=== PATIENT | female | born 1940 | race Caucasian/White ===

== ENCOUNTER 2019-04-30 17:04 | Emergency (ER) | payer MEDICARE, BC ==
--- NOTE | 2019-04-30 17:38 | ED ---
Syncope/Near Syncope - HPI Summary HPI Summary: Pt is a 78 y/o F brought in by EMS to [facility] for a syncopal episode at home after dialysis earlier today. Pt states that she was getting out of her car when she returned home and eventually was unable to. Her family then called EMS. The pt usually runs a low BP at home after dialysis per family. She reports feeling itchy and having leg pains and spine pains which are rated an 8/ 10 in severity. She denies feeling confused or disoriented at all. She also denies any fever, CP, SOB, cough, diaphoresis, abdominal pain, N/V/D, and headaches. She states no alleviating symptoms. Pt has Eliquis for AFIB and has a Hx of liver disease. She visited the wound care center in [place] for her lacerations on her L lower extremity. Upon arrival to the ED her BP is 98/43. - History Of Current Complaint Chief Complaint: EDAltMentalStatus Time Seen by Provider: 04/30/19 17:10 Hx Obtained From: Patient Onset/Duration: Sudden Onset, Lasting Hours, Resolved Timing: Constant Context: Witnessed - by family Activity At Onset: Other - getting out of a car Associated Head Trauma: No Aggravating Factor(s): Other - dialysis Alleviating Factor(s): Nothing Associated Signs And Symptoms: Negative - fever, CP, SOB, cough, diaphoresis, abdominal pain, N/V/D, and headaches, Other - POSITIVE: leg pain, spinal pain, itchyness - Allergies/Home Medications Allergies/Adverse Reactions: Allergies Allergy/AdvReac Type Severity Reaction Status Date / Time No Known Allergies Allergy Verified 04/30/19 17:44 Home Medications: Home Medications Allopurinol TAB* [Zyloprim 300 MG TAB*] 300 mg PO DAILY 04/30/19 [History Confirmed 04/30/19] Apixaban* [Eliquis*] 5 mg PO BID 04/30/19 [History Confirmed 04/30/19] Calcium Acetate CAP* [Phoslo CAP*] 667 mg PO TID 04/30/19 [History Confirmed ] Digoxin TAB* [Lanoxin TAB*] 0.125 mg PO DAILY 04/30/19 [History Confirmed ] Esomeprazole Magnesium [Nexium 24Hr] 20 mg PO DAILY 04/30/19 [History Confirmed 04/30/19] Gabapentin [Neurontin] 100 mg PO BEDTIME 04/30/19 [History Confirmed 04/30/19] Lactulose 15 ml PO TID 04/30/19 [History Confirmed 04/30/19] Metoprolol Tartrate 25 mg PO BID 04/30/19 [History Confirmed 04/30/19] Midodrine 10 mg PO TID 04/30/19 [History Confirmed 04/30/19] Primidone TAB(*) [Mysoline TAB(*)] 50 mg PO DAILY 04/30/19 [History Confirmed ] PMH/Surg Hx/FS Hx/Imm Hx Previously Healthy: No Cardiovascular History: Reports: Hx Atrial Fibrillation GI History: Reports: Other GI Disorders - Liver disease History: Reports: Hx Dialysis Infectious Disease History: Denies: Traveled Outside the [place] in Last 30 Days - Family History Known Family History: Positive: Cardiac Disease - father of a NV at 55 - Social History Alcohol Use: None Hx Substance Use: No Hx Tobacco Use: No Review of Systems Negative: Fever, Skin Diaphoresis Negative: Chest Pain Negative: Shortness Of Breath, Cough Negative: Abdominal Pain, Vomiting, Diarrhea, Nausea Positive: Other - leg pain, spinal pain, itchyness Positive: Syncope. Negative: Headache All Other Systems Reviewed And Are Negative: Yes Physical Exam - Summary Physical Exam Summary: Appearance: Chronically ill appearing elderly woman, Well-nourished, lying in bed comfortably Skin: Multiple ecchymosis over her legs and torso up to the neck Eyes: sclera anicteric, no conjunctival pallor ENT: mucous membranes moist, pharynx appears normal Neck: Supple, nontender Respiratory: Clear to auscultation, no signs of respiratory distress Cardiovascular: Normal S1, S2. No murmurs. Normal distal pulses in tibial and radial bilaterally. Abdomen: Soft, nontender, normal active bowel sounds present Musculoskeletal: Normal, Strength/ROM Intact, Neurological: A&Ox3, awake and alert, mentation is normal, speech is fluent and appropriate, told to be confused from EMS but is able to answer all questions accurately Psychiatric: affect is normal, does not appear anxious or depressed, Awake and alert Triage Information Reviewed: Yes Vital Signs On Initial Exam: Initial Vitals Temp Pulse Resp BP Pulse Ox 98.3 F 61 15 172/142 100 04/30/19 17:13 06/20/19 17:13 04/30/19 17:13 04/30/19 17:13 04/30/19 17:13 Vital Signs Reviewed: Yes Diagnostics - Vital Signs Vital Signs Temp Pulse Resp BP Pulse Ox 04/30/19 17:13 98.3 F 61 15 172/142 100 - Laboratory Result Diagrams: 04/30/19 17:56 04/30/19 17:56 Lab Statement: Any lab studies that have been ordered have been reviewed, and results considered in the medical decision making process. - Radiology CXR Radiology Interpretation Completed By: Radiologist Summary of Radiographic Findings: No acute diseases. Pending offical review. - EKG 1730 Cardiac Rate: NL - 60 BPM Summary of EKG Findings: Ventricular-paced rhythm at 60 BPM. No further analysis attempted due to paced rhythm. Interpreted by Dr. Renteria at 04/30/19 [id number]. Re-Evaluation - Re-Evaluation First Eval Re-Evaluation Time: 19:32 Change: Improved Comment: Pt's family was made aware of her lab results and CXR. Course/Dx Course Of Treatment: Pt is a 78 y/o F brought in by EMS to [facility] for a syncopal episode at home after dialysis earlier today. Pt states that she was getting out of her car when she returned home and eventually was unable to. Her family then called EMS. The pt usually runs a low BP at home after dialysis per family. Upon arrival to the ED her BP is 98/43. Her Pe shows that she is a chronically ill appearing elderly woman, has multiple ecchymosis over her legs and torso up to the neck, she is A&Ox3, and told to be confused from EMS but is able to answer all questions accurately. Her EKG shows Ventricular-paced rhythm at 60 BPM. No further analysis attempted due to paced rhythm. She had abnormal lab values in Creatinine, Chloride, BUN/Creatinine Ratio, Calcium, Alkaline Phosphatase, and a Troponin of .14. Her CXR shows no acute diseases. Pt will be discharged with a Dx of Hypotension. - Diagnoses Provider Diagnoses: Hypotension Discharge - Sign-Out/Discharge Documenting (check all that apply): Patient Departure Patient Received Moderate/Deep Sedation with Procedure: No - Discharge Plan Condition: Good Disposition: HOME Patient Education Materials: Hypotension (ED) Referrals: Everette Cazares MD [Primary Care Provider] - 3 Days (if needed) Additional Instructions: Your BP seems to have rebounded nicely and the tests we ran today did not show any sign of the ammonia rising or any other acute problem. - Billing Disposition and Condition Condition: GOOD Disposition: Home - Attestation Statements Document Initiated by Ricardo: Yes Documenting Scribe: Fabián Ingram Provider For Whom Ricardo is Documenting (Include Credential): Anthony Renteria MD Scribe Attestation: I, Fabián Ingram, scribed for Anthony Renteria MD on 05/02/19 at 0455. Scribe Documentation Reviewed: Yes Provider Attestation: The documentation as recorded by the Fabián pickens accurately reflects the service I personally performed and the decisions made by me, Anthony Renteria MD Status of Scribe Document: Viewed
[2019-04-30 18:05] LABS: ABS Basophils 0.1 10^3/ul (0-0.2); ABS Eosinophils 0.6 10^3/ul (0-0.6); ABS Lymphocytes 2.2 10^3/ul (1.0-4.8); ABS Monocytes 1.2 10^3/ul (0-0.8); ABS Neutrophils 5.7 10^3/ul (1.5-7.7); Eosinophil % 6.4 %; Hematocrit 39 % (35-47); Lymphocyte % 22.3 %; Mean Corpuscular HGB Conc 34 g/dL (31-36); Mean Corpuscular Hemoglobin 34 pg (27-31); Mean Corpuscular Volume 101 fL (80-97); Mean Platelet Volume 8.5 fL (7.4-10.4); Nucleated Red Blood Cells % 0.1; Platelet Count 158 10^3/uL (150-450); Red Blood Count 3.82 10^6 /uL (3.70-4.87); Red Cell Distribution Width 16 % (10-15); White Blood Count 9.8 10^3/uL (3.5-10.8)
[2019-04-30 18:25] LABS: ALT 10 U/L (7-52); AST 22 U/L (13-39); Albumin/Globulin Ratio 1.2 (1-3); Alkaline Phosphatase 182 U/L (34-104); Anion Gap 11 mmol/L (2-11); BUN/Creatinine Ratio 5.2 (8-20); Blood Urea Nitrogen 15 mg/dL (6-24); CO2 Carbon Dioxide 27 mmol/L (22-32); Calcium 7.9 mg/dL (8.6-10.3); Chloride 96 mmol/L (101-111); EGFR African American 19.3 (>60); EGFR Non-African American 15.9 (>60); Globulin 2.5 g/dL (2-4); Glucose 110 mg/dL (70-100); Potassium 4.2 mmol/L (3.5-5.0); Sodium 134 mmol/L (135-145); Total Protein 5.5 g/dL (6.4-8.9)
[2019-04-30 18:43] LABS: Troponin I 0.14 ng/mL (<0.04)
[2019-04-30 18:50] LABS: TSH (Thyroid Stimulating Horm) 2.71 mcIU/mL (0.34-5.60)
[2019-04-30 20:52] VITALS: BP 94/50
== END 2019-04-30 20:15 | disposition home or self-care (01) ==
LOC: ED 17:04
DX: I95.9 Hypotension, unspecified (principal); I48.91 Unspecified atrial fibrillation; Z79.01 Long term (current) use of anticoagulants; Z79.899 Other long term (current) drug therapy; N18.6 End stage renal disease; Z99.2 Dependence on renal dialysis
CPT/HCPCS: 36415; 71046; 80053; 82140; 83735; 84443; 84484; 85025; 93005; 99284

== ENCOUNTER 2019-05-14 15:47 | Inpatient (IN) | payer MEDICARE, BC ==
--- OUTSIDE RECORDS SUMMARY | 2019-05-14 17:04 | XMS REPORT | Continuity of Care Document ---
:1940 External Reference #:[id number] Author Name Dirk Maier, OD Address [address] [place] [address] Care Team Providers Name Role Phone Everette Cazares MD Care Team Information Reconciliation Clerk Unavailable Debora VIGIL, Everette Primary Care Physician Unavailable Payers Date Identification Numbers Payment Provider Subscriber Policy Number: [id number] Medicare [place]manza PayID: [id number] [address] [place] [address] Policy Number: [id number] [place] Urmila Almanza PayID: [id number] [address] [address] [place] [address] Family History Date Family Member(s) Observation Comments General Age-Related Macular Degeneration General Glasses Father Glasses Father due to Heart Attack () Mother Glasses Mother due to Natural Causes () Social History Type Date Description Comments Sex Unknown Allergies, Adverse Reactions, Alerts Active Allergies Reaction Severity Comments Date Codeine 05/12/2019 Medications Active Medications SIG Qnty Indications Ordering Provider Date Digoxin Unknown 125mcg Tablets Eliquis Unknown 2.5mg Tablets Gabapentin Unknown 100mg Capsules Metoprolol Succinate ER Unknown 25mg Tablets ER 24HR Sevelamer HCL Unknown 800mg Tablets Calcium Acetate Unknown 668(169Ca) mg Tablets Lactulose TK 15 ML PO tid Unknown 10GM/15ML Solution Vital Signs Date Vital Result Comment 05/12/2019 9:18am Intraocular Pressure Right Eye 12 mmHg Intraocular Pressure Left Eye 12 mmHg Procedures Date Code Description Status 05/12/2019 51280 Eye Exam New Comprehensive Completed
--- NOTE | 2019-05-14 18:08 | ED ---
Lower Extremity - HPI Summary HPI Summary: The patient is a 78 y/o F presenting to [facility] with a chief complaint of three wounds on the lower extremities that she is concerned for infection over the last two months. She reports that she has been seeing the wound center since onset, but her legs are becoming more painful and the tissue seems to be worsening. The LLE has two wounds with one wound that has necrotic and erythematous tissue. The RLE has a wound that does not seem infected as it is healing well. She states that she has been following instructions well, but the symptoms are persisting. She states she is unable to bear the pain, which is rated 6/10 in severity. She denies fevers and chills. There are no other complaints at this time. Hx of Afib with pacemaker placement. FHx of cardiac disease with VT in father at age 55. Nonsmoker, no EtOH, no substance use. - History of Current Complaint Chief Complaint: EDExtremityLower Stated Complaint: LT LEG WOUND PER PT Time Seen by Provider: 05/14/19 17:41 Hx Obtained From: Patient Mechanism Of Injury: Other - infected wounds Onset of Pain: Days Onset/Duration: Still Present - two months Severity Initially: Mild Severity Currently: Moderate Pain Intensity: 6 Pain Scale Used: 0-10 Numeric Timing: Lasting Weeks Location: Other - three wounds on lower extremities Associated Signs And Symptoms: Positive: Redness, Other - POSITIVE: necrotic tissue in one wound on LLE, healing wound on RLE; NEGATIVE: chills. Negative: Fever Aggravating Factor(s): Nothing Alleviating Factor(s): Nothing - wound care is being followed but symptoms persist - Allergies/Home Medications Allergies/Adverse Reactions: Allergies Allergy/AdvReac Type Severity Reaction Status Date / Time No Known Allergies Allergy Verified 04/30/19 17:44 Home Medications: Home Medications Loteprednol 0.5% OPH.SUSP(NF) [Lotemax 0.5% OPH.SUSP (NF)] 1 drop BOTH EYES TID 05/14/19 [History Confirmed 05/14/19] Sevelamer TAB* [Renvela TAB*] 800 mg PO BID 05/14/19 [History Confirmed 05/14/19 ] Sodium Chloride 5% OPTH.RICHIE* [Vaishnavi 128 Opth 5% OPTH.SOLl*] 1 drop BOTH EYES TID 05/14/19 [History Confirmed 05/14/19] PMH/Surg Hx/FS Hx/Imm Hx Endocrine/Hematology History: Denies: Hx Diabetes Cardiovascular History: Reports: Hx Atrial Fibrillation Denies: Hx Hypercholesterolemia, Hx Hypertension GI History: Reports: Other GI Disorders - Liver disease History: Reports: Hx Dialysis - Surgical History Surgical History: Yes Surgery Procedure, Year, and Place: pacemaker Infectious Disease History: No Infectious Disease History: Denies: Traveled Outside the [place] in Last 30 Days - Family History Known Family History: Positive: Cardiac Disease - father of a VT at 55 - Social History Alcohol Use: None Hx Substance Use: No Substance Use Type: Reports: None Hx Tobacco Use: No Smoking Status (MU): Never Smoked Tobacco Do You Chew or Dip Tobacco: No Have You Chewed or Dipped Tobacco in the LAST YEAR: No Have You Smoked in the Last Year: No Review of Systems Negative: Fever, Chills Positive: Other - two wounds on the LLE with one that is more painful with necrotic and erythematous tissue, a wound on the RLE All Other Systems Reviewed And Are Negative: Yes Physical Exam - Summary Physical Exam Summary: VITAL SIGNS: Reviewed. GENERAL: Patient is a well-developed and nourished female who is lying comfortable in the stretcher. Patient is not in any acute respiratory distress. HEAD AND FACE: No signs of trauma. No ecchymosis, hematomas or skull depressions. No sinus tenderness. EYES: PERRLA, EOMI x 2, No injected conjunctiva, no nystagmus. EARS: Hearing grossly intact. Ear canals and tympanic membranes are within normal limits. MOUTH: Oropharynx within normal limits. NECK: Supple, trachea is midline, no adenopathy, no JVD, no carotid bruit, no c- spine tenderness, neck with full ROM. CHEST: Symmetric, no tenderness at palpation. LUNGS: Clear to auscultation bilaterally. No wheezing or crackles. CVS: Regular rate and rhythm, S1 and S2 present, no murmurs or gallops appreciated. ABDOMEN: Soft, non-tender. No signs of distention. No rebound, no guarding, and no masses palpated. Bowel sounds are normal. EXTREMITIES: FROM in all major joints, no edema, no cyanosis or clubbing. NEURO: Alert and oriented x 3. No acute neurological deficits. Speech is normal and follows commands. SKIN: Three wounds on the lower extremities, one with necrotic tissue and yellowish discharge. Dry and warm. Triage Information Reviewed: Yes Vital Signs On Initial Exam: Initial Vitals Temp Pulse Resp BP Pulse Ox 98.7 F 60 16 89/35 93 05/14/19 16:00 05/14/19 16:00 05/14/19 16:00 05/14/19 16:00 05/14/19 16:00 Vital Signs Reviewed: Yes Diagnostics - Vital Signs Vital Signs Temp Pulse Resp BP Pulse Ox 05/14/19 16:00 98.7 F 60 16 89/35 93 - Laboratory Result Diagrams: 05/14/19 19:39 05/14/19 19:39 Lab Statement: Any lab studies that have been ordered have been reviewed, and results considered in the medical decision making process. Re-Evaluation - Re-Evaluation First Eval Re-Evaluation Time: 20:45 Comment: I discussed results and plan for admission with the patient. Lower Extremity Course/Dx - Course Assessment/Plan: The patient is a 78 y/o F presenting to [facility] with a chief complaint of three wounds on the lower extremities that she is concerned for infection over the last two months. She reports that she has been seeing the wound center since onset, but her legs are becoming more painful and the tissue seems to be worsening. The LLE has two wounds with one wound that has necrotic and erythematous tissue. The RLE has a wound that does not seem infected as it is healing well. She states that she has been following instructions well, but the symptoms are persisting. She states she is unable to bear the pain, which is rated 6/10 in severity. She denies fevers and chills. There are no other complaints at this time. Hx of Afib with pacemaker placement. FHx of cardiac disease with VT in father at age 55. Nonsmoker, no EtOH, no substance use. Blood test results without any significant abnormality except for WBCs of 14, hemoglobin of 12.3, hematocrit of 37, platelets of 184, increased absolute neutrophils of 9.8, potassium of 2.8, chloride of 97, creatinine of 3.83, glucose of 142, lactic acid of 2.7, CRP of 71.5, and total protein of 5.5. In the ED course, we did send for cultures of the wounds in the legs. The patient was started on vancomycin and cefepime for her skin infection. At this point I discussed my physical exam findings and test results with and Dr. Hurst from the hospital services , and he accepted the patient for admission. - Diagnoses Provider Diagnoses: Cellulitis, Wound infection - Physician Notifications Discussed Care Of Patient With: Epifanio Hurst - hospitalist Time Discussed With Above Provider: 20:43 Instructed by Provider To: Other - I discussed the patient's case with Dr. Hurst , and he accepts the patient for admission. Discharge - Sign-Out/Discharge Documenting (check all that apply): Patient Departure - Patient is accepted for admission by Dr. Hurst. Patient Received Moderate/Deep Sedation with Procedure: No - Discharge Plan Condition: Stable Disposition: ADMITTED TO [facility] Referrals: Everette Cazares MD [Primary Care Provider] - - Billing Disposition and Condition Condition: STABLE Disposition: Admitted to [facility] - Attestation Statements Document Initiated by Ricardo: Yes Documenting Scribe: Felicita Robert Provider For Whom Ricardo is Documenting (Include Credential): Dr. John Trujillo MD Scribe Attestation: Felicita Ayala, scribed for Dr. John Trujillo MD on 05/14/19 at 2109. Scribe Documentation Reviewed: Yes Provider Attestation: The documentation as recorded by the Felicita pickens accurately reflects the service I personally performed and the decisions made by me, Dr. John Trujillo MD Status of Scribe Document: Ready
[2019-05-14] MEDS ORDERED: HYDROcodone/ACETAMIN 5-325 MG* 1 TAB PO ONE (18:49)
[2019-05-14 19:49] LABS: ABS Basophils 0.1 10^3/ul (0-0.2); ABS Eosinophils 0.2 10^3/ul (0-0.6); ABS Lymphocytes 2.4 10^3/ul (1.0-4.8); ABS Monocytes 1.5 10^3/ul (0-0.8); ABS Neutrophils 9.8 10^3/ul (1.5-7.7); Eosinophil % 1.6 %; Hematocrit 37 % (35-47); Hemoglobin 12.3 g/dL (12.0-16.0); Lymphocyte % 17.3 %; Mean Corpuscular HGB Conc 33 g/dL (31-36); Mean Corpuscular Hemoglobin 34 pg (27-31); Mean Corpuscular Volume 102 fL (80-97); Mean Platelet Volume 9.4 fL (7.4-10.4); Nucleated Red Blood Cells % 0.1; Platelet Count 184 10^3/uL (150-450); Red Blood Count 3.66 10^6 /uL (3.70-4.87); Red Cell Distribution Width 16 % (10-15)
[2019-05-14 20:04] LABS: Albumin/Globulin Ratio 1.2 (1-3); BUN/Creatinine Ratio 5.7 (8-20); C Reactive Protein 71.5 mg/L (<8.01); Calcium 8.2 mg/dL (8.6-10.3); EGFR African American 13.8 (>60); EGFR Non-African American 11.4 (>60); Globulin 2.5 g/dL (2-4); Potassium 2.8 mmol/L (3.5-5.0); Total Bilirubin 1.1 mg/dL (0.2-1.0); Total Protein 5.5 g/dL (6.4-8.9)
[2019-05-14] MEDS ORDERED: Cefepime(*) 2 GM in NS 0.9% 50 ML* 50 ML IVPB ONE (20:11)
[2019-05-14] MEDS ORDERED: Magnesium Sulfate 1 GM IV* 1 GM/100 ML BAG IV ONE (20:13)
[2019-05-14] MEDS ORDERED: Vancomycin(*) 1,000 MG in NS 0.9% 250 ML* 250 ML IVPB ONE (20:13)
[2019-05-14] MEDS ORDERED: Potassium Chlor TAB* 20 MEQ TAB.ER PO ONE (20:14)
[2019-05-14] MEDS ORDERED: NS 0.9% 50 ML* 50 ML ONE (20:37)
[2019-05-14] MEDS ORDERED: Cefepime* 2 GM in Dextrose 50mL Q12H (Duplex) IV ONE (21:00)
--- NOTE | 2019-05-14 21:58 | HP ---
History of Present Illness - History of Present Illness Reason for Visit: Sharp stabbing wounds. History of Present Illness: The patient is a 78 y/o F with A. FIb on eliquis/Digoxin, s/p PPM, Right Hip pain, ESRD on HD M/W/F, Liver disease on lactulose, Chronic LE wounds being treated by wound center here due to severe pain in legs at the wound cites. She has some purulent discharge from the wounds which has increased a bit over the last few days. No fever, chills. No other abdominal pain. Saturday had bout of diarrhea and had fell on Saturday and had more buffer copper wounds however the purulent discharge from these wounds. Also had episode of vomiting today but that has resolved. Patient unsure of any dizziness during recent fall but daughter says it is due to right hip pain which causes her legs to give out. She has appointment with ortho to take care of it. - Past Medical History Cardiac: AFIB, Other - Chronic low BP especially during HD so on orine. FUNDRAISING CONSULTANT: Peripheral neuropathy - Bilateral LE. Gastrointestinal: GERD Hepatobiliary: Cirrhosis - She says she has liver disease likely cirrhosis. With high ammonia. Musculoskeletal: Osteoarthritis, Other - Lump on spine with difficulty ambulating uses a walker or wheelchair. Infectious Disease: Other - Chronic LE wounds after she fell at eye doctor's office and punchered her skin. Has new buffer copper wounds from a recent fall as well. Renal/: Other - ESRD started on HD over a year ago every MWF Dermatology: Other - Has Glaucoma - Past Surgical History Past Surgical History: Cholecystectomy, Cataract Removal - Bilateral, Other - Pacemaker insertion. Gastric Bypass surgery. - Past Social History Smoke: Quit - Quit decades ago. Used to be a jayne tray smoker for many years. Alcohol: None Drugs: None Lives: With Family - With who takes of her but her daughter is currently taking care of her. Domestic Violence: Negative Review of Systems - Measurements Intake and Output: Intake and Output Last 24 Hours 05/12/19 05/13/19 05/14/19 05/15/19 06:59 06:59 06:59 06:59 Intake Total 50 Balance 50 Weight 133 lb Intake: IV Fluids 50 - Review of Systems Constitutional Symptoms: Positive: Weakness, Unexplained Falls Negative: Fever Dermatology: Positive: Rash, Skin Lesions HEENT: Negative: Vertigo, Sinus Problem Eyes: Positive: Glaucoma Cardiology: Negative: Chest Pain, Shortness of Breath Gastroenterology: Positive: Nausea, Vomiting, Diarrhea Genital - Urinary: Positive: Other - No urine production due to ESRD. Negative: Dysuria, Polyuria Musculoskeletal: Positive: Low Back Pain, Sciatica Objective Vital Signs - 8 hr 05/14/19 05/14/19 05/14/19 16:00 17:36 17:39 Temperature 98.7 F Pulse Rate 60 Respiratory 16 16 Rate Blood Pressure 89/35 92/44 (mmHg) O2 Sat by Pulse 93 Oximetry 05/14/19 05/14/19 05/14/19 18:00 18:06 18:32 Temperature 97.7 F Pulse Rate 60 60 Respiratory 16 22 Rate Blood Pressure 85/39 (mmHg) O2 Sat by Pulse 94 92 Oximetry 05/14/19 18:36 Temperature Pulse Rate 60 Respiratory 16 Rate Blood Pressure 86/37 (mmHg) O2 Sat by Pulse 99 Oximetry Oxygen Devices in Use Now: None Eyes: No Scleral Icterus, PERRLA Ears/Nose/Mouth/Throat: NL Teeth, Lips, Gums, Clear Oropharnyx, Mucous Membranes Moist Respiratory: Clear to Auscultation Cardiovascular: NL Sounds; No Murmurs; No JVD Abdominal: NL Sounds; No Tenderness; No Distention, No Hepatosplenomegaly Extremities: - - Left Leg medial aspect large wound with drainage and tenderness , lateral aspect wound showing good granulation tissue, Right lateral aspect showing a well healing wound almost less than 5mm. New alicia on the right knee no discharge. Neurological: Alert and Oriented x 3 Result Diagrams: 05/14/19 19:39 05/14/19 19:39 Microbiology and Other Data: Microbiology 05/14/19 19:03 Skin and Soft Tissue MRSA/MSSA (PCR - Final Leg Right Mrsa Negative S.aureus Negative Gram Stain - Preliminary 05/14/19 19:03 Skin and Soft Tissue MRSA/MSSA (PCR - Final Leg Left Mrsa Negative S.aureus Negative Gram Stain - Preliminary EKG Data: Ventricular paced rhythm at 60bpm. Assess/Plan/Problems-Billing Assessment: The patient is a 78 y/o F with A. FIb on eliquis/Digoxin, s/p PPM, Right Hip pain, ESRD on HD M/W/F, Liver disease on lactulose, Chronic LE wounds being treated by wound center here being admitted for high WBC, lactic acidosis due to ?sepsis from wounds. - Patient Problems (1) Sepsis Current Visit: Yes Status: Acute Comment: Hard to detect high HR due to paced rhythm but patient does have high WBC and lactic acidosis. For now continue vanco/cefepime started in ER. Repeat Lactic Acid in AM. (2) Wound of lower extremity Current Visit: Yes Status: Acute Code(s): S81.809A - UNSPECIFIED OPEN WOUND , UNSPECIFIED LOWER LEG, INIT ENCNTR SNOMED Code(s): 462981981 Comment: Chronic wounds. I don't see much purulent discharge on expression but possible nidus of infection. Will consult wound care team to evaluate. (3) Fall Current Visit: Yes Status: Acute Comment: Due to right hip pain. Will get PT evaluation of her strength and gait. (4) ESRD (end stage renal disease) on dialysis Current Visit: Yes Status: Acute Code(s): N18.6 - END STAGE RENAL DISEASE; Z99.2 - DEPENDENCE ON RENAL DIALYSIS SNOMED Code(s): 071987286 Comment: Continue HD on MWF (5) A-fib Current Visit: Yes Status: Acute Code(s): I48.91 - UNSPECIFIED ATRIAL FIBRILLATION SNOMED Code(s): 07270514 Comment: Currently in paced rhythm. Will hold metoprolol as patient tends to have low BP. Continue anti-coagulation/digoxin for now but should also be re-evaluated as outpatient regarding risk/benifit in this patient with recurrent falls especially given her rhythm is paced. (6) Hypotension Current Visit: Yes Status: Acute Comment: Likely due to metoprolol use vs lactulose use causing fluid loss. Continue midodrine. (7) Liver disease Current Visit: Yes Status: Acute Code(s): K76.9 - LIVER DISEASE, UNSPECIFIED SNOMED Code(s): 856249993 Comment: ?Cirrhosis it is unclear however family state her ammonia does run high and she's on lactulose will restart lactulose and follow up ammonia level. (8) Hypokalemia Current Visit: Yes Status: Acute Code(s): E87.6 - HYPOKALEMIA SNOMED Code( s): 43192277 Comment: Likely due to GI losses. Replace potassium with a small dose. Possible better correction with HD in AM. Allergies/Medications Medication: Apixaban* [Eliquis*] 5 mg PO BID 04/30/19 [History Confirmed 05/14/19] Calcium Acetate CAP* [Phoslo CAP*] 2 cap PO BID 04/30/19 [History Confirmed 02/27] Digoxin TAB* [Lanoxin TAB*] 0.125 mg PO DAILY 04/30/19 [History Confirmed ] Esomeprazole Magnesium [Nexium 24Hr] 40 mg PO DAILY 04/30/19 [History Confirmed 05/14/19] Gabapentin [Neurontin] 100 mg PO BEDTIME 04/30/19 [History Confirmed 05/14/19] Lactulose 20 ml PO TID 04/30/19 [History Confirmed 05/14/19] Metoprolol Tartrate 25 mg PO BID 04/30/19 [History Confirmed 05/14/19] Midodrine 5 mg PO BID 04/30/19 [History Confirmed 05/14/19] Collagenase 250 MG/GM OINT* [Santyl 250 mg/gm Oint*] 1 applic TOPICAL DAILY 30 Days #60 gm 05/12/19 [Rx Confirmed 05/14/19] Loteprednol 0.5% OPH.SUSP(NF) [Lotemax 0.5% OPH.SUSP (NF)] 1 drop BOTH EYES TID 05/14/19 [History Confirmed 05/14/19] Sevelamer TAB* [Renvela TAB*] 800 mg PO BID 05/14/19 [History Confirmed 05/14/19 ] Sodium Chloride 5% OPTH.RICHIE* [Vaishnavi 128 Opth 5% OPTH.SOLl*] 1 drop BOTH EYES TID 05/14/19 [History Confirmed 05/14/19] Allergies/Adverse Reactions: Allergies Allergy/AdvReac Type Severity Reaction Status Date / Time hydrocodone Allergy Hives Verified 05/14/19 22:20
[2019-05-14] MEDS ORDERED: Vancomycin(*) 0 MG in NS 0.9% 250 ML* 250 ML IVPB SCH (23:45)
[2019-05-15 06:47] LABS: ABS Basophils 0.1 10^3/ul (0-0.2); ABS Eosinophils 0.3 10^3/ul (0-0.6); ABS Lymphocytes 2.4 10^3/ul (1.0-4.8); ABS Monocytes 1.3 10^3/ul (0-0.8); ABS Neutrophils 8.7 10^3/ul (1.5-7.7); Eosinophil % 2.7 %; Hematocrit 34 % (35-47); Hemoglobin 11.3 g/dL (12.0-16.0); Lymphocyte % 18.5 %; Mean Corpuscular HGB Conc 33 g/dL (31-36); Mean Corpuscular Hemoglobin 34 pg (27-31); Mean Corpuscular Volume 101 fL (80-97); Mean Platelet Volume 9.3 fL (7.4-10.4); Nucleated Red Blood Cells % 0.1; Platelet Count 160 10^3/uL (150-450); Red Blood Count 3.35 10^6 /uL (3.70-4.87); Red Cell Distribution Width 15 % (10-15); White Blood Count 12.9 10^3/uL (3.5-10.8)
[2019-05-15 07:03] LABS: Albumin 2.5 g/dL (3.2-5.2); Albumin/Globulin Ratio 1.1 (1-3); BUN/Creatinine Ratio 5.5 (8-20); Calcium 7.8 mg/dL (8.6-10.3); EGFR African American 10.9 (>60); Globulin 2.3 g/dL (2-4); Indirect Bilirubin 0.6 mg/dL (0.3-1.0); Potassium 3.3 mmol/L (3.5-5.0); Total Bilirubin 0.9 mg/dL (0.2-1.0); Total Protein 4.8 g/dL (6.4-8.9)
[2019-05-15] MEDS: Calcium Acetate CAP* 667 MG PO SCH ×2 (08:11→20:34)
[2019-05-15] MEDS: oxyCODONE/Acetamin 5/325 MG* TAB PO PRN ×3 (08:11→20:33)
[2019-05-15] MEDS: Apixaban* 2.5 MG TAB PO SCH ×2 (08:11→20:34)
[2019-05-15] MEDS: Sevelamer TAB* 800 MG PO SCH ×2 (08:13→20:34)
[2019-05-15] MEDS: Pantoprazole TAB * 40 MG TAB PO SCH (08:14)
[2019-05-15] MEDS: CMC:Midodrine 5 MG TAB PO SCH ×2 (08:14→20:33)
[2019-05-15] MEDS: LOTEPREDNOL 0.5% BOTH EYES SCH ×3 (08:15→20:34)
[2019-05-15] MEDS ORDERED: Digoxin TAB* 0.125 MG PO SCH (09:00)
[2019-05-15] MEDS ORDERED: Acetaminophen TAB* 325 MG PO PRN (10:10)
[2019-05-15 11:10] LABS: Digoxin 2.2 ng/ml (0.8-2.0)
[2019-05-15] MEDS: Morphine INJ* 2 MG/ML 1 ML SYRINGE (TWO MG - NEW SYRINGE VERSION) IV PRN (11:15)
[2019-05-15] MEDS: Sodium Chloride 5% OPTH.SOL* 15 ML BTL BOTH EYES SCH ×3 (11:45→21:31)
--- NOTE | 2019-05-15 12:46 | PN ---
Subjective Date of Service: 05/15/19 Interval History: pt c/o pain in b/l LE's, seen during dialysis session. Denies diarrhea or nausea , but had diarrhea recently. no abd pain. Arrived to spend summer with her children from [place] 2 weeks ago Objective Active Medications: Acetaminophen (Tylenol Tab*) 650 mg PO Q4H PRN PRN Reason: FEVER/PAIN Last Admin: 05/15/19 10:33 Dose: 650 mg Apixaban (Eliquis*) 2.5 mg PO BID [facility] Last Admin: 05/15/19 08:11 Dose: 2.5 mg Calcium Acetate (Phoslo Cap*) 1,334 mg PO BID [facility] Last Admin: 05/15/19 08:11 Dose: 1,334 mg Collagenase (Santyl 250 Mg/Gm Oint*) 1 applic TOPICAL DAILY [facility] Digoxin (Lanoxin Tab*) 0.125 mg PO DAILY [facility] Last Admin: 05/15/19 08:12 Dose: 0.125 mg Gabapentin (Neurontin Cap(*)) 100 mg PO BEDTIME [facility] Cefepime HCl (Maxipime 1 Gm In Dextrose Duplex (*)) 1 gm in 50 mls @ 100 mls/ hr IV Q24H [facility] Lactulose (Lactulose*) 20 ml PO TID [facility] Last Admin: 05/15/19 08:14 Dose: 20 ml Loteprednol Etabonate (Lotemax 0.5% Oph.Susp (Nf)) 1 drop BOTH EYES TID [facility] Last Admin: 05/15/19 08:15 Dose: Not Given Midodrine (Midodrine) 5 mg PO BID [facility]; Protocol Last Admin: 05/15/19 08:14 Dose: 5 mg Morphine Sulfate (Morphine Inj (Syringe))*) 2 mg IV Q4H PRN PRN Reason: PAIN Last Admin: 05/15/19 11:15 Dose: 2 mg Oxycodone/Acetaminophen (Percocet 5/325 Tab*) 1 tab PO Q4H PRN PRN Reason: PAIN Last Admin: 05/15/19 08:11 Dose: 1 tab Pantoprazole Sodium (Protonix Tab*) 40 mg PO DAILY [facility] Last Admin: 05/15/19 08:14 Dose: 40 mg Sevelamer Carbonate (Renvela Tab*) 800 mg PO BID [facility] Last Admin: 05/15/19 08:13 Dose: 800 mg Sodium Chloride (Hypertonic) (Vaishnavi 128 Opth 5% Opth.Soll*) 1 drop BOTH EYES TID MOHAN Last Admin: 05/15/19 11:45 Dose: Not Given Vital Signs - 8 hr 05/15/19 05/15/19 05/15/19 07:15 08:00 08:11 Temperature 97.5 F Pulse Rate 60 Respiratory 20 18 18 Rate Blood Pressure 115/41 (mmHg) O2 Sat by Pulse 100 Oximetry 05/15/19 05/15/19 08:12 11:15 Temperature Pulse Rate 66 Respiratory 20 Rate Blood Pressure (mmHg) O2 Sat by Pulse Oximetry Oxygen Devices in Use Now: None Appearance: 78 yo F in nAD, AAOx3 Eyes: No Scleral Icterus, PERRLA Ears/Nose/Mouth/Throat: NL Teeth, Lips, Gums, Mucous Membranes Moist Neck: NL Appearance and Movements; NL JVP, Trachea Midline Respiratory: Symmetrical Chest Expansion and Respiratory Effort, Clear to Auscultation Cardiovascular: NL Sounds; No Murmurs; No JVD, RRR Abdominal: NL Sounds; No Tenderness; No Distention, No Hepatosplenomegaly Lymphatic: No Cervical Adenopathy Extremities: No Clubbing, Cyanosis, - - b/l LE's edema -pitting r>L Skin: No Nodules or Sclerosis, - - left distal LE 2 wounds-one over mid tibia 1 cm deep, covered with eschar at 2x5 cm, above left medial malleolus another wound at 2x5 cm -bottom covered with slough. R leg above R lateral malleolus at 3x4 bottom covered with slough Neurological: NL Muscle Strength and Tone Result Diagrams: 05/15/19 06:29 05/15/19 06:29 Microbiology and Other Data: Microbiology 05/14/19 19:03 Skin and Soft Tissue MRSA/MSSA (PCR - Final Leg Right Mrsa Negative S.aureus Negative Gram Stain - Preliminary 05/14/19 19:03 Skin and Soft Tissue MRSA/MSSA (PCR - Final Leg Left Mrsa Negative S.aureus Negative Gram Stain - Preliminary EKG Data: Ventricular paced rhythm at 60bpm. Assess/Plan/Problems-Billing Assessment: The patient is a 78 y/o F with A. FIb on eliquis/Digoxin, s/p PPM, Right Hip pain, ESRD on HD M/W/F, Liver disease on lactulose, Chronic LE wounds being treated by wound center here being admitted for high WBC, lactic acidosis due to ?sepsis from wounds. 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 (2) A-fib Comment: Currently in paced rhythm. Cont holding metoprolol as patient tends to have low BP. Continue anti-coagulation for now but should also be re-evaluated as outpatient regarding risk/benifit in this patient with recurrent falls especially given her rhythm is paced. Holding digoxin due to elevated levels today (3) ESRD (end stage renal disease) on dialysis Comment: Continue HD on MWF (4) Fall Comment: Due to right hip pain. Will get PT evaluation of her strength and gait. will XRay R hip (5) Hypokalemia Comment: Likely due to GI losses. Replaced potassium with a small dose. Possible better correction after HD today. (6) Hypotension Comment: chronic, continue midodrine. (7) Liver disease Comment: ?Cirrhosis it is unclear however family state her ammonia does run high and she's on lactulose (8) Wound of lower extremity Comment: Chronic wounds. Now with infection. Will consult wound care team to evaluate. (9) DVT prophylaxis Comment: Elquis Status and Disposition: inpatient
[2019-05-15] MEDS: Collagenase 250 UNITS/GM OINT* 1 APPLIC OINT TOPICAL SCH (18:13)
--- NOTE | 2019-05-15 18:55 | PN ---
DIALYSIS NOTE: DATE OF DIALYSIS: 05/15/19 HISTORY: The patient was seen and examined and HD orders discussed with dialysis nurse. The patient is tolerating her procedure well. The patient being run isovolemic in light of her hypotension and admission for sepsis. The patient is also below her dry weight. Reports that her diarrhea has impro sarah. PHYSICAL EXAMINATION: HEENT: NC/AT. Heart: S1, S2 present. Regular at the time of exam. Lungs: Decreased breath sounds bilaterally. Abdomen: Soft. Extremities: Bilateral lower extremity edema, right more than left. PLAN: We will follow with the medical team. [id number]/[facility] #: [id number]
[2019-05-15] MEDS: [UNRECOGNIZED DRUG - OTHER] TOPICAL PRN (20:34)
[2019-05-15] MEDS: BETAMETHASONE VAL 0.1% TOPICAL PRN (20:34)
[2019-05-15] MEDS: Cefepime 1 GM in Dextrose(*) 1 GM/50 ML BAG IV SCH (20:43)
[2019-05-15] MEDS ORDERED: Gabapentin CAP(*) 100 MG PO SCH (21:00)
[2019-05-15] MEDS: Ondansetron INJ* 2 MG/ML VIAL IV PRN (21:31)
[2019-05-16] MEDS: oxyCODONE/Acetamin 5/325 MG* TAB PO PRN (03:49)
[2019-05-16 06:18] LABS: ABS Basophils 0.1 10^3/ul (0-0.2); ABS Eosinophils 0.3 10^3/ul (0-0.6); ABS Lymphocytes 1.9 10^3/ul (1.0-4.8); ABS Monocytes 1.1 10^3/ul (0-0.8); Eosinophil % 3.7 %; Hematocrit 34 % (35-47); Hemoglobin 11.2 g/dL (12.0-16.0); Lymphocyte % 20.4 %; Mean Corpuscular HGB Conc 33 g/dL (31-36); Mean Corpuscular Hemoglobin 34 pg (27-31); Mean Corpuscular Volume 104 fL (80-97); Mean Platelet Volume 9.6 fL (7.4-10.4); Nucleated Red Blood Cells % 0.2; Platelet Count 157 10^3/uL (150-450); Red Blood Count 3.26 10^6 /uL (3.70-4.87); Red Cell Distribution Width 16 % (10-15); White Blood Count 9.4 10^3/uL (3.5-10.8)
[2019-05-16 06:54] LABS: Calcium 8.3 mg/dL (8.6-10.3); Potassium 3.7 mmol/L (3.5-5.0)
[2019-05-16 07:00] LABS: BUN/Creatinine Ratio 4.2 (8-20); EGFR African American 17.8 (>60); EGFR Non-African American 14.8 (>60)
[2019-05-16 07:01] LABS: Digoxin 3.6 ng/ml (0.8-2.0)
[2019-05-16] MEDS: Sevelamer TAB* 800 MG PO SCH ×2 (08:51→20:57)
[2019-05-16] MEDS: Ondansetron INJ* 2 MG/ML VIAL IV PRN (08:51)
[2019-05-16] MEDS: Apixaban* 2.5 MG TAB PO SCH ×2 (08:51→20:57)
[2019-05-16] MEDS: CMC:Midodrine 5 MG TAB PO SCH ×2 (08:51→20:57)
[2019-05-16] MEDS: Calcium Acetate CAP* 667 MG PO SCH (08:51)
[2019-05-16] MEDS: Pantoprazole TAB * 40 MG TAB PO SCH (08:52)
[2019-05-16] MEDS: Sodium Chloride 5% OPTH.SOL* 15 ML BTL BOTH EYES SCH ×3 (08:52→20:57)
[2019-05-16] MEDS: LOTEPREDNOL 0.5% BOTH EYES SCH ×3 (08:53→20:57)
[2019-05-16] MEDS: Morphine INJ* 2 MG/ML 1 ML SYRINGE (TWO MG - NEW SYRINGE VERSION) IV PRN (09:14)
[2019-05-16 10:16] LABS: INR 1.29 (0.82-1.09)
[2019-05-16 10:27] LABS: Albumin 2.6 g/dL (3.2-5.2); Albumin/Globulin Ratio 1.2 (1-3); BUN/Creatinine Ratio 4.4 (8-20); Calcium 8.3 mg/dL (8.6-10.3); EGFR African American 15.9 (>60); EGFR Non-African American 13.2 (>60); Globulin 2.2 g/dL (2-4); Potassium 3.4 mmol/L (3.5-5.0); Total Bilirubin 0.9 mg/dL (0.2-1.0); Total Protein 4.8 g/dL (6.4-8.9)
[2019-05-16] MEDS ORDERED: Digoxin Immune Fab* 40 MG VIAL IV ONE (11:00)
[2019-05-16] MEDS ORDERED: Potassium Chlor TAB* 10 MEQ TAB.ER PO ONE ×2 (11:05→11:07)
[2019-05-16 11:07] LABS: Digoxin 3.6 ng/ml (0.8-2.0)
[2019-05-16] MEDS: BETAMETHASONE VAL 0.1% TOPICAL PRN ×2 (13:20→20:58)
[2019-05-16] MEDS: [UNRECOGNIZED DRUG - OTHER] TOPICAL PRN ×2 (13:20→20:58)
[2019-05-16 13:43] LABS: BUN/Creatinine Ratio 4.6 (8-20); Calcium 8.3 mg/dL (8.6-10.3); EGFR African American 15.3 (>60); EGFR Non-African American 12.7 (>60); Potassium 3.6 mmol/L (3.5-5.0)
[2019-05-16] MEDS: Collagenase 250 UNITS/GM OINT* 1 APPLIC OINT TOPICAL SCH (13:45)
--- NOTE | 2019-05-16 14:30 | PN ---
Subjective Date of Service: 05/16/19 Interval History: Very nauseous,vomitting, hypotensive,somewhat lethargic, feeling poorly this am.Paced rhythm. Digoxin level elevated at 3.6 Objective Active Medications: Acetaminophen (Tylenol Tab*) 650 mg PO Q4H PRN PRN Reason: FEVER/PAIN Last Admin: 05/15/19 10:33 Dose: 650 mg Apixaban (Eliquis*) 2.5 mg PO BID REPLACED BY [facility] Last Admin: 05/16/19 08:51 Dose: 2.5 mg Betamethasone Valerate (Betamethasone Rita 0.1% Oint(Nf)) 1 applic TOPICAL BID PRN PRN Reason: ITCHY SKIN Last Admin: 05/16/19 13:20 Dose: 1 applic Collagenase (Santyl 250 Mg/Gm Oint*) 1 applic TOPICAL DAILY MOHAN Last Admin: 05/16/19 13:45 Dose: 1 applic Cefepime HCl (Maxipime 1 Gm In Dextrose Duplex (*)) 1 gm in 50 mls @ 100 mls/ hr IV Q24H REPLACED BY [facility] Last Admin: 05/15/19 20:43 Dose: 100 mls/hr Loteprednol Etabonate (Lotemax 0.5% Oph.Susp (Nf)) 1 drop BOTH EYES TID REPLACED BY [facility] Last Admin: 05/16/19 13:21 Dose: 1 drop Midodrine (Midodrine) 5 mg PO BID REPLACED BY [facility]; Protocol Last Admin: 05/16/19 08:51 Dose: 5 mg Morphine Sulfate (Morphine Inj (Syringe))*) 2 mg IV Q4H PRN PRN Reason: PAIN Last Admin: 05/16/19 09:14 Dose: 2 mg Ondansetron HCl (Zofran Inj*) 4 mg IV Q6H PRN PRN Reason: NAUSEA Last Admin: 05/16/19 08:51 Dose: 4 mg Oxycodone/Acetaminophen (Percocet 5/325 Tab*) 1 tab PO Q4H PRN PRN Reason: PAIN Last Admin: 05/16/19 03:49 Dose: 1 tab Sevelamer Carbonate (Renvela Tab*) 800 mg PO BID REPLACED BY [facility] Last Admin: 05/16/19 08:51 Dose: 800 mg Sodium Chloride (Hypertonic) (Vaishnavi 128 Opth 5% Opth.Soll*) 1 drop BOTH EYES TID REPLACED BY [facility] Last Admin: 05/16/19 08:52 Dose: 1 drop Vital Signs - 8 hr 05/16/19 05/16/19 05/16/19 07:00 07:36 08:00 Temperature 97.6 F Pulse Rate 60 Respiratory 14 16 16 Rate Blood Pressure (mmHg) O2 Sat by Pulse 99 Oximetry 05/16/19 05/16/19 05/16/19 08:23 09:14 10:42 Temperature Pulse Rate Respiratory 16 16 Rate Blood Pressure 98/58 (mmHg) O2 Sat by Pulse Oximetry 05/16/19 05/16/19 05/16/19 10:43 11:15 11:38 Temperature 97.4 F Pulse Rate 60 Respiratory 16 14 14 Rate Blood Pressure 88/58 (mmHg) O2 Sat by Pulse 97 Oximetry 05/16/19 05/16/19 05/16/19 12:28 13:09 14:18 Temperature Pulse Rate Respiratory 14 14 16 Rate Blood Pressure (mmHg) O2 Sat by Pulse Oximetry Oxygen Devices in Use Now: None Eyes: No Scleral Icterus Neck: NL Appearance and Movements; NL JVP Respiratory: Symmetrical Chest Expansion and Respiratory Effort, Clear to Auscultation Cardiovascular: NL Sounds; No Murmurs; No JVD Abdominal: NL Sounds; No Tenderness; No Distention Extremities: - - chronic wounds,dressing in place, edema + Neurological: - - somewhat lethargic this am but answering questions and reports feeling poorly Result Diagrams: 05/16/19 05:41 05/16/19 13:02 Microbiology and Other Data: Microbiology 05/14/19 19:03 Skin and Soft Tissue MRSA/MSSA (PCR - Final Leg Right Mrsa Negative S.aureus Negative Gram Stain - Preliminary 05/14/19 19:03 Skin and Soft Tissue MRSA/MSSA (PCR - Final Leg Left Mrsa Negative S.aureus Negative Gram Stain - Preliminary EKG Data: Ventricular paced rhythm at 60bpm. Assess/Plan/Problems-Billing Assessment: The patient is a 78 y/o F with A. FIb on eliquis/Digoxin, s/p PPM, Right Hip pain, ESRD on HD M/W/F, Liver disease on lactulose, Chronic LE wounds being treated by wound center here being admitted for high WBC, lactic acidosis due to ?sepsis from wounds. 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 - Patient Problems (1) Digoxin toxicity Current Visit: Yes Status: Acute Code(s): T46.0X1A - POISONING BY CARDI- STIM GLYCOS/DRUG SIMLAR ACT, ACC, INIT SNOMED Code(s): 22304099 Comment: Very Symptomatic Last dig dose 8 12 am yesterday 05/15/19 Has a pacer to protect from Bradycardia Digoxin tox likely exacerbated in the setting of hypokalemia and dose yesterday Not cleared by dialysis due to Volume of distribution As pt very symptomatic, given 1 dose of Digibind with careful monitoring K replaced Sig improvement with digibind in 90 mins Was seen 3 times today and improved now awake bp ok,nausea and mentation improved Also holding protonix and Ca supplement that can exacerbate toxicity for now Her symptoms could also be chronic dig toxicity and pt may not be a good candidate for dig in the future given that she is on lactulose for liver cirrhosis and hyperammonemia and seems to have predisposition for diarrhea and hypokalemia (2) A-fib Current Visit: Yes Status: Acute Code(s): I48.91 - UNSPECIFIED ATRIAL FIBRILLATION SNOMED Code(s): 75486494 Comment: Currently in paced rhythm. Continue anti coaguation holding metoprolol and digoxin but can restart b jade low dose tomorrow once dig normalized (3) Sepsis Current Visit: Yes Status: Acute Comment: source likely leg wounds, MRSA neg, cont cefepime started in ER. (4) ESRD (end stage renal disease) on dialysis Current Visit: Yes Status: Acute Code(s): N18.6 - END STAGE RENAL DISEASE; Z99.2 - DEPENDENCE ON RENAL DIALYSIS SNOMED Code(s): 280261232 Comment: Continue HD on MWF (5) Fall Current Visit: Yes Status: Acute Comment: Due to right hip pain. Will get PT evaluation of her strength and gait. will XRay R hip (6) Hypokalemia Current Visit: Yes Status: Acute Code(s): E87.6 - HYPOKALEMIA SNOMED Code( s): 82134103 Comment: Likely due to GI losses. Replaced potassium with a small dose. Hold lactulose (7) Hypotension Current Visit: Yes Status: Acute Comment: chronic, continue midodrine. (8) Liver disease Current Visit: Yes Status: Acute Code(s): K76.9 - LIVER DISEASE, UNSPECIFIED SNOMED Code(s): 250847359 Comment: ?Cirrhosis it is unclear however family state her ammonia does run high and she's on lactulose .Will get more records (9) Wound of lower extremity Current Visit: Yes Status: Acute Code(s): S81.809A - UNSPECIFIED OPEN WOUND , UNSPECIFIED LOWER LEG, INIT ENCNTR SNOMED Code(s): 423413698 Comment: Chronic wounds. Now with infection. Will consult wound care team to evaluate. (10) DVT prophylaxis Current Visit: Yes Status: Acute Code(s): Z29.9 - ENCOUNTER FOR PROPHYLACTIC MEASURES, UNSPECIFIED SNOMED Code(s): 902314914 Comment: Elquis Status and Disposition: inpatient
[2019-05-16 16:44] LABS: BUN/Creatinine Ratio 4.6 (8-20); Calcium 8.9 mg/dL (8.6-10.3); EGFR African American 14.2 (>60); EGFR Non-African American 11.7 (>60); Potassium 3.9 mmol/L (3.5-5.0)
[2019-05-16 18:44] LABS: Digoxin 30.1 ng/ml (0.8-2.0)
[2019-05-16] MEDS: Cefepime 1 GM in Dextrose(*) 1 GM/50 ML BAG IV SCH (21:07)
[2019-05-17 08:06] LABS: Hematocrit 36 % (35-47); Hemoglobin 11.8 g/dL (12.0-16.0); Mean Corpuscular HGB Conc 33 g/dL (31-36); Mean Corpuscular Hemoglobin 34 pg (27-31); Mean Corpuscular Volume 103 fL (80-97); Mean Platelet Volume 9.2 fL (7.4-10.4); Platelet Count 180 10^3/uL (150-450); Red Blood Count 3.48 10^6 /uL (3.70-4.87); Red Cell Distribution Width 15 % (10-15); White Blood Count 15.1 10^3/uL (3.5-10.8)
[2019-05-17 08:16] LABS: BUN/Creatinine Ratio 4.9 (8-20); Calcium 8.5 mg/dL (8.6-10.3); EGFR African American 11.4 (>60); EGFR Non-African American 9.4 (>60); Potassium 3.9 mmol/L (3.5-5.0)
[2019-05-17 08:22] LABS: ABS Basophils 0.1 10^3/ul (0-0.2); ABS Eosinophils 0.1 10^3/ul (0-0.6); ABS Lymphocytes 1.4 10^3/ul (1.0-4.8); ABS Monocytes 1.4 10^3/ul (0-0.8); ABS Neutrophils 12.1 10^3/ul (1.5-7.7); Eosinophil % 0.5 %; Lymphocyte % 9.2 %; Nucleated Red Blood Cells % 0.1
[2019-05-17] MEDS: LOTEPREDNOL 0.5% BOTH EYES SCH ×3 (08:27→20:40)
[2019-05-17] MEDS: Sodium Chloride 5% OPTH.SOL* 15 ML BTL BOTH EYES SCH ×3 (08:27→20:40)
[2019-05-17] MEDS: Apixaban* 2.5 MG TAB PO SCH ×2 (08:28→20:39)
[2019-05-17] MEDS: Sevelamer TAB* 800 MG PO SCH ×2 (08:28→20:40)
[2019-05-17] MEDS: CMC:Midodrine 5 MG TAB PO SCH ×2 (08:28→20:40)
[2019-05-17] MEDS: Ondansetron INJ* 2 MG/ML VIAL IV PRN ×2 (09:01→15:29)
[2019-05-17] MEDS: Morphine INJ* 2 MG/ML 1 ML SYRINGE (TWO MG - NEW SYRINGE VERSION) IV PRN (09:27)
[2019-05-17] MEDS ORDERED: Vancomycin(*) 1,000 MG in NS 0.9% 250 ML* 250 ML IVPB ONE (09:51)
[2019-05-17] MEDS ORDERED: Vancomycin - DIALYSIS DOSING* NOTE FOLLOW UP SCH (10:00)
[2019-05-17] MEDS ORDERED: Vancomycin(*) 0 MG in NS 0.9% 250 ML* 250 ML IVPB SCH (10:00)
[2019-05-17 10:46] LABS: Troponin I 0.12 ng/mL (<0.04)
[2019-05-17] MEDS ORDERED: NS 0.9% 250 ML* 250 ML IV SCH (12:00)
[2019-05-17] MEDS: BETAMETHASONE VAL 0.1% TOPICAL PRN (13:47)
[2019-05-17] MEDS: [UNRECOGNIZED DRUG - OTHER] TOPICAL PRN (13:47)
[2019-05-17] MEDS: Collagenase 250 UNITS/GM OINT* 1 APPLIC OINT TOPICAL SCH (13:47)
--- NOTE | 2019-05-17 15:24 | PN ---
Subjective Date of Service: 05/17/19 Interval History: Was doing well after the Digibind yesterday but this am reports feeling tired and nauseous but not as much as yesterday.BP has been running low.lactatr still high and wbc high.c/o leg pain Objective Active Medications: Acetaminophen (Tylenol Tab*) 650 mg PO Q4H PRN PRN Reason: FEVER/PAIN Last Admin: 05/15/19 10:33 Dose: 650 mg Apixaban (Eliquis*) 2.5 mg PO BID [facility] Last Admin: 05/17/19 08:28 Dose: 2.5 mg Betamethasone Valerate (Betamethasone Rita 0.1% Oint(Nf)) 1 applic TOPICAL BID PRN PRN Reason: ITCHY SKIN Last Admin: 05/17/19 13:47 Dose: 1 applic Collagenase (Santyl 250 Mg/Gm Oint*) 1 applic TOPICAL DAILY [facility] Last Admin: 05/17/19 13:47 Dose: 1 applic Sodium Chloride (Ns 0.9% 250 Ml*) 250 mls @ 50 mls/hr IV PER RATE [facility] Last Admin: 05/17/19 14:33 Dose: 50 mls/hr Loteprednol Etabonate (Lotemax 0.5% Oph.Susp (Nf)) 1 drop BOTH EYES TID [facility] Last Admin: 05/17/19 13:47 Dose: 1 drop Midodrine (Midodrine) 5 mg PO BID [facility]; Protocol Last Admin: 05/17/19 08:28 Dose: 5 mg Morphine Sulfate (Morphine Inj (Syringe))*) 2 mg IV Q4H PRN PRN Reason: PAIN Last Admin: 05/17/19 09:27 Dose: 2 mg Ondansetron HCl (Zofran Inj*) 4 mg IV Q6H PRN PRN Reason: NAUSEA Last Admin: 05/17/19 09:01 Dose: 4 mg Oxycodone/Acetaminophen (Percocet 5/325 Tab*) 1 tab PO Q4H PRN PRN Reason: PAIN Last Admin: 05/16/19 03:49 Dose: 1 tab Pharmacy Consult (Vancomycin - Dialysis Dosing*) 1 note FOLLOW UP . [facility] Pharmacy Consult (Vancomycin Random Level*) 1 note FOLLOW UP ONCE ONE Stop: 05/18/19 06:01 Pharmacy Consult (Vancomycin Random Level*) 1 note FOLLOW UP ONCE ONE Stop: 05/20/19 06:01 Sevelamer Carbonate (Renvela Tab*) 800 mg PO BID [facility] Last Admin: 05/17/19 08:28 Dose: 800 mg Sodium Chloride (Hypertonic) (Vaishnavi 128 Opth 5% Opth.Soll*) 1 drop BOTH EYES TID [facility] Last Admin: 05/17/19 14:38 Dose: 1 drop Vital Signs - 8 hr 05/17/19 05/17/19 05/17/19 08:00 09:27 10:56 Temperature Pulse Rate Respiratory 16 16 16 Rate Blood Pressure (mmHg) O2 Sat by Pulse Oximetry 05/17/19 05/17/19 11:08 11:19 Temperature 97.5 F Pulse Rate 57 Respiratory 20 Rate Blood Pressure 110/78 (mmHg) O2 Sat by Pulse 100 Oximetry Oxygen Devices in Use Now: None Eyes: No Scleral Icterus Neck: NL Appearance and Movements; NL JVP Respiratory: Symmetrical Chest Expansion and Respiratory Effort Cardiovascular: NL Sounds; No Murmurs; No JVD, - Abdominal: NL Sounds; No Tenderness; No Distention Extremities: - - edema present, wounds examined.puncture wounds with serosang discharge and pus from some Neurological: Alert and Oriented x 3 Result Diagrams: 05/17/19 07:53 05/17/19 07:53 Microbiology and Other Data: Microbiology 05/14/19 19:03 Skin and Soft Tissue MRSA/MSSA (PCR - Final Leg Right Mrsa Negative S.aureus Negative Gram Stain - Preliminary 05/14/19 19:03 Skin and Soft Tissue MRSA/MSSA (PCR - Final Leg Left Mrsa Negative S.aureus Negative Gram Stain - Preliminary EKG Data: Ventricular paced rhythm at 60bpm. Assess/Plan/Problems-Billing Assessment: The patient is a 78 y/o F with A. FIb on eliquis/Digoxin, s/p PPM, Right Hip pain, ESRD on HD M/W/F, Liver disease on lactulose, Chronic LE wounds being treated by wound center here being admitted for high WBC, lactic acidosis due to ?sepsis from wounds. 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 - Patient Problems (1) Digoxin toxicity Current Visit: Yes Status: Acute Code(s): T46.0X1A - POISONING BY CARDI- STIM GLYCOS/DRUG SIMLAR ACT, ACC, INIT SNOMED Code(s): 38280355 Comment: Was Very Symptomatic Last dig dose 8 12 am 05/15/19 Has a pacer to protect from Bradycardia Digoxin tox likely exacerbated in the setting of hypokalemia Not cleared by dialysis due to Volume of distribution As pt very symptomatic, given 1 dose of Digibind with careful monitoring K replaced Sig improvement with digibind in 90 mins yesterday improved lethargy bp improved after digibind,nausea and mentation improved Also holding protonix and Ca supplement that can exacerbate toxicity for now Her symptoms could also be chronic dig toxicity and pt may not be a good candidate for dig in the future given that she is on lactulose for liver cirrhosis and hyperammonemia and seems to have predisposition for diarrhea and hypokalemia Dig level after digibind elevated but this is not accurate as it binds and stays in the body in non toxic form and does not signify toxicity and they do not rec checking dig level.Confirmed this with pharmacy as well. Will watch for symptoms and pt closely followed (2) A-fib Current Visit: Yes Status: Acute Code(s): I48.91 - UNSPECIFIED ATRIAL FIBRILLATION SNOMED Code(s): 37031790 Comment: Currently in paced rhythm. Continue anti coaguation holding metoprolol and digoxin but can restart b jade low dose when bp better (3) Sepsis Current Visit: Yes Status: Acute Comment: source likely leg wounds, MRSA neg but staph epidermidis resistant to pcn and sensitive to vanco and when vanco was stopped before, wbc rising.Cefepime held and Vanco restarted (4) ESRD (end stage renal disease) on dialysis Current Visit: Yes Status: Acute Code(s): N18.6 - END STAGE RENAL DISEASE; Z99.2 - DEPENDENCE ON RENAL DIALYSIS SNOMED Code(s): 575452355 Comment: Continue HD on MWF plan for hd tomorrow will plan isovolemic with no fluid off in setting of hypotension and sepsis (5) Fall Current Visit: Yes Status: Acute Comment: Due to right hip pain. Will get PT evaluation of her strength and gait. will XRay R hip (6) Hypokalemia Current Visit: Yes Status: Acute Code(s): E87.6 - HYPOKALEMIA SNOMED Code( s): 89956562 Comment: Likely due to GI losses. Replaced potassium with a small dose. Hold lactulose for now (7) Hypotension Current Visit: Yes Status: Acute Comment: chronic, continue midodrine will check cortisol,aldosterone,renin to see if she would need fludricortisone in setting of lactic acidosis and hypotension,sepsis, will mildly hydrate today with 50cc/hr for only 250cc total. plan for hd tomorrow (8) Liver disease Current Visit: Yes Status: Acute Code(s): K76.9 - LIVER DISEASE, UNSPECIFIED SNOMED Code(s): 570785402 Comment: family not sure she has cirrhosis and not sure what her underlying liver condition was. state her ammonia does run high and she's on lactulose .Will get more records. ammonia wnl and lactulose currently on hold (9) Wound of lower extremity Current Visit: Yes Status: Acute Code(s): S81.809A - UNSPECIFIED OPEN WOUND , UNSPECIFIED LOWER LEG, INIT ENCNTR SNOMED Code(s): 117218096 Comment: Chronic wounds. Now with infection. Will consult wound care team to evaluate. Continue Vanco if no improvement,consider ID eval (10) DVT prophylaxis Current Visit: Yes Status: Acute Code(s): Z29.9 - ENCOUNTER FOR PROPHYLACTIC MEASURES, UNSPECIFIED SNOMED Code(s): 995534887 Comment: Mohsen (11) Lactic acidosis Current Visit: Yes Status: Acute Code(s): E87.2 - ACIDOSIS SNOMED Code(s) : 10367076 Comment: mild hydration recheck in am hypotension (12) Troponin I above reference range Current Visit: Yes Status: Acute Code(s): R74.8 - ABNORMAL LEVELS OF OTHER SERUM ENZYMES SNOMED Code(s): 095076995 Comment: likely in setting of demand ischemia also in setting of renal failure/ esrd will trend and follow closely Status and Disposition: inpatient
[2019-05-17] MEDS: Pantoprazole TAB * 40 MG TAB PO SCH (17:56)
[2019-05-17 20:01] LABS: Troponin I 0.11 ng/mL (<0.04)
[2019-05-18] MEDS ORDERED: Vancomycin Random Level* NOTE FOLLOW UP ONE (06:00)
[2019-05-18 06:37] LABS: Hematocrit 36 % (35-47); Hemoglobin 11.6 g/dL (12.0-16.0); Mean Corpuscular HGB Conc 33 g/dL (31-36); Mean Corpuscular Hemoglobin 34 pg (27-31); Mean Corpuscular Volume 103 fL (80-97); Mean Platelet Volume 9.2 fL (7.4-10.4); Platelet Count 190 10^3/uL (150-450); Red Blood Count 3.47 10^6 /uL (3.70-4.87); Red Cell Distribution Width 16 % (10-15); White Blood Count 12.6 10^3/uL (3.5-10.8)
[2019-05-18 06:44] LABS: ABS Basophils 0.1 10^3/ul (0-0.2); ABS Eosinophils 0.1 10^3/ul (0-0.6); ABS Lymphocytes 1.9 10^3/ul (1.0-4.8); ABS Monocytes 1.6 10^3/ul (0-0.8); Eosinophil % 0.9 %; Lymphocyte % 14.9 %; Nucleated Red Blood Cells % 0.2
[2019-05-18 06:51] LABS: BUN/Creatinine Ratio 5.7 (8-20); Calcium 8.1 mg/dL (8.6-10.3); EGFR African American 8.6 (>60); EGFR Non-African American 7.1 (>60); Potassium 4.4 mmol/L (3.5-5.0)
[2019-05-18] MEDS: CMC:Midodrine 5 MG TAB PO SCH ×2 (07:56→21:10)
[2019-05-18] MEDS: Sevelamer TAB* 800 MG PO SCH ×2 (07:56→21:10)
[2019-05-18] MEDS: Pantoprazole TAB * 40 MG TAB PO SCH (07:57)
[2019-05-18] MEDS: LOTEPREDNOL 0.5% BOTH EYES SCH ×3 (07:57→21:09)
[2019-05-18] MEDS: Apixaban* 2.5 MG TAB PO SCH (07:57)
[2019-05-18] MEDS: Sodium Chloride 5% OPTH.SOL* 15 ML BTL BOTH EYES SCH ×3 (07:57→21:09)
[2019-05-18] MEDS: Morphine INJ* 2 MG/ML 1 ML SYRINGE (TWO MG - NEW SYRINGE VERSION) IV PRN (09:09)
--- NOTE | 2019-05-18 09:12 | PN ---
Subjective Date of Service: 05/18/19 Interval History: This morning having bright red blood per rectum, associated with mild dull abdominal pain. No nausea, no vomiting, occasional heartburn. Objective Active Medications: Acetaminophen (Tylenol Tab*) 650 mg PO Q4H PRN PRN Reason: FEVER/PAIN Last Admin: 05/15/19 10:33 Dose: 650 mg Betamethasone Valerate (Betamethasone Rita 0.1% Oint(Nf)) 1 applic TOPICAL BID PRN PRN Reason: ITCHY SKIN Last Admin: 05/17/19 13:47 Dose: 1 applic Collagenase (Santyl 250 Mg/Gm Oint*) 1 applic TOPICAL DAILY [facility] Last Admin: 05/17/19 13:47 Dose: 1 applic Loteprednol Etabonate (Lotemax 0.5% Oph.Susp (Nf)) 1 drop BOTH EYES TID [facility] Last Admin: 05/18/19 07:57 Dose: 1 drop Midodrine (Midodrine) 5 mg PO BID [facility]; Protocol Last Admin: 05/18/19 07:56 Dose: 5 mg Morphine Sulfate (Morphine Inj (Syringe))*) 2 mg IV Q4H PRN PRN Reason: PAIN Last Admin: 05/17/19 09:27 Dose: 2 mg Ondansetron HCl (Zofran Inj*) 4 mg IV Q6H PRN PRN Reason: NAUSEA Last Admin: 05/17/19 15:29 Dose: 4 mg Oxycodone/Acetaminophen (Percocet 5/325 Tab*) 1 tab PO Q4H PRN PRN Reason: PAIN Last Admin: 05/16/19 03:49 Dose: 1 tab Pantoprazole Sodium (Protonix Iv*) 40 mg IV BID [facility] Pharmacy Consult (Vancomycin - Dialysis Dosing*) 1 note FOLLOW UP . [facility] Pharmacy Consult (Vancomycin Random Level*) 1 note FOLLOW UP ONCE ONE Stop: 05/20/19 06:01 Sevelamer Carbonate (Renvela Tab*) 800 mg PO BID [facility] Last Admin: 05/18/19 07:56 Dose: 800 mg Sodium Chloride (Hypertonic) (Vaishnavi 128 Opth 5% Opth.Soll*) 1 drop BOTH EYES TID [facility] Last Admin: 05/18/19 07:57 Dose: 1 drop Vital Signs - 8 hr 05/18/19 05/18/19 05/18/19 03:45 07:43 07:54 Temperature 98.1 F 97.5 F Pulse Rate 59 90 Respiratory 18 20 12 Rate Blood Pressure 153/90 102/41 (mmHg) O2 Sat by Pulse 93 93 Oximetry Oxygen Devices in Use Now: None Appearance: Lying in bed, not in distress Eyes: PERRLA Ears/Nose/Mouth/Throat: Mucous Membranes Moist Respiratory: Clear to Auscultation Cardiovascular: RRR, No Edema Abdominal: No Hepatosplenomegaly, - - bowel sounds normoacitve, soft, mild generalized tenderness, no rigidity no guarding. Extremities: No Edema Neurological: Alert and Oriented x 3 Result Diagrams: 05/18/19 05:59 05/18/19 05:59 Microbiology and Other Data: Microbiology 05/14/19 19:03 Skin and Soft Tissue MRSA/MSSA (PCR - Final Leg Right Mrsa Negative S.aureus Negative Gram Stain - Preliminary 05/14/19 19:03 Skin and Soft Tissue MRSA/MSSA (PCR - Final Leg Left Mrsa Negative S.aureus Negative Gram Stain - Preliminary Assess/Plan/Problems-Billing Assessment: The patient is a 78 y/o F with A. FIb on eliquis/Digoxin, s/p PPM, Right Hip pain, ESRD on HD M/W/F, Liver disease on lactulose, Chronic LE wounds being treated by wound center here being admitted for high WBC, lactic acidosis due to ?sepsis from wounds. 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 will change PPI to pantoprazole 40mg IV BID d/c elqiuis consult GI: Discussed case with Dr. Partida, hx of c-scope about a year ago- per family nothing notable found. monitor h/h, goal hb at 7, (2) Digoxin toxicity Current Visit: Yes Status: Acute Code(s): T46.0X1A - POISONING BY CARDI- STIM GLYCOS/DRUG SIMLAR ACT, ACC, INIT SNOMED Code(s): 90067486 Comment: received digibind, monitor for now. was symptomatic, now improved (3) ESRD (end stage renal disease) on dialysis Current Visit: Yes Status: Acute Code(s): N18.6 - END STAGE RENAL DISEASE; Z99.2 - DEPENDENCE ON RENAL DIALYSIS SNOMED Code(s): 718409579 Comment: Continue HD on MWF, (4) Hypokalemia Current Visit: Yes Status: Acute Code(s): E87.6 - HYPOKALEMIA SNOMED Code( s): 59080769 Comment: resolved (5) Sepsis Current Visit: Yes Status: Acute Comment: source likely leg wounds, MRSA neg but staph epidermidis resistant to pcn and sensitive to vanco and when vanco was stopped before, wbc rising. Continue vancomycin. blood cultures negative thus far. (6) DVT prophylaxis Current Visit: Yes Status: Acute Code(s): Z29.9 - ENCOUNTER FOR PROPHYLACTIC MEASURES, UNSPECIFIED SNOMED Code(s): 879547722 Comment: elquis being held due to GI bleeding. no SCD for now due to multiple leg wounds. Status and Disposition: plan of care discussed in detail with daughter at beside and patient.
[2019-05-18] MEDS: Pantoprazole IV* 40 MG IV SCH ×2 (09:41→21:13)
[2019-05-18] MEDS ORDERED: Heparin DIALYSIS ONLY(*) 1,000 UNITS/ML VIAL DIALYSIS ONE (11:00)
--- NOTE | 2019-05-18 13:18 | PN ---
Hospitalist Progress Note Date of Service: 05/18/19 After HD, family noted her to be lethargic. Evalauted the patient, she is awake, alert, sitting on wheelchair. However not answering questions, not following commands. CT head ordered- no acute pathology. ammonia is slightly elevated, restarted home dose lactulose. On re-evaluation at 1:45- patient is following commands, more interactive, "I am in the hospital, I know what is going on." But does not answers when asked what her name is- she just looks at me.
[2019-05-18] MEDS: Lactulose* 15 ML UDC PO SCH ×2 (13:57→21:08)
[2019-05-18] MEDS ORDERED: Vancomycin(*) 500 MG in NS 0.9% 250 ML* 250 ML IVPB ONE (14:00)
[2019-05-18] MEDS: Collagenase 250 UNITS/GM OINT* 1 APPLIC OINT TOPICAL SCH (14:04)
[2019-05-18 14:31] LABS: Hematocrit 33 % (35-47); Hemoglobin 10.8 g/dL (12.0-16.0)
--- NOTE | 2019-05-18 16:46 | CONS ---
CONSULTATION REPORT: DATE OF CONSULT: 05/18/19 INDICATION: Bright red blood per rectum. HISTORY OF PRESENT ILLNESS: Ms. Almanza is a pleasant 78-year-old female who lives down in [place]; however, is often visiting her daughters here in [place]. She is a hemodialysis patient and was admitted yesterday for pain from her open wounds. This morning she awoke, went to have a bowel movement, and there was bright red blood in the toilet bowl. The patient is clearly lethargic right now. She just did return from hemodialysis and much of the history is obtained from the daughter and the . They state that she does have occasional streaks of pink on the toilet paper when she wipes. She did have a colonoscopy in August of 2018, which revealed a very large hemorrhoid and a polyp according to the family. They do not remember the doctor saying anything about diverticulosis. The patient does have a fairly severe vascular disease. She denies any abdominal pain; however, she did have some upper epigastric pain, which she believes is secondary to not taking her Nexium for the past few days. She did have another episode of bleeding earlier on today. 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 PAST SURGICAL HISTORY: Significant for cholecystectomy, cataracts, pacemaker, gastric bypass. MEDICATIONS: Include acetaminophen, lactulose, midodrine, morphine, Zofran, Percocet, vancomycin at dialysis, Renvela, and Eliquis. SOCIAL HISTORY: Used to be a smoker, no alcohol. REVIEW OF SYSTEMS: A 12-systems were reviewed and other than mentioned in the HPI were unremarkable. PHYSICAL EXAM: Temperature is 97.5, blood pressure is 102/41, pulse is 90, respiratory rate of 12, O2 sat is 93% on room air. General: Chronically ill- appearing female, appears older than her stated age. Alert, oriented, and pleasant. HEENT: Mucous membranes are moist without lesions , ulcers, or exudate. Neck is supple. Trachea is midline. Head is normocephalic, atraumatic. Heart: Irregular rate and rhythm. Lungs are clear to auscultation. Abdomen: Positive bowel sounds, soft, nontender, nondistended. No hepatosplenomegaly, masses, rebound, or guarding. Neuro: Slight asterixis. DIAGNOSTIC STUDIES/LAB DATA: Of note, white count is 12.6, hemoglobin went from 11.6 to 10.8, platelet count of 190, INR is 1.29, BUN is 33, creatinine is 5.74, ammonia went from 48 to 64. ASSESSMENT AND PLAN: This is a pleasant 78-year-old female with bright red blood this morning. She did have a colonoscopy in the last year, which revealed polyp and hemorrhoid. Most likely etiology would be diverticular versus ischemic. She is setup for ischemic colitis; however, with the lack of pain it makes it a little less likely, diverticular would make more sense; however, the denies the district court justice mentioned diverticulosis at her last colonoscopy. We are trying to get this report. At this point, her vital signs were stable. I would recommend we continue following along very closely with frequent H and H checks. If she continues to bleed or drops her hemoglobin significantly, we may need to consider performing flexible sigmoidoscopy for further evaluation. She should continue with her lactulose for her encephalopathy. We will follow along. [id number]/[facility] #: [id number] [facility]FF[facility] HOSPITALDoroteo
[2019-05-18 22:32] LABS: Hematocrit 30 % (35-47); Hemoglobin 9.9 g/dL (12.0-16.0)
[2019-05-18] MEDS: oxyCODONE/Acetamin 5/325 MG* TAB PO PRN (22:44)
[2019-05-19] MEDS ORDERED: NS 0.9% 500 ML* 500 ML IV ONE (00:47)
[2019-05-19 06:19] LABS: Hematocrit 31 % (35-47); Hemoglobin 10.3 g/dL (12.0-16.0); Mean Corpuscular HGB Conc 33 g/dL (31-36); Mean Corpuscular Hemoglobin 34 pg (27-31); Mean Corpuscular Volume 102 fL (80-97); Platelet Count 181 10^3/uL (150-450); Red Blood Count 3.08 10^6 /uL (3.70-4.87); Red Cell Distribution Width 15 % (10-15); White Blood Count 10.9 10^3/uL (3.5-10.8)
[2019-05-19 06:33] LABS: BUN/Creatinine Ratio 6.1 (8-20); Calcium 7.6 mg/dL (8.6-10.3); EGFR African American 16.4 (>60); EGFR Non-African American 13.6 (>60); Magnesium 1.9 mg/dL (1.9-2.7); Potassium 3.8 mmol/L (3.5-5.0)
[2019-05-19 06:36] LABS: INR 1.61 (0.82-1.09)
[2019-05-19 07:31] LABS: ABS Basophils 0.1 10^3/ul (0-0.2); ABS Eosinophils 0.2 10^3/ul (0-0.6); ABS Lymphocytes 1.9 10^3/ul (1.0-4.8); ABS Monocytes 1.6 10^3/ul (0-0.8); ABS Neutrophils 7.2 10^3/ul (1.5-7.7); Eosinophil % 1.5 %; Lymphocyte % 17.4 %; Nucleated Red Blood Cells % 0.1
--- NOTE | 2019-05-19 07:59 | PN ---
Subjective Date of Service: 05/19/19 Interval History: No acute issue overnight, seen by GI yesterday, per nurse no more bloody BM. Nurse today morning reports that patient is not answering all questions. Came to see the patient, she is answering some of my questions appropriately and correctly but not all. At times will follow commands, and at others does not follow commands. Objective Active Medications: Acetaminophen (Tylenol Tab*) 650 mg PO Q4H PRN PRN Reason: FEVER/PAIN Last Admin: 05/15/19 10:33 Dose: 650 mg Betamethasone Valerate (Betamethasone Rita 0.1% Oint(Nf)) 1 applic TOPICAL BID PRN PRN Reason: ITCHY SKIN Last Admin: 05/17/19 13:47 Dose: 1 applic Collagenase (Santyl 250 Mg/Gm Oint*) 1 applic TOPICAL DAILY [facility] Last Admin: 05/18/19 14:04 Dose: Not Given Lactulose (Lactulose*) 15 ml PO TID [facility] Last Admin: 05/18/19 21:08 Dose: 15 ml Loteprednol Etabonate (Lotemax 0.5% Oph.Susp (Nf)) 1 drop BOTH EYES TID [facility] Last Admin: 05/18/19 21:09 Dose: 1 drop Midodrine (Midodrine) 5 mg PO BID [facility]; Protocol Last Admin: 05/18/19 21:10 Dose: 5 mg Morphine Sulfate (Morphine Inj (Syringe))*) 2 mg IV Q4H PRN PRN Reason: PAIN Last Admin: 05/18/19 09:09 Dose: 2 mg Ondansetron HCl (Zofran Inj*) 4 mg IV Q6H PRN PRN Reason: NAUSEA Last Admin: 05/17/19 15:29 Dose: 4 mg Oxycodone/Acetaminophen (Percocet 5/325 Tab*) 1 tab PO Q4H PRN PRN Reason: PAIN Last Admin: 05/18/19 22:44 Dose: 1 tab Pantoprazole Sodium (Protonix Iv*) 40 mg IV BID [facility] Last Admin: 05/18/19 21:13 Dose: 40 mg Pharmacy Consult (Vancomycin - Dialysis Dosing*) 1 note FOLLOW UP . [facility] Pharmacy Consult (Vancomycin Random Level*) 1 note FOLLOW UP MoWeFr@[id number] ONE Stop: 05/20/19 06:01 Sevelamer Carbonate (Renvela Tab*) 800 mg PO BID [facility] Last Admin: 05/18/19 21:10 Dose: 800 mg Sodium Chloride (Hypertonic) (Vaishnavi 128 Opth 5% Opth.Soll*) 1 drop BOTH EYES TID [facility] Last Admin: 05/18/19 21:09 Dose: 1 drop Vital Signs - 8 hr 05/19/19 05/19/19 05/19/19 00:02 02:14 03:15 Temperature 97.7 F Pulse Rate 69 Respiratory 16 16 Rate Blood Pressure 82/58 101/33 (mmHg) O2 Sat by Pulse 95 Oximetry Oxygen Devices in Use Now: None Appearance: Lying in bed not in distress Eyes: PERRLA Respiratory: Clear to Auscultation Cardiovascular: NL Sounds; No Murmurs; No JVD, RRR, No Edema Neurological: - - Awake/alert, oriented X 2, follows commands at times but not all the time. Result Diagrams: 05/19/19 05:59 05/19/19 05:59 Microbiology and Other Data: Microbiology 05/14/19 19:03 Skin and Soft Tissue MRSA/MSSA (PCR - Final Leg Right Mrsa Negative S.aureus Negative Gram Stain - Preliminary 05/14/19 19:03 Skin and Soft Tissue MRSA/MSSA (PCR - Final Leg Left Mrsa Negative S.aureus Negative Gram Stain - Preliminary Assess/Plan/Problems-Billing Assessment: The patient is a 78 y/o F with A. FIb on eliquis/Digoxin, s/p PPM, Right Hip pain, ESRD on HD M/W/F, Liver disease on lactulose, Chronic LE wounds being treated by wound center here being admitted for high WBC, lactic acidosis due to ?sepsis from wounds. 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 will monitor, no more bloody BM. Continue Pantoprazole 40mg IV BID Eliquis held. (2) Digoxin toxicity Current Visit: Yes Status: Acute Code(s): T46.0X1A - POISONING BY CARDI- STIM GLYCOS/DRUG SIMLAR ACT, ACC, INIT SNOMED Code(s): 41974657 Comment: received digibind, monitor for now. was symptomatic, now improved- continues to have episodes of confusion. (3) ESRD (end stage renal disease) on dialysis Current Visit: Yes Status: Acute Code(s): N18.6 - END STAGE RENAL DISEASE; Z99.2 - DEPENDENCE ON RENAL DIALYSIS SNOMED Code(s): 678787666 Comment: Continue HD on MWF, (4) Hypokalemia Current Visit: Yes Status: Acute Code(s): E87.6 - HYPOKALEMIA SNOMED Code( s): 21509697 Comment: resolved (5) Sepsis Current Visit: Yes Status: Acute Comment: source likely leg wounds, MRSA neg but staph epidermidis resistant to pcn and sensitive to vanco. Continue vancomycin. blood cultures negative thus far. (6) DVT prophylaxis Current Visit: Yes Status: Acute Code(s): Z29.9 - ENCOUNTER FOR PROPHYLACTIC MEASURES, UNSPECIFIED SNOMED Code(s): 895290172 Comment: elquis being held due to GI bleeding. no SCD for now due to multiple leg wounds. (7) Altered mental state Current Visit: Yes Status: Acute Code(s): R41.82 - ALTERED MENTAL STATUS, UNSPECIFIED SNOMED Code(s): 379370922 Comment: having episodes of confusion, could be related to digoxin toxicity- she did receive digibind this hospitalization. CT head negative 05/18. unable to get MRI due to pacemaker so will obtain repeat CT today. 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 Status and Disposition: plan of care discussed in detail with daughter at beside and patient.
[2019-05-19] MEDS: Sodium Chloride 5% OPTH.SOL* 15 ML BTL BOTH EYES SCH ×3 (08:03→21:04)
[2019-05-19] MEDS: LOTEPREDNOL 0.5% BOTH EYES SCH ×3 (08:05→21:04)
[2019-05-19] MEDS: CMC:Midodrine 5 MG TAB PO SCH ×2 (08:05→21:04)
[2019-05-19] MEDS: Lactulose* 15 ML UDC PO SCH ×3 (08:05→21:04)
[2019-05-19] MEDS: Sevelamer TAB* 800 MG PO SCH ×2 (08:05→21:04)
[2019-05-19] MEDS: Pantoprazole IV* 40 MG IV SCH ×2 (08:06→21:06)
[2019-05-19] MEDS ORDERED: NS 0.9% 250 ML* 250 ML IV ONE (11:00)
[2019-05-19] MEDS ORDERED: Acetaminophen TAB* 325 MG PO PRN (13:55)
[2019-05-19] MEDS ORDERED: oxyCODONE/Acetamin 5/325 MG* TAB PO PRN (13:55)
[2019-05-19] MEDS: Ondansetron INJ* 2 MG/ML VIAL IV PRN (14:12)
[2019-05-19 14:21] LABS: LAC PT Mix 1:1 12.7 sec
[2019-05-19 14:33] LABS: LUP Hexthrombin Time (Bovine) 26 sec (15 - 23)
[2019-05-19] MEDS: Collagenase 250 UNITS/GM OINT* 1 APPLIC OINT TOPICAL SCH (15:48)
[2019-05-19] MEDS: oxyCODONE/Acetamin 5/325 MG* TAB PO PRN (15:56)
--- NOTE | 2019-05-19 17:56 | CONSULT ---
Subjective Date of Service: 05/19/19 Interval History: Ms. Almanza is a 78 yo female with PMH significant for A fib, peripheral neuropathy, GERD, cirrhosis, osteoarthritis, ESRD on hemodialysis, glaucoma, and chronic bilateral LE wounds. She presented to the emergency room for pain in her leg wounds and purulent drainage from the wounds. She presented to the hospital with chronic bilateral LE wounds, she also presented with multiple skin tears after a fall prior to her arrival. Patient seen and examined at bedside. Family History: Unchanged from Admission Social History: Unchanged from Admission Past Medical History: Unchanged from Admission Review of Systems - Measurements Intake and Output: Intake and Output Last 24 Hours 05/17/19 05/18/19 05/19/19 05/20/19 06:59 06:59 06:59 06:59 Intake Total 595 1010 500 370 Output Total 0 0 0 Balance 595 1010 500 370 Intake: IV Fluids 115 510 500 250 ABX - CEFEPIME 105 NS (0.9%) 10 510 500 NS 0.9% Bolus 250 IVPB 260 ABX - VANCOMYCIN 260 Oral 480 240 0 120 Output: Urine 0 0 0 Other: Estimated Void Medium # Bowel Movements 1 0 Estimated Stool Amount Small Small # Voids 1 - Review of Systems Constitutional Symptoms: Negative: Fever, Other - Chills Dermatology: Positive: Other - Chronic wounds to bilateral LEs, skin tears from a fall Genital - Urinary: Positive: Other - ESRD on hemodialysis Objective Active Medications: Acetaminophen (Tylenol Tab*) 650 mg PO Q6H PRN Reason: PAIN SCALE 1-5 Betamethasone Valerate (Betamethasone Rita 0.1% Oint(Nf)) 1 applic TOPICAL BID PRN Reason: ITCHY SKIN Collagenase (Santyl 250 Mg/Gm Oint*) 1 applic TOPICAL DAILY [facility]AN Lactulose (Lactulose*) 15 ml PO TID [facility] Loteprednol Etabonate (Lotemax 0.5% Oph.Susp (Nf)) 1 drop BOTH EYES TID [facility] Midodrine (Midodrine) 5 mg PO BID [facility]; Protocol Ondansetron HCl (Zofran Inj*) 4 mg IV Q6H PRN Reason: NAUSEA Oxycodone/Acetaminophen (Percocet 5/325 Tab*) 1 tab PO Q6H PRN Reason: PAIN SCALE 6-10 Pantoprazole Sodium (Protonix Iv*) 40 mg IV BID [facility] Pharmacy Consult (Vancomycin - Dialysis Dosing*) 1 note FOLLOW UP . [facility] Pharmacy Consult (Vancomycin Random Level*) 1 note FOLLOW UP MoWeFr@0600 ONE Stop: 05/20/19 06:01 Sevelamer Carbonate (Renvela Tab*) 800 mg PO BID [facility] Sodium Chloride (Hypertonic) (Vaishnavi 128 Opth 5% Opth.Soll*) 1 drop BOTH EYES TID [facility] Vital Signs - 8 hr 05/19/19 05/19/19 05/19/19 11:15 15:15 15:56 Temperature 97.7 F 97.8 F Pulse Rate 60 60 Respiratory 16 16 20 Rate Blood Pressure 94/33 104/54 (mmHg) O2 Sat by Pulse 93 100 Oximetry Oxygen Devices in Use Now: None Appearance: NAD, chronically ill appearing female, laying in bed Ears/Nose/Mouth/Throat: Mucous Membranes Moist Respiratory: Symmetrical Chest Expansion and Respiratory Effort Skin: - - See skin note below Neurological: Alert and Oriented x 3 Nutrition: Taking PO's Result Diagrams: 05/25/19 05:37 05/25/19 05:38 Additional Lab and Data: Above labs were pulled into the note when the note was edited prior to signing , see labs from day of consult below Laboratory Tests 05/19/19 05/19/19 05:59 05:59 WBC 10.9 H Hgb 10.3 L Hct 31 L Plt Count 181 Sodium 136 Potassium 3.8 Chloride 101 Carbon Dioxide 27 BUN 20 Creatinine 3.29 H Glucose 84 Microbiology and Other Data: Microbiology 05/14/19 19:39 Aerobic Blood Culture - Final Blood Venous No Growth Day 5 Anaerobic Blood Culture - Final No Growth Day 5 05/14/19 20:07 Aerobic Blood Culture - Preliminary Blood Venous No Growth Day 4 Anaerobic Blood Culture - Preliminary No Growth Day 4 05/14/19 19:03 Skin and Soft Tissue MRSA/MSSA (PCR - Final Leg Right Mrsa Negative S.aureus Negative Gram Stain - Final Wound Culture - Final Staphylococcus Epidermidis 05/14/19 19:03 Skin and Soft Tissue MRSA/MSSA (PCR - Final Leg Left Mrsa Negative S.aureus Negative Gram Stain - Final Wound Culture - Final Staphylococcus Epidermidis 05/15/19 00:59 Nasal Screen MRSA (PCR) - Final Nasal Mrsa Not Detected Skin Deviation Note - Skin Deviation Findings Right lateral lower leg - There is a venous ulcer, measures 2.2 cm x 2.2 cm x 0.3 cm. The wound base is dark colored slough. The surrounding skin is intact. There is serous drainage noted. Right thigh - There is a skin tear with steri strips, measures 2 cm x 4 cm x 0.1 cm. The surrounding skin is intact and serous drainage is noted. Right anterior knee - There is a skin tear with steri strip in place. The skin tear measures 2 cm x 4 cm. The surrounding skin is intact and no drainage is noted. Left medial lower leg - There is a chronic venous ulcer present, the wound measures 3 cm x 5.5 cm x 0.1 cm. The wound base is pink granulation tissue with dark colored slough. The surrounding skin is intact. There is serous drainage noted. Left lateral lower leg - There is a venous ulcer, measures 4 cm x 2 cm x 0.2 cm. The wound base is yellow and dark colored slough with dried bloody drainage. The surrounding skin is intact. There is serous drainage noted. Right upper extremity - There are 2 skin tears. The larger one on the arm, measures 3 cm x 2.5 cm x 0.1 cm. The smaller one at the wrist, measures 2 cm x 1.5 cm x 0.1 cm. The wound base is granulation tissue. The surrounding skin is intact. There is a small amount of serous drainage noted. Not pictured: There is a skin tear to the left shoulder, that measures 3.4 cm x 0.5 cm x 0.1 cm. Assessment/Plan: Ms. Almanza is a 78 yo female with PMH significant for A fib, peripheral neuropathy, GERD, cirrhosis, osteoarthritis, ESRD on hemodialysis, glaucoma, and chronic bilateral LE wounds. She presented to the emergency room for pain in her leg wounds and purulent drainage from the wounds. She presented to the hospital with chronic bilateral LE wounds, she also presented with multiple skin tears after a fall prior to her arrival. 1. Bilateral lower extremity chronic wounds, secondary to venous insufficiency. Recommend washing the wounds with saline, applying Santyl to the wounds, followed by telfa, followed by rolled gauze and change dressings daily. DO NOT apply tape to the skin. Consider ABIs if not previously done. She should continue to follow with the wound clinic at discharge. 2. Multiple skin tears. Recommend applying optifoam and change the dressings every 3 days. Discontinue dressings once the wounds have healed. 3. Diet. Renal diet. 4. Code Status. Full Code Status. 5. Disposition. Inpatient, disposition per primary medicine team. TIME SPENT: Time for this wound consultation was 40 minutes and 30 minutes was spent with the patient and family discussing past medical history; removing old dressings; assessing, measuring, and photographing the wounds; and redressing the wounds. Wound Problem/Plan Is Patient a Wound Clinic Patient: Yes - Dr. Scott Current Treatment: Nanci Attending: Farnaz Orosco
[2019-05-20] MEDS ORDERED: Vancomycin Random Level* NOTE FOLLOW UP ONE (06:00)
[2019-05-20 09:42] LABS: ABS Basophils 0.1 10^3/ul (0-0.2); ABS Eosinophils 0.1 10^3/ul (0-0.6); ABS Lymphocytes 2.1 10^3/ul (1.0-4.8); ABS Neutrophils 6.4 10^3/ul (1.5-7.7); Eosinophil % 1.4 %; Hematocrit 34 % (35-47); Hemoglobin 11.3 g/dL (12.0-16.0); Lymphocyte % 21.5 %; Mean Corpuscular HGB Conc 33 g/dL (31-36); Mean Corpuscular Hemoglobin 34 pg (27-31); Mean Corpuscular Volume 103 fL (80-97); Mean Platelet Volume 8.7 fL (7.4-10.4); Nucleated Red Blood Cells % 0.2; Platelet Count 210 10^3/uL (150-450); Red Blood Count 3.34 10^6 /uL (3.70-4.87); Red Cell Distribution Width 16 % (10-15); White Blood Count 9.7 10^3/uL (3.5-10.8)
[2019-05-20] MEDS: Pantoprazole IV* 40 MG IV SCH ×2 (09:48→23:30)
[2019-05-20] MEDS: Lactulose* 15 ML UDC PO SCH ×5 (09:49→22:05)
[2019-05-20] MEDS: CMC:Midodrine 5 MG TAB PO SCH ×3 (09:50→22:04)
[2019-05-20] MEDS: Sevelamer TAB* 800 MG PO SCH ×2 (09:50→22:05)
--- NOTE | 2019-05-20 09:52 | PN ---
Subjective Date of Service: 05/20/19 Interval History: No acute issues overnight. Having low blood pressures- midodrine changed to three times daily. Today morning, does not have any complaints, no chest pain, no abdominal pain, no bloody BM. No nausea, no vomiting. Has occasional leg pain. Family History: Unchanged from Admission Social History: Unchanged from Admission Past Medical History: Unchanged from Admission Objective Active Medications: Acetaminophen (Tylenol Tab*) 650 mg PO Q6H PRN PRN Reason: PAIN SCALE 1-5 Betamethasone Valerate (Betamethasone Rita 0.1% Oint(Nf)) 1 applic TOPICAL BID PRN PRN Reason: ITCHY SKIN Last Admin: 05/17/19 13:47 Dose: 1 applic Collagenase (Santyl 250 Mg/Gm Oint*) 1 applic TOPICAL DAILY [facility] Last Admin: 05/19/19 15:48 Dose: Not Given Lactulose (Lactulose*) 15 ml PO TID [facility] Last Admin: 05/19/19 21:04 Dose: 15 ml Loteprednol Etabonate (Lotemax 0.5% Oph.Susp (Nf)) 1 drop BOTH EYES TID [facility] Last Admin: 05/19/19 21:04 Dose: 1 drop Midodrine (Midodrine) 5 mg PO TID [facility]; Protocol Last Admin: 05/19/19 21:04 Dose: 5 mg Ondansetron HCl (Zofran Inj*) 4 mg IV Q6H PRN PRN Reason: NAUSEA Last Admin: 05/19/19 14:12 Dose: 4 mg Oxycodone/Acetaminophen (Percocet 5/325 Tab*) 1 tab PO Q6H PRN PRN Reason: PAIN SCALE 6-10 Last Admin: 05/19/19 15:56 Dose: 1 tab Pantoprazole Sodium (Protonix Iv*) 40 mg IV BID [facility] Last Admin: 05/19/19 21:06 Dose: 40 mg Pharmacy Consult (Vancomycin - Dialysis Dosing*) 1 note FOLLOW UP . [facility] Sevelamer Carbonate (Renvela Tab*) 800 mg PO BID [facility] Last Admin: 05/19/19 21:04 Dose: 800 mg Sodium Chloride (Hypertonic) (Vaishnavi 128 Opth 5% Opth.Soll*) 1 drop BOTH EYES 1000,1500,2200 [facility] Vital Signs - 8 hr 05/20/19 03:15 Temperature 97.6 F Pulse Rate 94 Respiratory 18 Rate Blood Pressure 94/37 (mmHg) O2 Sat by Pulse 93 Oximetry Oxygen Devices in Use Now: None Appearance: Elderly female sitting on bed, not in distress Respiratory: Clear to Auscultation Cardiovascular: RRR Abdominal: NL Sounds; No Tenderness; No Distention, No Hepatosplenomegaly Extremities: No Edema Neurological: Alert and Oriented x 3 Result Diagrams: 05/20/19 09:34 05/20/19 09:34 Additional Lab and Data: Above labs were pulled into the note when the note was edited prior to signing , see labs from day of consult below Laboratory Tests 05/19/19 05/19/19 05:59 05:59 WBC 10.9 H Hgb 10.3 L Hct 31 L Plt Count 181 Sodium 136 Potassium 3.8 Chloride 101 Carbon Dioxide 27 BUN 20 Creatinine 3.29 H Glucose 84 Microbiology and Other Data: Microbiology 05/14/19 20:07 Aerobic Blood Culture - Final Blood Venous No Growth Day 5 Anaerobic Blood Culture - Final No Growth Day 5 05/14/19 19:39 Aerobic Blood Culture - Final Blood Venous No Growth Day 5 Anaerobic Blood Culture - Final No Growth Day 5 05/14/19 19:03 Skin and Soft Tissue MRSA/MSSA (PCR - Final Leg Right Mrsa Negative S.aureus Negative Gram Stain - Final Wound Culture - Final Staphylococcus Epidermidis 05/14/19 19:03 Skin and Soft Tissue MRSA/MSSA (PCR - Final Leg Left Mrsa Negative S.aureus Negative Gram Stain - Final Wound Culture - Final Staphylococcus Epidermidis 05/15/19 00:59 Nasal Screen MRSA (PCR) - Final Nasal Mrsa Not Detected EKG Data: Ventricular paced rhythm at 60bpm. Assess/Plan/Problems-Billing Assessment: The patient is a 78 y/o F with A. FIb on eliquis/Digoxin, s/p PPM, Right Hip pain, ESRD on HD M/W/F, Liver disease on lactulose, Chronic LE wounds being treated by wound center here being admitted for high WBC, lactic acidosis due to ?sepsis from wounds. 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 will monitor, no more bloody BM. Continue Pantoprazole 40mg IV BID Will restart eliquis given H/H has been stable and no more bloody BM. (2) Digoxin toxicity Current Visit: Yes Status: Acute Code(s): T46.0X1A - POISONING BY CARDI- STIM GLYCOS/DRUG SIMLAR ACT, ACC, INIT SNOMED Code(s): 10167013 Comment: received digibind, monitor for now. was symptomatic, now improved- this morning more energy and answered all questions appropriately. (3) ESRD (end stage renal disease) on dialysis Current Visit: Yes Status: Acute Code(s): N18.6 - END STAGE RENAL DISEASE; Z99.2 - DEPENDENCE ON RENAL DIALYSIS SNOMED Code(s): 638809505 Comment: Continue HD on MWF, (4) Hypokalemia Current Visit: Yes Status: Acute Code(s): E87.6 - HYPOKALEMIA SNOMED Code( s): 58379796 Comment: resolved (5) Sepsis Current Visit: Yes Status: Acute Comment: source likely leg wounds, MRSA neg but staph epidermidis resistant to pcn and sensitive to vanco. Continue vancomycin. blood cultures negative thus far. (6) DVT prophylaxis Current Visit: Yes Status: Acute Code(s): Z29.9 - ENCOUNTER FOR PROPHYLACTIC MEASURES, UNSPECIFIED SNOMED Code(s): 972486796 Comment: elquis being held due to GI bleeding.- will restart eliquis today. no SCD for now due to multiple leg wounds. (7) Altered mental state Current Visit: Yes Status: Acute Code(s): R41.82 - ALTERED MENTAL STATUS, UNSPECIFIED SNOMED Code(s): 237935527 Comment: improved. was having episodes of confusion, could be related to digoxin toxicity- she did receive digibind this hospitalization. CT head negative 05/18. CT 05/19: negative. 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 (9) Hypotension Current Visit: Yes Status: Acute Comment: Continue midodrine- increased to 5mg TID. Home dose metoprolol being held during admission. Status and Disposition: try for PT today. anticipate would require CUATE vs SNF placement.
[2019-05-20] MEDS: LOTEPREDNOL 0.5% BOTH EYES SCH ×3 (09:53→22:04)
[2019-05-20 10:08] LABS: Anion Gap 10 mmol/L (2-11); BUN/Creatinine Ratio 8.2 (8-20); Blood Urea Nitrogen 35 mg/dL (6-24); CO2 Carbon Dioxide 26 mmol/L (22-32); Calcium 8.2 mg/dL (8.6-10.3); Chloride 100 mmol/L (101-111); EGFR African American 12.2 (>60); EGFR Non-African American 10.1 (>60); Glucose 113 mg/dL (70-100); Potassium 3.8 mmol/L (3.5-5.0); Sodium 136 mmol/L (135-145)
[2019-05-20 10:48] LABS: Vancomycin Random 19.3 mcg/mL
[2019-05-20] MEDS: Sodium Chloride 5% OPTH.SOL* 15 ML BTL BOTH EYES SCH ×3 (10:59→22:05)
[2019-05-20] MEDS ORDERED: Heparin DIALYSIS ONLY(*) 1,000 UNITS/ML VIAL DIALYSIS ONE (11:00)
[2019-05-20] MEDS: Ondansetron INJ* 2 MG/ML VIAL IV PRN (11:06)
[2019-05-20 11:13] LABS: Folate 10.06 ng/mL (>3.99)
[2019-05-20] MEDS ORDERED: Heparin DIALYSIS ONLY(*) 1,000 UNITS/ML VIAL ONE (14:00)
[2019-05-20 14:28] LABS: Phospholipid IgM AB <9.4 MPL
[2019-05-20] MEDS: oxyCODONE/Acetamin 5/325 MG* TAB PO PRN (15:46)
[2019-05-20 17:08] LABS: LAC APTT 35 sec (26 - 36); LAC INR 1.5; Prothrombin Time(LAC) 16.3 sec; Special Coagulation Interp Performed
[2019-05-20] MEDS: Vancomycin(*) 500 MG in NS 0.9% 250 ML* 250 ML IVPB ONE ×2 (17:27→20:27)
[2019-05-20] MEDS: Collagenase 250 UNITS/GM OINT* 1 APPLIC OINT TOPICAL SCH (19:44)
[2019-05-20] MEDS ORDERED: Vancomycin(*) 500 MG in NS 0.9% 250 ML* 250 ML IVPB ONE (20:30)
[2019-05-20] MEDS: Apixaban* 2.5 MG TAB PO SCH (22:05)
[2019-05-21] MEDS: oxyCODONE/Acetamin 5/325 MG* TAB PO PRN ×2 (04:25→10:53)
[2019-05-21 05:55] LABS: Hematocrit 30 % (35-47); Hemoglobin 9.8 g/dL (12.0-16.0); Mean Corpuscular HGB Conc 33 g/dL (31-36); Mean Corpuscular Hemoglobin 34 pg (27-31); Mean Corpuscular Volume 102 fL (80-97); Mean Platelet Volume 8.6 fL (7.4-10.4); Platelet Count 187 10^3/uL (150-450); Red Blood Count 2.89 10^6 /uL (3.70-4.87); Red Cell Distribution Width 16 % (10-15); White Blood Count 8.7 10^3/uL (3.5-10.8)
[2019-05-21 06:10] LABS: BUN/Creatinine Ratio 4.8 (8-20); EGFR African American 18.7 (>60); EGFR Non-African American 15.4 (>60); Potassium 3.6 mmol/L (3.5-5.0)
[2019-05-21 07:40] LABS: ABS Basophils 0.1 10^3/ul (0-0.2); ABS Eosinophils 0.1 10^3/ul (0-0.6); ABS Lymphocytes 2.1 10^3/ul (1.0-4.8); ABS Monocytes 1.4 10^3/ul (0-0.8); Eosinophil % 1.6 %; Lymphocyte % 23.9 %; Nucleated Red Blood Cells % 0.2
[2019-05-21 07:43] LABS: Polychromasia 1+
--- NOTE | 2019-05-21 09:54 | PN ---
Subjective Date of Service: 05/21/19 Interval History: No acute issues overnight. RN reports today that she was not answering questions, following commands, 10 minutes later I went to evaluate patient, she was following all commands and answering questions. She reports occasional headache and generalized fatigue. Had BM yesterday, brown with no blood. No abdominal pain, no n/v. Family History: Unchanged from Admission Social History: Unchanged from Admission Past Medical History: Unchanged from Admission Objective Active Medications: Acetaminophen (Tylenol Tab*) 650 mg PO Q6H PRN PRN Reason: PAIN SCALE 1-5 Apixaban (Eliquis*) 2.5 mg PO BID [facility] Last Admin: 05/20/19 22:05 Dose: 2.5 mg Betamethasone Valerate (Betamethasone Rtia 0.1% Oint(Nf)) 1 applic TOPICAL BID PRN PRN Reason: ITCHY SKIN Last Admin: 05/17/19 13:47 Dose: 1 applic Collagenase (Santyl 250 Mg/Gm Oint*) 1 applic TOPICAL DAILY [facility] Last Admin: 05/20/19 19:44 Dose: Not Given Lactulose (Lactulose*) 15 ml PO TID [facility] Last Admin: 05/20/19 22:05 Dose: 15 ml Loteprednol Etabonate (Lotemax 0.5% Oph.Susp (Nf)) 1 drop BOTH EYES TID [facility] Last Admin: 05/20/19 22:04 Dose: 1 drop Midodrine (Midodrine) 5 mg PO TID [facility]; Protocol Last Admin: 05/20/19 22:04 Dose: 5 mg Ondansetron HCl (Zofran Inj*) 4 mg IV Q6H PRN PRN Reason: NAUSEA Last Admin: 05/20/19 11:06 Dose: 4 mg Oxycodone/Acetaminophen (Percocet 5/325 Tab*) 1 tab PO Q6H PRN PRN Reason: PAIN SCALE 6-10 Last Admin: 05/21/19 04:25 Dose: 1 tab Pantoprazole Sodium (Protonix Iv*) 40 mg IV BID [facility] Last Admin: 05/20/19 23:30 Dose: 40 mg Pharmacy Consult (Vancomycin - Dialysis Dosing*) 1 note FOLLOW UP . [facility] Pharmacy Consult (Vancomycin Random Level*) 1 note FOLLOW UP MoWeFr@0600 ONE Stop: 05/22/19 06:01 Sevelamer Carbonate (Renvela Tab*) 800 mg PO BID [facility] Last Admin: 05/20/19 22:05 Dose: 800 mg Sodium Chloride (Hypertonic) (Vaishnavi 128 Opth 5% Opth.Soll*) 1 drop BOTH EYES 1000,1500,2200 [facility] Last Admin: 05/20/19 22:05 Dose: 1 drop Vital Signs - 8 hr 05/21/19 05/21/19 05/21/19 04:25 04:42 08:08 Temperature 97.8 F 97.6 F Pulse Rate 67 58 Respiratory 16 20 20 Rate Blood Pressure 118/45 115/50 (mmHg) O2 Sat by Pulse 100 100 Oximetry Oxygen Devices in Use Now: Nasal Cannula Appearance: Elderly female, sitting in chair, not in distress Respiratory: Clear to Auscultation Cardiovascular: No Edema, - - irregularly irregular. Extremities: No Edema Neurological: Alert and Oriented x 3 Result Diagrams: 05/21/19 05:23 05/21/19 05:23 Additional Lab and Data: Above labs were pulled into the note when the note was edited prior to signing , see labs from day of consult below Laboratory Tests 05/19/19 05/19/19 05:59 05:59 WBC 10.9 H Hgb 10.3 L Hct 31 L Plt Count 181 Sodium 136 Potassium 3.8 Chloride 101 Carbon Dioxide 27 BUN 20 Creatinine 3.29 H Glucose 84 Microbiology and Other Data: Microbiology 05/14/19 20:07 Aerobic Blood Culture - Final Blood Venous No Growth Day 5 Anaerobic Blood Culture - Final No Growth Day 5 05/14/19 19:39 Aerobic Blood Culture - Final Blood Venous No Growth Day 5 Anaerobic Blood Culture - Final No Growth Day 5 05/14/19 19:03 Skin and Soft Tissue MRSA/MSSA (PCR - Final Leg Right Mrsa Negative S.aureus Negative Gram Stain - Final Wound Culture - Final Staphylococcus Epidermidis 05/14/19 19:03 Skin and Soft Tissue MRSA/MSSA (PCR - Final Leg Left Mrsa Negative S.aureus Negative Gram Stain - Final Wound Culture - Final Staphylococcus Epidermidis 05/15/19 00:59 Nasal Screen MRSA (PCR) - Final Nasal Mrsa Not Detected EKG Data: Ventricular paced rhythm at 60bpm. Assess/Plan/Problems-Billing Assessment: The patient is a 78 y/o F with A. FIb on eliquis/Digoxin, s/p PPM, Right Hip pain, ESRD on HD M/W/F, Liver disease on lactulose, Chronic LE wounds being treated by wound center here being admitted for high WBC, lactic acidosis due to ?sepsis from wounds. 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 will monitor, no more bloody BM. Continue Pantoprazole 40mg IV BID restarted eliquis, monitor h/h closely. (2) Digoxin toxicity Current Visit: Yes Status: Acute Code(s): T46.0X1A - POISONING BY CARDI- STIM GLYCOS/DRUG SIMLAR ACT, ACC, INIT SNOMED Code(s): 71116839 Comment: received digibind, monitor for now. was symptomatic, now improved- this morning more energy and answered all questions appropriately. her mentation changes, unsure if this is related to mood? energy? CT head negative. ammonia is trending down. (3) ESRD (end stage renal disease) on dialysis Current Visit: Yes Status: Acute Code(s): N18.6 - END STAGE RENAL DISEASE; Z99.2 - DEPENDENCE ON RENAL DIALYSIS SNOMED Code(s): 709672147 Comment: Continue HD on MWF, (4) Hypokalemia Current Visit: Yes Status: Acute Code(s): E87.6 - HYPOKALEMIA SNOMED Code( s): 09577645 Comment: resolved (5) Sepsis Current Visit: Yes Status: Acute Comment: source likely leg wounds, MRSA neg but staph epidermidis resistant to pcn and sensitive to vanco. Continue vancomycin. blood cultures negative thus far. (6) DVT prophylaxis Current Visit: Yes Status: Acute Code(s): Z29.9 - ENCOUNTER FOR PROPHYLACTIC MEASURES, UNSPECIFIED SNOMED Code(s): 674387060 Comment: On eliquis (7) Altered mental state Current Visit: Yes Status: Acute Code(s): R41.82 - ALTERED MENTAL STATUS, UNSPECIFIED SNOMED Code(s): 950663017 Comment: improved. was having episodes of confusion, could be related to digoxin toxicity- she did receive digibind this hospitalization. CT head negative 7/8. CT 05/19: negative. 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 (9) Hypotension Current Visit: Yes Status: Acute Comment: BP improved, Continue midodrine- increased to 5mg TID this admission Home dose metoprolol being held during admission. Status and Disposition: try for PT again today- PT saw her earlier in the morning, and she was not participating. anticipate would require CUATE vs SNF placement.
[2019-05-21] MEDS: Lactulose* 15 ML UDC PO SCH ×3 (10:54→22:10)
[2019-05-21] MEDS: CMC:Midodrine 5 MG TAB PO SCH ×3 (10:55→22:10)
[2019-05-21] MEDS: Apixaban* 2.5 MG TAB PO SCH ×2 (10:55→22:10)
[2019-05-21] MEDS: Sevelamer TAB* 800 MG PO SCH ×2 (10:55→22:10)
[2019-05-21] MEDS: LOTEPREDNOL 0.5% BOTH EYES SCH ×3 (10:56→22:11)
[2019-05-21] MEDS: Pantoprazole IV* 40 MG IV SCH (13:20)
[2019-05-21] MEDS: Sodium Chloride 5% OPTH.SOL* 15 ML BTL BOTH EYES SCH ×3 (13:30→22:10)
[2019-05-21] MEDS: Collagenase 250 UNITS/GM OINT* 1 APPLIC OINT TOPICAL SCH (14:20)
[2019-05-21] MEDS: Acetaminophen TAB* 325 MG PO PRN (15:03)
[2019-05-21] MEDS: Pantoprazole TAB * 40 MG TAB PO SCH (22:10)
[2019-05-22] MEDS ORDERED: Vancomycin Random Level* NOTE FOLLOW UP ONE (06:00)
[2019-05-22] MEDS: oxyCODONE/Acetamin 5/325 MG* TAB PO PRN ×2 (08:10→15:26)
[2019-05-22] MEDS: Sevelamer TAB* 800 MG PO SCH ×2 (09:08→20:26)
[2019-05-22] MEDS: LOTEPREDNOL 0.5% BOTH EYES SCH ×3 (09:08→20:26)
[2019-05-22] MEDS: CMC:Midodrine 5 MG TAB PO SCH ×3 (09:08→20:27)
[2019-05-22] MEDS: Pantoprazole TAB * 40 MG TAB PO SCH ×2 (09:09→20:26)
[2019-05-22] MEDS: Lactulose* 15 ML UDC PO SCH ×3 (09:09→20:26)
--- NOTE | 2019-05-22 09:32 | PN ---
Subjective Date of Service: 05/22/19 Interval History: Overnight had bloody bowel movement, and RN reports that there was blood in her underwear this morning. This morning- no chest pain, no shortness of breath, no palpitations. No fever, no chills. Family History: Unchanged from Admission Social History: Unchanged from Admission Past Medical History: Unchanged from Admission Objective Active Medications: Acetaminophen (Tylenol Tab*) 650 mg PO Q6H PRN PRN Reason: PAIN SCALE 1-5 Last Admin: 05/21/19 15:03 Dose: 650 mg Betamethasone Valerate (Betamethasone Rita 0.1% Oint(Nf)) 1 applic TOPICAL BID PRN PRN Reason: ITCHY SKIN Last Admin: 05/17/19 13:47 Dose: 1 applic Collagenase (Santyl 250 Mg/Gm Oint*) 1 applic TOPICAL DAILY [facility] Last Admin: 05/21/19 14:20 Dose: 1 applic Lactulose (Lactulose*) 15 ml PO TID [facility] Last Admin: 05/22/19 09:09 Dose: Not Given Loteprednol Etabonate (Lotemax 0.5% Oph.Susp (Nf)) 1 drop BOTH EYES TID [facility] Last Admin: 05/22/19 09:08 Dose: 1 drop Midodrine (Midodrine) 5 mg PO TID [facility]; Protocol Last Admin: 05/22/19 09:08 Dose: 5 mg Ondansetron HCl (Zofran Inj*) 4 mg IV Q6H PRN PRN Reason: NAUSEA Last Admin: 05/20/19 11:06 Dose: 4 mg Oxycodone/Acetaminophen (Percocet 5/325 Tab*) 1 tab PO Q4H PRN PRN Reason: PAIN SCALE 6-10 Last Admin: 05/22/19 08:10 Dose: 1 tab Pantoprazole Sodium (Protonix Tab*) 40 mg PO BID [facility] Last Admin: 05/22/19 09:09 Dose: Not Given Pharmacy Consult (Vancomycin - Dialysis Dosing*) 1 note FOLLOW UP . [facility] Sevelamer Carbonate (Renvela Tab*) 800 mg PO BID [facility] Last Admin: 05/22/19 09:08 Dose: 800 mg Sodium Chloride (Hypertonic) (Vaishnavi 128 Opth 5% Opth.Soll*) 1 drop BOTH EYES 1000,1500,2200 [facility] Last Admin: 05/21/19 22:10 Dose: 1 drop Vital Signs - 8 hr 05/22/19 05/22/19 05/22/19 03:19 07:35 08:10 Temperature 98.3 F 97.3 F Pulse Rate 65 62 Respiratory 15 16 16 Rate Blood Pressure 106/35 120/33 (mmHg) O2 Sat by Pulse 99 100 Oximetry Oxygen Devices in Use Now: Nasal Cannula Appearance: Sitting on bed, not in distress. Ears/Nose/Mouth/Throat: Mucous Membranes Moist Respiratory: - - crackles at the lung bases, no tachypnea, no use of accessory muscles. Cardiovascular: RRR, - - soft sytolic murmur Abdominal: NL Sounds; No Tenderness; No Distention, No Hepatosplenomegaly Neurological: Alert and Oriented x 3 Result Diagrams: 05/21/19 05:23 05/21/19 05:23 Additional Lab and Data: Above labs were pulled into the note when the note was edited prior to signing , see labs from day of consult below Laboratory Tests 05/19/19 05/19/19 05:59 05:59 WBC 10.9 H Hgb 10.3 L Hct 31 L Plt Count 181 Sodium 136 Potassium 3.8 Chloride 101 Carbon Dioxide 27 BUN 20 Creatinine 3.29 H Glucose 84 Microbiology and Other Data: Microbiology 05/14/19 20:07 Aerobic Blood Culture - Final Blood Venous No Growth Day 5 Anaerobic Blood Culture - Final No Growth Day 5 05/14/19 19:39 Aerobic Blood Culture - Final Blood Venous No Growth Day 5 Anaerobic Blood Culture - Final No Growth Day 5 05/14/19 19:03 Skin and Soft Tissue MRSA/MSSA (PCR - Final Leg Right Mrsa Negative S.aureus Negative Gram Stain - Final Wound Culture - Final Staphylococcus Epidermidis 05/14/19 19:03 Skin and Soft Tissue MRSA/MSSA (PCR - Final Leg Left Mrsa Negative S.aureus Negative Gram Stain - Final Wound Culture - Final Staphylococcus Epidermidis 05/15/19 00:59 Nasal Screen MRSA (PCR) - Final Nasal Mrsa Not Detected EKG Data: Ventricular paced rhythm at 60bpm. Assess/Plan/Problems-Billing Assessment: The patient is a 78 y/o F with A. FIb on eliquis/Digoxin, s/p PPM, Right Hip pain, ESRD on HD M/W/F, Liver disease on lactulose, Chronic LE wounds being treated by wound center here being admitted for high WBC, lactic acidosis due to ?sepsis from wounds. 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 will monitor, had bloody BM overnight, d/c' ed eliquis. earlier this admission had similar episode, resolved after holding eliquis, restart eliquis given atrial fibrillation. now again with bloody BM, re-consult GI, likely diverticular bleed?? changed protonix to 40mg oral bid, (2) Digoxin toxicity Current Visit: Yes Status: Acute Code(s): T46.0X1A - POISONING BY CARDI- STIM GLYCOS/DRUG SIMLAR ACT, ACC, INIT SNOMED Code(s): 56762323 Comment: received digibind, monitor for now. was symptomatic, now improved- this morning more energy and answered all questions appropriately. her mentation changes, unsure if this is related to mood? energy? CT head negative. ammonia is trending down. (3) ESRD (end stage renal disease) on dialysis Current Visit: Yes Status: Acute Code(s): N18.6 - END STAGE RENAL DISEASE; Z99.2 - DEPENDENCE ON RENAL DIALYSIS SNOMED Code(s): 792384829 Comment: Continue HD on MWF, (4) Hypokalemia Current Visit: Yes Status: Acute Code(s): E87.6 - HYPOKALEMIA SNOMED Code( s): 05638105 Comment: resolved (5) Sepsis Current Visit: Yes Status: Acute Comment: resolved, source likely leg wounds, MRSA neg but staph epidermidis resistant to pcn and sensitive to vanco. Continue vancomycin. blood cultures negative thus far. (6) DVT prophylaxis Current Visit: Yes Status: Acute Code(s): Z29.9 - ENCOUNTER FOR PROPHYLACTIC MEASURES, UNSPECIFIED SNOMED Code(s): 482879957 Comment: now holding eliquis. No SCD due to multiple leg wounds, will have PT work with her. (7) Altered mental state Current Visit: Yes Status: Acute Code(s): R41.82 - ALTERED MENTAL STATUS, UNSPECIFIED SNOMED Code(s): 996169692 Comment: improved. was having episodes of confusion, could be related to digoxin toxicity- she did receive digibind this hospitalization. CT head negative 05/18. CT 05/19: negative. 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 (9) Hypotension Current Visit: Yes Status: Acute Comment: BP improved, Continue midodrine- increased to 5mg TID this admission Home dose metoprolol being held during admission. Status and Disposition: PT. anticipate would require CUATE vs SNF placement.
[2019-05-22] MEDS: Sodium Chloride 5% OPTH.SOL* 15 ML BTL BOTH EYES SCH ×3 (11:41→23:14)
[2019-05-22] MEDS ORDERED: Heparin DIALYSIS ONLY(*) 1,000 UNITS/ML VIAL DIALYSIS ONE (12:00)
[2019-05-22] MEDS ORDERED: EPOETIN ALFA-EPBX * 2,000 UNIT/ML VIAL IV ONE (12:00)
[2019-05-22] MEDS ORDERED: EPOETIN ALFA-EPBX * 3,000 UNIT/ML VIAL IV ONE (12:00)
[2019-05-22 12:17] LABS: ABS Basophils 0.1 10^3/ul (0-0.2); ABS Eosinophils 0.2 10^3/ul (0-0.6); ABS Lymphocytes 2.1 10^3/ul (1.0-4.8); ABS Neutrophils 6.2 10^3/ul (1.5-7.7); Hematocrit 29 % (35-47); Hemoglobin 9.5 g/dL (12.0-16.0); Mean Corpuscular HGB Conc 33 g/dL (31-36); Mean Corpuscular Hemoglobin 34 pg (27-31); Mean Corpuscular Volume 104 fL (80-97); Mean Platelet Volume 8.4 fL (7.4-10.4); Nucleated Red Blood Cells % 0.1; Platelet Count 187 10^3/uL (150-450); Red Blood Count 2.79 10^6 /uL (3.70-4.87); Red Cell Distribution Width 16 % (10-15); White Blood Count 9.6 10^3/uL (3.5-10.8)
[2019-05-22 13:25] LABS: Albumin 2.5 g/dL (3.2-5.2); Albumin/Globulin Ratio 1.1 (1-3); BUN/Creatinine Ratio 4.9 (8-20); Calcium 8.4 mg/dL (8.6-10.3); EGFR African American 12.9 (>60); EGFR Non-African American 10.7 (>60); Globulin 2.2 g/dL (2-4); Potassium 3.6 mmol/L (3.5-5.0); Total Protein 4.7 g/dL (6.4-8.9)
[2019-05-22 13:26] LABS: Vancomycin Random 16.1 mcg/mL
[2019-05-22] MEDS ORDERED: Vancomycin(*) 500 MG in NS 0.9% 250 ML* 250 ML IVPB ONE (15:00)
[2019-05-22] MEDS ORDERED: NS 0.9% 250 ML* 250 ML ONE (15:23)
[2019-05-22] MEDS: Collagenase 250 UNITS/GM OINT* 1 APPLIC OINT TOPICAL SCH (15:42)
[2019-05-22] MEDS ORDERED: Al Hydrox/Mg Hydrox/Simet LIQ* 30 ML UDC PO PRN (21:17)
[2019-05-23 06:12] LABS: ABS Basophils 0.1 10^3/ul (0-0.2); ABS Eosinophils 0.2 10^3/ul (0-0.6); ABS Lymphocytes 1.8 10^3/ul (1.0-4.8); ABS Monocytes 1.1 10^3/ul (0-0.8); ABS Neutrophils 4.5 10^3/ul (1.5-7.7); Eosinophil % 2.2 %; Hematocrit 29 % (35-47); Hemoglobin 9.7 g/dL (12.0-16.0); Lymphocyte % 23.8 %; Mean Corpuscular HGB Conc 33 g/dL (31-36); Mean Corpuscular Hemoglobin 34 pg (27-31); Mean Corpuscular Volume 103 fL (80-97); Mean Platelet Volume 8.8 fL (7.4-10.4); Nucleated Red Blood Cells % 0.3; Platelet Count 165 10^3/uL (150-450); Red Blood Count 2.85 10^6 /uL (3.70-4.87); Red Cell Distribution Width 16 % (10-15); White Blood Count 7.7 10^3/uL (3.5-10.8)
[2019-05-23 06:27] LABS: BUN/Creatinine Ratio 3.7 (8-20); Calcium 8.1 mg/dL (8.6-10.3); EGFR African American 18.4 (>60); EGFR Non-African American 15.2 (>60); Potassium 3.7 mmol/L (3.5-5.0)
[2019-05-23] MEDS: Sevelamer TAB* 800 MG PO SCH ×2 (07:20→20:36)
[2019-05-23] MEDS: CMC:Midodrine 5 MG TAB PO SCH ×3 (07:20→20:36)
[2019-05-23] MEDS: Pantoprazole TAB * 40 MG TAB PO SCH ×2 (07:20→20:36)
[2019-05-23] MEDS: LOTEPREDNOL 0.5% BOTH EYES SCH ×3 (07:20→20:36)
[2019-05-23] MEDS: Lactulose* 15 ML UDC PO SCH ×3 (07:21→20:34)
[2019-05-23] MEDS: Sodium Chloride 5% OPTH.SOL* 15 ML BTL BOTH EYES SCH ×3 (09:51→22:34)
[2019-05-23] MEDS: Acetaminophen TAB* 325 MG PO PRN (09:51)
[2019-05-23] MEDS: oxyCODONE/Acetamin 5/325 MG* TAB PO PRN (09:54)
--- NOTE | 2019-05-23 10:48 | PN ---
Subjective Date of Service: 05/23/19 Interval History: Seen and examined. Yesterday had blood per rectum, eliquis held. This morning, patient feels better, answering all questions appropriately and following commands. Family History: Unchanged from Admission Social History: Unchanged from Admission Past Medical History: Unchanged from Admission Objective Active Medications: Acetaminophen (Tylenol Tab*) 650 mg PO Q6H PRN PRN Reason: PAIN SCALE 1-5 Last Admin: 05/23/19 09:51 Dose: 650 mg Al Hydrox/Mg Hydrox/Simethicone (Maalox Plus*) 30 ml PO Q6H PRN PRN Reason: INDIGESTION Betamethasone Valerate (Betamethasone Rita 0.1% Oint(Nf)) 1 applic TOPICAL BID PRN PRN Reason: ITCHY SKIN Last Admin: 05/17/19 13:47 Dose: 1 applic Collagenase (Santyl 250 Mg/Gm Oint*) 1 applic TOPICAL DAILY MOHAN Last Admin: 05/22/19 15:42 Dose: 1 applic Lactulose (Lactulose*) 15 ml PO TID [facility] Last Admin: 05/23/19 07:21 Dose: 15 ml Loteprednol Etabonate (Lotemax 0.5% Oph.Susp (Nf)) 1 drop BOTH EYES TID [facility] Last Admin: 05/23/19 07:20 Dose: 1 drop Midodrine (Midodrine) 5 mg PO TID [facility]; Protocol Last Admin: 05/23/19 07:20 Dose: 5 mg Ondansetron HCl (Zofran Inj*) 4 mg IV Q6H PRN PRN Reason: NAUSEA Last Admin: 05/20/19 11:06 Dose: 4 mg Oxycodone/Acetaminophen (Percocet 5/325 Tab*) 1 tab PO Q4H PRN PRN Reason: PAIN SCALE 6-10 Last Admin: 05/23/19 09:54 Dose: 1 tab Pantoprazole Sodium (Protonix Tab*) 40 mg PO BID [facility] Last Admin: 05/23/19 07:20 Dose: 40 mg Sevelamer Carbonate (Renvela Tab*) 800 mg PO BID [facility] Last Admin: 05/23/19 07:20 Dose: 800 mg Sodium Chloride (Hypertonic) (Vaishnavi 128 Opth 5% Opth.Soll*) 1 drop BOTH EYES 1000,1500,2200 [facility] Last Admin: 05/23/19 09:51 Dose: 1 drop Vital Signs - 8 hr 05/23/19 05/23/19 05/23/19 04:03 08:00 08:02 Temperature 97.5 F 97.6 F Pulse Rate 75 73 Respiratory 18 20 12 Rate Blood Pressure 116/50 112/42 (mmHg) O2 Sat by Pulse 99 100 Oximetry 05/23/19 09:54 Temperature Pulse Rate Respiratory 20 Rate Blood Pressure (mmHg) O2 Sat by Pulse Oximetry Oxygen Devices in Use Now: None Appearance: Elderly female lying in bed, not in distress Ears/Nose/Mouth/Throat: Mucous Membranes Moist Respiratory: Clear to Auscultation Cardiovascular: - - No chest wall tenderness, regular rate rhythm Abdominal: NL Sounds; No Tenderness; No Distention, No Hepatosplenomegaly Neurological: Alert and Oriented x 3, - - speech clear, follows commands, tongue midline. symmetric smile Result Diagrams: 05/23/19 05:32 05/23/19 05:32 Additional Lab and Data: Above labs were pulled into the note when the note was edited prior to signing , see labs from day of consult below Laboratory Tests 05/19/19 05/19/19 05:59 05:59 WBC 10.9 H Hgb 10.3 L Hct 31 L Plt Count 181 Sodium 136 Potassium 3.8 Chloride 101 Carbon Dioxide 27 BUN 20 Creatinine 3.29 H Glucose 84 Microbiology and Other Data: Microbiology 05/14/19 20:07 Aerobic Blood Culture - Final Blood Venous No Growth Day 5 Anaerobic Blood Culture - Final No Growth Day 5 05/14/19 19:39 Aerobic Blood Culture - Final Blood Venous No Growth Day 5 Anaerobic Blood Culture - Final No Growth Day 5 05/14/19 19:03 Skin and Soft Tissue MRSA/MSSA (PCR - Final Leg Right Mrsa Negative S.aureus Negative Gram Stain - Final Wound Culture - Final Staphylococcus Epidermidis 05/14/19 19:03 Skin and Soft Tissue MRSA/MSSA (PCR - Final Leg Left Mrsa Negative S.aureus Negative Gram Stain - Final Wound Culture - Final Staphylococcus Epidermidis 05/15/19 00:59 Nasal Screen MRSA (PCR) - Final Nasal Mrsa Not Detected EKG Data: Ventricular paced rhythm at 60bpm. Assess/Plan/Problems-Billing Assessment: The patient is a 78 y/o F with A. FIb on eliquis/Digoxin, s/p PPM, Right Hip pain, ESRD on HD M/W/F, Liver disease on lactulose, Chronic LE wounds being treated by wound center here being admitted for high WBC, lactic acidosis due to ?sepsis from wounds. 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 will monitor, had bloody BM overnight, d/c' ed eliquis. earlier this admission had similar episode, resolved after holding eliquis, restart eliquis given atrial fibrillation. now again with bloody BM, re-consult GI, likely diverticular bleed?? changed protonix to 40mg oral bid, (2) Digoxin toxicity Current Visit: Yes Status: Acute Code(s): T46.0X1A - POISONING BY CARDI- STIM GLYCOS/DRUG SIMLAR ACT, ACC, INIT SNOMED Code(s): 92211107 Comment: received digibind, monitor for now. was symptomatic, now improved- this morning more energy and answered all questions appropriately. her mentation changes, unsure if this is related to mood? energy? CT head negative. ammonia is trending down. (3) ESRD (end stage renal disease) on dialysis Current Visit: Yes Status: Acute Code(s): N18.6 - END STAGE RENAL DISEASE; Z99.2 - DEPENDENCE ON RENAL DIALYSIS SNOMED Code(s): 858263529 Comment: Continue HD on MWF, (4) Hypokalemia Current Visit: Yes Status: Acute Code(s): E87.6 - HYPOKALEMIA SNOMED Code( s): 54692285 Comment: resolved (5) Sepsis Current Visit: Yes Status: Acute Comment: resolved, source likely leg wounds, MRSA neg but staph epidermidis resistant to pcn and sensitive to vanco. Continue vancomycin. blood cultures negative thus far On abx since 05/14- will discontinue vancomycin. (6) DVT prophylaxis Current Visit: Yes Status: Acute Code(s): Z29.9 - ENCOUNTER FOR PROPHYLACTIC MEASURES, UNSPECIFIED SNOMED Code(s): 941468114 Comment: now holding eliquis. No SCD due to multiple leg wounds, will have PT work with her. (7) Altered mental state Current Visit: Yes Status: Acute Code(s): R41.82 - ALTERED MENTAL STATUS, UNSPECIFIED SNOMED Code(s): 384027060 Comment: improved. was having episodes of confusion, could be related to digoxin toxicity- she did receive digibind this hospitalization. CT head negative 05/18. CT 05/19: negative. 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 ammonia trended upwards, however mentation today is okay, aa/o X 3, following commands will not make any changes could consider adding rifaximin as she is already on lactulose, but for now will monitor. (9) Hypotension Current Visit: Yes Status: Acute Comment: BP improved, Continue midodrine- increased to 5mg TID this admission Home dose metoprolol being held during admission. Status and Disposition: PT. anticipate would require CUATE vs SNF placement.
[2019-05-23] MEDS: Collagenase 250 UNITS/GM OINT* 1 APPLIC OINT TOPICAL SCH (12:55)
--- NOTE | 2019-05-23 19:43 | CONS ---
GASTROENTEROLOGY FOLLOWUP CONSULT: DATE: 05/23/19 HISTORY OF PRESENT ILLNESS: This 78-year-old woman with end-stage renal disease on dialysis since February 2018 and also with non-alcoholic fatty liver disease with cirrhosis and elevated pneumonia, has atrial fibrillation and also severe skin wounds peripherally. She is on vancomycin. During the 9 days here, she has continued to have her dialysis on Saturday, Saturday, Saturday, and getting vancomycin maintenance. On 05/17/19, she had some rectal bleeding and Eliquis was stopped. Dr Pressley saw her and decided that proper course was stopping anticoagulants and observe. The conservative approach is partially on account of the patient reporting prior colonoscopy in 2018. Further questioning reveals some unusual progression of events related to the 2018 [place] colonoscopy that needs to be verified. Her states that she had procedure in her home town and a doctor found a polyp that was too big to remove and then she was referred to [place], where a month or two later, another physician performing a second colonoscopy reportedly could not find the polyp. These were apparently done at outpatient settings and those records are not available. Records from an admission, November 2018 for hepatic encephalopathy in [place] are available. Up in [facility], she has seen Dr. Cazares, just 2 weeks ago, who has arranged an ophthalmology consult. She does not have family physician here. She had seen Dr. Cazares 10 years ago. Last year and the year before that, she came up and had respite dialysis services in [place] and as an inpatient at 's in [place]. A [facility] hospitalization in 2017 apparently was for an elevated ammonia. At this time, most recent labs today are hemoglobin 9.7, hematocrit 29, MCV 103 , platelets 165. Creatinine 2.98, BUN 11, ammonia 66, albumin 2.5. Toxicology shows trough vancomycin 19.3 on 05/18/19. Her digoxin 6.0 on 05/19/19. Today on exam, she is lying left side down and is tired and somewhat breathless , trying to answer questions and that her is finishing most of them. She appears very tired and worn out. She is not in any pain. There was extensive subcutaneous ecchymosis. Her back shows a little bit of thinning over the sacrum where there is a bony protuberance but no overt skin break. Extremities show extensive chronic changes and the legs are bandaged. Her last dose of Eliquis was 05/21 at 2200. IMPRESSION: She had some rectal bleeding with a slight drop in hemoglobin from the 11s to the upper 9s while on Eliquis and intermittent dialysis. . She has numerous other problems of high severity. I agree with Dr. Pressley that a diverticular source is most probable. The [place] colonoscopies were likely done in an outpatient center and we had an extended conservation with her daughter answering many questions. She was asked to help arrange to get those records sent up. At this time, with her having bleeding, stopping Eliquis was and remains appropriate. The family is extremely nervous about being off Eliquis, but an attempted early restarting did not work and she bled again and it is clear she will need to be off it for a more extended period of time and my choice would be 2 weeks. There are risks and they are unavoidable. Conservation seems clearly preferable in that prepping for colonoscopy seems too much for her and she is not a candidate for surgery. The total burden of her medical problems and their care still leave the patient's family thinking that all things can be accomplished. She is exceedingly high risk on many fronts and no mention of accepting limitations comes through during the conservation. I do not believe colonoscopy is reasonable choice at this time. Getting her old records will help. [id number]/[facility] #: [id number] JERO
[2019-05-24] MEDS: LOTEPREDNOL 0.5% BOTH EYES SCH ×3 (08:15→21:07)
[2019-05-24] MEDS: Sevelamer TAB* 800 MG PO SCH ×2 (08:16→21:07)
[2019-05-24] MEDS: CMC:Midodrine 5 MG TAB PO SCH ×3 (08:16→21:07)
[2019-05-24] MEDS: Pantoprazole TAB * 40 MG TAB PO SCH ×2 (08:16→21:08)
[2019-05-24] MEDS: Lactulose* 15 ML UDC PO SCH ×3 (08:16→21:07)
--- NOTE | 2019-05-24 10:28 | PN ---
Subjective Date of Service: 05/24/19 Interval History: Seen and evaluated, states she feels nauseous, states dairy does not sit well with her, and she had cream cheese today and is causing her to have nausea. Family History: Unchanged from Admission Social History: Unchanged from Admission Past Medical History: Unchanged from Admission Objective Active Medications: Acetaminophen (Tylenol Tab*) 650 mg PO Q6H PRN PRN Reason: PAIN SCALE 1-5 Last Admin: 05/23/19 09:51 Dose: 650 mg Al Hydrox/Mg Hydrox/Simethicone (Maalox Plus*) 30 ml PO Q6H PRN PRN Reason: INDIGESTION Betamethasone Valerate (Betamethasone Rita 0.1% Oint(Nf)) 1 applic TOPICAL BID PRN PRN Reason: ITCHY SKIN Last Admin: 05/17/19 13:47 Dose: 1 applic Collagenase (Santyl 250 Mg/Gm Oint*) 1 applic TOPICAL DAILY [facility] Last Admin: 05/23/19 12:55 Dose: 1 applic Lactulose (Lactulose*) 15 ml PO TID [facility] Last Admin: 05/24/19 08:16 Dose: 15 ml Loteprednol Etabonate (Lotemax 0.5% Oph.Susp (Nf)) 1 drop BOTH EYES TID [facility] Last Admin: 05/24/19 08:15 Dose: 1 drop Midodrine (Midodrine) 5 mg PO TID [facility]; Protocol Last Admin: 05/24/19 08:16 Dose: 5 mg Ondansetron HCl (Zofran Inj*) 4 mg IV Q6H PRN PRN Reason: NAUSEA Last Admin: 05/20/19 11:06 Dose: 4 mg Oxycodone/Acetaminophen (Percocet 5/325 Tab*) 1 tab PO Q4H PRN PRN Reason: PAIN SCALE 6-10 Last Admin: 05/23/19 09:54 Dose: 1 tab Pantoprazole Sodium (Protonix Tab*) 40 mg PO BID [facility] Last Admin: 05/24/19 08:16 Dose: 40 mg Sevelamer Carbonate (Renvela Tab*) 800 mg PO BID [facility] Last Admin: 05/24/19 08:16 Dose: 800 mg Sodium Chloride (Hypertonic) (Vaishnavi 128 Opth 5% Opth.Soll*) 1 drop BOTH EYES 1000,1500,2200 [facility] Last Admin: 05/23/19 22:34 Dose: Not Given Vital Signs - 8 hr 05/24/19 03:15 Temperature 98.1 F Pulse Rate 63 Respiratory 15 Rate Blood Pressure 95/35 (mmHg) O2 Sat by Pulse 96 Oximetry Oxygen Devices in Use Now: None Appearance: Elderly female in bed, not in distress Respiratory: Symmetrical Chest Expansion and Respiratory Effort, Clear to Auscultation Cardiovascular: RRR, - - trace lower extremity edema. Abdominal: NL Sounds; No Tenderness; No Distention, No Hepatosplenomegaly Lymphatic: - - dressing intact at lower extremities. Neurological: Alert and Oriented x 3, - - follows commands,no focal neuro deficits. Result Diagrams: 05/23/19 05:32 05/23/19 05:32 Additional Lab and Data: Above labs were pulled into the note when the note was edited prior to signing , see labs from day of consult below Laboratory Tests 05/19/19 05/19/19 05:59 05:59 WBC 10.9 H Hgb 10.3 L Hct 31 L Plt Count 181 Sodium 136 Potassium 3.8 Chloride 101 Carbon Dioxide 27 BUN 20 Creatinine 3.29 H Glucose 84 Microbiology and Other Data: Microbiology 05/14/19 20:07 Aerobic Blood Culture - Final Blood Venous No Growth Day 5 Anaerobic Blood Culture - Final No Growth Day 5 05/14/19 19:39 Aerobic Blood Culture - Final Blood Venous No Growth Day 5 Anaerobic Blood Culture - Final No Growth Day 5 05/14/19 19:03 Skin and Soft Tissue MRSA/MSSA (PCR - Final Leg Right Mrsa Negative S.aureus Negative Gram Stain - Final Wound Culture - Final Staphylococcus Epidermidis 05/14/19 19:03 Skin and Soft Tissue MRSA/MSSA (PCR - Final Leg Left Mrsa Negative S.aureus Negative Gram Stain - Final Wound Culture - Final Staphylococcus Epidermidis 05/15/19 00:59 Nasal Screen MRSA (PCR) - Final Nasal Mrsa Not Detected EKG Data: Ventricular paced rhythm at 60bpm. Assess/Plan/Problems-Billing Assessment: The patient is a 78 y/o F with A. FIb on eliquis/Digoxin, s/p PPM, Right Hip pain, ESRD on HD M/W/F, Liver disease on lactulose, Chronic LE wounds being treated by wound center here being admitted for high WBC, lactic acidosis due to ?sepsis from wounds. 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 will monitor, earlier this admission had similar episode, resolved after holding eliquis, restart eliquis given atrial fibrillation. now again with bloody BM, likely diverticular bleed changed protonix to 40mg oral bid, unfortunately restarting eliquis early did not work as she had re-bleeding. at this point awaiting records from outpatient c-scope in [place], and per GI would hold eliquis atleast for two weeks. (2) Digoxin toxicity Current Visit: Yes Status: Acute Code(s): T46.0X1A - POISONING BY CARDI- STIM GLYCOS/DRUG SIMLAR ACT, ACC, INIT SNOMED Code(s): 12455897 Comment: received digibind, monitor for now. was symptomatic, now improved- this morning more energy and answered all questions appropriately. her mentation changes, unsure if this is related to mood? energy? CT head negative. ammonia is trending down. (3) ESRD (end stage renal disease) on dialysis Current Visit: Yes Status: Acute Code(s): N18.6 - END STAGE RENAL DISEASE; Z99.2 - DEPENDENCE ON RENAL DIALYSIS SNOMED Code(s): 494241763 Comment: Continue HD on MWF, (4) Hypokalemia Current Visit: Yes Status: Acute Code(s): E87.6 - HYPOKALEMIA SNOMED Code( s): 46390480 Comment: resolved (5) Sepsis Current Visit: Yes Status: Acute Comment: resolved, source likely leg wounds, MRSA neg but staph epidermidis resistant to pcn and sensitive to vanco. Continue vancomycin. blood cultures negative thus far On abx since 05/14- vancomycin d/c'ed 05/23. (6) DVT prophylaxis Current Visit: Yes Status: Acute Code(s): Z29.9 - ENCOUNTER FOR PROPHYLACTIC MEASURES, UNSPECIFIED SNOMED Code(s): 370725729 Comment: now holding eliquis. No SCD due to multiple leg wounds, will have PT work with her. (7) Altered mental state Current Visit: Yes Status: Acute Code(s): R41.82 - ALTERED MENTAL STATUS, UNSPECIFIED SNOMED Code(s): 831912313 Comment: improved. was having episodes of confusion, could be related to digoxin toxicity- she did receive digibind this hospitalization. CT head negative 05/18. CT 05/19: negative. 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 ammonia trended upwards, however mentation today is okay, aa/o X 3, following commands will not make any changes could consider adding rifaximin as she is already on lactulose, but for now will monitor. (9) Hypotension Current Visit: Yes Status: Acute Comment: BP improved, Continue midodrine- increased to 5mg TID this admission Home dose metoprolol being held during admission. Status and Disposition: PT. anticipate would require CUATE vs SNF placement.
[2019-05-24] MEDS: Sodium Chloride 5% OPTH.SOL* 15 ML BTL BOTH EYES SCH ×3 (10:37→21:23)
[2019-05-24] MEDS: Collagenase 250 UNITS/GM OINT* 1 APPLIC OINT TOPICAL SCH (16:05)
[2019-05-24] MEDS: Gabapentin CAP(*) 100 MG PO SCH (21:24)
[2019-05-25 05:49] LABS: ABS Basophils 0.1 10^3/ul (0-0.2); ABS Eosinophils 0.2 10^3/ul (0-0.6); ABS Lymphocytes 1.9 10^3/ul (1.0-4.8); ABS Monocytes 1.2 10^3/ul (0-0.8); ABS Neutrophils 6.7 10^3/ul (1.5-7.7); Eosinophil % 2.1 %; Hematocrit 24 % (35-47); Hemoglobin 7.9 g/dL (12.0-16.0); Lymphocyte % 18.8 %; Mean Corpuscular HGB Conc 33 g/dL (31-36); Mean Corpuscular Hemoglobin 34 pg (27-31); Mean Corpuscular Volume 102 fL (80-97); Mean Platelet Volume 8.6 fL (7.4-10.4); Nucleated Red Blood Cells % 0.1; Platelet Count 193 10^3/uL (150-450); Red Blood Count 2.34 10^6 /uL (3.70-4.87); Red Cell Distribution Width 16 % (10-15)
[2019-05-25] MEDS ORDERED: Vancomycin Random Level* NOTE FOLLOW UP SCH (06:00)
[2019-05-25 06:09] LABS: BUN/Creatinine Ratio 3.6 (8-20); Calcium 7.8 mg/dL (8.6-10.3); EGFR Non-African American 6.6 (>60); Potassium 3.6 mmol/L (3.5-5.0)
[2019-05-25] MEDS: Sevelamer TAB* 800 MG PO SCH ×2 (08:47→21:17)
[2019-05-25] MEDS: Pantoprazole TAB * 40 MG TAB PO SCH ×2 (08:47→21:16)
[2019-05-25] MEDS: CMC:Midodrine 5 MG TAB PO SCH ×3 (08:47→21:16)
[2019-05-25] MEDS: LOTEPREDNOL 0.5% BOTH EYES SCH ×3 (08:55→21:16)
[2019-05-25] MEDS: oxyCODONE/Acetamin 5/325 MG* TAB PO PRN (09:01)
--- NOTE | 2019-05-25 10:47 | PN ---
Subjective Date of Service: 05/25/19 Interval History: Overnight had one bloody BM This morning had another bloody BM. This morning reports having nausea, and abdominal discomfort. No fever, no chills. reports feeling weak. Family History: Unchanged from Admission Social History: Unchanged from Admission Past Medical History: Unchanged from Admission Objective Active Medications: Acetaminophen (Tylenol Tab*) 650 mg PO Q6H PRN PRN Reason: PAIN SCALE 1-5 Last Admin: 05/23/19 09:51 Dose: 650 mg Al Hydrox/Mg Hydrox/Simethicone (Maalox Plus*) 30 ml PO Q6H PRN PRN Reason: INDIGESTION Betamethasone Valerate (Betamethasone Rita 0.1% Oint(Nf)) 1 applic TOPICAL BID PRN PRN Reason: ITCHY SKIN Last Admin: 05/17/19 13:47 Dose: 1 applic Collagenase (Santyl 250 Mg/Gm Oint*) 1 applic TOPICAL DAILY MOHAN Last Admin: 05/24/19 16:05 Dose: 1 applic Gabapentin (Neurontin Cap(*)) 100 mg PO BEDTIME [facility] Last Admin: 05/24/19 21:24 Dose: 100 mg Lactulose (Lactulose*) 15 ml PO TID [facility] Last Admin: 05/24/19 21:07 Dose: 15 ml Loteprednol Etabonate (Lotemax 0.5% Oph.Susp (Nf)) 1 drop BOTH EYES TID [facility] Last Admin: 05/25/19 08:55 Dose: 1 drop Midodrine (Midodrine) 5 mg PO TID [facility]; Protocol Last Admin: 05/25/19 08:47 Dose: 5 mg Ondansetron HCl (Zofran Inj*) 4 mg IV Q6H PRN PRN Reason: NAUSEA Last Admin: 05/20/19 11:06 Dose: 4 mg Oxycodone/Acetaminophen (Percocet 5/325 Tab*) 1 tab PO Q6H PRN PRN Reason: PAIN SCALE 6-10 Last Admin: 05/25/19 09:01 Dose: 1 tab Pantoprazole Sodium (Protonix Tab*) 40 mg PO BID [facility] Last Admin: 05/25/19 08:47 Dose: 40 mg Sevelamer Carbonate (Renvela Tab*) 800 mg PO BID [facility] Last Admin: 05/25/19 08:47 Dose: 800 mg Sodium Chloride (Hypertonic) (Vaishnavi 128 Opth 5% Opth.Soll*) 1 drop BOTH EYES 1000,1500,2200 MOHAN Last Admin: 05/24/19 21:23 Dose: 1 drop Vital Signs - 8 hr 05/25/19 05/25/19 05/25/19 03:15 07:25 07:27 Temperature 98.4 F Pulse Rate 61 Respiratory 15 16 16 Rate Blood Pressure 96/52 (mmHg) O2 Sat by Pulse 98 Oximetry 05/25/19 05/25/19 07:51 09:01 Temperature 98 F Pulse Rate 56 Respiratory 16 18 Rate Blood Pressure 96/42 (mmHg) O2 Sat by Pulse 100 Oximetry Oxygen Devices in Use Now: None Appearance: Elderly female in bed, not in distress Respiratory: Clear to Auscultation Cardiovascular: NL Sounds; No Murmurs; No JVD, RRR Abdominal: - - Bowel sounds normoactive, soft, non-tender, no distention, no guarding/rigidity. Extremities: No Edema Neurological: Alert and Oriented x 3, - - follows commands and answers questions appropriately. Result Diagrams: 05/25/19 05:37 05/25/19 05:38 Additional Lab and Data: Above labs were pulled into the note when the note was edited prior to signing , see labs from day of consult below Laboratory Tests 05/19/19 05/19/19 05:59 05:59 WBC 10.9 H Hgb 10.3 L Hct 31 L Plt Count 181 Sodium 136 Potassium 3.8 Chloride 101 Carbon Dioxide 27 BUN 20 Creatinine 3.29 H Glucose 84 Microbiology and Other Data: Microbiology 05/14/19 19:39 Aerobic Blood Culture - Final Blood Venous No Growth Day 5 Anaerobic Blood Culture - Final No Growth Day 5 05/14/19 20:07 Aerobic Blood Culture - Preliminary Blood Venous No Growth Day 4 Anaerobic Blood Culture - Preliminary No Growth Day 4 05/14/19 19:03 Skin and Soft Tissue MRSA/MSSA (PCR - Final Leg Right Mrsa Negative S.aureus Negative Gram Stain - Final Wound Culture - Final Staphylococcus Epidermidis 05/14/19 19:03 Skin and Soft Tissue MRSA/MSSA (PCR - Final Leg Left Mrsa Negative S.aureus Negative Gram Stain - Final Wound Culture - Final Staphylococcus Epidermidis 05/15/19 00:59 Nasal Screen MRSA (PCR) - Final Nasal Mrsa Not Detected EKG Data: Ventricular paced rhythm at 60bpm. Assess/Plan/Problems-Billing Assessment: The patient is a 78 y/o F with A. FIb on eliquis/Digoxin, s/p PPM, Right Hip pain, ESRD on HD M/W/F, Liver disease on lactulose, Chronic LE wounds being treated by wound center here being admitted for high WBC, lactic acidosis due to ?sepsis from wounds. 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 earlier this admission had similar episode, resolved after holding eliquis, restart eliquis given atrial fibrillation. now again with bloody BM, likely diverticular bleed changed protonix to 40mg oral bid, unfortunately restarting eliquis early did not work as she had re-bleeding. at this point awaiting records from outpatient c-scope in [place], and per GI would hold eliquis atleast for two weeks. (2) Digoxin toxicity Current Visit: Yes Status: Acute Code(s): T46.0X1A - POISONING BY CARDI- STIM GLYCOS/DRUG SIMLAR ACT, ACC, INIT SNOMED Code(s): 36982117 Comment: received digibind, monitor for now. was symptomatic, now improved- this morning more energy and answered all questions appropriately. her mentation changes, unsure if this is related to mood? energy? CT head negative. ammonia is trending down. (3) ESRD (end stage renal disease) on dialysis Current Visit: Yes Status: Acute Code(s): N18.6 - END STAGE RENAL DISEASE; Z99.2 - DEPENDENCE ON RENAL DIALYSIS SNOMED Code(s): 876810522 Comment: Continue HD on MWF, (4) Hypokalemia Current Visit: Yes Status: Acute Code(s): E87.6 - HYPOKALEMIA SNOMED Code( s): 32126094 Comment: resolved (5) Sepsis Current Visit: Yes Status: Acute Comment: resolved, source likely leg wounds, MRSA neg but staph epidermidis resistant to pcn and sensitive to vanco. Continue vancomycin. blood cultures negative thus far On abx since 05/14- vancomycin d/c'ed 05/23. (6) DVT prophylaxis Current Visit: Yes Status: Acute Code(s): Z29.9 - ENCOUNTER FOR PROPHYLACTIC MEASURES, UNSPECIFIED SNOMED Code(s): 700029649 Comment: now holding eliquis. No SCD due to multiple leg wounds, will have PT work with her. (7) Altered mental state Current Visit: Yes Status: Acute Code(s): R41.82 - ALTERED MENTAL STATUS, UNSPECIFIED SNOMED Code(s): 573650220 Comment: improved. was having episodes of confusion, could be related to digoxin toxicity- she did receive digibind this hospitalization. CT head negative 05/18. CT 05/19: negative. 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 ammonia trended upwards, however mentation today is okay, aa/o X 3, following commands will not make any changes- could consider adding rifaximin as she is already on lactulose, but for now will monitor as she is mentating appropriately. (9) Hypotension Current Visit: Yes Status: Acute Comment: BP improved, Continue midodrine- increased to 5mg TID this admission Home dose metoprolol being held during admission. (10) Acute blood loss anemia Current Visit: Yes Status: Acute Code(s): D62 - ACUTE POSTHEMORRHAGIC ANEMIA SNOMED Code(s): 071156750 Comment: due to GI bleeding, will trasnsfuse one unit PRBC. Status and Disposition: PT. anticipate would require CUATE vs SNF placement.
[2019-05-25 11:11] LABS: Phosphorus 3.1 mg/dL (2.5-5.0)
[2019-05-25] MEDS ORDERED: EPOETIN ALFA-EPBX * 10,000 UNIT/ML VIAL IV ONE (12:00)
[2019-05-25] MEDS ORDERED: Heparin DIALYSIS ONLY(*) 1,000 UNITS/ML VIAL DIALYSIS ONE (12:00)
[2019-05-25] MEDS: Lactulose* 15 ML UDC PO SCH ×3 (12:59→21:16)
[2019-05-25] MEDS: Sodium Chloride 5% OPTH.SOL* 15 ML BTL BOTH EYES SCH ×3 (13:25→21:17)
[2019-05-25] MEDS: Collagenase 250 UNITS/GM OINT* 1 APPLIC OINT TOPICAL SCH (16:10)
[2019-05-25] MEDS ORDERED: PEG 3000 GI LAVAGE* 1 GALLON PO ONE (16:30)
--- NOTE | 2019-05-25 16:36 | PN ---
Hospitalist Progress Note Date of Service: 05/25/19 Discussed case with GI- Dr. Glaser, plan for flex sigmoidoscopy tomorrow. prep today. NPO after midnight.
--- NOTE | 2019-05-25 17:18 | PN ---
Progress Note - Progress Note Date of Service: 05/25/19 Note: BRIEF GI FOLLOW-UP NOTE IE/S: - Hgb 7.9 (from 9.7) - Several episodes of stool mixed with dark red blood. - Feeling fatigued. Receiving 1 unit of pRBC. - Prior colonoscopy report received by primary team: demonstrated diverticulosis and internal hemorrhoids. O: - SBP in 90's all day -- stable. HR not tachycardic. GEN: Chronically ill-appearing elderly woman. Lying in bed. Appears weak. PULM: Breathing comfortably ABD: Soft, NT, ND. A/P: 78yF w/ A fib on Eliquis, ESRD on dialysis, and chronic LE wounds, who was admitted w/ sepsis secondary to LE wounds. Hospital course complicated by rectal bleeding. Hgb down this morning with several episodes of dark red bloody bowel movements. SBP in 90's but stable all day. - Continue to hold anticoagulation - Continue to monitor CBC every 8-12 hours - Clear diet. NPO after MN. - Please give patient colonoscopy prep (Golytely) --drink 1-2 liters this evening if able. GI will touch base with team in AM. May need additional Golytely or enema tmrw. - Tentatively plan for flex sig tomorrow Please notify GI if any acute clinical change. Amelia Fairbanks MD
--- NOTE | 2019-05-25 18:29 | PN ---
DIALYSIS NOTE: DATE OF DIALYSIS: 05/25/19 SERVICE: [facility] Nephrology. HISTORY: The patient was seen and examined at bedside. The patient is tolerating her HD procedure well. Orders discussed with HD nurse. PHYSICAL EXAMINATION: HEENT: NC/AT. Heart: S1, S2 present. Irregularly irregular at the time of exam. Lungs: Clear to auscultation. Abdomen: Soft. Extremities noted to have mild edema. Neuro: Alert. ASSESSMENT AND PLAN: 1. End-stage renal disease, on hemodialysis 3 times a week. Tolerating her procedure well. 2. Anemia secondary to gastrointestinal bleed. Eliquis is on hold. The patient is to receive 1 unit of PRBC with her dialysis. We will follow with the medical team. [id number]/[facility] #: [id number] JERO
[2019-05-25] MEDS: Gabapentin CAP(*) 100 MG PO SCH (21:16)
[2019-05-26] MEDS: Sodium Chloride 5% OPTH.SOL* 15 ML BTL BOTH EYES SCH ×3 (00:25→18:27)
[2019-05-26 00:38] LABS: Hematocrit 27 % (35-47); Hemoglobin 9.2 g/dL (12.0-16.0)
[2019-05-26 06:29] LABS: Calcium 7.8 mg/dL (8.6-10.3); EGFR African American 14.3 (>60); EGFR Non-African American 11.8 (>60); Potassium 3.4 mmol/L (3.5-5.0)
[2019-05-26 06:39] LABS: Hematocrit 39 % (35-47); Hemoglobin 13.1 g/dL (12.0-16.0); Mean Corpuscular HGB Conc 33 g/dL (31-36); Mean Corpuscular Hemoglobin 33 pg (27-31); Mean Corpuscular Volume 99 fL (80-97); Mean Platelet Volume 9.1 fL (7.4-10.4); Platelet Count 117 10^3/uL (150-450); Red Blood Count 3.97 10^6 /uL (3.70-4.87); Red Cell Distribution Width 19 % (10-15)
[2019-05-26] MEDS: Lactulose* 15 ML UDC PO SCH ×3 (09:04→23:04)
[2019-05-26] MEDS: CMC:Midodrine 5 MG TAB PO SCH ×3 (09:05→23:04)
[2019-05-26] MEDS: Pantoprazole TAB * 40 MG TAB PO SCH ×2 (09:05→23:05)
[2019-05-26] MEDS: Sevelamer TAB* 800 MG PO SCH ×2 (09:05→23:04)
[2019-05-26] MEDS: LOTEPREDNOL 0.5% BOTH EYES SCH ×3 (09:06→23:05)
[2019-05-26] MEDS: oxyCODONE/Acetamin 5/325 MG* TAB PO PRN (09:40)
[2019-05-26] MEDS: Collagenase 250 UNITS/GM OINT* 1 APPLIC OINT TOPICAL SCH (11:14)
[2019-05-26] MEDS ORDERED: fentaNYL* 50 MCG/ML 2 ML VIAL (100 MCG VIAL) ONE (16:10)
[2019-05-26] MEDS ORDERED: Midazolam* 1 MG/ML 5 ML VIAL (5 MG) ONE (16:10)
--- NOTE | 2019-05-26 16:22 | PN ---
Subjective Date of Service: 05/26/19 Interval History: Ms. Almanza is a 78 yo female with PMH significant for A fib, peripheral neuropathy, GERD, cirrhosis, osteoarthritis, ESRD on hemodialysis, glaucoma, and chronic bilateral LE wounds. She presented to the emergency room for pain in her leg wounds and purulent drainage from the wounds. She presented to the hospital with chronic bilateral LE wounds, she also presented with multiple skin tears after a fall prior to her arrival. The skin tears have healed over the course of the past week. Patient seen and examined at bedside. Family History: Unchanged from Admission Social History: Unchanged from Admission Past Medical History: Unchanged from Admission Objective Active Medications: Acetaminophen (Tylenol Tab*) 650 mg PO Q6H PRN Reason: PAIN SCALE 1-5 Al Hydrox/Mg Hydrox/Simethicone (Maalox Plus*) 30 ml PO Q6H PRN Reason: INDIGESTION Betamethasone Valerate (Betamethasone Rita 0.1% Oint(Nf)) 1 applic TOPICAL BID PRN Reason: ITCHY SKIN Collagenase (Santyl 250 Mg/Gm Oint*) 1 applic TOPICAL DAILY MOHAN Gabapentin (Neurontin Cap(*)) 100 mg PO BEDTIME MOHAN Lactulose (Lactulose*) 15 ml PO TID MOHAN Loteprednol Etabonate (Lotemax 0.5% Oph.Susp (Nf)) 1 drop BOTH EYES TID MOHAN Midodrine (Midodrine) 5 mg PO TID MOHAN; Protocol Ondansetron HCl (Zofran Inj*) 4 mg IV Q6H PRN Reason: NAUSEA Oxycodone/Acetaminophen (Percocet 5/325 Tab*) 1 tab PO Q6H PRN Reason: PAIN SCALE 6-10 Pantoprazole Sodium (Protonix Tab*) 40 mg PO BID MOHAN Sevelamer Carbonate (Renvela Tab*) 800 mg PO BID MOHAN Sodium Chloride (Hypertonic) (Vaishnavi 128 Opth 5% Opth.Soll*) 1 drop BOTH EYES 1000,1500,2200 [facility] Vital Signs 05/26/19 08:04 Temperature 97.3 F Pulse Rate 82 Respiratory 20 Rate Blood Pressure 98/36 (mmHg) Blood Pressure 56 Mean O2 Sat by Pulse 94 Oximetry Patient on Room Yes Air Oxygen Devices in Use Now: None Appearance: NAD, sitting up in a chair Ears/Nose/Mouth/Throat: Mucous Membranes Moist Respiratory: Symmetrical Chest Expansion and Respiratory Effort Skin: - - See skin note below Neurological: Alert and Oriented x 3 Nutrition: Taking PO's Result Diagrams: 06/01/19 05:30 06/01/19 05:30 Additional Lab and Data: Above labs were pulled into the note when the note was edited prior to signing , see labs from day of consult below Laboratory Tests 05/26/19 05/26/19 05:36 05:36 WBC 8.0 Hgb 13.1 Hct 39 Plt Count 117 L Sodium 134 L Potassium 3.4 L Chloride 101 Carbon Dioxide 25 BUN 11 Creatinine 3.70 H Glucose 74 Microbiology and Other Data: Microbiology 05/14/19 19:39 Aerobic Blood Culture - Final Blood Venous No Growth Day 5 Anaerobic Blood Culture - Final No Growth Day 5 05/14/19 20:07 Aerobic Blood Culture - Preliminary Blood Venous No Growth Day 4 Anaerobic Blood Culture - Preliminary No Growth Day 4 05/14/19 19:03 Skin and Soft Tissue MRSA/MSSA (PCR - Final Leg Right Mrsa Negative S.aureus Negative Gram Stain - Final Wound Culture - Final Staphylococcus Epidermidis 05/14/19 19:03 Skin and Soft Tissue MRSA/MSSA (PCR - Final Leg Left Mrsa Negative S.aureus Negative Gram Stain - Final Wound Culture - Final Staphylococcus Epidermidis 05/15/19 00:59 Nasal Screen MRSA (PCR) - Final Nasal Mrsa Not Detected Skin Deviation Note - Skin Deviation Findings Right lateral lower leg - The wound measures 2 cm x 1.5 cm x 0.3 cm. The wound base is yellow and dark colored slough. There is no drainage noted today. The surrounding skin with erythema. Left lower leg - There are 2 wounds. The wound on the lateral aspect of the leg measures 5 cm x 2 cm x 0.4 cm. The wound base is yellow slough. The surrounding skin is intact. The wound on the medial aspect of the leg measures, 3.5 cm x 4.5 cm x 0. cm. The wound base is dark slough with pink granulation tissue. The surrounding skin with mild erythema. There is no drainage noted. Assessment/Plan: Ms. Almanza is a 78 yo female with PMH significant for A fib, peripheral neuropathy, GERD, cirrhosis, osteoarthritis, ESRD on hemodialysis, glaucoma, and chronic bilateral LE wounds. She presented to the emergency room for pain in her leg wounds and purulent drainage from the wounds. She presented to the hospital with chronic bilateral LE wounds. 1. Bilateral lower extremity chronic wounds, secondary to venous insufficiency. Recommend washing the wounds with saline, applying Santyl to the wounds, followed by telfa, followed by rolled gauze and change dressings daily. DO NOT apply tape to the skin. Should consider ABIs if not previously done, none seen in the [facility] EMR. She should continue to follow with the [facility] wound clinic at discharge. 2. Multiple skin tears. The wounds have healed. 3. Diet. Renal diet. 4. Code Status. Full Code Status. 5. Disposition. Inpatient, disposition per primary medicine team. TIME SPENT: Time for this wound consultation was 20 minutes and 10 minutes was spent with the patient and family discussing past medical history; removing old dressings; assessing, measuring, and photographing the wounds; and redressing the wounds. Wound Problem/Plan Assessment: Is Patient a Wound Clinic Patient: No Attending: Farnaz Orosco
--- NOTE | 2019-05-26 18:09 | PN ---
Subjective Date of Service: 05/26/19 Interval History: awake, seen in the room post flex sig with and daughter in the room. Reviewed with Dr. Marrero the flex sig reveals severe diverticulosis no active bleed, and she does have internal hemorrhoid with ulceration which could have been the source of the bleed. no active bleed during the procedure or stigmata of active bleed Past Medical History: Unchanged from Admission Objective Active Medications: Acetaminophen (Tylenol Tab*) 650 mg PO Q6H PRN PRN Reason: PAIN SCALE 1-5 Last Admin: 05/23/19 09:51 Dose: 650 mg Al Hydrox/Mg Hydrox/Simethicone (Maalox Plus*) 30 ml PO Q6H PRN PRN Reason: INDIGESTION Betamethasone Valerate (Betamethasone Rita 0.1% Oint(Nf)) 1 applic TOPICAL BID PRN PRN Reason: ITCHY SKIN Last Admin: 05/17/19 13:47 Dose: 1 applic Collagenase (Santyl 250 Mg/Gm Oint*) 1 applic TOPICAL DAILY MOHAN Last Admin: 05/26/19 11:14 Dose: 1 applic Gabapentin (Neurontin Cap(*)) 100 mg PO BEDTIME MOHAN Last Admin: 05/25/19 21:16 Dose: 100 mg Lactulose (Lactulose*) 15 ml PO TID MOHAN Last Admin: 05/26/19 13:34 Dose: 15 ml Loteprednol Etabonate (Lotemax 0.5% Oph.Susp (Nf)) 1 drop BOTH EYES TID MOHAN Last Admin: 05/26/19 09:06 Dose: 1 drop Midodrine (Midodrine) 5 mg PO TID MOHAN; Protocol Last Admin: 05/26/19 13:35 Dose: 5 mg Ondansetron HCl (Zofran Inj*) 4 mg IV Q6H PRN PRN Reason: NAUSEA Last Admin: 05/20/19 11:06 Dose: 4 mg Oxycodone/Acetaminophen (Percocet 5/325 Tab*) 1 tab PO Q6H PRN PRN Reason: PAIN SCALE 6-10 Last Admin: 05/26/19 09:40 Dose: 1 tab Pantoprazole Sodium (Protonix Tab*) 40 mg PO BID MOHAN Last Admin: 05/26/19 09:05 Dose: 40 mg Sevelamer Carbonate (Renvela Tab*) 800 mg PO BID [facility] Last Admin: 05/26/19 09:05 Dose: 800 mg Sodium Chloride (Hypertonic) (Vaishnavi 128 Opth 5% Opth.Soll*) 1 drop BOTH EYES 1000,1500,2200 [facility] Last Admin: 05/26/19 11:12 Dose: 1 drop Vital Signs - 8 hr 05/26/19 05/26/19 11:33 15:34 Respiratory 16 16 Rate Oxygen Devices in Use Now: None Appearance: awake, alert. no distress Eyes: - - EOMI Neck: Trachea Midline Respiratory: Clear to Auscultation, - - + rales Skin: - - multiple ecchymosis Neurological: Alert and Oriented x 3 Result Diagrams: 05/26/19 05:36 05/26/19 05:36 Additional Lab and Data: Above labs were pulled into the note when the note was edited prior to signing , see labs from day of consult below Microbiology and Other Data: Microbiology 05/14/19 19:39 Aerobic Blood Culture - Final Blood Venous No Growth Day 5 Anaerobic Blood Culture - Final No Growth Day 5 05/14/19 20:07 Aerobic Blood Culture - Preliminary Blood Venous No Growth Day 4 Anaerobic Blood Culture - Preliminary No Growth Day 4 05/14/19 19:03 Skin and Soft Tissue MRSA/MSSA (PCR - Final Leg Right Mrsa Negative S.aureus Negative Gram Stain - Final Wound Culture - Final Staphylococcus Epidermidis 05/14/19 19:03 Skin and Soft Tissue MRSA/MSSA (PCR - Final Leg Left Mrsa Negative S.aureus Negative Gram Stain - Final Wound Culture - Final Staphylococcus Epidermidis 05/15/19 00:59 Nasal Screen MRSA (PCR) - Final Nasal Mrsa Not Detected EKG Data: Ventricular paced rhythm at 60bpm. Assess/Plan/Problems-Billing Assessment: The patient is a 78 y/o F with A. FIb on eliquis/Digoxin, s/p PPM, Right Hip pain, ESRD on HD M/W/F, Liver disease on lactulose, Chronic LE wounds being treated by wound center here being admitted for high WBC, lactic acidosis due to ?sepsis from wounds. 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 off anti coaguation due to recent lower GI bleed. - Remains off digoxin and beta blockers. - I will start low dose beta blockers 12.5 mg daily starting in am (2) Acute blood loss anemia Current Visit: Yes Status: Acute Code(s): D62 - ACUTE POSTHEMORRHAGIC ANEMIA SNOMED Code(s): 329425454 Comment: due to GI bleeding, s/p one unit PRBC. H/H stable hct at 39. exagerated response on one units only with Hct from 27 to 39. Will recheck in am (3) Altered mental state Current Visit: Yes Status: Acute Code(s): R41.82 - ALTERED MENTAL STATUS, UNSPECIFIED SNOMED Code(s): 700676343 Comment: - improved post digibind. could have been due to dig toxicity - CT head negative 05/18. CT 05/19: negative. (4) Bright red blood per rectum Current Visit: Yes Status: Acute Code(s): K62.5 - HEMORRHAGE OF ANUS AND RECTUM SNOMED Code(s): 38378435 Comment: - s/p one unit PRBC, resolved after holding eliquis, ( it occured twice with pRBBPR with eliquis resolve after stopping eliquis) - changed protonix to 40mg oral bid, - per GI would hold eliquis atleast for two weeks. (5) Digoxin toxicity Current Visit: Yes Status: Acute Code(s): T46.0X1A - POISONING BY CARDI- STIM GLYCOS/DRUG SIMLAR ACT, ACC, INIT SNOMED Code(s): 42755573 Comment: received digibind was symptomatic, now improved (6) ESRD (end stage renal disease) on dialysis Current Visit: Yes Status: Acute Code(s): N18.6 - END STAGE RENAL DISEASE; Z99.2 - DEPENDENCE ON RENAL DIALYSIS SNOMED Code(s): 793668612 Comment: Continue HD on MWF, (7) DVT prophylaxis Current Visit: Yes Status: Acute Code(s): Z29.9 - ENCOUNTER FOR PROPHYLACTIC MEASURES, UNSPECIFIED SNOMED Code(s): 506764625 Comment: now holding eliquis. No SCD due to multiple leg wounds, will have PT work with her. Status and Disposition: PT. anticipate would require CUATE vs SNF placement.
[2019-05-26] MEDS: Gabapentin CAP(*) 100 MG PO SCH (23:04)
[2019-05-27] MEDS: Sodium Chloride 5% OPTH.SOL* 15 ML BTL BOTH EYES SCH ×4 (01:21→22:00)
--- NOTE | 2019-05-27 03:26 | PRO ---
DATE: 05/26/19 - ROOM #[id number] REFERRING MD: Everette Cazares* PROCEDURE: Flexible sigmoidoscopy to mid sigmoid INDICATION: This 78-year-old woman admitted to the hospital more than a week ago with the need for dialysis, extensive lower extremity wound care, and dealing with bright red rectal bleeding that had been recurrent. Eliquis was stopped and then there was repeat bleeding when it was restarted after about 48 hours. Intermittent bleeding has continued and it has been bright red and running out. She received her first unit of blood yesterday. In [place], August and October 2018, she had colonoscopies (records obtained yesterday), the first said to demonstrate a mid ascending colon polyp 15 mm with the area tattooed. She was referred for specialized colonoscopy care apparently and a followup colonoscopy just found a 4-mm polyp seeming to be somewhat proximal to what the first report described and there was no major polyp to remove. The tattoo had been seen. She has major problems with wound care of the skin. She received a couple of glasses of Colyte last night. Informed consent had been obtained from the patient and her , and they knew that the exam was diagnostic as therapy applied during sigmoidoscopy or colonoscopy was unusual. FINDINGS: She was positioned left side down and moderate sedation induced with light doses of medications, Midazolam 1.5 and 25 fentanyl. She has profound hyperpigmentation of the skin and open wounds on the legs. Initial views show some brown flecks of stool coming from above. There was no blood seen. The rectum was slightly friable, but generally was quite normal. With the rectosigmoid, diverticulosis was seen and there was 3 to 4+ diverticulosis with lot of inflammation, hypertrophy, and deformity and knurling with the scope having difficulty and at about 30 cm it appeared further progress was impossible. At no point had any blood had been seen and no active purulence, although there was erythema and speckled exudate at times from diverticular opening. Coming back, again there was no blood and no polyps. Rectum retroflexion did show moderately impressive hemorrhoids circumferentially. One had an ulceration fairly superficial with a black stigmata dot over it. The area was observed for a couple of minutes and there was no bleeding and the procedure was terminated. IMPRESSION: 1. 3 to 4+ sigmoid diverticulosis. 2. Internal hemorrhoids with focal ulceration, clearly fitting well with her bleeding pattern over the last week. Surgery could be consulted for further recurrence. [id number]/[facility] #: [id number] JERO
[2019-05-27] MEDS: Lactulose* 15 ML UDC PO SCH ×3 (08:21→20:43)
[2019-05-27] MEDS: LOTEPREDNOL 0.5% BOTH EYES SCH ×3 (08:21→20:43)
[2019-05-27] MEDS: Pantoprazole TAB * 40 MG TAB PO SCH ×2 (08:22→20:43)
[2019-05-27] MEDS: Metoprolol Succinate XL TAB* 25 MG PO SCH (08:23)
[2019-05-27] MEDS: CMC:Midodrine 5 MG TAB PO SCH ×3 (08:23→20:43)
[2019-05-27] MEDS: Sevelamer TAB* 800 MG PO SCH ×2 (08:23→20:43)
[2019-05-27] MEDS: Collagenase 250 UNITS/GM OINT* 1 APPLIC OINT TOPICAL SCH (08:24)
[2019-05-27 08:26] LABS: CO2 Carbon Dioxide 17 mmol/L (22-32); Chloride 103 mmol/L (101-111); Magnesium 2.2 mg/dL (1.9-2.7); Sodium 135 mmol/L (135-145)
[2019-05-27 08:27] LABS: ABS Basophils 0.1 10^3/ul (0-0.2); ABS Eosinophils 0.3 10^3/ul (0-0.6); ABS Lymphocytes 2.3 10^3/ul (1.0-4.8); ABS Neutrophils 9.8 10^3/ul (1.5-7.7); Eosinophil % 2.2 %; Hematocrit 33 % (35-47); Hemoglobin 10.8 g/dL (12.0-16.0); Mean Corpuscular HGB Conc 33 g/dL (31-36); Mean Corpuscular Hemoglobin 33 pg (27-31); Mean Corpuscular Volume 98 fL (80-97); Mean Platelet Volume 9.4 fL (7.4-10.4); Nucleated Red Blood Cells % 0.1; Platelet Count 168 10^3/uL (150-450); Red Blood Count 3.32 10^6 /uL (3.70-4.87); Red Cell Distribution Width 19 % (10-15); White Blood Count 13.6 10^3/uL (3.5-10.8)
[2019-05-27 08:28] LABS: Vancomycin Random 12.6 mcg/mL
[2019-05-27 08:31] LABS: BUN/Creatinine Ratio 3.4 (8-20); Blood Urea Nitrogen 17 mg/dL (6-24); EGFR African American 10.3 (>60); EGFR Non-African American 8.5 (>60); Glucose 135 mg/dL (70-100); Phosphorus 2.8 mg/dL (2.5-5.0)
[2019-05-27 08:43] LABS: Anion Gap 15 mmol/L (2-11)
[2019-05-27] MEDS: oxyCODONE/Acetamin 5/325 MG* TAB PO PRN ×2 (08:55→15:21)
[2019-05-27] MEDS ORDERED: Metoprolol Succinate XL TAB* 25 MG PO SCH (09:00)
[2019-05-27] MEDS: CMCS: Midodrine 5 MG TAB PO SCH (10:47)
[2019-05-27] MEDS ORDERED: EPOETIN ALFA-EPBX * 3,000 UNIT/ML VIAL IV ONE (11:00)
[2019-05-27] MEDS ORDERED: EPOETIN ALFA-EPBX * 2,000 UNIT/ML VIAL IV ONE (11:00)
[2019-05-27] MEDS ORDERED: Heparin DIALYSIS ONLY(*) 1,000 UNITS/ML VIAL ONE (11:00)
--- NOTE | 2019-05-27 17:11 | PN ---
Subjective Date of Service: 05/27/19 Interval History: seen in room with at bedside. no acute events today. no rectal bleed. Vitals stable. no fever alert and oriented. Social History: Unchanged from Admission Past Medical History: Unchanged from Admission Objective Active Medications: Acetaminophen (Tylenol Tab*) 650 mg PO Q6H PRN PRN Reason: PAIN SCALE 1-5 Last Admin: 05/23/19 09:51 Dose: 650 mg Al Hydrox/Mg Hydrox/Simethicone (Maalox Plus*) 30 ml PO Q6H PRN PRN Reason: INDIGESTION Betamethasone Valerate (Betamethasone Rita 0.1% Oint(Nf)) 1 applic TOPICAL BID PRN PRN Reason: ITCHY SKIN Last Admin: 05/17/19 13:47 Dose: 1 applic Collagenase (Santyl 250 Mg/Gm Oint*) 1 applic TOPICAL DAILY [facility] Last Admin: 05/27/19 08:24 Dose: 1 applic Gabapentin (Neurontin Cap(*)) 100 mg PO BEDTIME [facility] Last Admin: 05/26/19 23:04 Dose: 100 mg Lactulose (Lactulose*) 15 ml PO TID [facility] Last Admin: 05/27/19 14:43 Dose: 15 ml Loteprednol Etabonate (Lotemax 0.5% Oph.Susp (Nf)) 1 drop BOTH EYES TID [facility] Last Admin: 05/27/19 14:43 Dose: 1 drop Metoprolol Succinate (Toprol Xl Tab*) 12.5 mg PO DAILY [facility] Last Admin: 05/27/19 08:23 Dose: Not Given Midodrine (Midodrine) 5 mg PO TID [facility]; Protocol Last Admin: 05/27/19 14:43 Dose: 5 mg Midodrine (Midodrine) 5 mg PO MoWeFr@0900 [facility] Last Admin: 05/27/19 10:47 Dose: 5 mg Ondansetron HCl (Zofran Inj*) 4 mg IV Q6H PRN PRN Reason: NAUSEA Last Admin: 05/20/19 11:06 Dose: 4 mg Oxycodone/Acetaminophen (Percocet 5/325 Tab*) 1 tab PO Q6H PRN PRN Reason: PAIN SCALE 6-10 Last Admin: 05/27/19 15:21 Dose: 1 tab Pantoprazole Sodium (Protonix Tab*) 40 mg PO BID [facility] Last Admin: 05/27/19 08:22 Dose: 40 mg Sevelamer Carbonate (Renvela Tab*) 800 mg PO BID [facility] Last Admin: 05/27/19 08:23 Dose: 800 mg Sodium Chloride (Hypertonic) (Vaishnavi 128 Opth 5% Opth.Soll*) 1 drop BOTH EYES 1000,1500,2200 [facility] Last Admin: 05/27/19 14:44 Dose: 1 drop Vital Signs - 8 hr 05/27/19 05/27/19 05/27/19 13:33 14:44 15:21 Temperature 97.5 F Pulse Rate 83 Respiratory 18 17 17 Rate Blood Pressure 108/56 (mmHg) O2 Sat by Pulse 100 Oximetry Oxygen Devices in Use Now: None Appearance: awake, resting multiple skin ecchymosis Eyes: No Scleral Icterus, - - EOMI Ears/Nose/Mouth/Throat: Mucous Membranes Moist Neck: NL Appearance and Movements; NL JVP, Trachea Midline Respiratory: Symmetrical Chest Expansion and Respiratory Effort, Clear to Auscultation Cardiovascular: RRR, - - murmur Abdominal: NL Sounds; No Tenderness; No Distention Extremities: - - right leg ulcer Neurological: Alert and Oriented x 3 Result Diagrams: 05/27/19 07:38 05/27/19 14:52 Additional Lab and Data: Above labs were pulled into the note when the note was edited prior to signing , see labs from day of consult below Microbiology and Other Data: Microbiology 05/14/19 19:39 Aerobic Blood Culture - Final Blood Venous No Growth Day 5 Anaerobic Blood Culture - Final No Growth Day 5 05/14/19 20:07 Aerobic Blood Culture - Preliminary Blood Venous No Growth Day 4 Anaerobic Blood Culture - Preliminary No Growth Day 4 05/14/19 19:03 Skin and Soft Tissue MRSA/MSSA (PCR - Final Leg Right Mrsa Negative S.aureus Negative Gram Stain - Final Wound Culture - Final Staphylococcus Epidermidis 05/14/19 19:03 Skin and Soft Tissue MRSA/MSSA (PCR - Final Leg Left Mrsa Negative S.aureus Negative Gram Stain - Final Wound Culture - Final Staphylococcus Epidermidis 05/15/19 00:59 Nasal Screen MRSA (PCR) - Final Nasal Mrsa Not Detected EKG Data: Ventricular paced rhythm at 60bpm. Assess/Plan/Problems-Billing Assessment: The patient is a 78 y/o F with A. FIb on eliquis/Digoxin, s/p PPM, Right Hip pain, ESRD on HD M/W/F, Liver disease on lactulose, Chronic LE wounds being treated by wound center here being admitted for high WBC, lactic acidosis due to ?sepsis from wounds. 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 off anti coaguation due to recent lower GI bleed. - Remains off digoxin and beta blockers. - I did restart low dose beta blockers 12.5 mg daily with soft BP - Will recheck dig level in am and resume at lower dose as we can not go up higher on lopressor due to soft BP (2) Acute blood loss anemia Current Visit: Yes Status: Acute Code(s): D62 - ACUTE POSTHEMORRHAGIC ANEMIA SNOMED Code(s): 910035081 Comment: - due to GI bleeding, s/p one unit PRBC. - H/H 33, if it remains stable in am can be discharge off eliquis for at least 2 weeks (3) Altered mental state Current Visit: Yes Status: Acute Code(s): R41.82 - ALTERED MENTAL STATUS, UNSPECIFIED SNOMED Code(s): 347588924 Comment: - improved post digibind. could have been due to dig toxicity - CT head negative 05/18. CT 05/19: negative. (4) Bright red blood per rectum Current Visit: Yes Status: Acute Code(s): K62.5 - HEMORRHAGE OF ANUS AND RECTUM SNOMED Code(s): 37757495 Comment: - s/p one unit PRBC, resolved after holding eliquis, ( it occured twice with pRBBPR with eliquis resolve after stopping eliquis) - changed protonix to 40mg oral bid, - per GI would hold eliquis atleast for two weeks. (5) Digoxin toxicity Current Visit: Yes Status: Acute Code(s): T46.0X1A - POISONING BY CARDI- STIM GLYCOS/DRUG SIMLAR ACT, ACC, INIT SNOMED Code(s): 21821751 Comment: received digibind was symptomatic, now improved recheck level in am. 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 (8) Wound of lower extremity Current Visit: Yes Status: Acute Code(s): S81.809A - UNSPECIFIED OPEN WOUND , UNSPECIFIED LOWER LEG, INIT ENCNTR SNOMED Code(s): 455140244 Comment: - s/p vanco 05/14/19 - 05/23/19 - Wound care consult and follow up with wound clinic (9) DVT prophylaxis Current Visit: Yes Status: Acute Code(s): Z29.9 - ENCOUNTER FOR PROPHYLACTIC MEASURES, UNSPECIFIED SNOMED Code(s): 310040893 Comment: now holding eliquis. No SCD due to multiple leg wounds, Status and Disposition: PT. anticipate would require CUATE vs SNF placement.
[2019-05-27] MEDS: Gabapentin CAP(*) 100 MG PO SCH (20:43)
--- NOTE | 2019-05-27 22:45 | PN ---
DIALYSIS NOTE: DATE OF DIALYSIS: 05/27/19 HISTORY: The patient was seen and examined at bedside during dialysis, tolerating the procedure well. Vitals and labs have been reviewed. PHYSICAL EXAMINATION: HEENT: NCAT. Heart: S1, S2 present. Regular at the time of exam. Lungs: Decreased breath sounds bilaterally. Abdomen: Soft. Extremities: No edema. Neuro: Alert. ASSESSMENT AND PLAN: 1. Endstage renal disease, on hemodialysis 3 times a week. The patient seen during dialysis and tolerating her procedure well. HD orders discussed with nurse. We will dialyze her on a 3K bath as the potassium is on the lower side and if it continues to be low, we will consider dialyzing on a 4K bath in the future. 2. We will continue her routine Epogen and the patient is getting evaluated for GI bleed. 3. Her mental status is improved. [id number]/[facility] #: [id number] MTDD
[2019-05-28 05:47] LABS: ABS Basophils 0.1 10^3/ul (0-0.2); ABS Eosinophils 0.2 10^3/ul (0-0.6); ABS Lymphocytes 1.8 10^3/ul (1.0-4.8); ABS Monocytes 1.2 10^3/ul (0-0.8); Eosinophil % 1.8 %; Hematocrit 27 % (35-47); Hemoglobin 8.9 g/dL (12.0-16.0); Lymphocyte % 16.2 %; Mean Corpuscular HGB Conc 34 g/dL (31-36); Mean Corpuscular Hemoglobin 33 pg (27-31); Mean Corpuscular Volume 98 fL (80-97); Mean Platelet Volume 8.7 fL (7.4-10.4); Platelet Count 202 10^3/uL (150-450); Red Cell Distribution Width 19 % (10-15); White Blood Count 11.3 10^3/uL (3.5-10.8)
[2019-05-28 06:10] LABS: BUN/Creatinine Ratio 2.7 (8-20); Calcium 7.6 mg/dL (8.6-10.3); EGFR African American 16.5 (>60); EGFR Non-African American 13.6 (>60); Potassium 3.5 mmol/L (3.5-5.0)
[2019-05-28 06:18] LABS: Digoxin 1.7 ng/ml (0.8-2.0)
[2019-05-28] MEDS: LOTEPREDNOL 0.5% BOTH EYES SCH (09:33)
[2019-05-28] MEDS: Pantoprazole TAB * 40 MG TAB PO SCH ×3 (09:34→21:34)
[2019-05-28] MEDS: CMC:Midodrine 5 MG TAB PO SCH ×4 (09:34→21:34)
[2019-05-28] MEDS: Sevelamer TAB* 800 MG PO SCH ×3 (09:34→21:34)
[2019-05-28] MEDS: Metoprolol Succinate XL TAB* 25 MG PO SCH ×3 (09:42→12:55)
[2019-05-28] MEDS: Lactulose* 15 ML UDC PO SCH ×4 (09:42→22:10)
[2019-05-28] MEDS: Ondansetron INJ* 2 MG/ML VIAL IV PRN ×2 (09:59→18:08)
[2019-05-28] MEDS: Sodium Chloride 5% OPTH.SOL* 15 ML BTL BOTH EYES SCH ×3 (11:08→22:10)
--- NOTE | 2019-05-28 14:56 | PN ---
Subjective Date of Service: 05/28/19 Interval History: awake, alert. no active bleed. having good bowel movement with lactulose. oriented ambulating. Past Medical History: Unchanged from Admission Objective Active Medications: Acetaminophen (Tylenol Tab*) 650 mg PO Q6H PRN PRN Reason: PAIN SCALE 1-5 Last Admin: 05/23/19 09:51 Dose: 650 mg Al Hydrox/Mg Hydrox/Simethicone (Maalox Plus*) 30 ml PO Q6H PRN PRN Reason: INDIGESTION Betamethasone Valerate (Betamethasone Rita 0.1% Oint(Nf)) 1 applic TOPICAL BID PRN PRN Reason: ITCHY SKIN Last Admin: 05/17/19 13:47 Dose: 1 applic Collagenase (Santyl 250 Mg/Gm Oint*) 1 applic TOPICAL DAILY [facility] Last Admin: 05/27/19 08:24 Dose: 1 applic Gabapentin (Neurontin Cap(*)) 100 mg PO BEDTIME [facility] Last Admin: 05/27/19 20:43 Dose: 100 mg Lactulose (Lactulose*) 15 ml PO TID [facility] Last Admin: 05/28/19 12:14 Dose: 15 ml Metoprolol Succinate (Toprol Xl Tab*) 12.5 mg PO DAILY [facility] Last Admin: 05/28/19 12:55 Dose: Not Given Midodrine (Midodrine) 5 mg PO TID [facility]; Protocol Last Admin: 05/28/19 12:50 Dose: 5 mg Midodrine (Midodrine) 5 mg PO MoWeFr@0900 [facility] Last Admin: 05/27/19 10:47 Dose: 5 mg Ondansetron HCl (Zofran Inj*) 4 mg IV Q6H PRN PRN Reason: NAUSEA Last Admin: 05/28/19 09:59 Dose: 4 mg Oxycodone/Acetaminophen (Percocet 5/325 Tab*) 1 tab PO Q6H PRN PRN Reason: PAIN SCALE 6-10 Last Admin: 05/27/19 15:21 Dose: 1 tab Pantoprazole Sodium (Protonix Tab*) 40 mg PO BID [facility] Last Admin: 05/28/19 12:50 Dose: 40 mg Sevelamer Carbonate (Renvela Tab*) 800 mg PO BID [facility] Last Admin: 05/28/19 12:50 Dose: 800 mg Sodium Chloride (Hypertonic) (Vaishnavi 128 Opth 5% Opth.Soll*) 1 drop BOTH EYES 1000,1500,2200 [facility] Last Admin: 05/28/19 11:08 Dose: 1 drop Vital Signs - 8 hr 05/28/19 05/28/19 05/28/19 07:55 08:00 12:57 Temperature 97.9 F 97.5 F Pulse Rate 109 50 Respiratory 20 20 18 Rate Blood Pressure 94/47 91/45 (mmHg) O2 Sat by Pulse 93 98 Oximetry Oxygen Devices in Use Now: None Appearance: Awake, Alert. No distress. Eyes: No Scleral Icterus Ears/Nose/Mouth/Throat: NL Teeth, Lips, Gums, Mucous Membranes Moist Neck: NL Appearance and Movements; NL JVP Respiratory: Symmetrical Chest Expansion and Respiratory Effort Cardiovascular: NL Sounds; No Murmurs; No JVD, No Edema Abdominal: NL Sounds; No Tenderness; No Distention Skin: No Rash or Ulcers Neurological: Alert and Oriented x 3 Result Diagrams: 05/28/19 05:16 05/28/19 05:16 Additional Lab and Data: Above labs were pulled into the note when the note was edited prior to signing , see labs from day of consult below Microbiology and Other Data: Microbiology 05/14/19 19:39 Aerobic Blood Culture - Final Blood Venous No Growth Day 5 Anaerobic Blood Culture - Final No Growth Day 5 05/14/19 20:07 Aerobic Blood Culture - Preliminary Blood Venous No Growth Day 4 Anaerobic Blood Culture - Preliminary No Growth Day 4 05/14/19 19:03 Skin and Soft Tissue MRSA/MSSA (PCR - Final Leg Right Mrsa Negative S.aureus Negative Gram Stain - Final Wound Culture - Final Staphylococcus Epidermidis 05/14/19 19:03 Skin and Soft Tissue MRSA/MSSA (PCR - Final Leg Left Mrsa Negative S.aureus Negative Gram Stain - Final Wound Culture - Final Staphylococcus Epidermidis 05/15/19 00:59 Nasal Screen MRSA (PCR) - Final Nasal Mrsa Not Detected EKG Data: Ventricular paced rhythm at 60bpm. Assess/Plan/Problems-Billing Assessment: The patient is a 78 y/o F with A. FIb on eliquis/Digoxin, s/p PPM, Right Hip pain, ESRD on HD M/W/F, Liver disease on lactulose, Chronic LE wounds being treated by wound center here being admitted for high WBC, lactic acidosis due to ?sepsis from wounds. 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 off anti coaguation due to recent lower GI bleed. - Remains off digoxin and beta blockers. - I did restart low dose beta blockers 12.5 mg daily with soft BP - recheck dig level 05/28/19 level 1.7 6 days since last dose despite dialysis and digibind. I will avoid resuming it in ESRD who was toxic (2) Acute blood loss anemia Current Visit: Yes Status: Acute Code(s): D62 - ACUTE POSTHEMORRHAGIC ANEMIA SNOMED Code(s): 807714256 Comment: - due to GI bleeding, s/p one unit PRBC. - H/H down from 33 to 27. - Will repeat in am and if it remains stable in am can be discharge off eliquis for at least 2 weeks (3) Altered mental state Current Visit: Yes Status: Acute Code(s): R41.82 - ALTERED MENTAL STATUS, UNSPECIFIED SNOMED Code(s): 483529235 Comment: - improved post digibind. could have been due to dig toxicity - CT head negative 05/18. CT 05/19: negative. (4) Bright red blood per rectum Current Visit: Yes Status: Acute Code(s): K62.5 - HEMORRHAGE OF ANUS AND RECTUM SNOMED Code(s): 46770378 Comment: - s/p one unit PRBC, resolved after holding eliquis, ( it occured twice with pRBBPR with eliquis resolve after stopping eliquis) - changed protonix to 40mg oral bid, - per GI would hold eliquis atleast for two weeks. (5) Digoxin toxicity Current Visit: Yes Status: Acute Code(s): T46.0X1A - POISONING BY CARDI- STIM GLYCOS/DRUG SIMLAR ACT, ACC, INIT SNOMED Code(s): 84127191 Comment: received digibind was symptomatic, now improved recheck level in am. 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 - Ammonia 100 but she is alert and oriented. no need to trend given her intact mental state (8) Wound of lower extremity Current Visit: Yes Status: Acute Code(s): S81.809A - UNSPECIFIED OPEN WOUND , UNSPECIFIED LOWER LEG, INIT ENCNTR SNOMED Code(s): 925433543 Comment: - s/p vanco 05/14/19 - 05/23/19 - Wound care consult and follow up with wound clinic (9) DVT prophylaxis Current Visit: Yes Status: Acute Code(s): Z29.9 - ENCOUNTER FOR PROPHYLACTIC MEASURES, UNSPECIFIED SNOMED Code(s): 068212556 Comment: now holding eliquis. No SCD due to multiple leg wounds, Status and Disposition: PT. anticipate would require CUATE vs SNF placement.
[2019-05-28] MEDS: Collagenase 250 UNITS/GM OINT* 1 APPLIC OINT TOPICAL SCH (15:52)
[2019-05-28] MEDS: Gabapentin CAP(*) 100 MG PO SCH (21:33)
[2019-05-29 05:46] LABS: ABS Basophils 0.1 10^3/ul (0-0.2); ABS Eosinophils 0.3 10^3/ul (0-0.6); ABS Lymphocytes 1.9 10^3/ul (1.0-4.8); ABS Monocytes 1.3 10^3/ul (0-0.8); ABS Neutrophils 7.3 10^3/ul (1.5-7.7); Eosinophil % 2.4 %; Hematocrit 26 % (35-47); Hemoglobin 8.4 g/dL (12.0-16.0); Lymphocyte % 17.3 %; Mean Corpuscular HGB Conc 33 g/dL (31-36); Mean Corpuscular Hemoglobin 33 pg (27-31); Mean Corpuscular Volume 100 fL (80-97); Mean Platelet Volume 8.8 fL (7.4-10.4); Nucleated Red Blood Cells % 0.2; Platelet Count 175 10^3/uL (150-450); Red Blood Count 2.57 10^6 /uL (3.70-4.87); Red Cell Distribution Width 19 % (10-15); White Blood Count 10.7 10^3/uL (3.5-10.8)
[2019-05-29] MEDS: Pantoprazole TAB * 40 MG TAB PO SCH ×2 (08:43→21:49)
[2019-05-29] MEDS: CMCS: Midodrine 5 MG TAB PO SCH (08:43)
[2019-05-29] MEDS: Sevelamer TAB* 800 MG PO SCH ×2 (08:43→21:49)
[2019-05-29] MEDS: CMC:Midodrine 5 MG TAB PO SCH ×3 (08:43→21:49)
[2019-05-29] MEDS: Lactulose* 15 ML UDC PO SCH ×3 (08:43→22:00)
[2019-05-29] MEDS: Metoprolol Succinate XL TAB* 25 MG PO SCH (08:44)
[2019-05-29] MEDS: oxyCODONE/Acetamin 5/325 MG* TAB PO PRN ×2 (10:44→18:10)
[2019-05-29] MEDS: Sodium Chloride 5% OPTH.SOL* 15 ML BTL BOTH EYES SCH ×3 (10:45→21:48)
[2019-05-29] MEDS: Collagenase 250 UNITS/GM OINT* 1 APPLIC OINT TOPICAL SCH (10:45)
[2019-05-29] MEDS ORDERED: Heparin DIALYSIS ONLY(*) 1,000 UNITS/ML VIAL DIALYSIS ONE (14:10)
[2019-05-29] MEDS ORDERED: EPOETIN ALFA-EPBX * 3,000 UNIT/ML VIAL IV ONE (14:10)
--- NOTE | 2019-05-29 16:42 | PN ---
Subjective Date of Service: 05/29/19 Interval History: awake , no events. awaiting bed offer from [facility]. no active bleed. Her BP remains soft hence she is not able to take her metoprolol. Remains off digoxin Past Medical History: Unchanged from Admission Objective Active Medications: Acetaminophen (Tylenol Tab*) 650 mg PO Q6H PRN PRN Reason: PAIN SCALE 1-5 Last Admin: 05/23/19 09:51 Dose: 650 mg Al Hydrox/Mg Hydrox/Simethicone (Maalox Plus*) 30 ml PO Q6H PRN PRN Reason: INDIGESTION Betamethasone Valerate (Betamethasone Rita 0.1% Oint(Nf)) 1 applic TOPICAL BID PRN PRN Reason: ITCHY SKIN Last Admin: 05/17/19 13:47 Dose: 1 applic Collagenase (Santyl 250 Mg/Gm Oint*) 1 applic TOPICAL DAILY [facility] Last Admin: 05/29/19 10:45 Dose: 1 applic Gabapentin (Neurontin Cap(*)) 100 mg PO BEDTIME [facility] Last Admin: 05/28/19 21:33 Dose: 100 mg Lactulose (Lactulose*) 15 ml PO TID [facility] Last Admin: 05/29/19 08:43 Dose: 15 ml Midodrine (Midodrine) 5 mg PO TID [facility]; Protocol Last Admin: 05/29/19 13:03 Dose: 5 mg Midodrine (Midodrine) 5 mg PO MoWeFr@0900 [facility] Last Admin: 05/29/19 08:43 Dose: 5 mg Ondansetron HCl (Zofran Inj*) 4 mg IV Q6H PRN PRN Reason: NAUSEA Last Admin: 05/28/19 18:08 Dose: 4 mg Oxycodone/Acetaminophen (Percocet 5/325 Tab*) 1 tab PO Q6H PRN PRN Reason: PAIN SCALE 6-10 Last Admin: 05/29/19 10:44 Dose: 1 tab Pantoprazole Sodium (Protonix Tab*) 40 mg PO BID [facility] Last Admin: 05/29/19 08:43 Dose: 40 mg Sevelamer Carbonate (Renvela Tab*) 800 mg PO BID [facility] Last Admin: 05/29/19 08:43 Dose: 800 mg Sodium Chloride (Hypertonic) (Vaishnavi 128 Opth 5% Opth.Soll*) 1 drop BOTH EYES 1000,1500,2200 [facility] Last Admin: 05/29/19 10:45 Dose: 1 drop Vital Signs - 8 hr 05/29/19 05/29/19 05/29/19 08:37 10:44 11:15 Temperature 98.3 F 97.5 F Pulse Rate 60 58 Respiratory 16 18 16 Rate Blood Pressure 89/36 74/34 (mmHg) O2 Sat by Pulse 98 97 Oximetry 05/29/19 05/29/19 12:04 12:37 Temperature Pulse Rate Respiratory Rate Blood Pressure 76/38 88/38 (mmHg) O2 Sat by Pulse Oximetry Oxygen Devices in Use Now: None Appearance: awake, alert. no distress Eyes: No Scleral Icterus Ears/Nose/Mouth/Throat: NL Teeth, Lips, Gums, Mucous Membranes Moist Neck: NL Appearance and Movements; NL JVP Respiratory: Symmetrical Chest Expansion and Respiratory Effort Cardiovascular: NL Sounds; No Murmurs; No JVD Abdominal: NL Sounds; No Tenderness; No Distention Skin: - - multiple ecchymosis over her cristina and arms Neurological: Alert and Oriented x 3 Result Diagrams: 05/29/19 04:56 05/28/19 05:16 Additional Lab and Data: Above labs were pulled into the note when the note was edited prior to signing , see labs from day of consult below Microbiology and Other Data: Microbiology 05/14/19 19:39 Aerobic Blood Culture - Final Blood Venous No Growth Day 5 Anaerobic Blood Culture - Final No Growth Day 5 05/14/19 20:07 Aerobic Blood Culture - Preliminary Blood Venous No Growth Day 4 Anaerobic Blood Culture - Preliminary No Growth Day 4 05/14/19 19:03 Skin and Soft Tissue MRSA/MSSA (PCR - Final Leg Right Mrsa Negative S.aureus Negative Gram Stain - Final Wound Culture - Final Staphylococcus Epidermidis 05/14/19 19:03 Skin and Soft Tissue MRSA/MSSA (PCR - Final Leg Left Mrsa Negative S.aureus Negative Gram Stain - Final Wound Culture - Final Staphylococcus Epidermidis 05/15/19 00:59 Nasal Screen MRSA (PCR) - Final Nasal Mrsa Not Detected EKG Data: Ventricular paced rhythm at 60bpm. Assess/Plan/Problems-Billing Assessment: The patient is a 78 y/o F with A. FIb on eliquis/Digoxin, s/p PPM, Right Hip pain, ESRD on HD M/W/F, Liver disease on lactulose, Chronic LE wounds being treated by wound center here being admitted for high WBC, lactic acidosis due to ?sepsis from wounds. 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 off anti coaguation due to recent lower GI bleed. - Remains off digoxin and beta blockers. - I did restart low dose beta blockers 12.5 mg daily with soft BP it was being held every day, hence I will discontinue it for now. - rechecked dig level on 05/28/19 level was 1.7 (6 days since last dose despite dialysis and digibind). I will avoid resuming it in ESRD who was toxic (2) Acute blood loss anemia Current Visit: Yes Status: Acute Code(s): D62 - ACUTE POSTHEMORRHAGIC ANEMIA SNOMED Code(s): 259396523 Comment: - Due to GI bleeding, s/p one unit PRBC. - H/H down from 33 to 27. - Will repeat in am and if it remains stable in am can be discharge off eliquis for at least 2 weeks. (3) Altered mental state Current Visit: Yes Status: Acute Code(s): R41.82 - ALTERED MENTAL STATUS, UNSPECIFIED SNOMED Code(s): 421104572 Comment: - Improved post digibind. could have been due to dig toxicity - CT head negative 05/18. CT 05/19: negative. (4) Bright red blood per rectum Current Visit: Yes Status: Acute Code(s): K62.5 - HEMORRHAGE OF ANUS AND RECTUM SNOMED Code(s): 23123877 Comment: - s/p one unit PRBC, resolved after holding eliquis, ( it occured twice with pRBBPR with eliquis resolve after stopping eliquis) - changed protonix to 40mg oral bid, - per GI would hold eliquis atleast for two weeks. (5) Digoxin toxicity Current Visit: Yes Status: Acute Code(s): T46.0X1A - POISONING BY CARDI- STIM GLYCOS/DRUG SIMLAR ACT, ACC, INIT SNOMED Code(s): 48192822 Comment: received digibind was symptomatic, now improved recheck level in am. 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 - Ammonia 100 but she is alert and oriented. no need to trend given her intact mental state (8) Wound of lower extremity Current Visit: Yes Status: Acute Code(s): S81.809A - UNSPECIFIED OPEN WOUND , UNSPECIFIED LOWER LEG, INIT ENCNTR SNOMED Code(s): 773582922 Comment: - s/p vanco 05/14/19 - 05/23/19 - Wound care consult and follow up with wound clinic (9) DVT prophylaxis Current Visit: Yes Status: Acute Code(s): Z29.9 - ENCOUNTER FOR PROPHYLACTIC MEASURES, UNSPECIFIED SNOMED Code(s): 504887274 Comment: now holding eliquis. No SCD due to multiple leg wounds, Status and Disposition: PT. anticipate would require CUATE vs SNF placement.
--- NOTE | 2019-05-29 20:49 | PN ---
PROGRESS NOTE/DIALYSIS NOTE: DATE OF DIALYSIS: 05/29/19 SUBJECTIVE: The patient was seen and examined during dialysis. The patient tolerating the procedure well. Vitals and labs have been reviewed. PHYSICAL EXAMINATION: No change. ASSESSMENT AND PLAN: 1. End-stage renal disease, on hemodialysis 3 times a week. We will continue her routine hemodialys is. As the patient tends to run hypokalemic, has been run on a higher potassium bath. 2. Anemia: We will give her Epogen with dialysis. 3. Hypotension: Limiting volume removal above her dry weight and the patient wants to get some flui d off, however, the patient's blood pressure noted to be in the 80s and we have not taken any fluid o ff. She usually takes 2 midodrine on dialysis days and had been switched to this. The patient is no t short of breath, but her weight is going up and can try sequential or UF profiling next on the tim ent for volume removal as long as her blood pressure tolerates. [id number]/[facility] #: [id number]
[2019-05-29] MEDS: Gabapentin CAP(*) 100 MG PO SCH (21:49)
[2019-05-30] MEDS: Pantoprazole TAB * 40 MG TAB PO SCH ×2 (09:05→22:32)
[2019-05-30] MEDS: Lactulose* 15 ML UDC PO SCH ×3 (09:05→22:34)
[2019-05-30] MEDS: Sevelamer TAB* 800 MG PO SCH ×2 (09:05→22:32)
[2019-05-30] MEDS: CMC:Midodrine 5 MG TAB PO SCH ×3 (09:05→22:32)
[2019-05-30] MEDS: oxyCODONE/Acetamin 5/325 MG* TAB PO PRN (09:08)
[2019-05-30] MEDS: Collagenase 250 UNITS/GM OINT* 1 APPLIC OINT TOPICAL SCH (09:32)
[2019-05-30] MEDS: Sodium Chloride 5% OPTH.SOL* 15 ML BTL BOTH EYES SCH ×3 (09:36→22:34)
--- NOTE | 2019-05-30 12:00 | PN ---
Subjective Date of Service: 05/30/19 Interval History: Patient seen this morning, the plan was to discharge her to the halfway today, however she states she had one episode of BRBPR this morning. She did not quantify how much, but she claims it was small. It was BRBPR in the toilet. No fever or chills. I did explain to her that given her BRBPR despite being off the eliquis, I think at this time it warranted to have surgery consulted to assess for hemorhoidectomy and or banding as this is her 3 rd episode of bleed. She was not pleased, and very upset she has to stay but her understand and in agreement, and the patient reluctantly agreed. Past Medical History: Unchanged from Admission Objective Active Medications: Acetaminophen (Tylenol Tab*) 650 mg PO Q6H PRN PRN Reason: PAIN SCALE 1-5 Last Admin: 05/23/19 09:51 Dose: 650 mg Al Hydrox/Mg Hydrox/Simethicone (Maalox Plus*) 30 ml PO Q6H PRN PRN Reason: INDIGESTION Betamethasone Valerate (Betamethasone Rita 0.1% Oint(Nf)) 1 applic TOPICAL BID PRN PRN Reason: ITCHY SKIN Last Admin: 05/17/19 13:47 Dose: 1 applic Collagenase (Santyl 250 Mg/Gm Oint*) 1 applic TOPICAL DAILY MOHAN Last Admin: 05/30/19 09:32 Dose: 1 applic Gabapentin (Neurontin Cap(*)) 100 mg PO BEDTIME MOHAN Last Admin: 05/29/19 21:49 Dose: 100 mg Lactulose (Lactulose*) 15 ml PO TID MOHAN Last Admin: 05/30/19 09:05 Dose: 15 ml Midodrine (Midodrine) 5 mg PO TID MOHAN; Protocol Last Admin: 05/30/19 09:05 Dose: 5 mg Midodrine (Midodrine) 5 mg PO MoWeFr@0900 MOHAN Last Admin: 05/29/19 08:43 Dose: 5 mg Ondansetron HCl (Zofran Inj*) 4 mg IV Q6H PRN PRN Reason: NAUSEA Last Admin: 05/28/19 18:08 Dose: 4 mg Oxycodone/Acetaminophen (Percocet 5/325 Tab*) 1 tab PO Q6H PRN PRN Reason: PAIN SCALE 6-10 Last Admin: 05/30/19 09:08 Dose: 1 tab Pantoprazole Sodium (Protonix Tab*) 40 mg PO BID [facility] Last Admin: 05/30/19 09:05 Dose: 40 mg Sevelamer Carbonate (Renvela Tab*) 800 mg PO BID [facility] Last Admin: 05/30/19 09:05 Dose: 800 mg Sodium Chloride (Hypertonic) (Vaishnavi 128 Opth 5% Opth.Soll*) 1 drop BOTH EYES 1000,1500,2200 [facility] Last Admin: 05/30/19 09:36 Dose: 1 drop Vital Signs - 8 hr 05/30/19 05/30/19 05/30/19 07:54 08:14 09:08 Temperature 97.6 F Pulse Rate 139 Respiratory 16 16 18 Rate Blood Pressure 86/52 (mmHg) O2 Sat by Pulse 100 Oximetry Oxygen Devices in Use Now: None Appearance: awake, alert. no acute distress Eyes: No Scleral Icterus Ears/Nose/Mouth/Throat: - - dry oral mucosa Neck: Trachea Midline Respiratory: Symmetrical Chest Expansion and Respiratory Effort, Clear to Auscultation Cardiovascular: - - + murmur Abdominal: NL Sounds; No Tenderness; No Distention Skin: - - echymosis, brusing diffuse Neurological: Alert and Oriented x 3 Result Diagrams: 05/29/19 04:56 05/28/19 05:16 Additional Lab and Data: Above labs were pulled into the note when the note was edited prior to signing , see labs from day of consult below Laboratory Tests 05/26/19 05/26/19 05:36 05:36 WBC 8.0 Hgb 13.1 Hct 39 Plt Count 117 L Sodium 134 L Potassium 3.4 L Chloride 101 Carbon Dioxide 25 BUN 11 Creatinine 3.70 H Glucose 74 Microbiology and Other Data: Microbiology 05/14/19 19:39 Aerobic Blood Culture - Final Blood Venous No Growth Day 5 Anaerobic Blood Culture - Final No Growth Day 5 05/14/19 20:07 Aerobic Blood Culture - Preliminary Blood Venous No Growth Day 4 Anaerobic Blood Culture - Preliminary No Growth Day 4 05/14/19 19:03 Skin and Soft Tissue MRSA/MSSA (PCR - Final Leg Right Mrsa Negative S.aureus Negative Gram Stain - Final Wound Culture - Final Staphylococcus Epidermidis 05/14/19 19:03 Skin and Soft Tissue MRSA/MSSA (PCR - Final Leg Left Mrsa Negative S.aureus Negative Gram Stain - Final Wound Culture - Final Staphylococcus Epidermidis 05/15/19 00:59 Nasal Screen MRSA (PCR) - Final Nasal Mrsa Not Detected EKG Data: Ventricular paced rhythm at 60bpm. Assess/Plan/Problems-Billing Assessment: The patient is a 78 y/o F with A. FIb on eliquis/Digoxin, s/p PPM, Right Hip pain, ESRD on HD M/W/F, Liver disease on lactulose, Chronic LE wounds being treated by wound center here being admitted for high WBC, lactic acidosis due to ?sepsis from wounds. 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 s/p one unit PRBC on 05/25/19. - H/H down from 33 to 26. Given small recurrent bleed today, I will send for stat CBC - She remains off eliquis - Will consult surgery to evaluate for possible hemorrhoidectomy. Dr. Quevedo notified. At this time is medically optimized to proceed with surgery with moderate risk (2) Bright red blood per rectum Current Visit: Yes Status: Acute Code(s): K62.5 - HEMORRHAGE OF ANUS AND RECTUM SNOMED Code(s): 11523641 Comment: - s/p one unit PRBC, resolved after holding eliquis, ( it occured twice with pRBBPR with eliquis resolve after stopping eliquis) - Today 05/30/19 reoccured, small despite off eliquis - Surgery consult to evaluate for possible hemorroidectomy (3) A-fib Current Visit: Yes Status: Acute Code(s): I48.91 - UNSPECIFIED ATRIAL FIBRILLATION SNOMED Code(s): 44589275 Comment: - Currently in paced rhythm. off anti coaguation due to recent lower GI bleed. - Remains off digoxin and beta blockers due to hypotension and bradycardia - rechecked dig level on 05/28/19 level was 1.7 (6 days since last dose despite dialysis and digibind). I will avoid resuming it in ESRD who was toxic (4) Altered mental state Current Visit: Yes Status: Acute Code(s): R41.82 - ALTERED MENTAL STATUS, UNSPECIFIED SNOMED Code(s): 334101560 Comment: - Improved post digibind. could have been due to dig toxicity and hepatic encephalopathy - CT head negative 05/18. CT 05/19: negative. 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 - Ammonia 100 but she is alert and oriented. no need to trend given her intact mental state (8) Wound of lower extremity Current Visit: Yes Status: Acute Code(s): S81.809A - UNSPECIFIED OPEN WOUND , UNSPECIFIED LOWER LEG, INIT ENCNTR SNOMED Code(s): 687374487 Comment: - s/p vanco 05/14/19 - 05/23/19 - Wound care consult and follow up with wound clinic (9) DVT prophylaxis Current Visit: Yes Status: Acute Code(s): Z29.9 - ENCOUNTER FOR PROPHYLACTIC MEASURES, UNSPECIFIED SNOMED Code(s): 264212553 Comment: now holding eliquis. No SCD due to multiple leg wounds, Status and Disposition: PT. anticipate would require CUATE vs SNF placement.
[2019-05-30 13:18] LABS: ABS Basophils 0.1 10^3/ul (0-0.2); ABS Eosinophils 0.1 10^3/ul (0-0.6); ABS Lymphocytes 1.5 10^3/ul (1.0-4.8); ABS Monocytes 1.2 10^3/ul (0-0.8); ABS Neutrophils 9.8 10^3/ul (1.5-7.7); Eosinophil % 0.7 %; Hematocrit 30 % (35-47); Lymphocyte % 11.7 %; Mean Corpuscular HGB Conc 33 g/dL (31-36); Mean Corpuscular Hemoglobin 33 pg (27-31); Mean Corpuscular Volume 100 fL (80-97); Mean Platelet Volume 8.7 fL (7.4-10.4); Nucleated Red Blood Cells % 0.1; Platelet Count 158 10^3/uL (150-450); Red Blood Count 3.02 10^6 /uL (3.70-4.87); Red Cell Distribution Width 20 % (10-15); White Blood Count 12.7 10^3/uL (3.5-10.8)
[2019-05-30 13:22] LABS: INR 1.03 (0.82-1.09)
[2019-05-30 13:30] LABS: BUN/Creatinine Ratio 2.9 (8-20); Calcium 7.7 mg/dL (8.6-10.3); EGFR African American 15.4 (>60); EGFR Non-African American 12.7 (>60); Potassium 3.4 mmol/L (3.5-5.0)
--- NOTE | 2019-05-30 17:43 | CONS ---
CONSULTATION REPORT: DATE OF CONSULT: 05/30/19 REQUESTING PHYSICIAN: Dr. Sow REASON FOR CONSULTATION: Bleeding hemorrhoid. HISTORY OF PRESENT ILLNESS: Ms. Almanza is a 78-year-old female with multiple medical problems including endstage renal disease, cryptogenic cirrhosis, atrial fibrillation on Eliquis and digoxin as well as chronic lower extremity wound, who was admitted on 05/14/19 with mild sepsis that was concerning for infection of her chronic lower extremity wound. During her hospitalization, she developed lower GI bleeding which required blood transfusions. She underwent a flexible sigmoidoscopy to the midsigmoid with Dr. Marrero on with findings concerning for sigmoid diverticulosis as well as large internal hemorrhoids, one with contained clear focal ulceration. Although it did not appear to be actively bleeding at the time, it did appear to be the likely culprit for her persistent bright red blood per rectum. She has since been taken off of her Eliquis and she was ready to be discharged on 05/30/19 when she had a bowel movement in the morning with a small amount of blood on her stool. She describes it very small volume, noticed when she wiped as well as contained on the stool. Given that this is the third time she has had a LGIB during this hospitalization, from likely this hemorrhoid her medical team decided that she should not be discharged at this time but rather should undergo hemorrhoidectomy. The patient this morning said she is feeling well. She does not have any rectal pain. She said that she very much wishes to have hemorrhoidectomy. PAST MEDICAL HISTORY: Atrial fibrillation, peripheral neuropathy, GERD, cirrhosis, osteoarthritis, endstage renal disease, glaucoma. PAST SURGICAL HISTORY: Pacemaker insertion, cholecystectomy, gastric bypass. MEDICATIONS: 1. Digoxin. 2. Nexium. 3. Gabapentin. 4. Lactulose. 5. Metoprolol. 6. Midodrine. 7. Collagenase topical to wound. 8. Eye drops. 9. Sevelamer. ALLERGIES: HYDROCODONE. FAMILY HISTORY: Noncontributory. SOCIAL HISTORY: The patient is a former smoker. Lives at home with her 's daughter. PHYSICAL EXAMINATION: On external rectal exam there are no apparent external hemorrhoids present. The perianal skin does not appear to be excoriated and there is baby powder along the anal verge. On digital rectal exam, there is tenderness and some palpable internal hemorrhoids were distinguished and internal hemorrhoids are palpable. On exam, there was no gross blood. ASSESSMENT AND PLAN: Ms. Almanza is a 78-year-old female with multiple medical problems including atrial fibrillation, status post pacemaker placement, endstage renal disease, on hemodialysis, cryptogenic cirrhosis who presents with current lower gastrointestinal bleed that appears to be most likely from an ulcerated large internal hemorrhoid that was seen on flexible sigmoidoscopy done by Dr. aMrrero. Given that she had a small bleed this morning right before discharge, her primary team determined that she should just undergo hemorrhoidectomy while she is hospitalized, to prevent further episodes. She has been off of Eliquis for several days now. I have spoken with her the hospitalist Dr. Sow today requesting that medical optimization be performed prior to surgery. Furthermore, she will have to have cardiology interrogate her pacemaker prior to surgery as well. She should be made n.p.o. before midnight and have labs drawn as well on the day of surgery. We have discussed her dialysis which is done on Saturday, Wednesdays and Fridays. Her medical team will make sure that her dialysis is the first in the morning in preparation of her surgery. The patient will undergo hemorrhoidectomy with Dr. Pina on 06/01/19. I discussed this with the patient. [id number]/[facility] #: [id number] JERO
[2019-05-30] MEDS ORDERED: Amiodarone TAB* 200 MG PO ONE (18:02)
--- NOTE | 2019-05-30 18:37 | PN ---
Hospitalist Progress Note Date of Service: 05/30/19 I was able to connect with Lab Technologist Dr. Henrry Al [phone] Sheriff Ontiveros ( Almanza Lab Technologist). Dr. Al was kind enough to provide me pertinent cardiac history as follow: 1. She has known history of chronic afib, she was on amiodarone and underwent cardioversion twice. She went back into afib after both cardioversion despite being on amiodarone. Therefore her amiodarone was discontinue due to known history of pulmonary hypertension. 2. She has dual chamber medtronic pacemaker placed in 2012 3. Her last Echo was in 02/24/2019 and her EF improved from 35% previously to EF 55% on her last Echo dated 02/24/2019! She had mild MR and severe pulmonary hypertension with PA 43mmHg 4. They had difficulty titrating metoprolol above 25 mg bid due to hypotension and they had to revert to digoxin to achieve rate control. Her cardiac meds included [id number] mg bid, digoxin 0.125 mg daily, (previously amiodarone) 5. Last nuclear stress (alex scan) 04/02/18 did not show any ischemia or infarct Cardiology consult from Dr. Gabriel, requested for am for further input and recommendations, However; at this time and given her hypotension (unable to take metoprolol), and given her dialysis and dig toxicity on admission (dig level of 30), I did give one dose amiodarone as suggestive by Dr. Al to avoid RVR since her last dig level now is 1.7 and off metoprolol. Echo ordered for am. will continue her on tele.
[2019-05-30] MEDS ORDERED: NS 0.9% 500 ML* 500 ML IV ONE (20:52)
[2019-05-30] MEDS: Gabapentin CAP(*) 100 MG PO SCH (22:32)
[2019-05-30 23:16] LABS: ABS Basophils 0.1 10^3/ul (0-0.2); ABS Eosinophils 0.2 10^3/ul (0-0.6); ABS Lymphocytes 1.7 10^3/ul (1.0-4.8); ABS Neutrophils 9.2 10^3/ul (1.5-7.7); Eosinophil % 1.5 %; Hematocrit 32 % (35-47); Hemoglobin 10.2 g/dL (12.0-16.0); Lymphocyte % 13.8 %; Mean Corpuscular HGB Conc 32 g/dL (31-36); Mean Corpuscular Hemoglobin 32 pg (27-31); Mean Corpuscular Volume 101 fL (80-97); Mean Platelet Volume 8.7 fL (7.4-10.4); Platelet Count 166 10^3/uL (150-450); Red Blood Count 3.16 10^6 /uL (3.70-4.87); Red Cell Distribution Width 21 % (10-15); White Blood Count 12.1 10^3/uL (3.5-10.8)
[2019-05-30 23:31] LABS: Albumin 2.7 g/dL (3.2-5.2); Albumin/Globulin Ratio 1.1 (1-3); BUN/Creatinine Ratio 3.1 (8-20); Calcium 7.9 mg/dL (8.6-10.3); EGFR African American 13.8 (>60); EGFR Non-African American 11.4 (>60); Globulin 2.4 g/dL (2-4); Potassium 3.3 mmol/L (3.5-5.0); Total Bilirubin 1.2 mg/dL (0.2-1.0); Total Protein 5.1 g/dL (6.4-8.9)
[2019-05-30] MEDS ORDERED: Potassium Chlor TAB* 20 MEQ TAB.ER PO ONE (23:43)
[2019-05-31] MEDS: Ondansetron INJ* 2 MG/ML VIAL IV PRN (00:10)
[2019-05-31] MEDS: Acetaminophen TAB* 325 MG PO PRN (04:00)
[2019-05-31] MEDS: HYDROmorphone TAB* 2 MG PO PRN ×2 (04:58→13:44)
[2019-05-31] MEDS: CMC:Midodrine 5 MG TAB PO SCH ×3 (09:17→22:17)
[2019-05-31] MEDS: Pantoprazole TAB * 40 MG TAB PO SCH ×2 (09:17→22:17)
[2019-05-31] MEDS: Sevelamer TAB* 800 MG PO SCH ×2 (09:17→22:17)
[2019-05-31] MEDS: Lactulose* 15 ML UDC PO SCH ×4 (09:17→22:19)
[2019-05-31] MEDS: Collagenase 250 UNITS/GM OINT* 1 APPLIC OINT TOPICAL SCH (09:18)
--- NOTE | 2019-05-31 10:24 | ECHO ---
*[facility]* [place] [address] Fax #: [phone] Transthoracic Echocardiogram Patient: Urmila Almanza : 1940 Study Date: 05/31/2019 Age: 78 Gender: F HR: 91 bpm Height: 62 in /157.5 cm BSA: 1.66 m^2 Weight: 142.7 lb /64.9 kg BMI: 26.2 kg/m^2 *Concession Attendant: * Dilma Levine RD *Referring Physician: * Trever SowReading Physician: * Conner Gabriel MD Indications: Atrial Fibrillation. Pre-operative Cardiovascular Evaluation. History: Atrial fibrillation. Labs, prior tests, procedures, and surgery: Permanent pacemaker system implantation. Conclusions Summary: 1. Left ventricle: The cavity size is below normal. Systolic function is normal by visual assessment. The estimated ejection fraction is 60-65%. 2. Right ventricle: The cavity size is mildly dilated. Pacer wire noted in the right ventricle. Systolic pressure is moderately increased. 3. Left atrium: The atrium is severely dilated. 4. Right atrium: The atrium is severely dilated. 5. Mitral valve: There is mild regurgitation. 6. Aortic valve: The findings are consistent with mild stenosis. 7. Tricuspid valve: There is moderate-severe regurgitation. 8. Pulmonary arteries: Systolic pressure is moderately increased. 9. No previous echocardiogram available. Study data: Transthoracic echocardiogram. Procedure: Transthoracic echocardiography was performed. Image quality was fair. Complete 2D, spectral Doppler, and color flow Doppler. Location: Bedside. Patient status: Inpatient. Patient room number: 437. Rhythm: Atrial fibrillation. Findings Left ventricle: The cavity size is below normal. Systolic function is normal by visual assessment. The estimated ejection fraction is 60-65%. Wall motion is normal; there are no regional wall motion abnormalities. Left ventricular diastolic function parameters are indeterminate. Right ventricle: The cavity size is mildly dilated. Pacer wire noted in the right ventricle. Systolic function is normal. Systolic pressure is moderately increased. Ventricular septum: There is abnormal interventricular septal wall motion consistent with an RV pacemaker. Left atrium: The atrium is severely dilated. Right atrium: The atrium is severely dilated. Pacer wire noted in right atrium. Mitral valve: The leaflets are mildly thickened. There is no evidence of stenosis. There is mild regurgitation. Aortic valve: The valve is trileaflet. The leaflets are moderately thickened. The findings are consistent with mild stenosis. There is no significant regurgitation. Tricuspid valve: The leaflets are normal thickness. There is no evidence of stenosis. There is moderate-severe regurgitation. Pulmonic valve: The leaflets are normal thickness. There is no evidence of stenosis. There is trace regurgitation. Aorta: Aortic root: The aortic root is appears normal. Ascending aorta: The ascending aorta is appears normal. Aortic arch: The aortic arch is poorly visualized. Pericardium: A prominent pericardial fat pad is present. There is no significant pericardial effusion. Pulmonary arteries: The main pulmonary artery is normal-sized. Systolic pressure is moderately increased. Systemic veins: Inferior vena cava: The vessel is dilated. The respirophasic diameter changes are blunted (< 50%). Measurements Left ventricle Value Ref Aortic valve Value Ref WILFRED, LAX (L) 3.3 cm 3.8 - 5.2 Bertha diam, ED 1.7 cm ----- ESD, LAX 2.6 cm 2.2 - 3.5 Peak v, S 1.96 m/sec ----- FS, LAX (L) 20 % 27 - 45 VTI, S 35.0 cm ----- PW, ED, LAX (H) 1.3 cm 0.6 - 0.9 Mean grad, S 6.0 mm Hg ----- FS (L) 20 % 27 - 45 Peak grad, S 15.0 mm Hg ----- PW, ED (H) 1.3 cm 0.6 - 0.9 LVOT/AV, VTI ratio 0.4 ----- E', lat bertha, TDI 10.0 cm/sec >=10.0 BRUNA, VTI 1.26 cm^2 --- -- E/e', lat bertha, 9 BRUNA, Vmax 1.27 cm^2 ----- TDI E', med bertha, TDI 8.8 cm/sec >=7.0 Mitral valve Value Ref E/e', med bertha, 11 Peak E 0.93 m/sec ----- TDI Peak A 0 m/sec ----- E', avg, TDI 9.4 cm/sec Decel time 159 ms ----- E/e', avg, TDI 10 <=14 Peak grad, D 3.4 mm Hg --- -- Peak E/A ratio 927 ----- LVOT Value Ref Diam, S 2.00 cm Pulmonic valve Value Ref Area 3.1 cm^2 Peak v, S 0.91 m/sec ----- Peak lisa, S 0.79 m/sec Peak grad, S 3.0 mm Hg ----- VTI, S 14.0 cm Mean grad, S 1 mm Hg Tricuspid valve Value Ref SV 43 ml TR peak v (H) 2.9 m/sec <=2.8 SV/bsa 26 ml/m^2 Peak RV-RA grad, S 34 mm Hg ----- Ventricular septum Value Ref Aortic root Value Ref IVS, ED (H) 1.3 cm 0.6 - 0.9 Root diam 2.9 cm <3.9 Right ventricle Value Ref Ascending aorta Value Ref WILFRED, LAX 3.6 cm AAo AP diam, S 2.8 cm ----- WILFRED minor ax, A4C (H) 4.4 cm 1.9 - 3.5 mid Decending aorta Value Ref Pressure, S 49 mm Hg Albertina peak lisa 0.76 m/sec ----- Left atrium Value Ref Pulmonary artery Value Ref AP dim, ES (H) 3.90 cm 2.70 - Pressure, S 46.0 mm Hg ----- 3.80 ML dim, A4C 4.6 cm Inferior vena cava Value Ref SI dim, A4C 6.4 cm Diam 2.4 cm ----- Vol/bsa, ES, 1-p (H) 54 ml/m^2 11 - 40 A4C Vol/bsa, ES, A/L (H) 65 ml/m^2 16 - 34 Right atrium Value Ref SI dim, ES (H) 6.1 cm 3.4 - 5.3 ML dim, ES, A4C (H) 5.3 cm 2.6 - 4.4 SI dim, ES, A4C (H) 6.1 cm 3.4 - 5.3 SI dim/bsa, ES, (H) 3.7 cm/m^2 1.9 - 3.1 A4C Legend: (L) and (H) blake values outside specified reference range. Prepared and electronically signed by Conner Gabriel MD 05/31/2019 10:23
[2019-05-31] MEDS: Sodium Chloride 5% OPTH.SOL* 15 ML BTL BOTH EYES SCH ×3 (10:45→22:18)
--- NOTE | 2019-05-31 13:23 | CONS ---
CC: Dr. Sow, Hospitalist Service; Dr. Gabriel CARDIOLOGY CONSULTATION: DATE OF CONSULT: 05/31/19 HISTORY OF PRESENT ILLNESS: I was asked by Dr. Sow from hospitalist service to see this 78-ye ar-old female patient with multiple complex medical issues including chronic atrial fibrillation, his tory of digoxin toxicity and history of permanent pacemaker implantation, followed up with Cardiology in [place] where she spends the winter months for [address] Sow discussed this pat ient at length with the case advocate from [place] yesterday over the phone and the patient did have n uclear Myoview stress test in February 2018 that was reported to have no ischemia. She had an echocardi ogram today that showed normal left ventricular systolic function, moderate tricuspid insufficiency, moderate pulmonary hypertension. She does have known history of chronic kidney disease, on dialysis 3 times per week. She does have history of liver cirrhosis, chronic, cryptogenic. She does have hist ory of atrial fibrillation, was on Eliquis and digoxin, both on hold because of digoxin toxicity and because of bleeding. Apparently, she did have hemorrhoidal bleeding. Cardiology consult was further requested because of her cardiac history and to evaluate for preop risk stratification and clearance for surgery for a bleeding hemorrhoid. She does have history of peripheral neuropathy, gastroesopha geal reflux disease, osteoarthritis, and glaucoma. Cardiac-roman, she gives no history of chest pain. No nausea, no vomiting, no significant shortness of breath, no orthopnea, no PND, no dizziness, no syncope, no history of myocardial infarction, no history of congestive heart failure, no history of s tenting or coronary artery bypass grafting, no history of documented coronary artery disease. PAST MEDICAL HISTORY: History of chronic atrial fibrillation, multiple cardioversions in the past, u nsuccessful. At some point, she was on amiodarone, but apparently that was discontinued because of s ome concerns for pulmonary issues. Cirrhosis, history of osteoarthritis, end-stage renal disease, gla ucoma. PAST SURGICAL HISTORY: History of cholecystectomy, gastric bypass surgery, permanent pacemaker impla ntation. MEDICATIONS: Her medications as an inpatient include: 1. Tylenol p.r.n. 2. Maalox 30 mL p.o. q.6 hours. 3. She is also on gabapentin 100 mg twice a day. 4. Lactulose 15 p.o. t.i.d. 5. Midodrine 5 mg t.i.d. 6. Zofran 4 mg IV q.6 hours. 7. Protonix 40 mg b.i.d. ALLERGIES: She is allergic to HYDROCODONE. FAMILY HISTORY: No family history of premature coronary artery disease. SOCIAL HISTORY: She gives no smoking, no drinking, and no illicit drug use history. REVIEW OF SYSTEMS: Her review of all other systems essentially is negative. PHYSICAL EXAM: General: On exam, she is awake, alert, and oriented. She is not in acute distress. She had tendency for low blood pressure. Vitals: Blood pressure is in the 82 systolic, temperature 97.6, respiratory rate 16. Head and Neck Exam: Normocephalic and atraumatic head. Ears, Nose, and Throat: Essentially benign. Neck: Supple. JVP is not elevated. No carotid bruits. No masses in the neck are appreciated. Chest: Diminished air entry at the bases. No rales, no wheezes. Heart: Irregularly irregular. S1 and S2. No added sounds, no gallops, no rubs. Abdomen: Benign. Positi ve bowel sounds. Extremities: No significant edema, no cyanosis. She does have bluish discoloratio n all over her skin from anticoagulation. ARTIFICIAL INSEMINATION TECHNICIAN: No focal deficits appreciated. Psych: Normal affec t and mood. DIAGNOSTIC STUDIES/LAB DATA: Her labs showed white blood cell 12.1, hemoglobin 10.2, hematocrit 32, platelets 166. Her chemistry showed sodium 134, potassium 3.3, chloride 98, BUN 12, creatinine 3.82. She is on dialysis. She does have total bilirubin 1.2, AST 44, ALT 27. Toxicology: Her digoxin l evel did come down on 05/28/19 to 1.7. Her other evaluation includes EKG. The last EKG was actually from 05/14/19 and the patient was, at t hat time, in atrial fibrillation with paced ventricular rhythm. IMPRESSION: The patient is a 78-year-old female with: 1. Presentation after a fall, bacteremia, infection in the lower extremities. 2. Gastrointestinal bleed, felt to be bleeding hemorrhoid and anemia, status post blood transfusion. 3. Chronic atrial fibrillation. 4. Status post permanent pacemaker implantation. 5. Normal left ventricular systolic function. 6. Nuclear Myoview stress test done in [place] reported to have no ischemia a year ago. 7. Moderate tricuspid insufficiency and moderate pulmonary hypertension. 8. Tendency for hypotension. 9. Paced ventricular rhythm by her EKG. 10. Cryptogenic cirrhosis. 11. Chronic renal failure, on hemodialysis 3 times per week. 12. The patient without any active cardiac symptoms. PLAN: I have discussed her with the hospitalist service. I had a lengthy talk with the patient, her who was available at bedside. I found her to be hemodynamically stable. She does have a lo w blood pressure, which is not new and I think this is multifactorial in nature. I understand she is on midodrine. At the present time, based on her echo that was done today and nuclear Myoview stress test that was reported a year ago from [place], no ischemia, and the patient gives no active cardiac symptoms, I am clearing her to proceed with her scheduled hemorrhoidal surgery to be done tomorrow. There is no further need for cardiac testing at the present time. Just in case if her heart rate do es go rapid, someone can use actually p.r.n. amiodarone either IV or p.o. I understand she had some issues with metoprolol in the past with low blood pressure and she did have issues with digoxin with toxicity. I answered all their concerns and questions up to their satisfaction. TIME SPENT: More than half of at least 60 to 65-plus minutes was [id number] in education and couns eling mode, explaining the above and making further recommendations. [id number]/[facility] #: [id number]
--- NOTE | 2019-05-31 15:18 | PN ---
Subjective Date of Service: 05/31/19 Interval History: patient seen today, events last night with cold and chills noted, she did require barehugger. today she is better ,she did require 500 ml of IVF bolus last night as well. I did look at her leg ulcers, she does have black Eschar on one of them. I will give one dose of vanco IV today and will have wound care recheck her wound in am to see if she does need debridment. I spoke to Dr. Gabriel and he cleared the patient to pursue surgery in am. will call the [employer] rep was called to interrogate the pacemaker by nursing staff Marcos Past Medical History: Unchanged from Admission Objective Active Medications: Acetaminophen (Tylenol Tab*) 975 mg PO Q8H PRN PRN Reason: PAIN SCALE 1-5 Last Admin: 05/31/19 04:00 Dose: 975 mg Al Hydrox/Mg Hydrox/Simethicone (Maalox Plus*) 30 ml PO Q6H PRN PRN Reason: INDIGESTION Betamethasone Valerate (Betamethasone Rita 0.1% Oint(Nf)) 1 applic TOPICAL BID PRN PRN Reason: ITCHY SKIN Last Admin: 05/17/19 13:47 Dose: 1 applic Collagenase (Santyl 250 Mg/Gm Oint*) 1 applic TOPICAL DAILY MOHAN Last Admin: 05/31/19 09:18 Dose: 1 applic Gabapentin (Neurontin Cap(*)) 100 mg PO BEDTIME MOHAN Last Admin: 05/30/19 22:32 Dose: 100 mg Hydromorphone HCl (Dilaudid Tab*) 1 mg PO Q4H PRN PRN Reason: Pain 6-10 Last Admin: 05/31/19 13:44 Dose: 1 mg Lactulose (Lactulose*) 15 ml PO TID MOHAN Last Admin: 05/31/19 13:44 Dose: 15 ml Midodrine (Midodrine) 5 mg PO TID MOHAN; Protocol Last Admin: 05/31/19 13:46 Dose: 5 mg Midodrine (Midodrine) 5 mg PO MoWeFr@0900 [facility] Last Admin: 05/29/19 08:43 Dose: 5 mg Ondansetron HCl (Zofran Inj*) 4 mg IV Q6H PRN PRN Reason: NAUSEA Last Admin: 05/31/19 00:10 Dose: 4 mg Pantoprazole Sodium (Protonix Tab*) 40 mg PO BID [facility] Last Admin: 05/31/19 09:17 Dose: 40 mg Sevelamer Carbonate (Renvela Tab*) 800 mg PO BID [facility] Last Admin: 05/31/19 09:17 Dose: 800 mg Sodium Chloride (Hypertonic) (Vaishnavi 128 Opth 5% Opth.Soll*) 1 drop BOTH EYES 1000,1500,2200 [facility] Last Admin: 05/31/19 14:48 Dose: 1 drop Vital Signs - 8 hr 05/31/19 05/31/19 05/31/19 08:00 09:05 13:44 Respiratory 19 17 17 Rate Oxygen Devices in Use Now: None Appearance: awake, alert no distress. no tremors Eyes: No Scleral Icterus, - - EOMI Ears/Nose/Mouth/Throat: Mucous Membranes Moist Neck: NL Appearance and Movements; NL JVP Respiratory: Symmetrical Chest Expansion and Respiratory Effort, - Cardiovascular: - - Edema. RLE ulcer x 2, one has small black eschar Neurological: Alert and Oriented x 3 Result Diagrams: 05/31/19 15:16 05/30/19 22:50 Additional Lab and Data: Above labs were pulled into the note when the note was edited prior to signing , see labs from day of consult below Laboratory Tests 05/26/19 05/26/19 05:36 05:36 WBC 8.0 Hgb 13.1 Hct 39 Plt Count 117 L Sodium 134 L Potassium 3.4 L Chloride 101 Carbon Dioxide 25 BUN 11 Creatinine 3.70 H Glucose 74 Microbiology and Other Data: Microbiology 05/14/19 19:39 Aerobic Blood Culture - Final Blood Venous No Growth Day 5 Anaerobic Blood Culture - Final No Growth Day 5 05/14/19 20:07 Aerobic Blood Culture - Preliminary Blood Venous No Growth Day 4 Anaerobic Blood Culture - Preliminary No Growth Day 4 05/14/19 19:03 Skin and Soft Tissue MRSA/MSSA (PCR - Final Leg Right Mrsa Negative S.aureus Negative Gram Stain - Final Wound Culture - Final Staphylococcus Epidermidis 05/14/19 19:03 Skin and Soft Tissue MRSA/MSSA (PCR - Final Leg Left Mrsa Negative S.aureus Negative Gram Stain - Final Wound Culture - Final Staphylococcus Epidermidis 05/15/19 00:59 Nasal Screen MRSA (PCR) - Final Nasal Mrsa Not Detected EKG Data: Ventricular paced rhythm at 60bpm. Assess/Plan/Problems-Billing Assessment: The patient is a 78 y/o F with A. FIb on eliquis/Digoxin, s/p PPM, Right Hip pain, ESRD on HD M/W/F, Liver disease on lactulose, Chronic LE wounds being treated by wound center here being admitted for high WBC, lactic acidosis due to ?sepsis from wounds. 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 s/p one unit PRBC on 05/25/19. - H/H down from 33 to 26. Given small recurrent bleed 05/30/19, I consulted surgery to evaluate for possible hemorrhoidectomy. - Given her low temp and chills last night 05/30/19, I did cover with one dose of Vanco IV empirically espescially before surgery, and will have wound care recheck her on Saturday. - At this time and with the above recommendaiton patient is deemed stable to proceed with surgery with moderate risk (2) Bright red blood per rectum Current Visit: Yes Status: Acute Code(s): K62.5 - HEMORRHAGE OF ANUS AND RECTUM SNOMED Code(s): 01244913 Comment: - s/p one unit PRBC, resolved after holding eliquis, ( it occured twice with pRBBPR with eliquis resolve after stopping eliquis) - 05/30/19 reoccured, - Surgery consult to evaluate for possible hemorroidectomy (3) A-fib Current Visit: Yes Status: Acute Code(s): I48.91 - UNSPECIFIED ATRIAL FIBRILLATION SNOMED Code(s): 24371290 Comment: - Currently in paced rhythm. off anti coaguation due to recent lower GI bleed. - Remains off digoxin (level 30 ) and beta blockers due to hypotension and bradycardia - rechecked dig level on 05/28/19 level was 1.7 (6 days since last dose despite dialysis and digibind). 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 discussed with Harvey (4) Altered mental state Current Visit: Yes Status: Acute Code(s): R41.82 - ALTERED MENTAL STATUS, UNSPECIFIED SNOMED Code(s): 493241044 Comment: - Improved post digibind. could have been due to dig toxicity and hepatic encephalopathy - CT head negative 05/18. CT 05/19: negative. (5) Digoxin toxicity Current Visit: Yes Status: Acute Code(s): T46.0X1A - POISONING BY CARDI- STIM GLYCOS/DRUG SIMLAR ACT, ACC, INIT SNOMED Code(s): 64092805 Comment: - Level was as high as 30. 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 - Ammonia 100 but she is alert and oriented. no need to trend given her intact mental state (8) Wound of lower extremity Current Visit: Yes Status: Acute Code(s): S81.809A - UNSPECIFIED OPEN WOUND , UNSPECIFIED LOWER LEG, INIT ENCNTR SNOMED Code(s): 366402357 Comment: - s/p vanco 05/14/19 - 05/23/19 - Wound care consult and follow up with wound clinic; However given her low temp last night 05/30/19 and low BP, I am going to cover her empirically with vancomycin espescially before surgery tomorrow 06/01/19. Will need to reconsult wound care to reassess her wound and whether or not does require debridement (9) DVT prophylaxis Current Visit: Yes Status: Acute Code(s): Z29.9 - ENCOUNTER FOR PROPHYLACTIC MEASURES, UNSPECIFIED SNOMED Code(s): 879060429 Comment: now holding eliquis. No SCD due to multiple leg wounds, Status and Disposition: PT. anticipate would require CUATE vs SNF placement.
[2019-05-31 15:22] LABS: Hematocrit 28 % (35-47); Hemoglobin 9.2 g/dL (12.0-16.0); Mean Corpuscular HGB Conc 33 g/dL (31-36); Mean Corpuscular Hemoglobin 33 pg (27-31); Mean Corpuscular Volume 101 fL (80-97); Mean Platelet Volume 8.9 fL (7.4-10.4); Platelet Count 153 10^3/uL (150-450); Red Blood Count 2.79 10^6 /uL (3.70-4.87); Red Cell Distribution Width 20 % (10-15); White Blood Count 11.1 10^3/uL (3.5-10.8)
[2019-05-31 15:38] LABS: BUN/Creatinine Ratio 3.4 (8-20); Calcium 7.5 mg/dL (8.6-10.3); EGFR African American 10.9 (>60); Potassium 3.6 mmol/L (3.5-5.0)
[2019-05-31 15:46] LABS: ABS Basophils 0.1 10^3/ul (0-0.2); ABS Eosinophils 0.2 10^3/ul (0-0.6); ABS Lymphocytes 1.4 10^3/ul (1.0-4.8); ABS Monocytes 1.1 10^3/ul (0-0.8); ABS Neutrophils 8.1 10^3/ul (1.5-7.7); Nucleated Red Blood Cells % 0.1
[2019-05-31] MEDS ORDERED: Vancomycin(*) 1,000 MG in NS 0.9% 250 ML* 250 ML IVPB ONE (16:30)
[2019-05-31] MEDS: Gabapentin CAP(*) 100 MG PO SCH (22:17)
[2019-06-01] MEDS ORDERED: NS 0.9% 250 ML* 250 ML IV ONE (02:00)
[2019-06-01 06:09] LABS: ABS Basophils 0.1 10^3/ul (0-0.2); ABS Eosinophils 0.2 10^3/ul (0-0.6); ABS Lymphocytes 1.2 10^3/ul (1.0-4.8); ABS Monocytes 1.3 10^3/ul (0-0.8); ABS Neutrophils 8.6 10^3/ul (1.5-7.7); Eosinophil % 1.8 %; Hematocrit 26 % (35-47); Hemoglobin 8.5 g/dL (12.0-16.0); Lymphocyte % 10.9 %; Mean Corpuscular HGB Conc 33 g/dL (31-36); Mean Corpuscular Hemoglobin 33 pg (27-31); Mean Corpuscular Volume 100 fL (80-97); Mean Platelet Volume 9.2 fL (7.4-10.4); Platelet Count 148 10^3/uL (150-450); Red Blood Count 2.59 10^6 /uL (3.70-4.87); Red Cell Distribution Width 20 % (10-15); White Blood Count 11.5 10^3/uL (3.5-10.8)
[2019-06-01 06:25] LABS: BUN/Creatinine Ratio 3.8 (8-20); Calcium 7.4 mg/dL (8.6-10.3); EGFR Non-African American 8.3 (>60); Potassium 3.7 mmol/L (3.5-5.0)
[2019-06-01] MEDS ORDERED: Heparin DIALYSIS ONLY(*) 1,000 UNITS/ML VIAL DIALYSIS ONE (10:00)
[2019-06-01] MEDS: Sevelamer TAB* 800 MG PO SCH ×2 (11:31→21:09)
[2019-06-01] MEDS: Collagenase 250 UNITS/GM OINT* 1 APPLIC OINT TOPICAL SCH (11:31)
[2019-06-01] MEDS: Pantoprazole TAB * 40 MG TAB PO SCH ×2 (11:31→21:09)
[2019-06-01] MEDS: Lactulose* 15 ML UDC PO SCH ×4 (11:31→15:36)
[2019-06-01] MEDS: CMCS: Midodrine 5 MG TAB PO SCH (11:32)
[2019-06-01] MEDS: CMC:Midodrine 5 MG TAB PO SCH ×3 (11:32→21:09)
[2019-06-01] MEDS: HYDROmorphone TAB* 2 MG PO PRN ×2 (11:37→15:36)
--- NOTE | 2019-06-01 12:07 | PN ---
Subjective Date of Service: 06/01/19 Interval History: Patient was planning to have hemorrhoid surgery today. She has been NPO, wants to eat. She is unhappy that surgery has been delayed. She also does not want to take lactulose in evening, causes diarrhea. Family History: Unchanged from Admission Social History: Unchanged from Admission Past Medical History: Unchanged from Admission Objective Active Medications: Acetaminophen (Tylenol Tab*) 975 mg PO Q8H PRN PRN Reason: PAIN SCALE 1-5 Last Admin: 05/31/19 04:00 Dose: 975 mg Al Hydrox/Mg Hydrox/Simethicone (Maalox Plus*) 30 ml PO Q6H PRN PRN Reason: INDIGESTION Betamethasone Valerate (Betamethasone Rita 0.1% Oint(Nf)) 1 applic TOPICAL BID PRN PRN Reason: ITCHY SKIN Last Admin: 05/17/19 13:47 Dose: 1 applic Collagenase (Santyl 250 Mg/Gm Oint*) 1 applic TOPICAL DAILY COUNTS INCLUDE 234 BEDS AT THE [facility] Last Admin: 06/01/19 11:31 Dose: 1 applic Gabapentin (Neurontin Cap(*)) 100 mg PO BEDTIME COUNTS INCLUDE 234 BEDS AT THE [facility] Last Admin: 05/31/19 22:17 Dose: 100 mg Hydromorphone HCl (Dilaudid Tab*) 1 mg PO Q4H PRN PRN Reason: Pain 6-10 Last Admin: 06/01/19 11:37 Dose: 1 mg Lactulose (Lactulose*) 15 ml PO Q4H MOHAN Midodrine (Midodrine) 5 mg PO TID [facility]S [facility] 234 BEDS AT THE [facility]; Protocol Last Admin: 06/01/19 11:32 Dose: 5 mg Midodrine (Midodrine) 5 mg PO MoWeFr@0900 [facility]S [facility]CLUDE 234 BEDS AT THE [facility] Last Admin: 06/01/19 11:32 Dose: 5 mg Ondansetron HCl (Zofran Inj*) 4 mg IV Q6H PRN PRN Reason: NAUSEA Last Admin: 05/31/19 00:10 Dose: 4 mg Pantoprazole Sodium (Protonix Tab*) 40 mg PO BID [facility]S INCLUDE 234 BEDS AT THE [facility] Last Admin: 06/01/19 11:31 Dose: 40 mg Sevelamer Carbonate (Renvela Tab*) 800 mg PO BID COUNTS INCLUDE 234 BEDS AT THE [facility] Last Admin: 06/01/19 11:31 Dose: 800 mg Sodium Chloride (Hypertonic) (Vaishnvai 128 Opth 5% Opth.Soll*) 1 drop BOTH EYES 1000,1500,2200 [facility] Last Admin: 05/31/19 22:18 Dose: 1 drop Vital Signs - 8 hr 06/01/19 06/01/19 06/01/19 05:47 07:40 08:00 Temperature 36.9 C Pulse Rate 108 Respiratory 18 16 20 Rate Blood Pressure 78/39 80/48 (mmHg) O2 Sat by Pulse 99 Oximetry Oxygen Devices in Use Now: None Appearance: alert, no distress Eyes: No Scleral Icterus Neck: Trachea Midline Respiratory: Clear to Auscultation Cardiovascular: NL Sounds; No Murmurs; No JVD, No Edema Skin: - - bandages on both shins not taken down Neurological: Alert and Oriented x 3 Lines/Tubes/Other Access: Clean, Dry and Intact Peripheral IV Nutrition: Taking PO's Result Diagrams: 06/01/19 05:30 06/01/19 05:30 Assess/Plan/Problems-Billing Assessment: 78 year old woman w/ ESRD, a-fib, admitted with sepsis, digoxin toxicity, GI bleeding. - Patient Problems (1) A-fib Current Visit: Yes Status: Acute Priority: Medium Code(s): I48.91 - UNSPECIFIED ATRIAL FIBRILLATION SNOMED Code(s): 86231555 Comment: - off anti coaguation due to recent lower GI bleed. - Remains off digoxin, I will avoid resuming it in ESRD who was toxic - if tachycardia interferes w/ surgery or has symptoms, will use amiodarone (2) Bright red blood per rectum Current Visit: Yes Status: Acute Priority: High Code(s): K62.5 - HEMORRHAGE OF ANUS AND RECTUM SNOMED Code(s): 40436751 Comment: - s/p one unit PRBC, thought resolved after holding eliquis, but still bleeding off Eliquis - Surgery planned for today for hemorroidectomy, discussed with Dr. Hobson, he wants to defer until tomorrow. (3) Digoxin toxicity Current Visit: Yes Status: Acute Priority: Medium Code(s): T46.0X1A - POISONING BY CARDI-STIM GLYCOS/DRUG SIMLAR ACT, ACC, INIT SNOMED Code(s): 57139618 Comment: - Level was as high as 30. 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 - Ammonia 100, improved post lactulose, adjusted schedule (6) Sepsis Current Visit: Yes Status: Acute Priority: Medium Comment: -completed IV vancomycin. -blood cultures negative thus far Status and Disposition: anticipate would require CUATE vs SNF placement.
[2019-06-01] MEDS: Sodium Chloride 5% OPTH.SOL* 15 ML BTL BOTH EYES SCH ×3 (12:43→21:10)
[2019-06-01] MEDS ORDERED: Buffered Lidocaine 1% SYRIN* 1 ML/SYRINGE INTRADERM ONE (13:04)
[2019-06-01] MEDS: Gabapentin CAP(*) 100 MG PO SCH (21:09)
[2019-06-01] MEDS: Acetaminophen TAB* 325 MG PO PRN (21:16)
[2019-06-02] MEDS ORDERED: Lactated Ringers 1000 ML Bag* 1,000 ML IV SCH (06:00)
[2019-06-02] MEDS ORDERED: Buffered Lidocaine 1% SYRIN* 1 ML/SYRINGE INTRADERM ONE (06:00)
[2019-06-02] MEDS ORDERED: Etomidate* 2 MG/ML 10 ML VIAL ONE (08:22)
[2019-06-02] MEDS ORDERED: fentaNYL* 50 MCG/ML 2 ML VIAL (100 MCG VIAL) ONE (08:22)
[2019-06-02] MEDS ORDERED: Rocuronium* 10 MG/ML VIAL ONE (08:23)
[2019-06-02] MEDS ORDERED: Lidocaine 1% INJ* 10 MG/ML 30 ML SDV ONE (10:28)
[2019-06-02] MEDS ORDERED: Sugammadex * 500 MG/5 ML VIAL IV PUSH ONE (10:28)
[2019-06-02] MEDS ORDERED: Bupivacaine 0.5% W/EPI SDV* 30 ML VIAL ONE (10:28)
[2019-06-02] MEDS ORDERED: Lidocaine 2% JELLY* 20 ML (for OR use) ONE (10:29)
[2019-06-02] MEDS ORDERED: fentaNYL* 50 MCG/ML 2 ML VIAL (100 MCG VIAL) IV PRN (10:45)
[2019-06-02] MEDS ORDERED: Naloxone* 0.4 MG/ML 1 ML VIAL IV PRN (10:45)
[2019-06-02] MEDS ORDERED: Acetaminophen TAB* 325 MG PO PRN ×2 (10:45→14:58)
[2019-06-02] MEDS ORDERED: oxyCODONE TAB* 5 MG TAB PO PRN (10:45)
[2019-06-02] MEDS ORDERED: DiMENhydriNATE IV* 50 MG/ML VIAL IV PUSH PRN (10:45)
[2019-06-02] MEDS ORDERED: Phenylephrine 40 MCG/ML SYRINGE ONE (11:27)
--- NOTE | 2019-06-02 11:50 | BRIEFOPN ---
Brief Operative Note - Surgery Procedures: OPERATIVE REPORT Pre-op: Rectal bleeding, ulcerated internal hemorrhoid Post-Op: Same Procedure:Anorectal exam under anesthesia, open internal hemorrhoidectomy Surgeon: MD Anderson Asst: JOAQUIM Ramirez Anes: general with local, Dr. Urias IVF:min EBL:min Specimen: Internal hemorrhoid Drain: none Wound: 4 To PACU
[2019-06-02] MEDS: Lactulose* 15 ML UDC PO SCH ×4 (12:42→16:34)
[2019-06-02] MEDS: Sevelamer TAB* 800 MG PO SCH ×2 (12:59→20:16)
[2019-06-02] MEDS: CMC:Midodrine 5 MG TAB PO SCH ×4 (12:59→20:16)
[2019-06-02] MEDS: Pantoprazole TAB * 40 MG TAB PO SCH ×2 (12:59→20:16)
[2019-06-02] MEDS: Collagenase 250 UNITS/GM OINT* 1 APPLIC OINT TOPICAL SCH (12:59)
[2019-06-02] MEDS: Sodium Chloride 5% OPTH.SOL* 15 ML BTL BOTH EYES SCH ×3 (13:00→20:16)
[2019-06-02] MEDS: HYDROmorphone TAB* 2 MG PO PRN (13:19)
[2019-06-02] MEDS ORDERED: oxyCODONE/Acetamin 5/325 MG* TAB PO PRN ×2 (13:33→14:58)
--- NOTE | 2019-06-02 15:01 | PN ---
Subjective Date of Service: 06/02/19 Interval History: Patient had hemorrhoid surgery this AM. She reports pain in the tailbone area. She is tired and tearful. Family History: Unchanged from Admission Social History: Unchanged from Admission Past Medical History: Unchanged from Admission Objective Active Medications: Acetaminophen (Tylenol Tab*) 975 mg PO Q8H PRN PRN Reason: PAIN SCALE 1-5 Last Admin: 06/01/19 21:16 Dose: 975 mg Al Hydrox/Mg Hydrox/Simethicone (Maalox Plus*) 30 ml PO Q6H PRN PRN Reason: INDIGESTION Betamethasone Valerate (Betamethasone Rita 0.1% Oint(Nf)) 1 applic TOPICAL BID PRN PRN Reason: ITCHY SKIN Last Admin: 05/17/19 13:47 Dose: 1 applic Collagenase (Santyl 250 Mg/Gm Oint*) 1 applic TOPICAL DAILY [facility] Last Admin: 06/02/19 12:59 Dose: 1 applic Gabapentin (Neurontin Cap(*)) 100 mg PO BEDTIME [facility] Last Admin: 06/01/19 21:09 Dose: 100 mg Hydromorphone HCl (Dilaudid Tab*) 1 mg PO Q4H PRN PRN Reason: Pain 6-10 Last Admin: 06/02/19 13:19 Dose: 1 mg Lactated Ringer's (Lactated Ringers 1000 Ml Bag*) 1,000 mls @ 125 mls/hr IV PER RATE [facility] Last Admin: 06/02/19 06:24 Dose: 125 mls/hr Lactulose (Lactulose*) 15 ml PO 0800,1200,1600 [facility] Last Admin: 06/02/19 12:59 Dose: 15 ml Midodrine (Midodrine) 5 mg PO TID [facility]; Protocol Last Admin: 06/02/19 13:25 Dose: 5 mg Midodrine (Midodrine) 5 mg PO MoWeFr@0900 [facility] Last Admin: 06/01/19 11:32 Dose: 5 mg Ondansetron HCl (Zofran Inj*) 4 mg IV Q6H PRN PRN Reason: NAUSEA Last Admin: 05/31/19 00:10 Dose: 4 mg Oxycodone/Acetaminophen (Percocet 5/325 Tab*) 1 tab PO Q6H PRN PRN Reason: PAIN Pantoprazole Sodium (Protonix Tab*) 40 mg PO BID [facility] Last Admin: 06/02/19 12:59 Dose: 40 mg Sevelamer Carbonate (Renvela Tab*) 800 mg PO BID [facility] Last Admin: 06/02/19 12:59 Dose: 800 mg Sodium Chloride (Hypertonic) (Vaishnavi 128 Opth 5% Opth.Soll*) 1 drop BOTH EYES 1000,1500,2200 [facility] Last Admin: 06/02/19 13:49 Dose: Not Given Vital Signs - 8 hr 06/02/19 06/02/19 06/02/19 07:49 12:01 12:05 Temperature 36.2 C Pulse Rate Respiratory 20 21 Rate Blood Pressure 137/66 (mmHg) O2 Sat by Pulse Oximetry 06/02/19 06/02/19 06/02/19 12:06 12:07 12:11 Temperature Pulse Rate 205 167 Respiratory 38 12 12 Rate Blood Pressure 84/57 (mmHg) O2 Sat by Pulse 93 Oximetry 06/02/19 06/02/19 06/02/19 12:25 12:30 12:41 Temperature Pulse Rate Respiratory 15 Rate Blood Pressure 91/36 (mmHg) O2 Sat by Pulse 97 97 Oximetry 06/02/19 06/02/19 06/02/19 13:15 13:19 14:02 Temperature 36.3 C Pulse Rate 87 Respiratory 20 20 Rate Blood Pressure 77/48 (mmHg) O2 Sat by Pulse 92 99 Oximetry 06/02/19 14:18 Temperature 36.3 C Pulse Rate 72 Respiratory 16 Rate Blood Pressure 79/31 (mmHg) O2 Sat by Pulse 100 Oximetry Oxygen Devices in Use Now: Simple Face Mask Appearance: sleeping, arouses Ears/Nose/Mouth/Throat: Clear Oropharnyx Neck: NL Appearance and Movements; NL JVP Respiratory: Symmetrical Chest Expansion and Respiratory Effort, Clear to Auscultation Cardiovascular: NL Sounds; No Murmurs; No JVD, RRR Abdominal: NL Sounds; No Tenderness; No Distention Lymphatic: No Cervical Adenopathy Lines/Tubes/Other Access: Clean, Dry and Intact Peripheral IV Nutrition: Taking PO's Result Diagrams: 06/01/19 05:30 06/01/19 05:30 Assess/Plan/Problems-Billing Assessment: 78 year old woman w/ ESRD, a-fib, admitted with sepsis, digoxin toxicity, GI bleeding. - Patient Problems (1) A-fib Current Visit: Yes Status: Acute Priority: Medium Code(s): I48.91 - UNSPECIFIED ATRIAL FIBRILLATION SNOMED Code(s): 87026071 Comment: - off anti coaguation due to recent lower GI bleed, would consider restart in 2 weeks - Remains off digoxin, rate control adequate, could add amiodarone in future (2) Bright red blood per rectum Current Visit: Yes Status: Acute Priority: High Code(s): K62.5 - HEMORRHAGE OF ANUS AND RECTUM SNOMED Code(s): 30986691 Comment: - Surgery today for hemorroidectomy was successful (3) Digoxin toxicity Current Visit: Yes Status: Acute Priority: Medium Code(s): T46.0X1A - POISONING BY CARDI-STIM GLYCOS/DRUG SIMLAR ACT, ACC, INIT SNOMED Code(s): 02609975 Comment: - Level was as high as 30. 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 (6) Sepsis Current Visit: Yes Status: Acute Priority: Medium Comment: -completed IV vancomycin. -blood cultures negative thus far Status and Disposition: transfer to [facility] tomorrow.
--- NOTE | 2019-06-02 15:21 | PN ---
Subjective Date of Service: 06/02/19 Interval History: Ms. Almanza is a 78 yo female with PMH significant for A fib, peripheral neuropathy, GERD, cirrhosis, osteoarthritis, ESRD on hemodialysis, glaucoma, and chronic bilateral LE wounds. She presented to the emergency room for pain in her leg wounds and purulent drainage from the wounds. She presented to the hospital with chronic bilateral LE wounds, she also presented with multiple skin tears after a fall prior to her arrival. Patient seen and examined at bedside. Family History: Unchanged from Admission Social History: Unchanged from Admission Past Medical History: Unchanged from Admission Objective Active Medications: Acetaminophen (Tylenol Tab*) 975 mg PO Q8H PRN Reason: Pain Scale 1-2 or fever Al Hydrox/Mg Hydrox/Simethicone (Maalox Plus*) 30 ml PO Q6H PRN Reason: INDIGESTION Betamethasone Valerate (Betamethasone Rita 0.1% Oint(Nf)) 1 applic TOPICAL BID PRN Reason: ITCHY SKIN Collagenase (Santyl 250 Mg/Gm Oint*) 1 applic TOPICAL DAILY MOHAN Gabapentin (Neurontin Cap(*)) 100 mg PO BEDTIME [facility]OHAN Hydromorphone HCl (Dilaudid Tab*) 1 mg PO Q4H PRN Reason: Pain 6-10 Lactulose (Lactulose*) 15 ml PO 0800,1200,1600 [facility] Midodrine (Midodrine) 5 mg PO TID [facility]; Protocol Midodrine (Midodrine) 5 mg PO MoWeFr@0900 [facility] Ondansetron HCl (Zofran Inj*) 4 mg IV Q6H PRN Reason: NAUSEA Oxycodone/Acetaminophen (Percocet 5/325 Tab*) 1 tab PO Q6H PRN Reason: Pain (3- 5) Pantoprazole Sodium (Protonix Tab*) 40 mg PO BID MOHAN Sevelamer Carbonate (Renvela Tab*) 800 mg PO BID [facility]OH[facility] Sodium Chloride (Hypertonic) (Vaishnavi 128 Opth 5% Opth.Soll*) 1 drop BOTH EYES 1000,1500,2200 [facility] Vital Signs 06/02/19 14:18 Temperature 97.3 F Pulse Rate 72 Respiratory 16 Rate Blood Pressure 79/31 (mmHg) O2 Sat by Pulse 100 Oximetry Oxygen Devices in Use Now: Simple Face Mask Appearance: NAD, laying in bed Ears/Nose/Mouth/Throat: Mucous Membranes Moist Respiratory: Symmetrical Chest Expansion and Respiratory Effort Extremities: - - 1+ bilateral LE edema Skin: - - Ecchymosis to face and neck. See skin note below Neurological: - - Drowsy, alert and oriented to person and place Nutrition: Taking PO's Result Diagrams: 06/01/19 05:30 06/01/19 05:30 Microbiology and Other Data: Microbiology 05/31/19 08:15 Aerobic Blood Culture - Preliminary Blood Venous No Growth Day 3 Anaerobic Blood Culture - Preliminary No Growth Day 3 05/30/19 22:50 Aerobic Blood Culture - Preliminary Blood Venous No Growth Day 3 Anaerobic Blood Culture - Preliminary No Growth Day 3 05/14/19 20:07 Aerobic Blood Culture - Final Blood Venous No Growth Day 5 Anaerobic Blood Culture - Final No Growth Day 5 05/14/19 19:39 Aerobic Blood Culture - Final Blood Venous No Growth Day 5 Anaerobic Blood Culture - Final No Growth Day 5 05/14/19 19:03 Skin and Soft Tissue MRSA/MSSA (PCR - Final Leg Right Mrsa Negative S.aureus Negative Gram Stain - Final Wound Culture - Final Staphylococcus Epidermidis 05/14/19 19:03 Skin and Soft Tissue MRSA/MSSA (PCR - Final Leg Left Mrsa Negative S.aureus Negative Gram Stain - Final Wound Culture - Final Staphylococcus Epidermidis 05/15/19 00:59 Nasal Screen MRSA (PCR) - Final Nasal Mrsa Not Detected Skin Deviation Note - Skin Deviation Findings Right lateral lower leg - Wound measures 1.5 cm x 1.5 cm x 0.6 cm. The wound base is moist dark eschar. There is a small amount of serous drainage noted, no odor. The surrounding skin with mild erythema. Left anterior lower leg - Wound measures 3.3 cm x 5 cm x 0.6 cm. The wound base is mostly moist dark eschar with yellow slough on the edges. There is mild erythema surrounding the wound and a small amount of serous drainage. There is no odor. Left lateral lower leg - Wound measures 4 cm x 1.5 cm x 0.6 cm. The wound base is pink granulation tissue and yellow slough. There is serous wound drainage. No odor. The surrounding skin is intact. Assessment/Plan: Ms. Almanza is a 78 yo female with PMH significant for A fib, peripheral neuropathy, GERD, cirrhosis, osteoarthritis, ESRD on hemodialysis, glaucoma, and chronic bilateral LE wounds. She presented to the emergency room for pain in her leg wounds and purulent drainage from the wounds. She presented to the hospital with chronic bilateral LE wounds. 1. Bilateral lower extremity chronic wounds, secondary to venous insufficiency. Recommend washing the wounds with saline, applying Santyl to the wounds, followed by telfa, followed by rolled gauze and change dressings daily. DO NOT apply tape to the skin. Should consider ABIs if not previously done, none seen in the [facility] EMR. She should continue to follow with the [facility] wound clinic at discharge, she may require sharp debridement of the wounds in the future. 2. Diet. Renal diet. 3. Code Status. Full Code Status. 4. Disposition. Inpatient, disposition per primary medicine team. TIME SPENT: Time for this wound consultation was 20 minutes and 10 minutes was spent with the patient and family discussing events over the last week; removing old dressings; assessing, measuring, and photographing the wounds; and redressing the wounds. Wound Problem/Plan Is Patient a Wound Clinic Patient: [facility] Current Treatment: [place] Attending: Farnaz Orosco
[2019-06-02] MEDS: Ondansetron INJ* 2 MG/ML VIAL IV PRN (15:49)
--- NOTE | 2019-06-02 19:36 | OP ---
DATE OF OPERATION: 06/02/19 - ROOM #437 DATE OF : 40 SURGEON: Chandu Barron MD PATROL SERGEANT [employer] OFFICE: VIJAY Junior Student ANESTHESIOLOGIST: Dr. Urias. ANESTHESIA: General with local. PRE-OP DIAGNOSIS: Rectal bleeding with ulcerated internal hemorrhoid noted on colonoscopy. POST-OP DIAGNOSIS: Rectal bleeding with ulcerated internal hemorrhoid noted on colonoscopy. OPERATIVE PROCEDURE: Anorectal exam under anesthesia with open internal hemorrhoidectomy. ESTIMATED BLOOD LOSS: Minimal. WOUND CLASSIFICATION: Not applicable. SPECIMENS: Internal hemorrhoid. DRAINS: None. FINDINGS: The patient had an ulcerated nonbleeding internal hemorrhoid which was not prolapsing in the left lateral position. She had several other internal hemorrhoids without evidence of ulceration, there is no bleeding noted. Distal rectal mucosa was unremarkable. BRIEF HISTORY: Ms. Urmila Almanza is a 78-year-old woman with multiple medical issues including end-stage renal disease, on hemodialysis and also on anticoagulation, who had several episodes of severe rectal bleeding. She underwent an evaluation with GI and was not felt to have other source of bleeding, but noted to have an ulcerated internal hemorrhoid, which was consistent with the character of the bleeding. She is now being taken to the operating room for anorectal exam under anesthesia and probable hemorrhoidectomy for treatment of her bleeding. The procedure was discussed with the patient and the risk of but not limited to bleeding, infection, abscess formation, sepsis, incontinence, sphincter muscle injury, and anal stenosis were all explained. DESCRIPTION OF PROCEDURE: Written informed consent was obtained. The patient was taken to the operating room and general anesthesia was administered and she was placed in the prone jackknife position. The perineum and buttocks were prepped and draped in the usual sterile fashion. A time-out verification was completed. Lidocaine 1% with epinephrine was mixed with 0.5% Marcaine was then infiltrated in a standard perianal block. On external exam, there was noted to be floppy redundant anal skin tags without ulceration or bleeding. Digital rectal exam showed some decreased anal tone, but no evidence of blood or mass. Insertion of retractors showed several internal hemorrhoids which were not particularly large or prolapsing; however, at the 7 to 8 o'clock position, there was an ulcerated internal hemorrhoid which appeared similar to the one noted on the endoscopy. This did not bleed and there is no evidence of other bleeding from other hemorrhoids. With the findings in mind and after discussion with Gastroenterology, decision was made to proceed with a single open hemorrhoidectomy in the 7 o'clock position. Using the handheld LigaSure as well as the cautery, a formal hemorrhoidectomy was performed taking the hemorrhoid completely up into its pedicle overlying the distal rectal mucosa. A single 3-0 Vicryl suture was placed. Sphincter muscles were identified and were not injured. Hemostasis was assured. Lidocaine jelly was applied and a 4 x 4 dressing was placed over the anus. The patient tolerated the procedure well, was taken to the recovery room in stable condition. [id number]/[facility] #: [id number] JERO
[2019-06-02] MEDS: Gabapentin CAP(*) 100 MG PO SCH (20:16)
[2019-06-03] MEDS: CMC:Midodrine 5 MG TAB PO SCH ×2 (08:34→14:55)
[2019-06-03] MEDS: Sevelamer TAB* 800 MG PO SCH (08:34)
[2019-06-03] MEDS: Lactulose* 15 ML UDC PO SCH ×3 (08:34→15:10)
[2019-06-03] MEDS: CMCS: Midodrine 5 MG TAB PO SCH (08:35)
[2019-06-03] MEDS: Sodium Chloride 5% OPTH.SOL* 15 ML BTL BOTH EYES SCH ×2 (08:35→14:55)
[2019-06-03] MEDS: Pantoprazole TAB * 40 MG TAB PO SCH (08:35)
[2019-06-03] MEDS: Collagenase 250 UNITS/GM OINT* 1 APPLIC OINT TOPICAL SCH (09:38)
[2019-06-03] MEDS ORDERED: Heparin DIALYSIS ONLY(*) 1,000 UNITS/ML VIAL DIALYSIS ONE (10:30)
[2019-06-03] MEDS ORDERED: EPOETIN ALFA-EPBX * 10,000 UNIT/ML VIAL IV ONE (10:30)
--- NOTE | 2019-06-03 13:48 | DS ---
CC: Dr. Col[facility] Fin[facility] at [facility]; Dr. Everette Cazares; Dr. Naima Israel at [facility] (Also serves at [facility] at [facility]) DATE OF ADMISSION: 05/14/2019. DATE OF DISCHARGE: 06/03/2019. PRIMARY DIAGNOSIS: Lower extremity chronic venous stasis with ulceration and staph infection causing sepsis. 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 MEDICATIONS ON DISCHARGE: 1. Phoslo 667 mg two tabs p.o. b.i.d. 2. Esomeprazole 40 mg p.o. daily. 3. Gabapentin 100 mg p.o. at bedtime. 4. Loteprednol 0.5% ophthalmic solution one drop both eyes t.i.d. 5. Metoprolol 25 mg p.o. b.i.d. 6. Midodrine 5 mg p.o. b.i.d. 7. Midodrine Extra 5 mg p.o. at 9:00 a.m. before dialysis Saturday, Saturday, Saturday. 8. Renvela 800 mg p.o. b.i.d. 9. Sodium Chloride eye drops 5% one drop both eyes t.i.d. 10. Tylenol 975 mg p.o. q.8 hours prn pain or fever. 11. Maalox 30 ml p.o. q.6 hours prn dyspepsia. 12. Betamethasone Valerate 0.1% ointment topically to irritated areas once a day as needed. 13. Collagenase 250 units/gm ointment apply to wounds daily with dressing changes. 14. Lactulose 15 ml p.o. t.i.d. 15. Oxycodone/acetaminophen 5/325 one tab p.o. q.6 hours prn for moderate to severe pain. PROCEDURES: 1. On June 02, the patient went to the operating room with Dr. Barron and had a hemorrhoidectomy. 2. On May 26, the patient had a flexible sigmoidoscopy to the mid sigmoid with Dr. Marrero showing 3 to 4+ sigmoid diverticulosis and no bleeding other than from hemorrhoids. CONSULTATIONS: 1. Dr. Pressley and Dr. Marrero provided GI consult regarding GI bleed. 2. Dr. Orosco and Dilma Fowler provided wound consultation on May 19 where they found both skin tears and infected ulcerations from chronic venous stasis. The recommendations at that point were to wash the wounds with saline and apply Santyl to the wounds, followed by Telfa and rolled gauze and also to place Steri-Strips on the skin tears and apply Optifoam and change dressings every three days. 3. The patient has a consultation with Dr. Gabriel of Cardiology on May 31. He summarized the case regarding atrial fibrillation and preop evaluation for hemorrhoid surgery. She had a nuclear Myoview stress test a year ago in [place] with no ischemia and she had an echocardiogram on May 30 that showed an ejection fraction of 60 to 65 percent, a pacemaker wire in the right ventricle, moderate to severe tricuspid regurgitation, mild aortic stenosis, moderately increased pulmonary artery pressure. HOSPITAL COURSE: This 78-year-old woman with multiple medical problems who lives in [place] and she was visiting [place] to see her daughters who was admitted initially on May 14 due to sepsis related to her wounds on her legs. Cultures grew staphylococcus epidermitis in her wounds but not in her blood cultures. She was treated with Cefepime and Vanco. Her initial lactic acid level was 2.7 and it mario alberto to 3.3 and then down to 2.2 on repeats. Her initial white cell count was 14.0 and that came down to normal with treatment and mario alberto again to 11.5 on the day of discharge. She received a week of Vancomycin and two days of Cefepime with improvement in appearance of her wound and resolution of her sepsis. Blood cultures remained negative. The patient has atrial fibrillation chronically and was on rate control with Metoprolol and Digoxin. Her heart rate was well-controlled on admission, but her Digoxin level was noted to be 2.2 on admission, it mario alberto to as high as 30 on the 6th of this month. She was assessed to have Digoxin toxicity with nausea, hypotension, and lethargy. She has a pacemaker, so she did not have any bradycardia. The patient was given Digibind. Digoxin has been stopped and will not be restarted. Rate control should be accomplished with Metoprolol or Amiodarone if necessary. There is a report in this patient of some pulmonary problems with Amiodarone in the past, so that would be a difficult choice. The patient was also taken off her Eliquis due to GI bleeding during this hospital stay. The GI bleeding led to multiple gastroenterology consults. Sigmoidoscopy as above with no source of bleeding identified other than hemorrhoids. She bled from her hemorrhoids even after the Eliquis was stopped. The patient was taken to the operating room the day prior to discharge for hemorrhoidectomy which was successful. The patient also has chronic hypotension with blood pressures ranging from 65/ 38 up to 137/56 in the last couple of days. She is taking Midodrine regularly and needs to be restarted on her Metoprolol on discharge because heart rates are up into the 120s and 130s with a-fib. The patient has end stage renal disease and has been to hemodialysis three times a week. Her bicarbonate, potassium, and volume status have been adequately managed. 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 She is receiving Epogen through dialysis and likely needs IV iron periodically with dialysis as well. She can follow-up with Dr. Araujo or Dr. Israel at their clinic three times a week and for an office visit as well. The patient did receive one unit of packed red cells due to her GI bleeding during this hospital stay. DISPOSITION: To [facility] where she has acute rehabilitation with hope to go home with her daughters and then go home to [place] eventually. ACTIVITY: Out of bed to chair with assist, progress to walker with Physical Therapy assistance. DIET: Renal. CONDITION ON DISCHARGE: Stable. STATUS: Inpatient. [id number]/[facility] #: [id number] [facility]
[2019-06-03] MEDS: HYDROmorphone TAB* 2 MG PO PRN (14:54)
[2019-06-03 15:32] VITALS: BP 89/36
== END 2019-06-03 15:25 | DRG 853 ==
LOC: ED 15:47 → MEDTELE 22:56
PROVIDERS: ADMIT Internal Medicine; ATTEND Internal Medicine
PROC: 5A1D70Z Performance of Urinary Filtration, Intermittent, Less than 6 Hours Per Day (ICD-10-PCS; 2019-05-15)
PROC: 5A1D70Z Performance of Urinary Filtration, Intermittent, Less than 6 Hours Per Day (ICD-10-PCS; 2019-05-18)
PROC: 5A1D70Z Performance of Urinary Filtration, Intermittent, Less than 6 Hours Per Day (ICD-10-PCS; 2019-05-20)
PROC: 5A1D70Z Performance of Urinary Filtration, Intermittent, Less than 6 Hours Per Day (ICD-10-PCS; 2019-05-22)
PROC: 5A1D70Z Performance of Urinary Filtration, Intermittent, Less than 6 Hours Per Day (ICD-10-PCS; 2019-05-25)
PROC: 30233N1 Transfusion of Nonautologous Red Blood Cells into Peripheral Vein, Percutaneous Approach (ICD-10-PCS; 2019-05-25)
PROC: 0DJD8ZZ Inspection of Lower Intestinal Tract, Via Natural or Artificial Opening Endoscopic (ICD-10-PCS; 2019-05-26)
PROC: 5A1D70Z Performance of Urinary Filtration, Intermittent, Less than 6 Hours Per Day (ICD-10-PCS; 2019-05-27)
PROC: 5A1D70Z Performance of Urinary Filtration, Intermittent, Less than 6 Hours Per Day (ICD-10-PCS; 2019-05-29)
PROC: 5A1D70Z Performance of Urinary Filtration, Intermittent, Less than 6 Hours Per Day (ICD-10-PCS; 2019-06-01)
PROC: 06BY0ZC Excision of Hemorrhoidal Plexus, Open Approach (ICD-10-PCS; principal; 2019-06-02 09:15)
PROC: 5A1D70Z Performance of Urinary Filtration, Intermittent, Less than 6 Hours Per Day (ICD-10-PCS; 2019-06-03)
DX: A41.9 Sepsis, unspecified organism (principal); N18.6 End stage renal disease; L97.819 Non-pressure chronic ulcer of other part of right lower leg with unspecified severity; L97.829 Non-pressure chronic ulcer of other part of left lower leg with unspecified severity; I12.0 Hypertensive chronic kidney disease with stage 5 chronic kidney disease or end stage renal disease; E87.2 Acidosis; E72.20 Disorder of urea cycle metabolism, unspecified; I24.8 Other forms of acute ischemic heart disease; D62 Acute posthemorrhagic anemia; K62.5 Hemorrhage of anus and rectum; I48.2 Chronic atrial fibrillation; I95.89 Other hypotension; G62.9 Polyneuropathy, unspecified; S81.832A Puncture wound without foreign body, left lower leg, initial encounter; S81.831A Puncture wound without foreign body, right lower leg, initial encounter; I27.20 Pulmonary hypertension, unspecified; W18.30XA Fall on same level, unspecified, initial encounter; D63.1 Anemia in chronic kidney disease; K74.60 Unspecified cirrhosis of liver; K72.90 Hepatic failure, unspecified without coma; K64.8 Other hemorrhoids; T46.0X5A Adverse effect of cardiac-stimulant glycosides and drugs of similar action, initial encounter; K21.9 Gastro-esophageal reflux disease without esophagitis; D50.9 Iron deficiency anemia, unspecified; E87.6 Hypokalemia; B95.7 Other staphylococcus as the cause of diseases classified elsewhere; H40.9 Unspecified glaucoma; M19.90 Unspecified osteoarthritis, unspecified site; M54.30 Sciatica, unspecified side; R74.8 Abnormal levels of other serum enzymes; I87.2 Venous insufficiency (chronic) (peripheral); I08.3 Combined rheumatic disorders of mitral, aortic and tricuspid valves; K57.30 Diverticulosis of large intestine without perforation or abscess without bleeding; Y92.89 Other specified places as the place of occurrence of the external cause; Z99.2 Dependence on renal dialysis; Z95.0 Presence of cardiac pacemaker; Z98.84 Bariatric surgery status; Z87.891 Personal history of nicotine dependence; Z79.01 Long term (current) use of anticoagulants; Z79.899 Other long term (current) drug therapy; Z88.8 Allergy status to other drugs, medicaments and biological substances
CPT/HCPCS: 36415; 70450; 71045; 72192; 80048; 80053; 80076; 80162; 80202; 82088; 82140; 82533; 82607; 82746; 83605; 83735; 84100; 84244; 84484; 85014; 85018; 85025; 85027; 85060; 85390; 85610; 85611; 85613; 85635; 85670; 85730; 86038; 86140; 86147; 86850; 86900; 86901; 86922; 87040; 87070; 87077; 87186; 87205; 87640; 87641; 88304; 90935; 93005; 93306; 99156; 99157; 99285; A9270-GY; G0257; G8978-GP-CJ; G8978-GP-CL; G8979-GP-CI; J0692; J1162; J1644; J2250; J2270; J2405; J3010; J3370; P9040; Q5106

== ENCOUNTER 2019-06-06 08:16 | Inpatient (IN) | payer MEDICARE, BC ==
[2019-06-06] MEDS ORDERED: NS 0.9% 500 ML* 500 ML IV ONE ×2 (08:47→11:37)
--- NOTE | 2019-06-06 08:47 | ED ---
Complex/Multi-Sys Presentation - HPI Summary HPI Summary: Patient is a 78 y/o F presenting to ED via EMS for reports of general illness, per EMS. In the room, patient reports that she went to the bathroom this morning and felt dizzy. She denies fall. In the room, patient states, "My stomach is really bad" and further clarifies that she is experiencing abdominal pain. Nothing is noted to aggravate/alleviate Sx. She states that she is on Nexium but believes this medication has not been effective in the past few days. She does not ambulate at baseline. Patient claims that she used to be on blood thinners and was taken off of them. She is on hemodialysis, last was yesterday. Patient is not on o2. Home medications and allergies are reviewed. - History Of Current Complaint Time Seen by Provider: 06/06/19 08:23 Hx Obtained From: Patient, EMS Onset/Duration: Still Present Timing: Constant Location: Pain At: - abdomen Aggravating Factor(s): nothing Alleviating Factor(s): nothing Associated Signs And Symptoms: Positive: Dizziness, Abdominal Pain, Other - generalized illness is endorsed, no falls - Allergies/Home Medications Allergies/Adverse Reactions: Allergies Allergy/AdvReac Type Severity Reaction Status Date / Time hydrocodone Allergy Hives Verified 05/14/19 22:20 PMH/Surg Hx/FS Hx/Imm Hx Endocrine/Hematology History: Denies: Hx Diabetes Cardiovascular History: Reports: Hx Atrial Fibrillation Denies: Hx Hypercholesterolemia, Hx Hypertension GI History: Reports: Other GI Disorders - Liver disease History: Reports: Hx Dialysis Sensory History: Reports: Hx Contacts or Glasses, Hx Glaucoma Denies: Hx Hearing Aid Opthamlomology History: Reports: Hx Contacts or Glasses, Hx Glaucoma - Surgical History Surgery Procedure, Year, and Place: pacemaker Infectious Disease History: No Infectious Disease History: Denies: Traveled Outside the [place] in Last 30 Days - Family History Known Family History: Positive: Cardiac Disease - father of a GA at 55 - Social History Alcohol Use: None Hx Substance Use: No Substance Use Type: Reports: None Hx Tobacco Use: No Smoking Status (MU): Never Smoked Tobacco Have You Smoked in the Last Year: No Review of Systems Constitutional: Other - positive - "generalized illness" Positive: Abdominal Pain Neurological: Other - positive - dizziness All Other Systems Reviewed And Are Negative: Yes Physical Exam - Summary Physical Exam Summary: Appearance: Well appearing, no pain distress Skin: warm, dry, reflects adequate perfusion; chronic ulcer at medial aspect of left leg. Ulcer at lateral aspect of right leg. Head/face: normal Eyes: EOMI, SWETHA ENT: normal Neck: supple, non-tender Respiratory: CTA, breath sounds present Cardiovascular: RRR, pulses symmetrical Abdomen: non-tender, soft Musculoskeletal: Strength/ROM intact; generalized edema, bruises over the face and neck. Neuro: normal, sensory motor intact, A&Ox3 Triage Information Reviewed: Yes Vital Signs On Initial Exam: Initial Vitals Temp Pulse Resp BP Pulse Ox 97.0 F 62 16 91/42 100 06/06/19 08:27 06/06/19 08:27 06/06/19 08:27 06/06/19 08:27 06/06/19 08:27 Vital Signs Reviewed: Yes - Chon Coma Scale Best Eye Response: 4 - Spontaneous Best Motor Response: 6 - Obeys Commands Best Verbal Response: 5 - Oriented Coma Scale Total: 15 Procedures - Central Line Right Femoral Triple Lumen Central Venous Catheter Central Line Lumen: triple Central Line Procedure: betadine prep, sterile drapes applied, sterile dressing applied Central Line Position: femoral (R) Anesthesia: Lidocaine Complications: none Central Line Post Position: sutured, good blood return Diagnostics - Vital Signs Vital Signs Temp Pulse Resp BP Pulse Ox 06/06/19 08:27 97.0 F 62 16 91/42 100 - Laboratory Result Diagrams: 06/08/19 06:00 06/08/19 06:00 Lab Statement: Any lab studies that have been ordered have been reviewed, and results considered in the medical decision making process. - Radiology CXR Radiology Interpretation Completed By: Radiologist Summary of Radiographic Findings: IMPRESSION: No radiographic evidence for acute cardiopulmonary abnormality on this. portable chest x-ray. THIS REPORT WAS REVIEWED BY DR. PATINO. - CT BRAIN CT CT Interpretation Completed By: Radiologist Summary of CT Findings: BRAIN CT IMPRESSION: Stable chronic findings as described in the body the report without CT. apparent acute intracranial abnormality. THIS REPORT WAS REVIEWED BY DR. PATINO CT ABD/PEL CT Interpretation Completed By: Radiologist Summary of CT Findings: CT ABD/PEL IMPRESSION: 1. Top normal dilatation of air- filled loops of small bowel at the low midline abdomen. measuring 3 cm. Please correlate to signs or symptoms of partial small bowel obstruction. 2. There is infiltration and a small subcutaneous hematoma overlying the lateral left. abdomen. Please correlate to physical examination and history of trauma. 3. There is subcutaneous gas at the anterior, distal right upper arm. Please correlate to. physical examination and/or signs of infection at this site. 4. There is advanced calcified atherosclerosis of the abdominal aorta and branch arteries. Please correlate to signs or symptoms of mesenteric and/or renal ischemia. 5. There are bilateral low-attenuation well-circumscribed structures in the kidneys, some. exhibiting a Hounsfield unit greater than that of simple cysts. Complex cysts are. suspected. This can be confirmed with renal ultrasound acquired on a nonemergent basis. 6. Trace bibasilar pleural effusions. 7. Additional chronic, degenerative and iatrogenic findings described in the body the. report. THIS REPORT WAS REVIEWED BY DR. PATINO. Re-Evaluation - Re-Evaluation First Eval Re-Evaluation Time: 11:02 Comment: Central Line was successfully placed. Complex Multi-Symp Course/Dx Course Of Treatment: Patient is a 78 y/o F presenting to ED via EMS for reports of general illness, per EMS. In the room, patient reports that she went to the bathroom this morning and felt dizzy. She denies fall. In the room, patient states, "My stomach is really bad" and further clarifies that she is experiencing abdominal pain. She states that she is on Nexium but believes this medication has not been effective in the past few days. She does not ambulate at baseline. Patient claims that she used to be on blood thinners and was taken off of them. She is on hemodialysis, last was yesterday. On physical exam, chronic ulcer at medial aspect of the left leg. Ulcer at the lateral aspect of the right leg. Generalized edema and brusies over the face and neck. GCS 15. EKG showed afib with rate of 88 BPM, non-specific ST-T. CT ABD/PEL IMPRESSION: 1. Top normal dilatation of air-filled loops of small bowel at the low midline abdomen. measuring 3 cm. Please correlate to signs or symptoms of partial small bowel obstruction. 2. There is infiltration and a small subcutaneous hematoma overlying the lateral left. abdomen. Please correlate to physical examination and history of trauma. 3. There is subcutaneous gas at the anterior, distal right upper arm. Please correlate to. physical examination and/or signs of infection at this site. 4. There is advanced calcified atherosclerosis of the abdominal aorta and branch arteries. Please correlate to signs or symptoms of mesenteric and/or renal ischemia. 5. There are bilateral low-attenuation well-circumscribed structures in the kidneys, some. exhibiting a Hounsfield unit greater than that of simple cysts. Complex cysts are. suspected. This can be confirmed with renal ultrasound acquired on a nonemergent basis. 6. Trace bibasilar pleural effusions. 7. Additional chronic, degenerative and iatrogenic findings described in the body the. report. BRAIN CT IMPRESSION: Stable chronic findings as described in the body the report without CT apparent acute intracranial abnormality. CXR IMPRESSION: No radiographic evidence for acute cardiopulmonary abnormality on this portable chest x-ray. Bloodwork was obtained. Patient was hypotensive, right femoral triple lumen central venous catheter was placed. Betadine prep, sterile drapes and dressing applied, lidocaine used, no complications, sutured central line and good blood return. During ED course, patient received fluids, piperacillin sod/tazobactam sod, 3.375 gm in sodium chloride 100 mls @ 200 mls/ hr IVPB. Patient's case was discussed with Dr. Barron, Dr. Barron agrees to consult as needed. 1208 - Patient's case was discussed with Dr. Eugene, Dr. Eugene accepts for admission. - Diagnoses Differential Diagnoses/HQI/PQRI: Metabolic Abnormality, Sepsis, Other - septick shock Provider Diagnoses: Septic shock, Cellulitis of both lower extremities, ESRF (end stage renal failure) - Physician Notifications Discussed Care Of Patient With: Chandu Barron Time Discussed With Above Provider: 11:27 Instructed by Provider To: Other - 1127 - Patient's case was discussed with Dr. Barron, he agrees to consult as needed. 1208 - Patient's case was discussed with Dr. Eugene, Dr. Eugene accepts for admission. - Critical Care Time Critical Care Time: 30-74 min - 60 minutes Discharge - Sign-Out/Discharge Documenting (check all that apply): Patient Departure - admit All imaging exams completed and their final reports reviewed: Yes Patient Received Moderate/Deep Sedation with Procedure: No - Discharge Plan Condition: Fair Disposition: ADMITTED TO [facility] - Billing Disposition and Condition Condition: FAIR Disposition: Admitted to [facility] - Attestation Statements Document Initiated by Elodiaibtereza: Yes Documenting Scribe: MELANY REED Provider For Whom Ricardo is Documenting (Include Credential): EARL PATINO MD Scribe Attestation: IMELANY, scribed for EARL PATINO MD on 06/08/19 at 1040. Scribe Documentation Reviewed: Yes Provider Attestation: The documentation as recorded by the MELANY pickens accurately reflects the service I personally performed and the decisions made by me, EARL PATINO MD Status of Scribe Document: Viewed
[2019-06-06] MEDS ORDERED: Morphine INJ* 2 MG/ML 1 ML SYRINGE (TWO MG - NEW SYRINGE VERSION) IV PRN (09:55)
[2019-06-06] MEDS ORDERED: Ondansetron INJ* 2 MG/ML VIAL IV ONE (09:56)
[2019-06-06] MEDS ORDERED: Piperacillin/Tazobac ADVAN(*) 3.375 GM in NS 0.9% 100 ML* 100 ML IVPB ONE (10:15)
[2019-06-06 11:14] LABS: ABS Basophils 0.1 10^3/ul (0-0.2); ABS Eosinophils 0.1 10^3/ul (0-0.6); ABS Lymphocytes 1.7 10^3/ul (1.0-4.8); ABS Neutrophils 10.4 10^3/ul (1.5-7.7); Eosinophil % 0.8 %; Hematocrit 31 % (35-47); Lymphocyte % 12.7 %; Mean Corpuscular HGB Conc 32 g/dL (31-36); Mean Corpuscular Hemoglobin 33 pg (27-31); Mean Corpuscular Volume 101 fL (80-97); Mean Platelet Volume 9.5 fL (7.4-10.4); Nucleated Red Blood Cells % 0.1; Platelet Count 196 10^3/uL (150-450); Red Blood Count 3.08 10^6 /uL (3.70-4.87); Red Cell Distribution Width 19 % (10-15); White Blood Count 13.4 10^3/uL (3.5-10.8)
[2019-06-06 11:22] LABS: INR 1.09 (0.82-1.09)
[2019-06-06 11:33] LABS: Albumin 2.3 g/dL (3.2-5.2); Albumin/Globulin Ratio 1.1 (1-3); EGFR African American 18.2 (>60); Globulin 2.1 g/dL (2-4); Magnesium 1.9 mg/dL (1.9-2.7); Potassium 3.7 mmol/L (3.5-5.0); Total Bilirubin 1.3 mg/dL (0.2-1.0); Total Protein 4.4 g/dL (6.4-8.9)
[2019-06-06 11:44] LABS: Troponin I 0.06 ng/mL (<0.04)
[2019-06-06] MEDS ORDERED: Acetaminophen TAB* 325 MG PO PRN (13:14)
[2019-06-06] MEDS ORDERED: Al Hydrox/Mg Hydrox/Simet LIQ* 30 ML UDC PO PRN (13:28)
[2019-06-06] MEDS ORDERED: Triamcinolone 0.5% OINT * 15 GM TUBE TOPICAL PRN (13:28)
[2019-06-06] MEDS ORDERED: ED Vancomycin 1 GM/250 ML 1 GM/250 ML PREMIX.SET IVPB ONE (13:32)
[2019-06-06] MEDS ORDERED: Enoxaparin(*) 30 MG/0.3 ML SYR SUBCUT SCH (14:00)
[2019-06-06] MEDS ORDERED: Vancomycin(*) 0 MG in NS 0.9% 250 ML* 250 ML IVPB SCH (14:00)
[2019-06-06] MEDS ORDERED: Vancomycin per Pharmacy* NOTE FOLLOW UP PRN (14:55)
[2019-06-06] MEDS: LOTEPREDNOL 0.5% BOTH EYES SCH ×2 (17:19→20:54)
[2019-06-06] MEDS: Sodium Chloride 5% OPTH.SOL* 15 ML BTL BOTH EYES SCH ×2 (17:25→21:03)
[2019-06-06] MEDS: Sevelamer TAB* 800 MG PO SCH (17:25)
[2019-06-06] MEDS: Lactulose* 15 ML UDC PO SCH (17:25)
[2019-06-06] MEDS: Calcium Acetate CAP* 667 MG PO SCH (17:25)
[2019-06-06] MEDS: Heparin VIAL(*) 5000 UNITS/ML VIAL (FIVE THOUSAND) SUBCUT SCH (20:09)
--- NOTE | 2019-06-06 20:46 | HP ---
CC: Dr. Cazares; Dr. Colleen Finley at [facility]; Dr. Arjun Araujo; Dr. Chandu Barron * ADMISSION HISTORY AND PHYSICAL: DATE OF ADMISSION: 06/06/19 PRIMARY CARE DOCTOR: Dr. Cazares. MY ATTENDING PHYSICIAN WHILE IN HOSPITAL: Dr. Peter Eugene * (DICTATED BY VIJAY JULES) DEPUTY JUVENILE OFFICER: Dr. Arjun Araujo. CONSULTING GENERAL SURGEON: Dr. Chandu Barron. CHIEF COMPLAINT: Syncope. HISTORY OF PRESENT ILLNESS: Ms. 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 The patient was recently admitted to this institution from 05/15/19 to 06/03/19 where she was treated for lower extremity wounds, GI bleeding due to hemorrhoids with a hemorrhoidectomy. The patient through that whole time had blood pressures, which were markedly low. The patient was at one point digoxin toxic and this was held. The patient at that point was provided 1 unit packed red blood cell transfusion. The patient was discharged to [facility] for rehab on 06/03/19. The patient at [facility] was persistently having low blood pressures, but was feeling otherwise well until she began to have worsening pain in her legs. The patient then had increased nausea last night after dialysis and she did not feel well otherwise till this morning. The patient then was having a bowel movement this morning, had to strain and passed out. She had nausea associated with this. No chest pain. No shortness of breath. No palpation. The patient never passed out before. The patient presented with nausea, and abdominal pain in the emergency department. The patient described the abdominal pain as upper and cramping. The patient had in the emergency department elevated lactic acid, which is consistent with patient' s history. The patient also had an elevated troponin, which is less than the patient's previously documented levels and elevated BNP, which has never been tested before. The patient's creatinine was at baseline. The patient had a slightly elevated white blood cell count, but has had white blood cell count on the upper end of normal or slightly high since her admission earlier this month. The patient's blood pressure was significantly low, the lowest being 71/ 40. The patient was given 1 L of fluid and her blood pressure is now 80/44. The patient is mentating well. The patient has no complaints except for those and above. The patient had a bowel movement while in the emergency department, which was nonbloody. Due to the concern for low blood pressure, elevated lactic acid, and concern for infection, we were asked to evaluate the patient for admission to the hospital. PAST MEDICAL HISTORY: Cirrhosis due to MURPHY; hepatic encephalopathy; ESRD, on dialysis Saturday, Saturday and Saturday; heart failure with preserved ejection fraction; atrial fibrillation, status post pacemaker placement; peripheral neuropathy, unclear cause; osteoarthritis; glaucoma; hypotension; chronic lower extremity wounds. PAST SURGICAL HISTORY: Pacemaker insertion, cholecystectomy, gastric bypass. MEDICATIONS: At [facility], 1. Midodrine 5 mg p.o. daily. 2. Doxycycline 100 mg p.o. twice daily. 3. Percocet 5/325 one tab p.o. q.6 hours as needed for pain. 4. Sodium chloride 5% 1 drop both eyes daily. 5. Metoprolol tartrate 25 mg p.o. twice daily. 6. Maalox 30 mL by mouth every 6 hours as needed. 7. Lactulose 50 mg p.o. 3 times daily. 8. PhosLo 1.334 mg by mouth daily. 9. Nexium 40 mg p.o. daily. 10. Gabapentin 100 mg p.o. daily. 11. Loteprednol suspension 1 drop both eyes daily. 12. Sevelamer 800 mg p.o. twice daily. 13. Tylenol 975 mg p.o. every 8 hours as needed. ALLERGIES: HYDROCODONE. FAMILY HISTORY: The patient's father of [place]. The patient's mother of old age. The patient has 4 siblings, 3 of whom are alive and well, 1 who in a car accident. SOCIAL HISTORY: The patient quit in the 80s. The patient denies ever drinking , use of illicit drugs. The patient used to work at [email or web address]. She is and has 5 children. The patient's surrogate decision maker will be , Al Almanza. REVIEW OF SYSTEMS: A 14 point review of systems were reviewed, is negative except as above in the HPI. PHYSICAL EXAMINATION GENERAL: The patient is a 78-year-old female, who is covered in bruises and is sitting in bed in no acute distress. VITAL SIGNS: At the time of evaluation, temperature 97.0, pulse rate 87, respiratory rate 20, oxygen saturation 98% on 2 L, blood pressure 180/44. HEENT: Head: Normocephalic, atraumatic. Sclerae anicteric. No conjunctival injection. Nasal mucosa moist. Oral mucosa moist. No pharyngeal erythema, discharge, or exudate. NECK: Supple, nontender. No lymphadenopathy. No carotid bruit auscultated. No JVD. RESPIRATORY: Clear to auscultation bilaterally. No wheezes, rales or rhonchi. Good air exchange bilaterally. HEART: Regular rate and rhythm. No clicks, murmurs, gallops or rubs. Pulse is 1+ bilateral dorsalis pedis, posterior tibialis areas. 2+ in bilateral radial areas. Slow capillary refill. Cold lower extremities. ABDOMEN: Soft, tender to palpation in the epigastric area and the left lower quadrant. Bowel sounds hypoactive in all 4 quadrants. At present, no hepatosplenomegaly. No abdominal bruits auscultated. No hepatojugular reflux. GENITOURINARY: No suprapubic or CVA tenderness. SKIN: Bruising throughout, large open areas with eschar and surrounding erythema in the bilateral lower extremities. NEUROLOGIC: Cranial nerves II through XII intact. No focal deficits. Some occasionally slow to respond. PSYCHIATRIC: Pleasant and cooperative. DIAGNOSTIC STUDIES/LAB DATA: White blood cell count 13.4, hemoglobin 10, platelet count 196, INR 1.09, aPTT 30.0. Sodium 133, potassium 3.7, chloride 98 , carbon dioxide 24, anion gap 11, BUN 22, creatinine 3.01, glucose 122, lactic acid 3.1, calcium 8.0, magnesium 1.9, bilirubin 1.3, AST 34, ALT 21, alkaline phosphatase 315, troponin I 0.06, BNP 1209. Protein 4.4, albumin 2.3, globulin 2.1. Brain CT read as stable chronic findings that was present by report without apparent acute intracranial abnormality. Abdominal and pelvis CT from 06/03/19 read as top normal dilatation of the air- filled loops of small bowel at the low midline abdomen measuring 3 cm, please correlate with signs and symptoms of partial small bowel obstruction. There is infiltration with small subcutaneous hematoma overlying the lateral left abdomen , please correlate with physical exam and history of trauma. There is subcutaneous gas in the anterior right distal arm, please correlate physical exam and other signs of infection at the site. There is advanced calcified atherosclerosis of the abdominal aorta and branch arteries, please correlate signs and symptoms of mesenteric and renal ischemia. Bilateral low attenuations , well-circumscribed structures in the kidneys, some exhibiting Hounsfield unit greater than simple cysts. Complex cysts are suspected. This can be confirmed with renal ultrasound acquired on a nonemergent basis. Trace bibasilar pleural effusions. Chest x-ray read as no evidence for acute cardiopulmonary abnormality. EKG shows atrial fibrillation, no ST segment elevation or depression, T-wave inversions in the V2 through V4 as well as I, II, aVF, low amplitude, QTc of 471 compared to previous exam. Atrial fibrillation with paced rhythm. Difficult to compare previous ST segments. ASSESSMENT AND PLAN: Ms. Almanza is a 78-year-old female with past medical history significant for cirrhosis and endstage renal disease, atrial fibrillation, hyperlipidemia, preserved ejection fraction, chronic lower extremity wounds, who presented to the emergency department with syncope while straining to have a bowel movement and nausea with abdominal pain. The patient will be admitted to the hospital for antibiotics and monitoring. 1. Syncope. The patient's syncope was very likely vasovagal. The patient's blood pressure is generally approximately 80/40, it is not difficult to believe that with a minor vagal stimulus such as straining to have a bowel movement, she would pass out. The patient has no other concerning symptoms for her syncope including no witnessed convulsions and no palpitations or chest pain. The patient's troponins is below her previously established baseline. The patient recently had an echocardiogram, which showed signs concerning for heart failure with preserved ejection fraction and pulmonary hypertension without decreased ejection fraction. This need not be repeated at this time. We will not recheck troponins. 2. Chronic lower extremity wounds. The patient had increased pain in her low extremity wounds, there is redness surrounding these, though no warmth, no increased discharge. The patient denies fever or chills, however, the patient will be started on vancomycin and Zosyn for broad-spectrum coverage. The patient previously grew Escherichia coli and a Staph epidermis in her wounds. Wound cultures will be repeated. The patient was previously on doxycycline. Wound care consult will be obtained. As for ABIs, which was previously recommended, but never performed. The patient does appear to have poor perfusion to her lower extremities, this may be somewhat related to her blood pressure. 3. Cirrhosis due to nonalcoholic steatohepatitis. The patient will be continued on her lactulose. The patient does not appear markedly encephalopathic at this time. The patient will have her midodrine dose increased, it is unclear why this has not done in the past. The patient will continue to have her additional midodrine dose with dialysis Saturday, Saturday, Saturday. 4. End stage renal disease. Continue dialysis. The patient has no laboratory findings nor fluid overload necessitating urgent dialysis. 5. Heart failure with preserved ejection fraction. The patient has a severely elevated BNP, which is more likely due to her kidney failure than decompensated heart failure. The patient will continue dialysis as above. 6. Hypotension. Midodrine as above. The patient received 1 L. The patient is currently mentating well. The patient does not make urine. The patient does not need additional vasopressive agents at this time beyond her midodrine. 7. DVT prophylaxis. Lovenox renally dosed. The patient will monitor for signs of bleeding. The patient's hemoglobin is stable, may continue patient with Eliquis for cerebrovascular accident prevention. 8. FEN. The patient will have a clear liquid diet, which will be advanced as tolerated. More fluids will be given. TIME SPENT: Approximately 75 minutes spent on the admission of this patient, 30 of which was spent [id number] with the patient obtaining history and physical and discussing treatment plan. This plan was discussed with my attending, Dr. Peter Eugene, and he is in agreement. VIJAY JULES [id number]/[facility] #: [id number] JERO
[2019-06-06] MEDS ORDERED: Metoprolol Tartrate TAB* 50 mg PO SCH (21:00)
[2019-06-06] MEDS: Gabapentin CAP(*) 100 MG PO SCH (21:28)
[2019-06-06] MEDS: Acetaminophen TAB* 325 MG PO PRN (23:41)
[2019-06-07 04:24] LABS: ABS Basophils 0.1 10^3/ul (0-0.2); ABS Eosinophils 0.2 10^3/ul (0-0.6); ABS Lymphocytes 1.8 10^3/ul (1.0-4.8); ABS Monocytes 1.1 10^3/ul (0-0.8); ABS Neutrophils 9.9 10^3/ul (1.5-7.7); Eosinophil % 1.5 %; Hematocrit 28 % (35-47); Lymphocyte % 13.7 %; Mean Corpuscular HGB Conc 32 g/dL (31-36); Mean Corpuscular Hemoglobin 32 pg (27-31); Mean Corpuscular Volume 100 fL (80-97); Mean Platelet Volume 9.3 fL (7.4-10.4); Nucleated Red Blood Cells % 0.1; Platelet Count 191 10^3/uL (150-450); Red Blood Count 2.79 10^6 /uL (3.70-4.87); Red Cell Distribution Width 18 % (10-15); White Blood Count 13.1 10^3/uL (3.5-10.8)
[2019-06-07 04:54] LABS: Albumin 2.1 g/dL (3.2-5.2); Albumin/Globulin Ratio 1.2 (1-3); BUN/Creatinine Ratio 4.9 (8-20); Calcium 7.6 mg/dL (8.6-10.3); EGFR African American 15.4 (>60); EGFR Non-African American 12.7 (>60); Globulin 1.8 g/dL (2-4); Magnesium 1.9 mg/dL (1.9-2.7); Phosphorus 3.1 mg/dL (2.5-5.0); Potassium 3.3 mmol/L (3.5-5.0); Total Bilirubin 1.2 mg/dL (0.2-1.0); Total Protein 3.9 g/dL (6.4-8.9)
[2019-06-07] MEDS: Calcium Acetate CAP* 667 MG PO SCH ×2 (08:23→16:31)
[2019-06-07] MEDS: Sevelamer TAB* 800 MG PO SCH ×2 (08:24→16:31)
[2019-06-07] MEDS: Pantoprazole TAB * 40 MG TAB PO SCH (08:24)
[2019-06-07] MEDS: Heparin VIAL(*) 5000 UNITS/ML VIAL (FIVE THOUSAND) SUBCUT SCH ×2 (08:25→22:20)
[2019-06-07] MEDS: Sodium Chloride 5% OPTH.SOL* 15 ML BTL BOTH EYES SCH ×3 (08:25→22:21)
[2019-06-07] MEDS: Collagenase 250 UNITS/GM OINT* 1 APPLIC OINT TOPICAL SCH (08:35)
[2019-06-07] MEDS: LOTEPREDNOL 0.5% BOTH EYES SCH ×3 (08:36→22:21)
[2019-06-07] MEDS ORDERED: Potassium Chloride* LIQUID 20 MEQ/15 ML UDC PO ONE (08:54)
[2019-06-07] MEDS ORDERED: Metoprolol Succinate XL TAB* 25 MG PO SCH (09:00)
[2019-06-07] MEDS: Lactulose* 15 ML UDC PO SCH ×3 (10:12→16:31)
[2019-06-07] MEDS: Acetaminophen TAB* 325 MG PO PRN (10:13)
[2019-06-07] MEDS ORDERED: Zosyn per Pharmacy* NOTE FOLLOW UP SCH (11:00)
[2019-06-07] MEDS: HYDROmorphone TAB* 2 MG PO PRN (12:23)
[2019-06-07] MEDS: ZOSYN 3.375 GM Q12H per EXTENDED INFUSION IVPB SCH ×4 (12:24→23:05)
--- NOTE | 2019-06-07 16:13 | CONS ---
CONSULTATION REPORT: DATE OF CONSULT: 06/07/19 REFERRING PROVIDER: VIJAY Villarreal. REASON FOR CONSULT: Abdominal pain. HISTORY OF PRESENT ILLNESS: Mr. 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 While seen in the emergency room, she apparently had some abdominal discomfort. This has since resolved. She was just recently discharged from [facility] after a several week hospital stay for multiple medical issues including her lower extremity wounds requiring IV antibiotics and wound care. She has also had some persistent bleeding from hemorrhoids and other lower GI source was ruled out. She underwent a single open hemorrhoidectomy several days prior her discharge. She states she is not having any further rectal bleeding. Currently she had passed out when having a bowel movement yesterday, thus prompting the transfer to the emergency room. She is complaining of no chest pain or shortness of breath. She had some transit abdominal discomfort, which resolved. She was noted to have an elevated lactic acid, which appears to have been chronic even including the last admission as well as elevated troponin, also which seemed to be persistent. Her creatinine was at baseline and she had and elevated blood cell count of 13,000, but this has been slightly elevated as well in the past. She underwent a CT scan of the abdomen pelvis. I did review these images. This shows some slight dilation of the proximal small bowel, but no evidence of transition point. There is a large amount of air and stool throughout the entire colon. There is no free intraabdominal fluid or air. There are no other acute findings. PAST MEDICAL HISTORY: 1. Cirrhosis. 2. Hepatic encephalopathy. 3. Endstage renal disease, on dialysis. 4. Heart failure with preserved ejection fraction. 5. Atrial fibrillation. 6. Pacemaker placement. 7. Peripheral neuropathy. 8. Hypotension. PAST SURGICAL HISTORY: Pacemaker insertion, cholecystectomy as well as gastric bypass. MEDICATIONS: Medicines on admission: 1. Midodrine. 2. Doxycycline. 3. Percocet 4. Sodium chloride. 5. Metoprolol. 5. Maalox. 6. Lactulose. 7. PhosLo. 8. Nexium. 9. Gabapentin. 10. Tylenol. ALLERGIES: She is allergic to HYDROCODONE. SOCIAL HISTORY: She quit smoking in the . She is , lives with her and presently at her daughter's house in [place]. She denies use of alcohol or illicit drugs. Her is her primary surrogate. REVIEW OF SYSTEMS: A 14-point review system is reviewed and negative except in the above HPI. PHYSICAL EXAM: Vital Signs: Temperature 98.3, pulse 80, blood pressure 91/55. General: She is an elderly woman, appears somewhat much older than her stated age. She is awake, alert, conversive, and actually quite pleasant. Lungs: Clear to auscultation with diminished breath sounds at the bases. Abdomen: Soft and nondistended. She has well-healed laparoscopic incisions in the upper abdomen. There is no hernia is noted. There is no tenderness. She has normoactive bowel sounds throughout. I appreciate no inguinal or umbilical hernias. DIAGNOSTIC STUDIES/LAB DATA: Laboratory values this morning including a white blood cell count of 13,000 and hemoglobin of 9, which is unchanged. Total bilirubin of 1.2. She has an albumin of 2.1. IMPRESSION: Transient abdominal discomfort with apparent syncope after having a bowel movement. This was felt to be a vasovagal reaction. She has multiple medical issues as described above. CT scan to my view is not particularly worrisome or impressive for bowel obstruction and clinically she has no evidence of the bowel obstruction. She is tolerating diet and had bowel movement this morning and passing flatus. RECOMMENDATIONS: For now, we recommend continued observation and medical management. No surgical intervention or recommendations at this time. Also noted, there was no further rectal bleeding at the site of her hemorrhoidectomy and this seems to be doing well. Thank you very much for this consultation. [id number]/[facility] #: [id number] JERO
--- NOTE | 2019-06-07 16:24 | PN ---
Subjective Date of Service: 06/07/19 Interval History: Patient is feeling very poorly today. Patient has pain in her legs. Patient states she wants "prednisone" for the pain in her legs and states she was given it during her previous hospitalization. Patient has intermittent nausea. Patient has mild intermittent abdominal pain. Patient denies CP, SOB, Patient denies F/C, dizziness, or other pain. Patient is still anuric. Family History: Unchanged from Admission Social History: Unchanged from Admission Past Medical History: Unchanged from Admission Objective Active Medications: Acetaminophen (Tylenol Tab*) 975 mg PO Q8H PRN PRN Reason: Pain Scale 1-2 or fever Last Admin: 06/07/19 10:13 Dose: 975 mg Al Hydrox/Mg Hydrox/Simethicone (Maalox Plus*) 30 ml PO Q6H PRN PRN Reason: INDIGESTION Calcium Acetate (Phoslo Cap*) 1,334 mg PO BID WITH MEALS [facility] Last Admin: 06/07/19 08:23 Dose: 1,334 mg Collagenase (Santyl 250 Units/Gm Oint*) 1 applic TOPICAL DAILY [facility] Last Admin: 06/07/19 08:35 Dose: 1 applic Gabapentin (Neurontin Cap(*)) 100 mg PO BEDTIME [facility] Last Admin: 06/06/19 21:28 Dose: 100 mg Heparin Sodium (Porcine) (Heparin Vial(*)) 5,000 units SUBCUT Q12HR [facility] Last Admin: 06/07/19 08:25 Dose: 5,000 units Heparin Sodium (Porcine) (Heparin Flush Picc/Ml/Cvc(*)) 1 ml FLUSH 0600,1800 [facility]; Protocol Last Admin: 06/07/19 04:14 Dose: 1 ml Hydromorphone HCl (Dilaudid Tab*) 1 mg PO Q6H PRN PRN Reason: Pain- Moderate Last Admin: 06/07/19 12:23 Dose: 1 mg Piperacillin Sod/Tazobactam (Sod 3.375 gm/ Sodium Chloride) 100 mls @ 25 mls/ hr IVPB Q12H [facility] Last Admin: 06/07/19 12:24 Dose: 25 mls/hr Lactulose (Lactulose*) 15 ml PO 0800,1200,1600 [facility] Last Admin: 06/07/19 13:06 Dose: 15 ml Loteprednol Etabonate (Lotemax 0.5% Oph.Susp (Nf)) 1 drop BOTH EYES TID [facility] Last Admin: 06/07/19 12:59 Dose: Not Given Midodrine (Midodrine) 5 mg PO TID [facility]; Protocol Last Admin: 06/07/19 13:08 Dose: 5 mg Midodrine (Midodrine) 5 mg PO MOWEFR@0900 [facility]; Protocol Ondansetron HCl (Zofran Inj*) 4 mg IV Q6H PRN PRN Reason: NAUSEA Pantoprazole Sodium (Protonix Tab*) 40 mg PO DAILY [facility] Last Admin: 06/07/19 08:24 Dose: 40 mg Pharmacy Consult (Zosyn Per Pharmacy*) 1 note FOLLOW UP .ZOSYN PER PHARMACY [facility] Sevelamer Carbonate (Renvela Tab*) 800 mg PO BID WITH MEALS [facility] Last Admin: 06/07/19 08:24 Dose: 800 mg Sodium Chloride (Hypertonic) (Vaishnavi 128 Opth 5% Opth.Soll*) 1 drop BOTH EYES TID [facility] Last Admin: 06/07/19 13:11 Dose: 1 drop Triamcinolone Acetonide (Triamcinolone 0.5% Oint *) 1 applic TOPICAL BID PRN PRN Reason: ITCHY SKIN Vital Signs - 8 hr 06/07/19 06/07/19 06/07/19 11:30 12:23 14:38 Temperature 96.9 F Pulse Rate 87 Respiratory 16 18 18 Rate Blood Pressure 80/37 (mmHg) O2 Sat by Pulse 95 Oximetry Oxygen Devices in Use Now: None Appearance: Mathew is a 78yo female who appears older than stated age, is bruised all over, and is sitting in the bed in [facility]. Eyes: No Scleral Icterus, PERRLA Ears/Nose/Mouth/Throat: NL Teeth, Lips, Gums, Clear Oropharnyx, Mucous Membranes Moist Neck: NL Appearance and Movements; NL JVP, Trachea Midline Respiratory: Symmetrical Chest Expansion and Respiratory Effort, Clear to Auscultation Cardiovascular: NL Sounds; No Murmurs; No JVD, - - 3+ B/L LE Edema. Abdominal: NL Sounds; No Tenderness; No Distention, No Hepatosplenomegaly Lymphatic: No Cervical Adenopathy Extremities: No Edema, No Clubbing, Cyanosis Skin: No Nodules or Sclerosis, - - Bruising all over arms and legs. LE ulcers covered and not visualized. Neurological: Alert and Oriented x 3, NL Sensation, NL Muscle Strength and Tone , - - CN II-XII intact. Result Diagrams: 06/07/19 04:12 06/07/19 04:12 Microbiology and Other Data: Microbiology 06/06/19 13:14 Gram Stain - Final Leg Left Wound Culture - Preliminary Escherichia Coli 06/06/19 11:01 Aerobic Blood Culture - Preliminary Blood Venous Anaerobic Blood Culture - Preliminary No Growth Day 1 Blood MRSA/MSSA (PCR) - Final Mrsa Negative S.aureus Negative 06/07/19 08:32 Gram Stain - Final Leg Right 06/06/19 15:35 Nasal Screen MRSA (PCR) - Final Nasal Mrsa Not Detected Assess/Plan/Problems-Billing Assessment: Patient is a 78yo female with a PMH for Cirrhosis, ESRD on Dialysis, HFpEF, chronic LE wounds, who is admitted for concern for sepsis and was found to be possibly bacteremic and is on antibiotics and pending cultures. - Patient Problems (1) Wound of lower extremity Current Visit: No Status: Acute Code(s): S81.809A - UNSPECIFIED OPEN WOUND, UNSPECIFIED LOWER LEG, INIT ENCNTR SNOMED Code(s): 368758806 Comment: - Extensive antibiotics at last admission. Was on Doxy for E. Coli - Worsening pain and N/V concerning for infection with ? Bacteremia (1/ bottle for GPC) - Wound care consult and follow up with wound clinic - Continue wound care. - On zosyn, Wounds show only GNR (2) Hypotension Current Visit: No Status: Acute Comment: - Hold Metoprolol, Increase Midorine to TID with dialysis dose - Chronically elevated lactic acid - Check Morning Cortisol, Patient states she has been on Prednisone for LE pain in the past, it is unclear if this is true. (3) A-fib Current Visit: No Status: Acute Priority: Medium Code(s): I48.91 - UNSPECIFIED ATRIAL FIBRILLATION SNOMED Code(s): 18941286 Comment: - Off anti coaguation due to recent lower GI bleed - If H/H is stable, continue restart. - Not good anticoagulation candidate with falls. - Remains off digoxin, Stop Metoprolol (4) ESRD (end stage renal disease) on dialysis Current Visit: No Status: Acute Priority: Medium Code(s): N18.6 - END STAGE RENAL DISEASE; Z99.2 - DEPENDENCE ON RENAL DIALYSIS SNOMED Code(s): 291422739 Comment: -Continue HD on MWF - No Electrolyte abnormalities necessitating urgent dialysis. (5) Lactic acidosis Current Visit: No Status: Acute Code(s): E87.2 - ACIDOSIS SNOMED Code(s): 07540014 Comment: - Chronic, due to combo of renal and hepatic failure (6) Liver cirrhosis Current Visit: No Status: Acute Priority: Medium Comment: - Non alcoholic liver cirrhosis with hx of encephalopathy, continue lactulose. - Likely cause of hypotension (7) Sepsis Current Visit: No Status: Acute Priority: Medium Comment: - Meeting Criteria for severe sepsis chronically, not representing overwhelming infection. (8) DVT prophylaxis Current Visit: No Status: Acute Code(s): Z29.9 - ENCOUNTER FOR PROPHYLACTIC MEASURES, UNSPECIFIED SNOMED Code(s): 379241532 Comment: - Heparin Q12H Status and Disposition: Inpatient for possible bacteremia
[2019-06-07] MEDS: Gabapentin CAP(*) 100 MG PO SCH (22:20)
[2019-06-08] MEDS: HYDROmorphone TAB* 2 MG PO PRN ×3 (04:59→22:51)
[2019-06-08] MEDS ORDERED: Vancomycin Random Level* NOTE FOLLOW UP ONE (06:00)
[2019-06-08 06:10] LABS: Hematocrit 26 % (35-47); Hemoglobin 8.5 g/dL (12.0-16.0); Mean Corpuscular HGB Conc 32 g/dL (31-36); Mean Corpuscular Hemoglobin 33 pg (27-31); Mean Corpuscular Volume 101 fL (80-97); Mean Platelet Volume 9.3 fL (7.4-10.4); Platelet Count 176 10^3/uL (150-450); Red Blood Count 2.59 10^6 /uL (3.70-4.87); Red Cell Distribution Width 18 % (10-15); White Blood Count 13.7 10^3/uL (3.5-10.8)
[2019-06-08 06:12] LABS: ABS Basophils 0.1 10^3/ul (0-0.2); ABS Eosinophils 0.3 10^3/ul (0-0.6); ABS Lymphocytes 1.7 10^3/ul (1.0-4.8); ABS Monocytes 0.9 10^3/ul (0-0.8); ABS Neutrophils 10.7 10^3/ul (1.5-7.7); Eosinophil % 2.3 %; Lymphocyte % 12.1 %; Nucleated Red Blood Cells % 0.3
[2019-06-08 07:24] LABS: Calcium 7.9 mg/dL (8.6-10.3); Magnesium 1.9 mg/dL (1.9-2.7); Potassium 3.5 mmol/L (3.5-5.0)
[2019-06-08 07:30] LABS: EGFR African American 11.2 (>60); EGFR Non-African American 9.3 (>60)
[2019-06-08] MEDS: LOTEPREDNOL 0.5% BOTH EYES SCH ×3 (08:57→22:41)
[2019-06-08] MEDS: MIDODRINE 5 MG PO SCH (09:26)
[2019-06-08] MEDS: Calcium Acetate CAP* 667 MG PO SCH ×2 (09:26→17:49)
[2019-06-08] MEDS: Sevelamer TAB* 800 MG PO SCH ×2 (09:26→17:49)
[2019-06-08] MEDS: Heparin VIAL(*) 5000 UNITS/ML VIAL (FIVE THOUSAND) SUBCUT SCH ×2 (09:26→22:39)
[2019-06-08] MEDS: Pantoprazole TAB * 40 MG TAB PO SCH (09:26)
[2019-06-08] MEDS: Lactulose* 15 ML UDC PO SCH ×3 (09:26→17:49)
[2019-06-08] MEDS: Sodium Chloride 5% OPTH.SOL* 15 ML BTL BOTH EYES SCH ×4 (09:26→22:45)
--- NOTE | 2019-06-08 10:48 | PN ---
Subjective Date of Service: 06/08/19 Interval History: Patient has somewhat better color today. Patient denies CP, SOB, F/C, N/V, dizziness, or other pain. Patient has persistent upper abdominal pain. Patient is persistently anuric. Patient has significant pain in legs that is not worsening. Patient is having 2-3 BMs daily on the Lactulose. Family History: Unchanged from Admission Social History: Unchanged from Admission Past Medical History: Unchanged from Admission Objective Active Medications: Acetaminophen (Tylenol Tab*) 975 mg PO Q8H PRN PRN Reason: Pain Scale 1-2 or fever Last Admin: 06/07/19 10:13 Dose: 975 mg Al Hydrox/Mg Hydrox/Simethicone (Maalox Plus*) 30 ml PO Q6H PRN PRN Reason: INDIGESTION Calcium Acetate (Phoslo Cap*) 1,334 mg PO BID WITH MEALS [facility] Last Admin: 06/08/19 09:26 Dose: 1,334 mg Collagenase (Santyl 250 Units/Gm Oint*) 1 applic TOPICAL DAILY MOHAN Last Admin: 06/07/19 08:35 Dose: 1 applic Gabapentin (Neurontin Cap(*)) 100 mg PO BEDTIME MOHAN Last Admin: 06/07/19 22:20 Dose: 100 mg Heparin Sodium (Porcine) (Heparin Vial(*)) 5,000 units SUBCUT Q12HR MOHAN Last Admin: 06/08/19 09:26 Dose: 5,000 units Heparin Sodium (Porcine) (Heparin Flush Picc/Ml/Cvc(*)) 1 ml FLUSH 0600,1800 MOHAN; Protocol Last Admin: 06/08/19 06:04 Dose: 1 ml Hydromorphone HCl (Dilaudid Tab*) 1 mg PO Q6H PRN PRN Reason: Pain- Moderate Last Admin: 06/08/19 04:59 Dose: 1 mg Piperacillin Sod/Tazobactam (Sod 3.375 gm/ Sodium Chloride) 100 mls @ 25 mls/ hr IVPB Q12H MOHAN Last Admin: 06/07/19 23:05 Dose: 25 mls/hr Lactulose (Lactulose*) 15 ml PO 0800,1200,1600 MOHAN Last Admin: 06/08/19 09:26 Dose: Not Given Loteprednol Etabonate (Lotemax 0.5% Oph.Susp (Nf)) 1 drop BOTH EYES TID [facility] Last Admin: 06/08/19 08:57 Dose: Not Given Midodrine (Midodrine) 5 mg PO TID [facility]; Protocol Last Admin: 06/08/19 09:26 Dose: 5 mg Midodrine (Midodrine) 5 mg PO MOWEFR@0900 [facility]; Protocol Last Admin: 06/08/19 09:26 Dose: 5 mg Ondansetron HCl (Zofran Inj*) 4 mg IV Q6H PRN PRN Reason: NAUSEA Pantoprazole Sodium (Protonix Tab*) 40 mg PO DAILY [facility] Last Admin: 06/08/19 09:26 Dose: 40 mg Pharmacy Consult (Zosyn Per Pharmacy*) 1 note FOLLOW UP .ZOSYN PER PHARMACY [facility] Sevelamer Carbonate (Renvela Tab*) 800 mg PO BID WITH MEALS [facility] Last Admin: 06/08/19 09:26 Dose: 800 mg Sodium Chloride (Hypertonic) (Vaishnavi 128 Opth 5% Opth.Soll*) 1 drop BOTH EYES TID [facility] Last Admin: 06/08/19 09:30 Dose: Not Given Triamcinolone Acetonide (Triamcinolone 0.5% Oint *) 1 applic TOPICAL BID PRN PRN Reason: ITCHY SKIN Vital Signs - 8 hr 06/08/19 06/08/19 06/08/19 04:59 07:10 07:31 Temperature 98.7 F Pulse Rate 87 Respiratory 18 18 16 Rate Blood Pressure 90/50 (mmHg) O2 Sat by Pulse 100 Oximetry 06/08/19 09:17 Temperature 97.6 F Pulse Rate 86 Respiratory 16 Rate Blood Pressure 78/38 (mmHg) O2 Sat by Pulse 92 Oximetry Oxygen Devices in Use Now: None Appearance: Patient is a 78yo female who appears stated age and is sitting in the bed in [facility]. Eyes: No Scleral Icterus, PERRLA Ears/Nose/Mouth/Throat: NL Teeth, Lips, Gums, Clear Oropharnyx, Mucous Membranes Moist Neck: NL Appearance and Movements; NL JVP, Trachea Midline Respiratory: Symmetrical Chest Expansion and Respiratory Effort, Clear to Auscultation Cardiovascular: NL Sounds; No Murmurs; No JVD, RRR, - - 3+ B/L LE edema. Abdominal: NL Sounds; No Tenderness; No Distention, No Hepatosplenomegaly Lymphatic: No Cervical Adenopathy Extremities: No Clubbing, Cyanosis, - - Bruising across all limbs. Skin: No Nodules or Sclerosis, - - LE wounds not visualized as dressing had just been changed. Neurological: Alert and Oriented x 3, NL Sensation, NL Muscle Strength and Tone , - - CN II-XII intact. Result Diagrams: 06/08/19 06:00 06/08/19 06:00 Microbiology and Other Data: Microbiology 06/06/19 13:14 Gram Stain - Final Leg Left Wound Culture - Preliminary Escherichia Coli 06/06/19 11:01 Aerobic Blood Culture - Preliminary Blood Venous Anaerobic Blood Culture - Preliminary No Growth Day 1 Blood MRSA/MSSA (PCR) - Final Mrsa Negative S.aureus Negative 06/07/19 08:32 Gram Stain - Final Leg Right 06/06/19 15:35 Nasal Screen MRSA (PCR) - Final Nasal Mrsa Not Detected Assess/Plan/Problems-Billing Assessment: Patient is a 78yo female with a PMH for Cirrhosis, ESRD on Dialysis, HFpEF, chronic LE wounds, who is admitted for concern for sepsis and was found to be possibly bacteremic and is on antibiotics and pending cultures. - Patient Problems (1) Wound of lower extremity Current Visit: No Status: Acute Code(s): S81.809A - UNSPECIFIED OPEN WOUND, UNSPECIFIED LOWER LEG, INIT ENCNTR SNOMED Code(s): 657430086 Comment: - Extensive antibiotics at last admission. Was on Doxy for E. Coli - Worsening pain and N/V concerning for infection with ? Bacteremia (2/4 bottle for GPC) Other 2 bottles taken after antibiotics. - Wound care consult and follow up with wound clinic - Continue wound care. - On zosyn, Wounds show E. coli consistent with previous wound culture. - ABIs inconclusive but markedly abnormal, IR will evaluate for possibility for further vascular imaging and possible revascularization. (2) Bacteremia Current Visit: Yes Status: Acute Code(s): R78.81 - BACTEREMIA SNOMED Code( s): 1017964 Comment: - 2/4 bottles positive for GPC. Awaiting Speciation. The second 2 bottles were taken after antibiotics - MRSA/MSSA negative. - Implanted dilaysis cath in place, possible focus for Staph epi implantation - Check echo for ? Endocarditis due to relative immunocompromised state - Continue zosyn, Systemic symptoms improving. (3) Hypotension Current Visit: No Status: Acute Comment: - Stop Metoprolol, Increase Midorine to TID with dialysis dose - Chronically elevated lactic acid - Cortisol Normal - Likely due to liver failure - Caution with incresing midodrine dose with concern for peripheral vasoconstriction impairing wound healing. (4) A-fib Current Visit: No Status: Acute Priority: Medium Code(s): I48.91 - UNSPECIFIED ATRIAL FIBRILLATION SNOMED Code(s): 96285239 Comment: - Off anti coaguation due to recent lower GI bleed - If H/H is stable, consider restart. - Not good anticoagulation candidate with falls. - Remains off digoxin, Stop Metoprolol - Still good rate control. (5) ESRD (end stage renal disease) on dialysis Current Visit: No Status: Acute Priority: Medium Code(s): N18.6 - END STAGE RENAL DISEASE; Z99.2 - DEPENDENCE ON RENAL DIALYSIS SNOMED Code(s): 373964763 Comment: - Continue HD on MWF - No Electrolyte abnormalities necessitating urgent dialysis. 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 - Likely cause of hypotension (8) Sepsis Current Visit: No Status: Acute Priority: Medium Comment: - Meeting Criteria for severe sepsis chronically, not representing overwhelming infection. (9) DVT prophylaxis Current Visit: No Status: Acute Code(s): Z29.9 - ENCOUNTER FOR PROPHYLACTIC MEASURES, UNSPECIFIED SNOMED Code(s): 488977577 Comment: - Heparin Q12H Status and Disposition: Inpatient for possible bacteremia.
[2019-06-08] MEDS ORDERED: Heparin DIALYSIS ONLY(*) 1,000 UNITS/ML VIAL DIALYSIS ONE (11:00)
[2019-06-08] MEDS ORDERED: EPOETIN ALFA-EPBX * 10,000 UNIT/ML VIAL IV ONE (11:15)
[2019-06-08] MEDS: ZOSYN 3.375 GM Q12H per EXTENDED INFUSION IVPB SCH ×4 (11:58→22:53)
[2019-06-08 13:48] LABS: Hepatitis B Surface Antigen Negative (Negative)
[2019-06-08 14:06] LABS: Hepatitis B Surface Ab Not Immune (Immune)
[2019-06-08] MEDS: Collagenase 250 UNITS/GM OINT* 1 APPLIC OINT TOPICAL SCH (14:53)
[2019-06-08] MEDS: Ondansetron INJ* 2 MG/ML VIAL IV PRN (15:53)
--- NOTE | 2019-06-08 18:22 | ECHO ---
*[facility]* [place] [address] Fax #: [phone] Transthoracic Echocardiogram Patient: Urmila Almanza : 1940 Study Date: 06/08/2019 Age: 78 Gender: F HR: 87 bpm Height: 66 in /167.6 cm BSA: 1.74 m^2 Weight: 143.7 lb /65.3 kg BMI: 23.2 kg/m^2 *Outside Production Inspector: * Agnieszka Mcdonald RDCS RN *Referring Physician: * Doug Van *Reading Physician: * Angel Vines MD Indications: Bacteremia. Hypotension. History: Atrial fibrillation. Chronic hypotension. ESRD on dialysis. Labs, prior tests, procedures, and surgery: Permanent pacemaker system implantation. Conclusions Summary: - Left ventricle: Systolic function is normal. The estimated ejection fraction is 60-65%. Wall motion is normal; there are no regional wall motion abnormalities. - Left atrium: The atrium is moderately dilated. - Right atrium: Pacer wire noted in right atrium. - Mitral valve: There is mild regurgitation. - Aortic valve: The valve is trileaflet. The leaflets are moderately thickened. The findings are consistent with mild stenosis. The peak systolic velocity is 1.6 m/sec. The valve area by the velocity-time integral method is 1.24 cm^2. The valve area by the peak velocity method is 1.51 cm^2. - Tricuspid valve: There is moderate-severe regurgitation. - Pericardium, extracardiac: There is no pericardial effusion. - Pulmonary arteries: Systolic pressure is moderately increased, estimated to be 52 mm Hg. - No obvious valve masses. - Compared to study of 05/31/19, there is no change. Study data: Transthoracic echocardiogram. Procedure: Transthoracic echocardiography was performed. Image quality was fair. Complete 2D, spectral Doppler, and color flow Doppler. Location: Bedside. Patient status: Inpatient. Patient room number: 436. Rhythm: Atrial fibrillation. Findings Left ventricle: The cavity size is below normal. Wall thickness is mildly increased. Systolic function is normal. The estimated ejection fraction is 60-65%. Wall motion is normal; there are no regional wall motion abnormalities. Left ventricular diastolic function parameters are indeterminate. Right ventricle: The cavity size is mildly dilated. Pacer wire noted in the right ventricle. Systolic function is normal. Ventricular septum: There is septal flattening. Left atrium: The atrium is moderately dilated. Right atrium: The atrium is moderately dilated. Pacer wire noted in right atrium. Mitral valve: The leaflets are mildly thickened. There is no evidence of stenosis. There is mild regurgitation. Aortic valve: The valve is trileaflet. The leaflets are moderately thickened. The findings are consistent with mild stenosis. There is no regurgitation. Tricuspid valve: The leaflets are normal thickness. There is no evidence of stenosis. There is moderate-severe regurgitation. Pulmonic valve: The leaflets are normal thickness. There is no evidence of stenosis. There is trace to mild regurgitation. Aorta: Aortic root: The aortic root is not dilated. Ascending aorta: The ascending aorta is not dilated. Aortic arch: The aortic arch is not visualized. The aortic arch appears normal. Pericardium: There is no pericardial effusion. Pulmonary arteries: The main pulmonary artery is normal-sized. Systolic pressure is moderately increased, estimated to be 52 mm Hg. Systemic veins: Inferior vena cava: The vessel is normal in size. There is (< 50%) respiratory change in the IVC dimension. Measurements Left ventricle Value Ref Right atrium continued Value Ref WILRFED, LAX (L) 3.1 cm 3.8 - 5.2 ML dim, ES, A4C 4.0 cm 2.6 - ESD, LAX (L) 2.0 cm 2.2 - 3.5 4.4 FS, LAX 35 % 27 - 45 SI dim, ES, A4C (H) 6.2 cm 3.4 - PW, ED (H) 1.3 cm 0.6 - 0.9 5.3 IVS/PW, ED 0.8 SI dim/bsa, ES, (H) 3.5 cm/m^2 1.9 - E', lat bertha, TDI (L) 7.7 cm/sec >=10.0 A4C 3 .1 E/e', lat bertha, 13 Estimated RAP 8 mm Hg ---- ---- TDI E', med bertha, TDI 10.2 cm/sec >=7.0 Aortic valve Value R ef E/e', med bertha, 10 Bertha diam, ED 2.0 cm ---- ---- TDI Peak v, S 1.6 m/sec -------- E', avg, TDI 9.0 cm/sec VTI, S 37.8 cm ---- ---- E/e', avg, TDI 11 <=14 Mean grad, S 5.0 mm Hg - ------- Peak grad, S 10.0 mm Hg -------- LVOT Value Ref LVOT/AV, VTI ratio 0.39 -------- Diam, S 2.00 cm BRUNA, VTI 1.24 cm^2 -------- Area 3.1 cm^2 BRUNA, Vmax 1.51 cm^2 -------- Peak lisa, S 0.77 m/sec VTI, S 14.9 cm Mitral valve Value Ref Mean grad, S 1 mm Hg Peak E 0.98 m/sec -------- SV 47 ml Decel time 225 ms -------- SV/bsa 27 ml/m^2 Peak grad, D 3.9 mm Hg -------- Ventricular septum Value Ref Pulmonic valve Value Ref IVS, ED (H) 1.0 cm 0.6 - 0.9 Peak v, S 0.8 m/sec -------- Peak grad, S 3.0 mm Hg -------- Right ventricle Value Ref WILFRED, LAX 3.8 cm Tricuspid valve Value Ref WILFRED minor ax, 3.5 cm 1.9 - 3.5 TR peak v (H) 3.3 m/sec <=2.8 A4C mid Peak RV-RA grad, S 44 mm Hg -------- Max TR lisa 3.3 m/sec -------- Left atrium Value Ref AP dim, ES (H) 3.90 cm 2.70 - Aortic root Value Ref 3.80 Root diam 2.7 cm <3.9 ML dim, A4C 4.1 cm SI dim, A4C 6.0 cm Ascending aorta Value Ref Vol/bsa, ES, 1-p 35 ml/m^2 11 - 40 AAo AP diam, S 2.7 cm -------- A4C Vol/bsa, ES, A/L (H) 42 ml/m^2 16 - 34 Inferior vena cava Value Ref Diam 1.8 cm -------- Right atrium Value Ref SI dim, ES (H) 6.2 cm 3.4 - 5.3 Legend: (L) and (H) blake values outside specified reference range. Prepared and electronically signed by Angel Vines MD 06/08/2019 18:21
--- NOTE | 2019-06-08 22:18 | PN ---
DIALYSIS NOTE: DATE OF DIALYSIS: 06/08/19 SUBJECTIVE: The patient was seen and examined during dialysis. Vitals and labs have been reviewed. PHYSICAL EXAMINATION: HEENT: NC/AT. Heart: S1 and S2 present. Irregularly irregular at the time of exam. Lungs: Clear to auscultation. Abdomen: Soft. Extremities: Noted to have significant edema, weeping wounds. ASSESSMENT: 1. End-stage renal disease, on hemodialysis. We will continue her dialysis treatment. 2. The patient's hypotension has been limiting removal of fluid and ultrafiltration. The patient has gained weight and this is not helping her wound healing. Unfortunately, the patient's blood pressure drops to the 60s with fluid removal during dialysis. In light of this, the patient was not getting any fluid removed. Attempted sequential dialysis today with 1 hour of isolated UF with removal of 1 L of fluid and then 2 hours of hemodialysis. The patient appears to be doing better and the patient was able to remove a liter, but on talking to the patient, the patient reports that she feels lightheaded and will avoid further removal of fluid during the dialysis component. 3. The patient is on Midodrine which can also worsen peripheral vascular disease, but it has been catch-22 to keep her on medication, to keep her blood pressure up. The patient is also very symptomatic. 4. Can also attempt use of fludrocortisone to help with her blood pressure and see if this helps. The patient previously had a hypotension workup done. We will review results of this as well and assess if fludrocortisone would be helpful. 5. Sepsis. Treatment per the primary medical team. 6. We will follow with the medical team. [id number]/[facility] #: [id number] JERO
[2019-06-08] MEDS: Gabapentin CAP(*) 100 MG PO SCH (22:39)
[2019-06-09 06:41] LABS: Hematocrit 26 % (35-47); Hemoglobin 8.5 g/dL (12.0-16.0); Mean Corpuscular HGB Conc 33 g/dL (31-36); Mean Corpuscular Hemoglobin 33 pg (27-31); Mean Corpuscular Volume 100 fL (80-97); Mean Platelet Volume 9.4 fL (7.4-10.4); Platelet Count 163 10^3/uL (150-450); Red Blood Count 2.59 10^6 /uL (3.70-4.87); Red Cell Distribution Width 18 % (10-15); White Blood Count 11.1 10^3/uL (3.5-10.8)
[2019-06-09 07:07] LABS: EGFR African American 15.4 (>60); EGFR Non-African American 12.8 (>60); Magnesium 1.8 mg/dL (1.9-2.7); Potassium 3.5 mmol/L (3.5-5.0)
--- NOTE | 2019-06-09 07:58 | PN ---
Hospitalist Progress Note Date of Service: 06/09/19 Attending Assessment and Plan I have reviewed the subjective and objective data in the residents note of which I agree and supervisied HD # 4 on 06/09 78 F PMH for non ETOH cirrhosis d/b x1 (HE), ESRD on dialysis with chronic hypotension, PAF not on AC s/p PPM, HFpEF (last EF 60-65% 2018), chronic LE wounds 2/2 to PVD, who presented from [facility] with vasovagal syncope found to be hypotensive with elevated lactate admitted for r/o sepsis criteria with + blood culture and chronic wounds as source. #Sepsis: Has only met 1/4 SIRS criteria throughout stay, she is chronically hypotensive and has elevated lactic acid. I do not feel she ever presented with true sepsis more, decompensation of her infection from wounds and chronic symptomatic hypotension exacerbated by vasovagal event of straining #Bacteremia: 2/ cx with Staph epi, wound cx with E Coli - On Zosyn Day 4/ __ on 06/09 - Blood cx represent likely contaminant, would scale back abx per ID recommendations #Chronic wounds 2/2 to PVD: Wound care to follow, ID to leave recommendation - Abnormal ABIS, consult to IR to determine appropriateness of revascularizatoin workup - Chronic pain 2/2 to wounds with PRN dilaudid (lopwer dose to 0.5 for ongoing hypotension), continue dave #Elevated lactic acid: Chronically in setting of poor perfusion and ESRD and cirrhosis inability to clear #Chronic hypotension: Multifactorial, ESRD and cirrhosis driving much of pathology - Is on midodrine TID, consider fluxortisone if Nephrology feels appropriate #PAF: Has been d/c from [facility], not on AC #ESRD on HD: (2/2 to ?prior meds): Continue Dialysis, Sevalemer, EPO #Cirrhosis: 2/2 to MURPHY, d/b HE, no e/o ascites, no known EV - HCC Screening: Per primary, Volume Status: Euvolemic, HE: No e/o decompensation, remains on scheduled lactulose, EV: Can't tolerate BB #HFpEF: Echo on file this hospitlization wiht preserved E #GOC: Long discussion with patient and her family to discuss goals of care, prolonged hospitlization, difficulty tolerating HD and with chronic poor healing wounds. She is feeling overwhelemed in general and tearful throughout, sick and tired of being "sick and tired" though not really ready to discuss reality of her chronic disease. She does elect to be DNR after discussion with her family and [facility] is completed. They are open to palliative care. Furthermore , has sig depression and would start SSRI or SNRI. #DVT: LMWH #Code: DNR/DNI
[2019-06-09] MEDS: Ondansetron INJ* 2 MG/ML VIAL IV PRN (08:56)
[2019-06-09 09:09] LABS: ABS Basophils 0.1 10^3/ul (0-0.2); ABS Eosinophils 0.2 10^3/ul (0-0.6); ABS Lymphocytes 2.1 10^3/ul (1.0-4.8); ABS Neutrophils 7.7 10^3/ul (1.5-7.7); Eosinophil % 1.6 %; Lymphocyte % 18.8 %; Nucleated Red Blood Cells % 0.2
[2019-06-09] MEDS: Heparin VIAL(*) 5000 UNITS/ML VIAL (FIVE THOUSAND) SUBCUT SCH ×2 (09:51→19:32)
[2019-06-09] MEDS: Sodium Chloride 5% OPTH.SOL* 15 ML BTL BOTH EYES SCH ×3 (09:51→19:32)
[2019-06-09] MEDS: Sevelamer TAB* 800 MG PO SCH ×2 (09:51→16:14)
[2019-06-09] MEDS: Calcium Acetate CAP* 667 MG PO SCH ×2 (09:52→17:00)
[2019-06-09] MEDS: Pantoprazole TAB * 40 MG TAB PO SCH (09:53)
[2019-06-09] MEDS: Lactulose* 15 ML UDC PO SCH ×3 (10:09→16:14)
[2019-06-09] MEDS: HYDROmorphone TAB* 2 MG PO PRN ×2 (10:09→20:28)
--- NOTE | 2019-06-09 10:13 | CONSULT ---
Consult Consult: Date of Service: June 09, 2019 Reason for Consultation: Lower extremity wounds with suspected arterial insufficiency. Requesting Service: Hospitalists (Travis LINARES) Admission Date: 06/06/19 (Focused) HPI: Ms. 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 The patient was an inpatient at [facility] from 05/15/19 to 06/03/19 for treatment of lower extremity wounds, GI bleeding due to hemorrhoids with a hemorrhoidectomy. The patient was discharged to [facility] for rehab on 06/03. On 06/06/19 the patient presented to the emergency department for syncope during a bowel movement. The patient had in the emergency department elevated lactic acid, which is consistent with patient's history. The patient also had an elevated troponin, which is less than the patient's previously documented levels and elevated BNP, which has never been tested before.The patient's creatinine was at baseline. The patient had a slightly elevated white blood cell count, but has had white blood cell count on the upper end of normal or slightly high since her admission earlier this month. The patient reports the wounds occurred after a fall in January. Prior to that fall the subsequent wounds she denies any symptoms characteristic of claudication or rest pain. PAST MEDICAL HISTORY: Cirrhosis due to MURPHY; hepatic encephalopathy; ESRD, on dialysis Saturday, Saturday and Saturday; heart failure with preserved ejection fraction; atrial fibrillation, status post pacemaker placement; peripheral neuropathy, unclear cause; osteoarthritis; glaucoma; hypotension; chronic lower extremity wounds. PAST SURGICAL HISTORY: Pacemaker insertion, cholecystectomy, gastric bypass. MEDICATIONS: (At [facility]) 1. Midodrine 5 mg p.o. daily. 2. Doxycycline 100 mg p.o. twice daily. 3. Percocet 5/325 one tab p.o. q.6 hours as needed for pain. 4. Sodium chloride 5% 1 drop both eyes daily. 5. Metoprolol tartrate 25 mg p.o. twice daily. 6. Maalox 30 mL by mouth every 6 hours as needed. 7. Lactulose 50 mg p.o. 3 times daily. 8. PhosLo 1.334 mg by mouth daily. 9. Nexium 40 mg p.o. daily. 10. Gabapentin 100 mg p.o. daily. 11. Loteprednol suspension 1 drop both eyes daily. 12. Sevelamer 800 mg p.o. twice daily. 13. Tylenol 975 mg p.o. every 8 hours as needed. ALLERGIES: HYDROCODONE. FAMILY HISTORY: The patient's father of AL. The patient's mother of old age. The patient has 4 siblings, 3 of whom are alive and well, 1 who in a car accident. SOCIAL HISTORY: The patient quit smoking in the 80s. The patient denies ever drinking, use of illicit drugs. The patient used to work at [employer]. She is and has 5 children. The patient 's surrogate decision maker will be , Al Almanza. REVIEW OF SYSTEMS: A 14 point review of systems were reviewed, is negative except as above in the HPI. PE: Selected Entries 06/09/19 05:45 Temperature 98.4 F Temperature Temporal Artery Source Scan Pulse Rate 95 Respiratory 18 Rate Blood Pressure 80/54 (mmHg) Blood Pressure 62 Mean O2 Sat by Pulse 94 Oximetry GENERAL: The patient is a 78-year-old female, laying in bed in no acute distress. AAO x 3. NAD. HEENT: Head: Normocephalic, atraumatic. Sclerae anicteric. No conjunctival injection. Nasal mucosa moist. Oral mucosa moist. No pharyngeal erythema, discharge, or exudate. RESPIRATORY: Clear to auscultation bilaterally. No wheezes, rales or rhonchi. Good air exchange bilaterally. HEART & VASCULAR: Regular rate and rhythm. No clicks, murmurs, gallops or rubs. 2+ pulses at B/L radial arteries. 2+ pulses at B/L PRECISION FARMING SPECIALIST. Cannot palpate B/L popliteal arteries or left pedal arteries. 1+ right ENTERTAINMENT DIRECTOR Edema with 1+ pitting edema B/L legs. Sterile dressing to bilateral anterior lower legs. Relevant Labs: Laboratory Tests 06/06/19 06/06/19 06/06/19 11:01 11:01 11:01 WBC 13.4 H Hgb Hct Neut % (Auto) Absolute Neuts (auto) INR (Anticoag Therapy) 1.09 APTT 30.0 BUN Creatinine Est GFR ( Amer) Est GFR (Non-Af Amer) Lactic Acid B-Natriuretic Peptide 1209 H 06/06/19 06/07/19 06/08/19 20:15 04:12 06:00 WBC 13.1 H 13.7 H Hgb Hct Neut % (Auto) Absolute Neuts (auto) INR (Anticoag Therapy) APTT BUN Creatinine Est GFR ( Amer) Est GFR (Non-Af Amer) Lactic Acid 3.0 H* B-Natriuretic Peptide 06/09/19 06/09/19 06:22 06:22 WBC 11.1 H Hgb 8.5 L Hct 26 L Neut % (Auto) 69.5 Absolute Neuts (auto) 7.7 INR (Anticoag Therapy) APTT BUN 14 Creatinine 3.47 H Est GFR ( Amer) 15.4 Est GFR (Non-Af Amer) 12.8 Lactic Acid B-Natriuretic Peptide Relevant Imaging: EXAM: US Bilateral Noninvasive Physiologic Study of the Upper or Lower Extremity Arteries, Limited EXAM DATE/TIME: 06/07/2019 8:28 PM CLINICAL HISTORY: 78 years old, female; Patient HX: Large lower leg ulcers; Additional info: Chronic le wounds not healing. TECHNIQUE: Imaging protocol: Bilateral Bilateral noninvasive physiologic studies of upper or lower extremity arteries. Ankle/brachial indices at distal posterior tibial and anterior tibial/dorsalis pedis arteries plus bidirectional, doppler waveform recording and analysis at 1-2 levels, or ankle/brachial indices at distal posterior tibial and anterior tibial/dorsalis pedis arteries plus volume plethysmography at 1-2 levels, or ankle/brachial indices at distal posterior tibial and anterior tibial/dorsalis pedis arteries with, transcutaneous oxygen tension measurement at 1-2 levels. Images were documented and archived. Limited. COMPARISON: No relevant prior studies available. FINDINGS: Segmental BP: Right: Brachial: 69 mmHg Ankle (PT): Not detected. Ankle (DP): 0 mmHg (index = 0). Digit: None detected. Left: Brachial: Not obtained due to prior AV fistula. Ankle (PT): Not obtained due to painful ankle ulcers. Ankle (DP): Not obtained due to painful ankle ulcers. Digit: None detected. Doppler: Right: Posterior tibial: No waveform ataxia. Dorsalis pedis: Monophasic waveform. Left: Posterior tibial: Monophasic waveform. Dorsalis pedis: Monophasic waveform. IMPRESSION: Abnormal Limited ÁNGELA showing likely high grade arterial stenosis. Summary: 78 yof with chronic lower leg wounds most consistent with venous stasis ulcers. This is most likely due to hypotension/cardiac insufficiency as well as fluid overload secondary to renal failure. There may be some degree of arterial insufficiency exacerbating the wounds further, i.e. "Mixed vessel disease". Recommendations: 1. Compression to legs, at least the lower legs, at all times. If compression stockings are too tight and/or difficult to put on, then SALLIE wraps are sufficient. 2. Symptoms may improve if cardiac output improves and/or fluid overload can be reduced. 3. CTA Aorta w/ runoff. This will indicate if there is arterial insufficiency ( unless the arteries are severly calcified) and also provide some information of the veins including abdominopelvic venous compression. 4. Angiography is possible, but more objective vascular information is indicated. Vascular interventions will also take into consideration the patient' s comorbities and long lines operator care plan.
--- NOTE | 2019-06-09 11:27 | PN ---
Subjective Date of Service: 06/09/19 Interval History: Patient is lethargic and in depressive mood. Dr. Freeman spoke to patient and her family (daughter and ) at bedside regarding goal of care at length, -offered potential treatment for her chronic wound: angioplasty if vascular surgeon able to do it , vs watermelon inspector care -limited option ahead considering her ESRD with recurrent hypotension and liver cirrhosis -explored patient's wishes and goals, options of comfort care vs active treatment explained -DNR status discussed Objective Active Medications: Acetaminophen (Tylenol Tab*) 975 mg PO Q8H PRN PRN Reason: Pain Scale 1-2 or fever Last Admin: 06/07/19 10:13 Dose: 975 mg Al Hydrox/Mg Hydrox/Simethicone (Maalox Plus*) 30 ml PO Q6H PRN PRN Reason: INDIGESTION Calcium Acetate (Phoslo Cap*) 1,334 mg PO BID WITH MEALS MOHAN Last Admin: 06/09/19 09:52 Dose: 1,334 mg Collagenase (Santyl 250 Units/Gm Oint*) 1 applic TOPICAL DAILY MOHAN Last Admin: 06/08/19 14:53 Dose: 1 applic Gabapentin (Neurontin Cap(*)) 100 mg PO BEDTIME MOHAN Last Admin: 06/08/19 22:39 Dose: 100 mg Heparin Sodium (Porcine) (Heparin Vial(*)) 5,000 units SUBCUT Q12HR MOHAN Last Admin: 06/09/19 09:51 Dose: 5,000 units Heparin Sodium (Porcine) (Heparin Flush Picc/Ml/Cvc(*)) 1 ml FLUSH 0600,1800 MOHAN; Protocol Last Admin: 06/09/19 06:13 Dose: 1 ml Hydromorphone HCl (Dilaudid Tab*) 0.5 mg PO Q6H PRN PRN Reason: Pain- Moderate Last Admin: 06/09/19 10:09 Dose: 0.5 mg Piperacillin Sod/Tazobactam (Sod 3.375 gm/ Sodium Chloride) 100 mls @ 25 mls/ hr IVPB Q12H MOHAN Last Admin: 06/08/19 22:53 Dose: 25 mls/hr Lactulose (Lactulose*) 15 ml PO 0800,1200,1600 MOHAN Last Admin: 06/09/19 10:09 Dose: 15 ml Loteprednol Etabonate (Lotemax 0.5% Oph.Susp (Nf)) 1 drop BOTH EYES TID [facility] Last Admin: 06/08/19 22:41 Dose: Not Given Midodrine (Midodrine) 5 mg PO TID [facility]; Protocol Last Admin: 06/09/19 09:51 Dose: 5 mg Midodrine (Midodrine) 5 mg PO MOWEFR@0900 [facility]; Protocol Last Admin: 06/08/19 09:26 Dose: 5 mg Ondansetron HCl (Zofran Inj*) 4 mg IV Q6H PRN PRN Reason: NAUSEA Last Admin: 06/09/19 08:56 Dose: 4 mg Pantoprazole Sodium (Protonix Tab*) 40 mg PO DAILY [facility] Last Admin: 06/09/19 09:53 Dose: 40 mg Pharmacy Consult (Zosyn Per Pharmacy*) 1 note FOLLOW UP .ZOSYN PER PHARMACY [facility] Sevelamer Carbonate (Renvela Tab*) 800 mg PO BID WITH MEALS [facility] Last Admin: 06/09/19 09:51 Dose: 800 mg Sodium Chloride (Hypertonic) (Vaishnavi 128 Opth 5% Opth.Soll*) 1 drop BOTH EYES TID [facility] Last Admin: 06/09/19 09:51 Dose: 1 drop Triamcinolone Acetonide (Triamcinolone 0.5% Oint *) 1 applic TOPICAL BID PRN PRN Reason: ITCHY SKIN Vital Signs - 8 hr 06/09/19 06/09/19 06/09/19 05:45 08:00 10:09 Temperature 98.4 F Pulse Rate 95 Respiratory 18 16 16 Rate Blood Pressure 80/54 (mmHg) O2 Sat by Pulse 94 Oximetry Oxygen Devices in Use Now: None Exam: Pt is lethargic, lying on bed Heart: S1 S2 normal, no murmur Lung: clear Abdomen: soft, non tender Skin: multiple bruises and scars noted Neuro: lethargic, depressive mood, oriented x 3 LL: bilateral LL wrapped Result Diagrams: 06/09/19 06:22 06/09/19 06:22 Microbiology and Other Data: Microbiology 06/06/19 13:14 Gram Stain - Final Leg Left Wound Culture - Preliminary Escherichia Coli 06/06/19 11:01 Aerobic Blood Culture - Preliminary Blood Venous Anaerobic Blood Culture - Preliminary No Growth Day 1 Blood MRSA/MSSA (PCR) - Final Mrsa Negative S.aureus Negative 06/07/19 08:32 Gram Stain - Final Leg Right 06/06/19 15:35 Nasal Screen MRSA (PCR) - Final Nasal Mrsa Not Detected Assess/Plan/Problems-Billing Assessment: HD #4 on 06/09 78 F with a PMH for non alcoholic cirrhosis, ESRD on Dialysis with recurrent hypotension on midodrine, PAF s/p PPM, HFpEF (EF 60-65%), chronic LE wounds due to PVD. She came from [facility] presenting as syncope, found to be hypotensive with positive lactate, meeting SIRS criteria for sepsis, her blood culture showed staph epidermidis, wound culture showed E.Coli. She was treated with IV Zosyn, at the meantime we are trying revascularization to help with wound healing. - Patient Problems (1) Sepsis Current Visit: No Status: Acute Priority: Medium Comment: - Meeting SIRS Criteria for severe sepsis with elevated lactic acid - blood c/s: stap epi, wound c/s: E Coli - on Zosyn D4 (2) ESRD (end stage renal disease) on dialysis Current Visit: No Status: Acute Priority: Medium Code(s): N18.6 - END STAGE RENAL DISEASE; Z99.2 - DEPENDENCE ON RENAL DIALYSIS SNOMED Code(s): 111115057 Comment: -Continue HD with midodrine, consider fluodrocortisone -last dialysis 06/08/2019, able to remove 1L with isolated UF and sequential HD (3) Hypotension Current Visit: No Status: Acute Comment: Multifactorial: sepsis, liver cirrhosis, ESRD Previous hypotension workup was done: Cortisol Normal (4) Wound of lower extremity Current Visit: No Status: Acute Code(s): S81.809A - UNSPECIFIED OPEN WOUND, UNSPECIFIED LOWER LEG, INIT ENCNTR SNOMED Code(s): 897804121 Comment: - Extensive antibiotics at last admission. Was on Doxy for E. Coli - Continue wound care. - ABIs inconclusive but markedly abnormal, IR will evaluate for possibility for further vascular imaging and possible revascularization. (5) DVT prophylaxis Current Visit: No Status: Acute Code(s): Z29.9 - ENCOUNTER FOR PROPHYLACTIC MEASURES, UNSPECIFIED SNOMED Code(s): 907393754 Comment: - Heparin Q12H Status and Disposition: Inpatient Medicine Attestation Documenting Resident: Adrianne Merida Supervising Physician: Karla Freeman Attestation: This service has been performed in part by a resident under the direction of a teaching physician.I, Karla Freeman, performed the service, or was physically present during the critical, or cortes portions of the service, furnished by the resident. I participated in the management of the patient.
[2019-06-09] MEDS: ZOSYN 3.375 GM Q12H per EXTENDED INFUSION IVPB SCH ×2 (12:10)
[2019-06-09] MEDS: LOTEPREDNOL 0.5% BOTH EYES SCH ×3 (12:13→19:33)
[2019-06-09] MEDS ORDERED: Iodixanol* (CONTRAST) 320 MG/ML 100 ML SDV IV ONE (15:06)
[2019-06-09] MEDS: Sertraline* 25 MG TAB PO SCH (15:35)
[2019-06-09] MEDS: Collagenase 250 UNITS/GM OINT* 1 APPLIC OINT TOPICAL SCH (16:13)
--- NOTE | 2019-06-09 16:30 | CONSULT ---
Subjective Date of Service: 06/09/19 Interval History: Ms. Almanza is a 78 yo female with PMH significant for A fib, peripheral neuropathy, GERD, cirrhosis, osteoarthritis, ESRD on hemodialysis, glaucoma, and chronic bilateral LE wounds. She presented to the emergency room for Syncope. She was previously hospitalized from for bilateral LE wounds and concern for cellulitis. She presented to the hospital with chronic bilateral LE wounds. Patient seen and examined at bedside. Family History: Unchanged from Admission Social History: Unchanged from Admission Past Medical History: Unchanged from Admission Review of Systems - Measurements Intake and Output: Intake and Output Last 24 Hours 06/07/19 06/08/19 06/09/19 06/10/19 06:59 06:59 06:59 06:59 Intake Total 0 610 340 605 Output Total 0 Balance 0 610 340 605 Weight 144 lb 8 oz 140 lb 11.2 oz Intake: IV Fluids 110 25 zosyn 10 25 IVPB 100 100 100 zosyn 100 100 100 Oral 0 400 240 480 Output: Urine 0 Other: # Bowel Movements 1 4 1 2 Estimated Stool Amount Small Small Small Medium # Voids 0 - Review of Systems Constitutional Symptoms: Negative: Fever, Other - Chills Dermatology: Positive: Other - Chronic wounds to bilateral LEs Objective Active Medications: Acetaminophen (Tylenol Tab*) 975 mg PO Q8H PRN Reason: Pain Scale 1-2 or fever Al Hydrox/Mg Hydrox/Simethicone (Maalox Plus*) 30 ml PO Q6H PRN Reason: INDIGESTION Calcium Acetate (Phoslo Cap*) 1,334 mg PO BID WITH MEALS [facility] Collagenase (Santyl 250 Units/Gm Oint*) 1 applic TOPICAL DAILY [facility] Gabapentin (Neurontin Cap(*)) 100 mg PO BEDTIME MOHAN Heparin Sodium (Porcine) (Heparin Vial(*)) 5,000 units SUBCUT Q12HR MOHAN Heparin Sodium (Porcine) (Heparin Flush Picc/Ml/Cvc(*)) 1 ml FLUSH 0600,1800 MOHAN; Protocol Hydromorphone HCl (Dilaudid Tab*) 0.5 mg PO Q6H PRN Reason: Pain- Moderate Piperacillin Sod/Tazobactam (Sod 3.375 gm/ Sodium Chloride) 100 mls @ 25 mls/ hr IVPB Q12H MOHAN Lactulose (Lactulose*) 15 ml PO 0800,1200,1600 MOHAN Loteprednol Etabonate (Lotemax 0.5% Oph.Susp (Nf)) 1 drop BOTH EYES TID [facility] Midodrine (Midodrine) 5 mg PO TID [facility]; Protocol Midodrine (Midodrine) 5 mg PO MOWEFR@0900 [facility]; Protocol Ondansetron HCl (Zofran Inj*) 4 mg IV Q6H PRN Reason: NAUSEA Pantoprazole Sodium (Protonix Tab*) 40 mg PO DAILY [facility] Pharmacy Consult (Zosyn Per Pharmacy*) 1 note FOLLOW UP .ZOSYN PER PHARMACY [facility] Sertraline HCl (Zoloft*) 25 mg PO DAILY [facility] Sevelamer Carbonate (Renvela Tab*) 800 mg PO BID WITH MEALS [facility] Sodium Chloride (Hypertonic) (Vaishnavi 128 Opth 5% Opth.Soll*) 1 drop BOTH EYES TID [facility] Triamcinolone Acetonide (Triamcinolone 0.5% Oint *) 1 applic TOPICAL BID PRN Reason: ITCHY SKIN Vital Signs 06/09/19 15:15 Temperature 97.7 F Pulse Rate 84 Respiratory 18 Rate Blood Pressure 80/54 (mmHg) O2 Sat by Pulse 95 Oximetry Oxygen Devices in Use Now: None Appearance: NAD, laying in bed Ears/Nose/Mouth/Throat: Mucous Membranes Moist Respiratory: Symmetrical Chest Expansion and Respiratory Effort Cardiovascular: - - Bilateral LE edema Skin: - - See skin note below Neurological: Alert and Oriented x 3 Nutrition: Taking PO's Result Diagrams: 06/09/19 06:22 06/09/19 06:22 Microbiology and Other Data: Microbiology 06/07/19 08:32 Gram Stain - Final Leg Right Wound Culture - Preliminary Escherichia Coli 06/06/19 13:14 Gram Stain - Final Leg Left Wound Culture - Final Escherichia Coli Normal Wendi 06/06/19 11:01 Aerobic Blood Culture - Preliminary Blood Venous Staphylococcus Epidermidis Anaerobic Blood Culture - Preliminary Staphylococcus Epidermidis Blood MRSA/MSSA (PCR) - Final Mrsa Negative S.aureus Negative 06/06/19 20:15 Aerobic Blood Culture - Preliminary Blood Venous No Growth Day 2 Anaerobic Blood Culture - Preliminary No Growth Day 2 06/06/19 15:35 Nasal Screen MRSA (PCR) - Final Nasal Mrsa Not Detected Diagnostic Imaging: Exam Date: 06/07/19 1314 -VL ANK/BRACHIAL INDICES FINDINGS: Segmental BP: Right: Brachial: 69 mmHg Ankle (PT): Not detected. Ankle (DP): 0 mmHg (index = 0). Digit: None detected. Left: Brachial: Not obtained due to prior AV fistula. Ankle (PT): Not obtained due to painful ankle ulcers. Ankle (DP): Not obtained due to painful ankle ulcers. Digit: None detected. Doppler: Right: Posterior tibial: No waveform ataxia. Dorsalis pedis: Monophasic waveform. Left: Posterior tibial: Monophasic waveform. Dorsalis pedis: Monophasic waveform. IMPRESSION: Abnormal Limited ÁNGELA showing likely high grade arterial stenosis. Skin Deviation Note - Skin Deviation Findings Left medial/anterior lower leg wound - Wound measures 3.5 cm x 5 cm x 0.8 cm. The wound base is mostly moist dark eschar that is adhered to the wound. There is mild erythema surrounding the wound and a small amount of serous drainage. There is no odor. This wound is painful to touch. Left anterior/lateral lower leg - Wound measures 5 cm x 3.5 cm x 0.5 cm. The wound base is yellow slough on the edges and pink granulation tissue. There is mild erythema surrounding the wound and a small amount of serous drainage. The periwound is slightly macerated. There is no odor. Right lateral lower leg - Wound measures 2 cm x 1.8 cm x 0.3 cm. The wound base is moist dark slough. There is a small amount of serous drainage noted, no odor. The surrounding skin with mild erythema. Right lateral thigh - There is a small skin tear, measures 0.9 cm x 1 cm x 0.1. There is pink granulation tissue in the wound base. There is serous drainage from the wound. The surrounding skin is intact. Right posterior upper arm - There is a superficial wound, measures 1.2 cm x 1 cm x 0.1 cm. There is pink granulation tissue in the wound base. There is serous drainage from the wound. The surrounding skin is intact. Sacrum - There is a small open area, measures 0.4 cm x 0.4 cm x 0.1 cm. The surrounding skin with blanchable erythema. There is no drainage. The wound bed with pink granulation tissue. Left lateral lower leg - There are 2 superficial open areas, proximal wound measures 0.4 cm x 1 cm x 0.1 cm and the distal one measures 0.5 cm x 2 cm x 0.1 cm. There is pink granulation tissue in the wound base. There is serous drainage from the wound. The surrounding skin is intact. Left posterior upper arm - There is a superficial wound, measures 0.5 cm x 1 cm x 0.1 cm. There is pink granulation tissue in the wound base. There is serous drainage from the wound. The surrounding skin is intact. Left upper arm - Superficial wound measures, 0.3 cm x 0.4 cm x 0.1 cm. There is pink granulation tissue in the wound base. There is serous drainage from the wound. The surrounding skin is intact. Assessment/Plan: Ms. Almanza is a 78 yo female with PMH significant for A fib, peripheral neuropathy, GERD, cirrhosis, osteoarthritis, ESRD on hemodialysis, glaucoma, and chronic bilateral LE wounds. She presented to the emergency room for a syncopal. She presented to the hospital with chronic bilateral LE wounds. 1. Bilateral lower extremity chronic wounds, secondary to venous insufficiency. Recommend washing the wounds with saline, applying Santyl to the wounds, followed by telfa, followed by rolled gauze and change dressings daily. DO NOT apply tape to the skin. ABIs as per above. Dr. French has consulted and CTA with aorta runoff pending. She should continue to follow with the [facility] at discharge, she may require sharp debridement of the wounds in the future, but concern if the wounds would heal after sharp debridement. 2. Multiple skin tears. Use caution with tape, blood draws and moving patient as to protect the delicate skin. Recommend applying Optifoam dressing and change every 3 days or as needed for drainage. If a wound has significant drainage, can apply calcium alginate to the wounds followed by Optifoam. 3. Stage 2 pressure injury to the sacrum. Recommend frequent turning and repositioning. Apply barrier cream as needed. 4. Diet. Renal diet. 5. Code Status. Full Code Status. 6. Disposition. Inpatient, disposition per primary medicine team. TIME SPENT: Time for this wound consultation was 30 minutes and 20 minutes was spent with the patient and family discussing events over the last week; removing old dressings; assessing, measuring, and photographing the wounds; and redressing the wounds. Wound Problem/Plan Is Patient a Wound Clinic Patient: Yes Attending: Farnaz Orosco
[2019-06-09] MEDS ORDERED: cefTRIAXone(*) 1 GM in NS 0.9% 50 ML* 50 ML IVPB SCH (18:30)
[2019-06-09] MEDS: Gabapentin CAP(*) 100 MG PO SCH (19:30)
[2019-06-09] MEDS: Acetaminophen TAB* 325 MG PO PRN (19:41)
[2019-06-09] MEDS ORDERED: Haloperidol INJ IV/IM* 5 MG/ML AMP IV SLOW PU ONE (23:37)
[2019-06-10] MEDS: HYDROmorphone TAB* 2 MG PO PRN ×2 (05:25→22:14)
[2019-06-10] MEDS: Acetaminophen TAB* 325 MG PO PRN ×2 (05:27→22:13)
[2019-06-10 06:16] LABS: BUN/Creatinine Ratio 4.3 (8-20); Calcium 7.9 mg/dL (8.6-10.3); EGFR Non-African American 9.1 (>60); Potassium 3.4 mmol/L (3.5-5.0)
--- NOTE | 2019-06-10 07:34 | PN ---
Hospitalist Progress Note Date of Service: 06/10/19 Attending Assessment and Plan I have reviewed the subjective and objective data in the residents note of which I agree and supervisied HD # 5 on 06/10 78 F PMH for non ETOH cirrhosis d/b x1 (HE), ESRD on dialysis with chronic hypotension, PAF not on AC s/p PPM, HFpEF (last EF 60-65% 2018), chronic LE wounds 2/2 to PVD, who presented from [facility] with vasovagal syncope found to be hypotensive with elevated lactate admitted for r/o sepsis criteria with + blood culture and chronic wounds as source. Vitals: SBP up to 100, b/l around 90 Labs: Stable Images: CTA with runoff #Sepsis: Has only met 1/4 SIRS criteria throughout stay, she is chronically hypotensive and has elevated lactic acid. I do not feel she ever presented with true sepsis more, decompensation of her infection from wounds and chronic symptomatic hypotension exacerbated by vasovagal event of straining #Bacteremia: 2/4 cx with Staph epi, wound cx with E Coli - On Zosyn 06/06-06/09, now CTX with review of Cultures on 06/10, total abx Day 5/ _ (14?) - Blood cx represent likely contaminant, would scale back abx per ID recommendations #Chronic wounds 2/2 to PVD: Wound care to follow, ID to leave recommendation - Abnormal ABIS, consult to IR to determine appropriateness of revascularizatoin workup - Chronic pain 2/2 to wounds with PRN dilaudid (lopwer dose to 0.5 for ongoing hypotension), continue dave #Elevated lactic acid: Chronically in setting of poor perfusion and ESRD and cirrhosis inability to clear #Chronic hypotension: Multifactorial, ESRD and cirrhosis driving much of pathology - Is on midodrine TID, consider fludortisone if Nephrology feels appropriate #PAF: Has been d/c from [facility], not on AC #ESRD on HD: (2/2 to ?prior meds): Continue Dialysis, Sevalemer, EPO #Cirrhosis: 2/2 to MURPHY, d/b HE, no e/o ascites, no known EV - HCC Screening: Per primary, Volume Status: Euvolemic, HE: No e/o decompensation, remains on scheduled lactulose, EV: Can't tolerate BB #HFpEF: Echo on file this hospitlization wiht preserved EF #GOC: Long discussion with patient and her family to discuss goals of care, prolonged hospitlization, difficulty tolerating HD and with chronic poor healing wounds. She is feeling overwhelemed in general and tearful throughout, sick and tired of being "sick and tired" though not really ready to discuss reality of her chronic disease.. They are open to palliative care. Furthermore, has sig depression started sertraline #DVT: LMWH #Code: Ongoing discussion, currently deferring to full
[2019-06-10] MEDS: Sevelamer TAB* 800 MG PO SCH ×2 (10:10→20:15)
[2019-06-10] MEDS: Pantoprazole TAB * 40 MG TAB PO SCH (10:11)
[2019-06-10] MEDS: Sertraline* 25 MG TAB PO SCH (10:12)
[2019-06-10] MEDS: Calcium Acetate CAP* 667 MG PO SCH ×2 (10:13→20:12)
[2019-06-10] MEDS: Heparin VIAL(*) 5000 UNITS/ML VIAL (FIVE THOUSAND) SUBCUT SCH ×2 (10:13→22:12)
[2019-06-10] MEDS: Sodium Chloride 5% OPTH.SOL* 15 ML BTL BOTH EYES SCH ×3 (10:15→22:18)
[2019-06-10] MEDS: LOTEPREDNOL 0.5% BOTH EYES SCH ×3 (10:16→22:28)
--- NOTE | 2019-06-10 13:39 | CONSULT ---
Palliative / Hospice Consult Ordering Provider: Adrianne Barry PCP-Debora Referal Reason: Goals of care and aftercare - Subjective Code Status: Full Code Advance Directives Location: In Chart - History or Present Illness History or Present Illness: 78yo female resident of [facility] on rehab c/o passed out while straining and brought to [facility] ER. PMH is significant for cirrhosis MURPHY, endstage renal disease on hemodialysis, afib s/p pacer, chronic hypotension, peripheral neuropathy, hepatic encephalopathy and heart failure with preserved EF. Pt is with 5 children 2 of her daughters are HCP, ex tob, no etoh no drug use. Pt and her live in [place] in the winter and come back to [facility] in the summer and stay with family. Studies: CXR-neg, Ekg-afib, Echo-EF 60- 65%, mod-severe tricuspid regurge, brain CT-chronic microvascular disease, Abd CT-advanced calcified atherosclerosis of abd aorta, subcutaneous gas distal R upper arm, subcutaneous hematoma abdominal and ? of small bowel obstruction, H/ H 8.5/26, BUN/Cr 14/3.47, egfr 12.8, tprot 3.9, alb 2.1, BNP 1209, wound & L leg cult-E.coli and blood culture staph epidermidis. All history is from daughter and medical record. Pt was recently admitted 05/15- for sepsis, lower GI bleed and chronic wounds of lower extremity and discharged to [facility] for rehab. This admission she is admitted with syncopal episode, sepsis, and chronic wounds of lower extremity. Lab Values: Abnormal Lab Results 06/09/19 06/10/19 06:22 05:45 Hem Pathologist Commnt Sodium 137 Potassium 3.4 L Chloride 103 Carbon Dioxide 25 Anion Gap 9 BUN 20 Creatinine 4.66 H Est GFR ( Amer) 11.0 Est GFR (Non-Af Amer) 9.1 BUN/Creatinine Ratio 4.3 L Glucose 82 Calcium 7.9 L Laboratory Last Values WBC 11.1 10^3/uL (3.5-10.8) H 06/09/19 06:22 RBC 2.59 10^6 /uL (3.70-4.87) L 06/09/19 06:22 Hgb 8.5 g/dL (12.0-16.0) L 06/09/19 06:22 Hct 26 % (35-47) L 06/09/19 06:22 MCV 100 fL (80-97) H 06/09/19 06:22 MCH 33 pg (27-31) H 06/09/19 06:22 MCHC 33 g/dL (31-36) 06/09/19 06:22 RDW 18 % (10-15) H 06/09/19 06:22 Plt Count 163 10^3/uL (150-450) 06/09/19 06:22 MPV 9.4 fL (7.4-10.4) 06/09/19 06:22 Neut % (Auto) 69.5 % 06/09/19 06:22 Lymph % (Auto) 18.8 % 06/09/19 06:22 [place] % (Auto) 9.4 % 06/09/19 06:22 Eos % (Auto) 1.6 % 06/09/19 06:22 Baso % (Auto) 0.7 % 06/09/19 06:22 Absolute Neuts (auto) 7.7 10^3/ul (1.5-7.7) 06/09/19 06:22 Absolute Lymphs (auto) 2.1 10^3/ul (1.0-4.8) 06/09/19 06:22 Absolute Monos (auto) 1.0 10^3/ul (0-0.8) H 06/09/19 06:22 Absolute Eos (auto) 0.2 10^3/ul (0-0.6) 06/09/19 06:22 Absolute Basos (auto) 0.1 10^3/ul (0-0.2) 06/09/19 06:22 Absolute Nucleated RBC 0.0 10^3/ul 06/09/19 06:22 Immature Gran % 1.0 % (0-9) 06/08/19 06:00 Neutrophils % 74.0 % 06/09/19 06:22 Band Neutrophils % 1.0 % (0-8) 06/08/19 06:00 Lymphocytes % 20.0 % 06/09/19 06:22 Monocytes % 2.0 % 06/09/19 06:22 Eosinophils % 4.0 % 06/09/19 06:22 Nucleated RBC % 0.2 06/09/19 06:22 Nucleated RBCs/100 WBC 1.0 (0-0) H 06/09/19 06:22 Normal RBC Morphology Normal (Normal) 06/09/19 06:22 Hem Pathologist Commnt 06/09/19 06:22 INR (Anticoag Therapy) 1.09 (0.82-1.09) 06/06/19 11:01 APTT 30.0 seconds (26.0-38.0) 06/06/19 11:01 Sodium 137 mmol/L (135-145) 06/10/19 05:45 Potassium 3.4 mmol/L (3.5-5.0) L 06/10/19 05:45 Chloride 103 mmol/L (101-111) 06/10/19 05:45 Carbon Dioxide 25 mmol/L (22-32) 06/10/19 05:45 Anion Gap 9 mmol/L (2-11) 06/10/19 05:45 BUN 20 mg/dL (6-24) 06/10/19 05:45 Creatinine 4.66 mg/dL (0.51-0.95) H 06/10/19 05:45 Est GFR ( Amer) 11.0 (>60) 06/10/19 05:45 Est GFR (Non-Af Amer) 9.1 (>60) 06/10/19 05:45 BUN/Creatinine Ratio 4.3 (8-20) L 06/10/19 05:45 Glucose 82 mg/dL (70-100) 06/10/19 05:45 Lactic Acid 3.0 mmol/L (0.5-2.0) H* 06/06/19 20:15 Calcium 7.9 mg/dL (8.6-10.3) L 06/10/19 05:45 Phosphorus 3.1 mg/dL (2.5-5.0) 06/07/19 04:12 Magnesium 1.8 mg/dL (1.9-2.7) L 06/09/19 06:22 Total Bilirubin 1.20 mg/dL (0.2-1.0) H 06/07/19 04:12 AST 33 U/L (13-39) 06/07/19 04:12 ALT 21 U/L (7-52) 06/07/19 04:12 Alkaline Phosphatase 288 U/L (34-104) H 06/07/19 04:12 Troponin I 0.06 ng/mL (<0.04) H* 06/06/19 11:00 B-Natriuretic Peptide 1209 pg/mL (<=100) H 06/06/19 11:01 Total Protein 3.9 g/dL (6.4-8.9) L 06/07/19 04:12 Albumin 2.1 g/dL (3.2-5.2) L 06/07/19 04:12 Globulin 1.8 g/dL (2-4) L 06/07/19 04:12 Albumin/Globulin Ratio 1.2 (1-3) 06/07/19 04:12 Cortisol 16.18 mcg/dL 06/08/19 06:00 Hepatitis B Antibody Not immune (Immune) A 06/08/19 12:20 Hep Bs Antigen Negative (Negative) 06/08/19 12:20 - Objective Active Medications: Acetaminophen (Tylenol Tab*) 975 mg PO Q8H PRN PRN Reason: Pain Scale 1-2 or fever Last Admin: 06/10/19 05:27 Dose: 975 mg Al Hydrox/Mg Hydrox/Simethicone (Maalox Plus*) 30 ml PO Q6H PRN PRN Reason: INDIGESTION Calcium Acetate (Phoslo Cap*) 1,334 mg PO BID WITH MEALS [facility] Last Admin: 06/10/19 10:13 Dose: 1,334 mg Collagenase (Santyl 250 Units/Gm Oint*) 1 applic TOPICAL DAILY [facility] Last Admin: 06/09/19 16:13 Dose: 1 applic Gabapentin (Neurontin Cap(*)) 100 mg PO BEDTIME [facility] Last Admin: 06/09/19 19:30 Dose: 100 mg Heparin Sodium (Porcine) (Heparin Vial(*)) 5,000 units SUBCUT Q12HR [facility] Last Admin: 06/10/19 10:13 Dose: 5,000 units Heparin Sodium (Porcine) (Heparin Flush Picc/Ml/Cvc(*)) 1 ml FLUSH 0600,1800 [facility]; Protocol Last Admin: 06/10/19 05:30 Dose: 1 ml Hydromorphone HCl (Dilaudid Tab*) 0.5 mg PO Q6H PRN PRN Reason: Pain- Moderate Last Admin: 06/10/19 05:25 Dose: 0.5 mg Ceftriaxone Sodium 1 gm/ (Sodium Chloride) 50 mls @ 100 mls/hr IVPB Q24H [facility]OHAN Last Admin: 06/09/19 19:24 Dose: 100 mls/hr Lactulose (Lactulose*) 15 ml PO 0800,1200,1600 [facility] Last Admin: 06/09/19 16:14 Dose: Not Given Loteprednol Etabonate (Lotemax 0.5% Oph.Susp (Nf)) 1 drop BOTH EYES TID MOHAN Last Admin: 06/10/19 10:16 Dose: Not Given Midodrine (Midodrine) 5 mg PO TID [facility]; Protocol Last Admin: 06/10/19 10:14 Dose: 5 mg Midodrine (Midodrine) 5 mg PO MOWEFR@0900 [facility]; Protocol Last Admin: 06/08/19 09:26 Dose: 5 mg Ondansetron HCl (Zofran Inj*) 4 mg IV Q6H PRN PRN Reason: NAUSEA Last Admin: 06/09/19 08:56 Dose: 4 mg Pantoprazole Sodium (Protonix Tab*) 40 mg PO DAILY [facility] Last Admin: 06/10/19 10:11 Dose: 40 mg Sertraline HCl (Zoloft*) 25 mg PO DAILY [facility] Last Admin: 06/10/19 10:12 Dose: Not Given Sevelamer Carbonate (Renvela Tab*) 800 mg PO BID WITH MEALS [facility] Last Admin: 06/10/19 10:10 Dose: 800 mg Sodium Chloride (Hypertonic) (Vaishnavi 128 Opth 5% Opth.Soll*) 1 drop BOTH EYES TID [facility] Last Admin: 06/10/19 10:15 Dose: 1 drop Triamcinolone Acetonide (Triamcinolone 0.5% Oint *) 1 applic TOPICAL BID PRN PRN Reason: ITCHY SKIN Vital Signs: Vital Signs: Temp Pulse Resp BP Pulse Ox 97.3 F 93 18 104/56 90 06/10/19 04:51 06/10/19 04:51 06/10/19 10:15 06/10/19 04:51 06/10/19 04:51 Patient Weight: Weight 63.82 kg Intake and Output: Intake & Output 06/08/19 06/09/19 06/10/19 06/11/19 06:59 06:59 06:59 06:59 Intake Total 610 340 825 620 Output Total 0 Balance 610 340 825 620 Weight 63.82 kg Intake: IV Fluids 110 25 zosyn 10 25 IVPB 100 100 200 zosyn 100 100 200 Oral 400 240 600 620 Output: Urine 0 Other: # Bowel Movements 4 1 2 Estimated Stool Amount Small Small Small # Voids 0 ADLs: Meal Record Start: 06/06/19 14: 48 Freq: DAILY@0900,1400,1800 Status: Active Protocol: Created 06/06/19 14:48 System (Rec: 06/06/19 14:48 System TELE-C09) Document 06/06/19 18:00 [id number] (Rec: 06/06/19 21:43 [id number] TELE-C07) Document 06/07/19 14:00 [id number] (Rec: 06/07/19 15:34 [id number] TELE-M11) Document 06/07/19 18:00 [id number] (Rec: 06/08/19 01:18 [id number] TELE-C10) Document 06/08/19 09:00 [id number] (Rec: 06/08/19 13:05 [id number] TELE-C10) Document 06/08/19 13:08 [id number] (Rec: 06/08/19 13:08 [id number] TELE-C11) Document 06/08/19 18:00 [id number] (Rec: 06/08/19 19:58 [id number] TELE-C05) Document 06/09/19 14:00 [id number] (Rec: 06/09/19 14:25 [id number] TELE-C10) Document 06/09/19 18:00 [id number] (Rec: 06/09/19 18:45 [id number] TELE-C08) Document 06/10/19 09:00 [id number] (Rec: 06/10/19 11:36 [id number] TELE-C01) Intake and Output Start: 06/06/19 08: 29 Freq: Status: Active Protocol: Created 06/06/19 08:29 System (Rec: 06/06/19 08:29 System ED-C31) Intake and Output Start: 06/06/19 14: 48 Freq: DAILY@0600,1400,2200 Status: Active Protocol: Created 06/06/19 14:48 System (Rec: 06/06/19 14:48 System TELE-C09) Document 06/06/19 21:44 [id number] (Rec: 06/06/19 21:46 [id number] TELE-C07) Document 06/07/19 06:00 [id number] (Rec: 06/07/19 06:08 [id number] TELE-C10) Document 06/07/19 14:00 [id number] (Rec: 06/07/19 15:34 [id number] TELE-M11) Document 06/07/19 22:00 [id number] (Rec: 06/07/19 23:01 [id number] TELE-C06) Document 06/08/19 06:00 [id number] (Rec: 06/08/19 06:21 [id number] TELE-C09) Document 06/08/19 13:59 [id number] (Rec: 06/08/19 14:00 [id number] TELE-C10) Document 06/08/19 22:00 [id number] (Rec: 06/08/19 22:37 [id number] TELE-C13) Document 06/09/19 06:00 [id number] (Rec: 06/09/19 06:19 [id number] TELE-C13) Document 06/09/19 14:00 [id number] (Rec: 06/09/19 14:25 [id number] TELE-C10) Document 06/09/19 22:00 [id number] (Rec: 06/09/19 22:29 [id number] TELE-C11) Document 06/10/19 06:00 [id number] (Rec: 06/10/19 06:52 [id number] TELE-C34) Eyes: No Scleral Icterus, PERRLA Ears/Nose/Mouth/Throat: Mucous Membranes Moist Neck: NL Appearance and Movements; NL JVP, Trachea Midline Cardiovascular: - - Bilateral LE edema Abdominal: NL Sounds; No Tenderness; No Distention, No Hepatosplenomegaly Extremities: No Clubbing, Cyanosis, - - Bruising across all limbs. Neurological: Alert and Oriented x 3 - Assessment Assessment: 78 yo female on dialysis presents with syncope, sepsis and lower extremity wounds - Plan Consult Plan (MU): Hospice - if pt is willing to stop dialysis Plan: Long discussion with daughter(HCP) about mother. Pt was sleeping and has dialysis later today therefore will talk with pt tomorrow. Daughter realizes pt may not get back home from going to rehab. Says mother mentions things about dying but says she won't because family still needs her. Recently pt's prognosis was discussed and with dialysis maybe a year without dialysis weeks. Daughter felt her mother had no quality of life but mother has not brought up stopping dialysis. Information/brochure about hospice given. Also explained hospice can be given in the home, at SNF or at a hospice residence if available. Pt will need to express what her goals are and then align them with therapy. Family was hoping to bring her closer to [place] since more family is around but having issue finding a place. Pt is eligible for hospice if interested but would have to discontinue dialysis with diagnosis of end stage renal disease and recurrent sepsis. KPS 50% PPS 50% - Time On Unit Date of Evaluation: 06/10/19 Hospice Consult Time in: 11:30 Hospice Consult Time Out: 13:00 Hospice Consult Time Total: 90 > 50% of Time Spend In Counseling or Coordinating Care: Yes
--- NOTE | 2019-06-10 14:38 | CONS ---
CONSULTATION REPORT: DATE OF CONSULT: 06/10/19 REQUESTING PHYSICIAN: Dr. Freeman. CONSULTING SERVICE: Infectious Disease. REASON FOR CONSULT: Wound infection. IMPRESSION: 1. Bilateral lower extremity wounds including the left lateral and medial leg and the right lateral lower leg, may be related to combination of arterial disease and venous insufficiency. The left medial wound has slight surrounding cellulitis that did grow Escherichia coli. 2. Staphylococcus epidermidis in 2 of her blood culture bottles. She has a pacemaker and dialysis catheter. However, only 2/4 were positive. I think that is contamination and not intravascular infection. The Staphylococcus epidermidis' susceptibility pattern is not the same as what has grown in her leg over time. 3. End-stage renal disease, on hemodialysis via tunneled catheter. 4. Status post pacemaker placement. RECOMMENDATIONS: She is on day 5 of IV antibiotics. I will change her to cephalexin to cover the E. Coli to complete 10 days. She is having vascular studies and wound care and we will continue that. HISTORY OF PRESENT ILLNESS: This is a 78-year-old woman with end-stage renal disease, on hemodialysis, admitted with syncope, found subsequently to have wounds on both legs for which she has been followed for over time. She cannot provide much history as she is pretty sleepy today and unsure of all the details of her arrival, but that is obtained instead from previous medical record. On admission, she had cultures of the left and right legs, each grew E. coli. The right leg ulcer also grew corynebacterium. Blood cultures on admission 2/4 bottles Staph. epi. She was on vancomycin and Zosyn initially, now is on ceftriaxone. She is continued on hemodialysis here. She is afebrile and has had some improvement apparently in the redness around the left leg ulcer. PAST MEDICAL HISTORY: 1. End-stage renal disease, on hemodialysis via tunneled catheter. 2. Status post pacemaker placement. 3. Cirrhosis. 4. Heart failure with a preserved ejection fraction. 5. Atrial fibrillation. 6. Peripheral neuropathy. 7. Osteoarthritis. 8. Glaucoma. 9. Hypertension. 10. Lower extremity wounds, chronic. ALLERGIES: HYDROCODONE. MEDICATIONS: 1. Tylenol. 2. Calcium acetate. 3. Collagenase topical. 4. Gabapentin. 5. Heparin flush via the PICC after a subcutaneous injection. 6. Dilaudid. 7. Lactulose. 8. Midodrine. 9. Pantoprazole. 10. Ceftriaxone. 11. Sevelamer. 12. Sertraline. SOCIAL HISTORY: She is a past smoker. She had previously worked at [employer]. She is . FAMILY HISTORY: Father from [place] and mother from old age. REVIEW OF SYSTEMS: All negative to 12 point review. PHYSICAL EXAM: Vital Signs: Temperature is 36.3, heart rate 90, respiratory rate 16, blood pressure 104/56, oxygen saturation 90% on 2 L via nasal cannula. In general, she awakens to voice, answers most questions, drifts off to sleep. HEENT: There is no conjunctival hemorrhage. Oropharynx without lesions. Heart is regular rate and rhythm without murmurs, rubs, or gallops. Lungs are clear to auscultation bilaterally. Abdomen: Soft, nontender, and nondistended. There are bowel sounds present. Skin: There is no rash or splinter hemorrhage. Musculoskeletal: No spinal tenderness to palpation. Bilateral lower extremity 1+ edema. The right lower extremity has a medial wound without surrounding erythema. There is some fibrin at the base. There is a left lower leg lateral wound without surrounding erythema and some granulation at the base. There is a punched out appearing right medial leg wound with some debris at the base, surrounding erythema. DIAGNOSTIC STUDIES/LAB DATA: Potassium 3.4. White count 11, hemoglobin 8, platelets 163. Please see impressions and recommendations outlined above. Thanks for asking me to see Ms. Almanza in consultation. [id number] #: [id number] MTDD
[2019-06-10] MEDS: Lactulose* 15 ML UDC PO SCH ×2 (15:33→22:28)
[2019-06-10] MEDS: MIDODRINE 5 MG PO SCH (15:45)
--- NOTE | 2019-06-10 16:34 | PN ---
Subjective Date of Service: 06/10/19 Interval History: Patient was more lucid this morning. She was sitting on a chair without O2 cannula. No complain of chest pain, SOB, fever. Objective Active Medications: Acetaminophen (Tylenol Tab*) 975 mg PO Q8H PRN PRN Reason: Pain Scale 1-2 or fever Last Admin: 06/10/19 05:27 Dose: 975 mg Al Hydrox/Mg Hydrox/Simethicone (Maalox Plus*) 30 ml PO Q6H PRN PRN Reason: INDIGESTION Calcium Acetate (Phoslo Cap*) 1,334 mg PO BID WITH MEALS [facility] Last Admin: 06/10/19 10:13 Dose: 1,334 mg Cephalexin HCl (Keflex Cap*) 250 mg PO BID [facility] Collagenase (Santyl 250 Units/Gm Oint*) 1 applic TOPICAL DAILY [facility] Last Admin: 06/09/19 16:13 Dose: 1 applic Gabapentin (Neurontin Cap(*)) 100 mg PO BEDTIME [facility] Last Admin: 06/09/19 19:30 Dose: 100 mg Heparin Sodium (Porcine) (Heparin Vial(*)) 5,000 units SUBCUT Q12HR [facility] Last Admin: 06/10/19 10:13 Dose: 5,000 units Heparin Sodium (Porcine) (Heparin Flush Picc/Ml/Cvc(*)) 1 ml FLUSH 0600,1800 [facility]; Protocol Last Admin: 06/10/19 05:30 Dose: 1 ml Hydromorphone HCl (Dilaudid Tab*) 0.5 mg PO Q6H PRN PRN Reason: Pain- Moderate Last Admin: 06/10/19 05:25 Dose: 0.5 mg Lactulose (Lactulose*) 15 ml PO 0800,1200,1600 [facility] Last Admin: 06/10/19 15:33 Dose: Not Given Loteprednol Etabonate (Lotemax 0.5% Oph.Susp (Nf)) 1 drop BOTH EYES TID [facility] Last Admin: 06/10/19 16:02 Dose: Not Given Midodrine (Midodrine) 5 mg PO TID [facility]; Protocol Last Admin: 06/10/19 15:45 Dose: Not Given Midodrine (Midodrine) 5 mg PO MOWEFR@0900 [facility]; Protocol Last Admin: 06/10/19 15:45 Dose: 5 mg Ondansetron HCl (Zofran Inj*) 4 mg IV Q6H PRN PRN Reason: NAUSEA Last Admin: 06/09/19 08:56 Dose: 4 mg Pantoprazole Sodium (Protonix Tab*) 40 mg PO DAILY [facility] Last Admin: 06/10/19 10:11 Dose: 40 mg Sertraline HCl (Zoloft*) 25 mg PO DAILY [facility] Last Admin: 06/10/19 10:12 Dose: Not Given Sevelamer Carbonate (Renvela Tab*) 800 mg PO BID WITH MEALS [facility] Last Admin: 06/10/19 10:10 Dose: 800 mg Sodium Chloride (Hypertonic) (Vaishnavi 128 Opth 5% Opth.Soll*) 1 drop BOTH EYES TID [facility] Last Admin: 06/10/19 16:02 Dose: Not Given Triamcinolone Acetonide (Triamcinolone 0.5% Oint *) 1 applic TOPICAL BID PRN PRN Reason: ITCHY SKIN Vital Signs - 8 hr 06/10/19 06/10/19 10:08 10:15 Respiratory 18 18 Rate Oxygen Devices in Use Now: None Exam: HD #5 on 06/10 78 F with a PMH for non alcoholic cirrhosis, ESRD on Dialysis with recurrent hypotension on midodrine, PAF s/p PPM, HFpEF (EF 60-65%), chronic LE wounds due to PVD. She came from [facility] presenting as syncope, found to be hypotensive with positive lactate, meeting SIRS criteria for sepsis though clinically not septic per se. She was found to havepositive blood culture staph epidermidis, and wound culture E.Coli, thus she was treated with IV Zosyn, while we are getting vascular to explore revascularization to help with her wound healing. Care Goals were discussed with patient and family this admission. Her hypotension is more likely chronic in nature due to her ESRF and cirrhosis status, she is running out of treatment options, information about palliative care was provided to patient and family. Result Diagrams: 06/09/19 06:22 06/10/19 05:45 Microbiology and Other Data: Microbiology 06/07/19 08:32 Gram Stain - Final Leg Right Wound Culture - Preliminary Escherichia Coli 06/06/19 13:14 Gram Stain - Final Leg Left Wound Culture - Final Escherichia Coli Normal Wendi 06/06/19 11:01 Aerobic Blood Culture - Preliminary Blood Venous Staphylococcus Epidermidis Anaerobic Blood Culture - Preliminary Staphylococcus Epidermidis Blood MRSA/MSSA (PCR) - Final Mrsa Negative S.aureus Negative 06/06/19 20:15 Aerobic Blood Culture - Preliminary Blood Venous No Growth Day 2 Anaerobic Blood Culture - Preliminary No Growth Day 2 06/06/19 15:35 Nasal Screen MRSA (PCR) - Final Nasal Mrsa Not Detected Diagnostic Imaging: Exam Date: 06/07/19 1314 -VL ANK/BRACHIAL INDICES FINDINGS: Segmental BP: Right: Brachial: 69 mmHg Ankle (PT): Not detected. Ankle (DP): 0 mmHg (index = 0). Digit: None detected. Left: Brachial: Not obtained due to prior AV fistula. Ankle (PT): Not obtained due to painful ankle ulcers. Ankle (DP): Not obtained due to painful ankle ulcers. Digit: None detected. Doppler: Right: Posterior tibial: No waveform ataxia. Dorsalis pedis: Monophasic waveform. Left: Posterior tibial: Monophasic waveform. Dorsalis pedis: Monophasic waveform. IMPRESSION: Abnormal Limited ÁNGELA showing likely high grade arterial stenosis. Assess/Plan/Problems-Billing Assessment: HD #4 on 06/09 78 F with a PMH for non alcoholic cirrhosis, ESRD on Dialysis with recurrent hypotension on midodrine, PAF s/p PPM, HFpEF (EF 60-65%), chronic LE wounds due to PVD. She came from [facility] presenting as syncope, found to be hypotensive with positive lactate, meeting SIRS criteria for sepsis, her blood culture showed staph epidermidis, wound culture showed E.Coli. She was treated with IV Zosyn, at the meantime we are trying revascularization to help with wound healing. - Patient Problems (1) Sepsis Current Visit: No Status: Acute Priority: Medium Comment: - Meeting SIRS Criteria for severe sepsis with elevated lactic acid - blood c/s: stap epi, wound c/s: E Coli - complted Zosyn 4 days, deesclate to ceftriaxone, will talk to ID for abx course (2) ESRD (end stage renal disease) on dialysis Current Visit: No Status: Acute Priority: Medium Code(s): N18.6 - END STAGE RENAL DISEASE; Z99.2 - DEPENDENCE ON RENAL DIALYSIS SNOMED Code(s): 443553613 Comment: -Continue HD with midodrine, consider fluodrocortisone -last dialysis 06/08/2019, able to remove 1L with isolated UF and sequential HD - dialysis due today (3) Hypotension Current Visit: No Status: Acute Comment: Multifactorial: sepsis, liver cirrhosis, ESRD Previous hypotension workup was done: Cortisol Normal (4) Wound of lower extremity Current Visit: No Status: Acute Code(s): S81.809A - UNSPECIFIED OPEN WOUND, UNSPECIFIED LOWER LEG, INIT ENCNTR SNOMED Code(s): 700063985 Comment: - Extensive antibiotics at last admission. Was on Doxy for E. Coli - Likely due to venous insufficiency - Continue wound care, need to consider debridement in the future - ABIs inconclusive but markedly abnormal, CTA result pending, IR will evaluate for possibility for further vascular imaging and possible revascularization. (5) DVT prophylaxis Current Visit: No Status: Acute Code(s): Z29.9 - ENCOUNTER FOR PROPHYLACTIC MEASURES, UNSPECIFIED SNOMED Code(s): 176334188 Comment: - Heparin Q12H Status and Disposition: Inpatient Medicine Attestation Documenting Resident: Adrianne Merida Supervising Physician: Karla Freeman Attestation: This service has been performed in part by a resident under the direction of a teaching physician.I, Karla Freeman, performed the service, or was physically present during the critical, or cortes portions of the service, furnished by the resident. I participated in the management of the patient.
[2019-06-10] MEDS ORDERED: Heparin DIALYSIS ONLY(*) 1,000 UNITS/ML VIAL DIALYSIS ONE (17:00)
[2019-06-10] MEDS ORDERED: EPOETIN ALFA-EPBX * 10,000 UNIT/ML VIAL IV ONE (17:00)
[2019-06-10] MEDS: Cephalexin CAP* 250 MG PO SCH (22:13)
[2019-06-10] MEDS: Gabapentin CAP(*) 100 MG PO SCH (22:13)
--- NOTE | 2019-06-10 23:51 | PN ---
DIALYSIS NOTE: DATE OF DIALYSIS: 06/10/19 SUBJECTIVE: The patient was seen during dialysis, tolerating the procedure well. Always complains of some dizziness but today the blood pressure is better and noted to be in the 80s which is her baseline for the patient, not dropping lower to the 60s and the patient is lucid, having a conversation. Vitals and labs have been reviewed. PHYSICAL EXAMINATION: HEENT: NC/AT. Heart: S1, S2 present. Regular at the time of exam. Lungs: Clear to auscultation bilaterally. Abdomen: Soft. Extremities: Noted to have significant edema. Multiple nonhealing wounds. ASSESSMENT AND PLAN: 1. End-stage renal disease, on hemodialysis Saturday, Saturday, Saturday. We will continue her dialysis. 2. It has been extremely difficult to take volume off the patient as the patient has chronic hypotension and has been on midodrine chronically and recently we have not taken any fluid off in the last few weeks, which has only increased weight gain and worsening wounds. However, it will be unsafe to take fluid off if her blood pressure drops as it would put her at risk for ischemic colitis, multiple complications, and poor perfusion. 3. We will start the patient on fludrocortisone for what is worth to see if this helps with her chronic hypotension and eventually if this works for her, can try to wean off the midodrine that can cause peripheral vasoconstriction and worsen her condition. However, now the patient needs midodrine, otherwise drops her blood pressure. We will start with fludrocortisone and keep her on the midodrine and then evaluate and see how she does based on her response. 4. The patient also has this unclear picture of ammonia elevation. The patient 's family previously reported that they do not have known liver cirrhosis; however, has had a tendency for hyperammonemia and had fatty liver previously on her imaging. Liver pathology still seems like the cause for the hyperammonemia; however, congenital urea cycle deficits that get exaggerated in stress situations and hospitalization is also possible, the most common being OTC/ornithine transcarbamylase deficiency. We will check an OTC level for what it is worth and will refrain from performing an extensive workup. 5. We will add the patient on zinc as zinc deficiency can trigger hyperammonemia, is an important cofactor in the urea cycle and is easy enough to supplement. Will probably also help with her wound healing and has no downside. 6. We will follow the patient with the medical team. 7. The patient recovering from another episode of sepsis and another setback, recently had a GI bleed, has liver problems, has end-stage renal disease. Overall, the patient's prognosis is extremely poor and the patient had significant decondition in the last few months. Agree with palliative care evaluation as well. [id number]/CPS #: [id number]
[2019-06-11] MEDS: HYDROmorphone TAB* 2 MG PO PRN ×2 (06:37→21:28)
[2019-06-11] MEDS: Acetaminophen TAB* 325 MG PO PRN (06:41)
[2019-06-11] MEDS: Sodium Chloride 5% OPTH.SOL* 15 ML BTL BOTH EYES SCH ×3 (09:09→20:29)
[2019-06-11] MEDS: Collagenase 250 UNITS/GM OINT* 1 APPLIC OINT TOPICAL SCH ×2 (09:11)
[2019-06-11] MEDS: Sevelamer TAB* 800 MG PO SCH ×2 (09:12→17:27)
[2019-06-11] MEDS: Fludrocortisone Acetate TAB* 0.1 MG PO SCH (09:13)
[2019-06-11] MEDS: Heparin VIAL(*) 5000 UNITS/ML VIAL (FIVE THOUSAND) SUBCUT SCH ×2 (09:13→20:30)
[2019-06-11] MEDS: Calcium Acetate CAP* 667 MG PO SCH ×2 (09:14→17:27)
[2019-06-11] MEDS: Zinc Sulfate CAP* 220 MG PO SCH (09:15)
[2019-06-11] MEDS: Pantoprazole TAB * 40 MG TAB PO SCH (09:15)
[2019-06-11] MEDS: LOTEPREDNOL 0.5% BOTH EYES SCH ×3 (09:16→20:31)
[2019-06-11] MEDS: Lactulose* 15 ML UDC PO SCH ×4 (09:25→18:17)
[2019-06-11] MEDS: Sertraline* 25 MG TAB PO SCH (09:26)
[2019-06-11] MEDS: Cephalexin CAP* 250 MG PO SCH ×2 (10:31→20:30)
[2019-06-11] MEDS ORDERED: Ondansetron ODT TAB* 4 MG PO PRN (14:25)
--- NOTE | 2019-06-11 14:28 | PN ---
Hospitalist Progress Note Date of Service: 06/11/19 Attending Assessment and Plan I have reviewed the subjective and objective data in the residents note of which I agree and supervisied HD # 6 on 06/11 78 F PMH for non ETOH cirrhosis d/b x1 (HE), ESRD on dialysis with chronic hypotension, PAF not on AC s/p PPM, HFpEF (last EF 60-65% 2018), chronic LE wounds 2/2 to PVD, who presented from [facility] with vasovagal syncope found to be hypotensive with elevated lactate admitted for r/o sepsis criteria with + blood culture and chronic wounds as source. Vitals: SBP up to 100, b/l around 90 Labs: Stable Images: CTA with runoff #Sepsis: Has only met 1/4 SIRS criteria throughout stay, she is chronically hypotensive and has elevated lactic acid. I do not feel she ever presented with true sepsis more, decompensation of her infection from wounds and chronic symptomatic hypotension exacerbated by vasovagal event of straining #Bacteremia: 2/ cx with Staph epi, wound cx with E Coli - On Zosyn 06/06-06/09, now CTX with review of Cultures on 06/10, total abx Day 6/ _ (10) - Unable to pull surv cultures and pt declines #Chronic wounds 2/2 to PVD: Wound care to follow, ID to leave recommendation - Abnormal ABIS, though no intervenable lesion in IR workup - Chronic pain 2/2 to wounds with PRN dilaudid (lopwer dose to 0.5 for ongoing hypotension), continue dave #Elevated lactic acid: Chronically in setting of poor perfusion and ESRD and cirrhosis inability to clear #Chronic hypotension: Multifactorial, ESRD and cirrhosis driving much of pathology - Is on midodrine TID, consider fludortisone if Nephrology feels appropriate #PAF: Has been d/c from BB, not on AC #ESRD on HD: (2/2 to ?prior meds): Continue Dialysis, Sevalemer, EPO #Cirrhosis: 2/2 to MURPHY, d/b HE, no e/o ascites, no known EV - HCC Screening: Per primary, Volume Status: Euvolemic, HE: No e/o decompensation, remains on scheduled lactulose, EV: Can't tolerate BB #HFpEF: Echo on file this hospitlization wiht preserved EF #GOC: Long discussion with patient and her family to discuss goals of care, prolonged hospitlization, difficulty tolerating HD and with chronic poor healing wounds. She is feeling overwhelemed in general and tearful throughout, sick and tired of being "sick and tired" though not really ready to discuss reality of her chronic disease.. They are open to palliative care. Furthermore, has sig depression started sertraline which we will continue on d/c. They have elected to continue to go with aggressive tx #DVT: LMWH #Code: Ongoing discussion, currently deferring to full
--- NOTE | 2019-06-11 16:44 | PN ---
Subjective Date of Service: 06/11/19 Interval History: Noted patient had some bleeding from femoral catheter yesterday but stopped afterwards. Pt still complained of pain on bilateral lower legs, and also on her tailbone. She said she fell down weeks ago, hitting her taibone, and worrying about tailbone problem. Otherwise, she has no difficulty breathing with InO2 2L/min. Explained no revascularization indicated based on her CTA result, she appreciated the explanation. Objective Active Medications: Acetaminophen (Tylenol Tab*) 975 mg PO Q8H PRN PRN Reason: Pain Scale 1-2 or fever Last Admin: 06/11/19 06:41 Dose: 975 mg Al Hydrox/Mg Hydrox/Simethicone (Maalox Plus*) 30 ml PO Q6H PRN PRN Reason: INDIGESTION Calcium Acetate (Phoslo Cap*) 1,334 mg PO BID WITH MEALS [facility] Last Admin: 06/11/19 09:14 Dose: 1,334 mg Cephalexin HCl (Keflex Cap*) 250 mg PO BID [facility] Last Admin: 06/11/19 10:31 Dose: 250 mg Collagenase (Santyl 250 Units/Gm Oint*) 1 applic TOPICAL DAILY [facility] Last Admin: 06/11/19 09:11 Dose: 1 applic Fludrocortisone Acetate (Florinef Tab*) 0.1 mg PO DAILY [facility] Last Admin: 06/11/19 09:13 Dose: 0.1 mg Gabapentin (Neurontin Cap(*)) 100 mg PO BEDTIME [facility] Last Admin: 06/10/19 22:13 Dose: 100 mg Heparin Sodium (Porcine) (Heparin Vial(*)) 5,000 units SUBCUT Q12HR [facility] Last Admin: 06/11/19 09:13 Dose: 5,000 units Heparin Sodium (Porcine) (Heparin Flush Picc/Ml/Cvc(*)) 1 ml FLUSH 0600,1800 [facility]; Protocol Last Admin: 06/11/19 06:44 Dose: 1 ml Hydromorphone HCl (Dilaudid Tab*) 0.5 mg PO Q6H PRN PRN Reason: Pain- Moderate Last Admin: 06/11/19 06:37 Dose: 0.5 mg Lactulose (Lactulose*) 15 ml PO 0800,1200,1600 [facility] Last Admin: 06/11/19 14:27 Dose: 15 ml Loteprednol Etabonate (Lotemax 0.5% Oph.Susp (Nf)) 1 drop BOTH EYES TID [facility] Last Admin: 06/11/19 14:26 Dose: Not Given Midodrine (Midodrine) 5 mg PO TID [facility]; Protocol Last Admin: 06/11/19 14:26 Dose: 5 mg Midodrine (Midodrine) 5 mg PO MOWEFR@0900 [facility]; Protocol Last Admin: 06/10/19 15:45 Dose: 5 mg Ondansetron HCl (Zofran Odt Tab*) 4 mg PO Q8H PRN PRN Reason: NAUSEA/VOMITING Pantoprazole Sodium (Protonix Tab*) 40 mg PO DAILY [facility] Last Admin: 06/11/19 09:15 Dose: 40 mg Sertraline HCl (Zoloft*) 25 mg PO DAILY [facility] Last Admin: 06/11/19 09:26 Dose: Not Given Sevelamer Carbonate (Renvela Tab*) 800 mg PO BID WITH MEALS [facility] Last Admin: 06/11/19 09:12 Dose: 800 mg Sodium Chloride (Hypertonic) (Vaishnavi 128 Opth 5% Opth.Soll*) 1 drop BOTH EYES TID [facility] Last Admin: 06/11/19 14:26 Dose: 1 drop Triamcinolone Acetonide (Triamcinolone 0.5% Oint *) 1 applic TOPICAL BID PRN PRN Reason: ITCHY SKIN Zinc Sulfate (Zinc-220 Cap*) 220 mg PO DAILY [facility] Last Admin: 06/11/19 09:15 Dose: 220 mg Vital Signs - 8 hr 06/11/19 06/11/19 08:30 09:25 Temperature 97.5 F Pulse Rate 103 Respiratory 18 16 Rate Blood Pressure 130/34 (mmHg) O2 Sat by Pulse 91 Oximetry Oxygen Devices in Use Now: Nasal Cannula Exam: Sitting in a chair having breakfast, not in distress. Heart: regular ryhthm, S1S2 normal, no murmur Lung: clear Abdomen: soft, non tender Skin: multiple bruises on bilateral arm, erythema around right thigh fem line tagderm area, erythema and broken skin 1cm over gluteal cleft bilateral legs wrapped up Result Diagrams: 06/09/19 06:22 06/10/19 05:45 Microbiology and Other Data: Microbiology 06/07/19 08:32 Gram Stain - Final Leg Right Wound Culture - Preliminary Escherichia Coli 06/06/19 13:14 Gram Stain - Final Leg Left Wound Culture - Final Escherichia Coli Normal Wendi 06/06/19 11:01 Aerobic Blood Culture - Preliminary Blood Venous Staphylococcus Epidermidis Anaerobic Blood Culture - Preliminary Staphylococcus Epidermidis Blood MRSA/MSSA (PCR) - Final Mrsa Negative S.aureus Negative 06/06/19 20:15 Aerobic Blood Culture - Preliminary Blood Venous No Growth Day 2 Anaerobic Blood Culture - Preliminary No Growth Day 2 06/06/19 15:35 Nasal Screen MRSA (PCR) - Final Nasal Mrsa Not Detected Diagnostic Imaging: Exam Date: 06/07/19 1314 -VL ANK/BRACHIAL INDICES FINDINGS: Segmental BP: Right: Brachial: 69 mmHg Ankle (PT): Not detected. Ankle (DP): 0 mmHg (index = 0). Digit: None detected. Left: Brachial: Not obtained due to prior AV fistula. Ankle (PT): Not obtained due to painful ankle ulcers. Ankle (DP): Not obtained due to painful ankle ulcers. Digit: None detected. Doppler: Right: Posterior tibial: No waveform ataxia. Dorsalis pedis: Monophasic waveform. Left: Posterior tibial: Monophasic waveform. Dorsalis pedis: Monophasic waveform. IMPRESSION: Abnormal Limited ÁNGELA showing likely high grade arterial stenosis. Assess/Plan/Problems-Billing Assessment: HD #4 on 06/09 78 F with a PMH for non alcoholic cirrhosis, ESRD on Dialysis with recurrent hypotension on midodrine, PAF s/p PPM, HFpEF (EF 60-65%), chronic LE wounds due to PVD. She came from [facility] presenting as syncope, found to be hypotensive; which likely due to wound infection on top of chronic persistent hypotension. Her blood culture showed staph epidermidis, wound culture showed E.Coli; she was treated with IV Zosyn and currently Keflex which are both sensitive. However she is still hypotensive despite above treatment, fluodrocortisone was newly added to boost her blood pressure. Offered patient palliative options, however, she would like to be more aggressive in treatment and try rehabilitation at this moment. - Patient Problems (1) Hypotension Current Visit: No Status: Acute Comment: Multifactorial: sepsis, liver cirrhosis, ESRD Previous hypotension workup was done: Cortisol Normal was on midodrine, changed to fludrocortisone (2) Sepsis Current Visit: No Status: Acute Priority: Medium Comment: - Meeting SIRS Criteria for severe sepsis with elevated lactic acid - blood c/s: stap epi, wound c/s: E Coli - complted Zosyn 4 days, plan to complete total 10 days with ceflexin (3) ESRD (end stage renal disease) on dialysis Current Visit: No Status: Acute Priority: Medium Code(s): N18.6 - END STAGE RENAL DISEASE; Z99.2 - DEPENDENCE ON RENAL DIALYSIS SNOMED Code(s): 327174696 Comment: -Continue HD with fluodrocortisone - Dialysis Mon, Wed, Fri (4) Wound of lower extremity Current Visit: No Status: Acute Code(s): S81.809A - UNSPECIFIED OPEN WOUND, UNSPECIFIED LOWER LEG, INIT ENCNTR SNOMED Code(s): 467209408 Comment: - Extensive antibiotics at last admission. Was on Doxy for E. Coli - Likely due to venous insufficiency - Continue wound care, need to consider debridement in the future - CTA no major artery stenosis that can be operated on (5) DVT prophylaxis Current Visit: No Status: Acute Code(s): Z29.9 - ENCOUNTER FOR PROPHYLACTIC MEASURES, UNSPECIFIED SNOMED Code(s): 837512652 Comment: - Heparin Q12H Status and Disposition: Inpatient Medicine Start PT/OT, plan to move to rehab facility soon Attestation Documenting Resident: Adrianne Merida Supervising Physician: Karla Freeman Attestation: This service has been performed in part by a resident under the direction of a teaching physician.I, Karla Freeman, performed the service, or was physically present during the critical, or cortes portions of the service, furnished by the resident. I participated in the management of the patient.
[2019-06-11] MEDS: Gabapentin CAP(*) 100 MG PO SCH (20:29)
--- NOTE | 2019-06-11 22:31 | DS ---
CC: Dr. Everette Cazares; [facility].* DISCHARGE SUMMARY: DATE OF ADMISSION: 06/06/19 DATE OF ANTICIPATED DISCHARGE: 06/12/19 PRIMARY CARE PROVIDER: Dr. Everette Cazares. DISPOSITION AT THE TIME OF DISCHARGE: Stable to be discharged to [facility]. This discharge summary can also serve as the patient's H and P for this facility. PRIMARY DIAGNOSES: 1. Skin and soft tissue infection. 2. Acute exacerbation of chronic hypotension. 3. Possible bacteremia. SECONDARY DIAGNOSES: 1. End-stage renal disease, on dialysis. 2. Chronic hypotension with baseline blood pressure around systolic 90 over diastolic 50. 3. Paroxysmal atrial fibrillation, not on anticoagulation. 4. History of pacemaker. 5. Heart failure with preserved ejection fraction with last ejection fraction 60% to 65% in 2019. 6. Nonalcoholic cirrhosis, decompensated by history of hepatic encephalopathy. No evidence of ascites and unknown esophageal variceal status. 7. Chronic lower extremity wounds secondary to peripheral vascular disease. MEDICATIONS AT TIME OF DISCHARGE: To be written on 06/12/19 on the day of discharge. HISTORY OF PRESENT ILLNESS AND HOSPITAL COURSE: A 78-year-old female with above past medical history, who presented to the emergency room on 06/06/19 from [facility] with low blood pressure and presumed vasovagal syncope in the setting of using the bathroom. In the emergency room, she was found to be hypotensive with elevated lactate and she was admitted for rule out possible sepsis criteria and presumed chronic wound complication as the source of her elevated lactate and hypotension. Her hospital course by problems is as follows : 1. Hypotension, SIRS criteria. The patient met only 1 out of her SIRS criteria throughout the stay. She is chronically hypotensive and has elevated lactic acid secondary to poor clearance mechanism. Her hypotension is a function of her liver, heart and kidney failure and most likely was exacerbated by a vasovagal event. In terms of the leukocytosis and the SIRS criteria that she met on admission, this is likely from a decompensation in her infection from her wounds. Ultimately, microbiological data did grow 2/4 bottles with Staph epidermidis, which can sometimes be seen as a contaminant and wound cultures grew E. coli, although prior wound cultures have grown Staph epidermidis. 2. Bacteremia. As per above, microbiology revealed during this hospitalization 2/4 bottles with Staph epidermidis and wound culture revealed E. coli. While this is possibly a contaminant because she had prior history of Staph epidermidis growing in wounds on former wound culture, it is reasonable to concern that there is possible translocation. The patient was on Zosyn from 06/06/19 to 06/09/19 and then deescalated to ceftriaxone and ultimately Keflex with recommendations for E. coli for a total of 7 days of antibiotics. On 06/12, the patient is on day 7 and she needs an additional 3 days status post discharge. In regards to the Staph epidermidis bacteremia, while it is a gram- positive and the patient does have hemodialysis catheter as well as pacemaker, the patient does deserve routine surveillance cultures, although she declines them during this hospitalization. 4. Chronic wounds secondary to PVD. Wound Care is following. ID left recommendations regarding antibiotic management. ABIs were obtained secondary to chronic wounds that have been in a nonhealing state since January 2019 in the setting of her injuring them initially on her walker. ABIs were grossly abnormal and CTA showed diffuse calcification. IR was consulted to determine if there is any utility in angiogram, although there is no intervenable lesion and they felt that this was not necessary nor is there possibility for meaningful revascularization that would assist in wound healing. She does have more evidence of chronic venous stasis ulcers and vascular congestion leading to her decompensation in wound status and her chronic pedal edema and venous stasis are contributing to such. This is difficult to remediate given she is dialysis dependent and her fluid status is tenuous with her chronic hypotension coupled with heart failure and cirrhosis of the liver leading to low albumin state, which further complicates her tenuous vascular status. Ultimately, Gorge bandages, gentle ultrafiltrate dialysis approach will help optimize her status and encouraging the patient for good wound care with high-protein diet are the best options for optimization of this unfortunate situation. 5. Elevated lactic acid. This is chronically in the setting of poor perfusion , ESRD and cirrhosis with an inability to clear lactate. 6. Chronic hypotension. This is multifactorial. As per above, the patient's ESRD and cirrhosis are driving much of her pathology. She also has heart failure with preserved ejection fraction. She is on midodrine t.i.d. and is dosed accordingly to dialysis needs. 7. Paroxysmal atrial fibrillation. The patient was discontinued from her beta - jade in the past and she is not on anticoagulation. 8. ESRD, on HD. This is secondary to what sounds like from the family's description from either an ATN event or possibly medication-induced renal failure. She has been on dialysis for over a year and a half. She is sevelamer and EPO, which will be continued. She receives dialysis on Saturday, Saturday, and Saturday. 9. Cirrhosis. This was secondary to MURPHY and decompensated by hepatic encephalopathy in the past with no decompensations in this hospitalization. She remained on lactulose. 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 She remains on scheduled lactulose with no complications and in regards to her varices, she cannot tolerate beta-jade secondary to chronic hypotension. 10. Heart failure with preserved ejection fraction. Echocardiogram done during this hospitalization on 06/08/19 shows ejection fraction of 60% to 65% with no regional wall motion abnormalities, she has mild aortic stenosis, and left ventricular diastolic function parameters are indeterminate. Clinically, she has signs and symptoms of intrathoracic volume overload and pedal edema, which is multifactorial secondary to her decompensated cirrhosis, though the diagnosis of heart failure with preserved ejection fraction remains from a clinical diagnosis of volume overload and echocardiogram with EF of 50% to 60% during this hospitalization. Continue volume management per dialysis as tolerated. 11. Goals of care: Long discussion with the patient and her family over numerous days occurred around the patient's goals of care. She has had prolonged hospitalizations since January of 2019 where she fell in [place] and initially injured her legs on her walker. She has also had difficulty tolerating the HD with chronic poor healing of these wounds. Many times during this hospitalization, she expressed feeling overwhelmed in general and tearful throughout. She notes being sick and tired of being "sick and tired." Although when further probing, if she is interested in palliative care or a less aggressive approach to her chronic incurable diseases, the patient after discussion with Pastoral Care, Palliative Care and primary team felt that she is not ready to change code status or discuss palliative care options. She does report significant depression and she was started on sertraline, which will be continued on discharge. The family and the patient have elected for aggressive treatment with her overall goal to be transferred to a long-term care facility in the [facility] which is closer to her family, which is realistic. The care management team has placed referral recommendations for [facility] long-term care facilities with dialysis attached and those referrals are still pending at the time of discharge. It will be a lateral transfer from her current situation to possible relocation to where her daughters are. Overall code status continues to be full even after numerous discussions of likely poor prognosis with her multiorgan failure, though they do seem more informed on the risks. LABS AND STUDIES DONE DURING THIS HOSPITALIZATION: Labs on 06/09/19 last drawn show leukocytosis of 11, hemoglobin of 8.5, hematocrit of 26, and platelets of 163. BMP on 06/10/19 before dialysis shows sodium 137, potassium 3.4, BUN 20, creatinine 4.66, glucose 82. Imaging done during this hospitalization includes chest x-ray on 06/06/19, which showed no cardiopulmonary disease. Abdomen and pelvis CT, which showed partially air-fluid loops of small bowel, hematoma of left lateral abdomen, calcified atherosclerosis of the abdominal aorta and branch arteries, chronic degenerative findings of with trace bibasilar pleural effusions. Brain CT shows subtle chronic findings of symmetrical involutional changes and chronic microvascular disease. Transthoracic echocardiogram was done on 06/08/19 with findings as reported per above, ultimately preserved ejection fraction. Aorta with runoff CTA was done, which showed diffuse calcified disease, but in line flow is maintained from abdominal aorta into the pedal arteries with no indication for angiography as arterial flow seems to be adequate for wound healing. CONSULTANTS DURING THIS HOSPITALIZATION: Included Nephrology, Wound Care, Interventional/Vascular Radiology, Surgery for central line placement which was removed on 06/11/19, Infectious Disease, and Palliative Care. ITEMS TO FOLLOW UP ON STATUS POST DISCHARGE: 1. Goals of care and her ultimate wish to be transferred to [facility]: See director case management's notes. Ultimately, the patient desires to be transferred to a long-term care facility for continued rehabilitation. 2. Chronic hypotension. The patient is symptomatic with her hypotension and has a narrow intravascular volume window of which she can tolerate, which makes dialysis very difficult and any small decompensation, quite dramatic presentation, there are not many ways to optimize this other than her working on nutritional status and encouraging high-protein diet to hopefully increase albumin. Gorge bandages and compression stockings should be optimized if the patient tolerates, although historically, she has not tolerated them in the past. 3. Wounds, mildly decompensated skin and soft tissue infection. The patient should be placed on Keflex. 4. Bacteremia. As per above, she did have 2/4 bottles with Staph epidermidis positive. While this is a gram-positive bacteremia and ultimately deserves surveillance cultures, the patient declines surveillance cultures and ID feels it is possible it could still be a contaminant. She will be treated with Keflex for 7 days nonetheless and this is as per medication instructions on this discharge summary. On the day of discharge, the patient is tolerating diet, voiding. Dialysis is to be done on 06/12/19. She is stable to be discharged back to [facility] with chronic stable hypotension. Physical exam is as per progress note. Plan of care was discussed with the patient and her family, who agree with discharge back to [facility] with hopeful transfer in the subacute future. TIME SPENT: Sixty five minutes was spent in the planning of this discharge with over half of that was spent directly at the bedside of the patient providing direct patient care. If there are any questions about the care of this patient during this hospitalization, please do not hesitate to reach out to the hospitalist team directly. [id number]/ELLIS #: [id number] JERO
[2019-06-12] MEDS: LOTEPREDNOL 0.5% BOTH EYES SCH ×3 (07:52→20:31)
[2019-06-12] MEDS: Calcium Acetate CAP* 667 MG PO SCH ×2 (08:32→16:46)
[2019-06-12] MEDS: Heparin VIAL(*) 5000 UNITS/ML VIAL (FIVE THOUSAND) SUBCUT SCH ×2 (08:32→20:24)
[2019-06-12] MEDS: Sevelamer TAB* 800 MG PO SCH ×2 (08:32→16:46)
[2019-06-12] MEDS: Pantoprazole TAB * 40 MG TAB PO SCH (08:32)
[2019-06-12] MEDS: MIDODRINE 5 MG PO SCH (08:32)
[2019-06-12] MEDS: Zinc Sulfate CAP* 220 MG PO SCH (08:32)
[2019-06-12] MEDS: Fludrocortisone Acetate TAB* 0.1 MG PO SCH (08:32)
[2019-06-12] MEDS: Cephalexin CAP* 250 MG PO SCH ×2 (08:32→20:25)
[2019-06-12] MEDS: Sodium Chloride 5% OPTH.SOL* 15 ML BTL BOTH EYES SCH ×3 (08:33→20:31)
[2019-06-12] MEDS: Lactulose* 15 ML UDC PO SCH ×3 (08:36→16:51)
[2019-06-12] MEDS: Sertraline* 25 MG TAB PO SCH (08:37)
[2019-06-12] MEDS: HYDROmorphone TAB* 2 MG PO PRN ×2 (10:21→16:47)
[2019-06-12] MEDS ORDERED: EPOETIN ALFA-EPBX * 10,000 UNIT/ML VIAL IV ONE (11:00)
[2019-06-12] MEDS ORDERED: Heparin DIALYSIS ONLY(*) 1,000 UNITS/ML VIAL DIALYSIS ONE (11:00)
--- NOTE | 2019-06-12 11:25 | PN ---
Hospitalist Progress Note Date of Service: 06/12/19 Attending Assessment and Plan I have reviewed the subjective and objective data in the residents note of which I agree and supervisied HD # 7 on 06/12 78 F PMH for non ETOH cirrhosis d/b x1 (HE), ESRD on dialysis with chronic hypotension, PAF not on AC s/p PPM, HFpEF (last EF 60-65% 2018), chronic LE wounds 2/2 to PVD, who presented from [facility] with vasovagal syncope found to be hypotensive with elevated lactate admitted for r/o sepsis criteria with + blood culture and chronic wounds as source. Vitals: SBP up to 100, now in high 70s-90s, asymptomatic Labs: Stable Images: CTA with runoff #Sepsis: Has only met 1/4 SIRS criteria throughout stay, she is chronically hypotensive and has elevated lactic acid. I do not feel she ever presented with true sepsis more, decompensation of her infection from wounds and chronic symptomatic hypotension exacerbated by vasovagal event of straining #Bacteremia: 12/15 cx with Staph epi, wound cx with E Coli - On Zosyn 06/06-06/09, now CTX with review of Cultures on 06/10, total abx Day (10) - Will try again for surv cultures and follow post d/c #Chronic wounds 2/2 to PVD: Wound care to follow, ID to leave recommendation - Abnormal ABIS, though no intervenable lesion in IR workup - Chronic pain 2/2 to wounds with PRN dilaudid (lopwer dose to 0.5 for ongoing hypotension), continue dave #Elevated lactic acid: Chronically in setting of poor perfusion and ESRD and cirrhosis inability to clear #Chronic hypotension: Multifactorial, ESRD and cirrhosis driving much of pathology - Is on midodrine TID, continue fludricortisone #PAF: Has been d/c from BB, not on AC #ESRD on HD: (2/2 to ?prior meds): Continue Dialysis, Sevalemer, EPO #Cirrhosis: 2/2 to MURPHY, d/b HE, no e/o ascites, no known EV - HCC Screening: Per primary, Volume Status: Euvolemic, HE: No e/o decompensation, remains on scheduled lactulose, EV: Can't tolerate BB #HFpEF: Echo on file this hospitlization wiht preserved EF #GOC: Long discussion with patient and her family to discuss goals of care, prolonged hospitalization, difficulty tolerating HD and with chronic poor healing wounds. She is feeling overwhelmed in general and tearful throughout, sick and tired of being "sick and tired" though not really ready to discuss reality of her chronic disease. They are open to palliative care though palliative discussion was much the same. Furthermore, has sig depression started sertraline which we will continue on d/c. They have elected to continue to go with aggressive tx #DVT: LMWH #Code: Ongoing discussion, currently deferring to full
--- NOTE | 2019-06-12 13:24 | DS ---
DISCHARGE SUMMARY: DATE OF ADMISSION: 06/06/19 DATE OF DISCHARGE: 06/12/19 ADDENDUM: MEDICATION LIST: Medications on discharge are as follows: 1. Acetaminophen 975 mg p.o. q.8 hours p.r.n. for pain scale 1 to 5 or fever as documented at [facility]. 2. Maalox Plus 30 mL p.o. q.6 hours p.r.n. for indigestion. 3. Betamethasone valerate ointment 0.1% one application to affected area topical b.i.d. 4. PhosLo cap 2 caps p.o. b.i.d. 5. Keflex 250 mg p.o. b.i.d. for an additional 4 days status post discharge for a completion date of 06/16/19. 6. Santyl topical 250 units/g 1 application topical daily. 7. Nexium 40 mg p.o. daily. 8. Fludrocortisone 0.1 mg tab p.o. daily. 9. Gabapentin 100 mg p.o. q.h.s. p.r.n. for pain. 10. Lactulose 15 mL p.o. t.i.d. 11. Loteprednol (Lotemax) 0.5% ophthalmic suspension 1 drop both eyes t.i.d. 12. Midodrine 5 mg p.o. Saturday, Saturday, Saturday at 9 o'clock and midodrine otherwise 5 mg p.o. t.i .d., making total dose of midodrine 10 mg on Saturday, Saturday, Saturday a.m. and 5 mg t.i.d. otherwise . 13. Sertraline 25 mg p.o. daily. 14. Renvela 800 mg p.o. b.i.d. 16. Sodium chloride ophthalmic solution 5% one drop both eyes t.i.d. 17. Zinc sulfate cap 220 mg p.o. daily. 18. Oxycodone 1 tab p.o. q.6 hours p.r.n. for severe pain 5 to 10 in level. Medication changes on this hospitalization include: 1. The addition of sertraline 25 mg daily. 2. Midodrine up-titration from b.i.d. to t.i.d. at baseline and continuing the dose of 5 mg Saturday, Saturday, Saturday prior to extra dose on Saturday, Saturday, Saturday mornings prior to dialysis. 3. The addition of fludrocortisone 0.1 mg tab daily. 4. The addition of Keflex 250 mg p.o. b.i.d. for an additional 4 days status post discharge. 5. The addition of zinc sulfate 220 mg p.o. daily. 6. The changing of gabapentin from standing to q.h.s. for possible assistance in nighttime hypotensi on. 7. The discontinuation of metoprolol altogether from prior to med list secondary to ongoing hypotens ion. On the day of discharge, plan of care and concerns were expressed to accepting provider, Kacey brunson and discussion about hypotension and the patient's baseline hypotension was had. The patient has systolic blood pressure of 80 to 90 at baseline and mentates well at this level. Her bet a-blockers were discontinued. Her midodrine was increased and fludrocortisone was also started. Enco urage good p.o. intake and antidepressants were started in hopes to help with her underlying depressi on. Nonetheless, her chronically low blood pressure and combination of liver, renal and heart failur e condone a poor prognosis and the patient performs only decently within a narrow range of systolic b lood pressures and in the hospital we have accepted asymptomatic systolic blood pressures of 75 to 10 0 with close monitoring without any further complications. [id number]/[facility] #: [id number]
--- NOTE | 2019-06-12 13:52 | PN ---
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 Patient didn't have any symptoms. No fever, no new infective symptoms. Plan to have dialysis today and transfer to [facility] today Objective Active Medications: Acetaminophen (Tylenol Tab*) 975 mg PO Q8H PRN PRN Reason: Pain Scale 1-2 or fever Last Admin: 06/11/19 06:41 Dose: 975 mg Al Hydrox/Mg Hydrox/Simethicone (Maalox Plus*) 30 ml PO Q6H PRN PRN Reason: INDIGESTION Calcium Acetate (Phoslo Cap*) 1,334 mg PO BID WITH MEALS [facility] Last Admin: 06/12/19 08:32 Dose: 1,334 mg Cephalexin HCl (Keflex Cap*) 250 mg PO BID [facility] Last Admin: 06/12/19 08:32 Dose: 250 mg Collagenase (Santyl 250 Units/Gm Oint*) 1 applic TOPICAL DAILY [facility] Last Admin: 06/11/19 09:11 Dose: 1 applic Fludrocortisone Acetate (Florinef Tab*) 0.1 mg PO DAILY [facility] Last Admin: 06/12/19 08:32 Dose: 0.1 mg Gabapentin (Neurontin Cap(*)) 100 mg PO BEDTIME [facility] Last Admin: 06/11/19 20:29 Dose: 100 mg Heparin Sodium (Porcine) (Heparin Vial(*)) 5,000 units SUBCUT Q12HR [facility] Last Admin: 06/12/19 08:32 Dose: 5,000 units Heparin Sodium (Porcine) (Heparin Flush Picc/Ml/Cvc(*)) 1 ml FLUSH 0600,1800 [facility]; Protocol Last Admin: 06/12/19 05:15 Dose: Not Given Hydromorphone HCl (Dilaudid Tab*) 0.5 mg PO Q6H PRN PRN Reason: Pain- Moderate Last Admin: 06/12/19 10:21 Dose: 0.5 mg Lactulose (Lactulose*) 15 ml PO 0800,1200,1600 [facility] Last Admin: 06/12/19 11:28 Dose: Not Given Loteprednol Etabonate (Lotemax 0.5% Oph.Susp (Nf)) 1 drop BOTH EYES TID [facility] Last Admin: 06/12/19 07:52 Dose: Not Given Midodrine (Midodrine) 5 mg PO TID [facility]; Protocol Last Admin: 06/12/19 08:32 Dose: 5 mg Midodrine (Midodrine) 5 mg PO MOWEFR@0900 [facility]; Protocol Last Admin: 06/12/19 08:32 Dose: 5 mg Ondansetron HCl (Zofran Odt Tab*) 4 mg PO Q8H PRN PRN Reason: NAUSEA/VOMITING Pantoprazole Sodium (Protonix Tab*) 40 mg PO DAILY [facility] Last Admin: 06/12/19 08:32 Dose: 40 mg Sertraline HCl (Zoloft*) 25 mg PO DAILY [facility] Last Admin: 06/12/19 08:37 Dose: Not Given Sevelamer Carbonate (Renvela Tab*) 800 mg PO BID WITH MEALS [facility] Last Admin: 06/12/19 08:32 Dose: 800 mg Sodium Chloride (Hypertonic) (Vaishnavi 128 Opth 5% Opth.Soll*) 1 drop BOTH EYES TID [facility] Last Admin: 06/12/19 08:33 Dose: 1 drop Triamcinolone Acetonide (Triamcinolone 0.5% Oint *) 1 applic TOPICAL BID PRN PRN Reason: ITCHY SKIN Zinc Sulfate (Zinc-220 Cap*) 220 mg PO DAILY [facility] Last Admin: 06/12/19 08:32 Dose: 220 mg Vital Signs - 8 hr 06/12/19 06/12/19 06/12/19 07:50 08:00 09:30 Temperature 97.6 F Pulse Rate 108 Respiratory 16 16 Rate Blood Pressure 77/39 91/57 (mmHg) O2 Sat by Pulse 100 Oximetry 06/12/19 10:21 Temperature Pulse Rate Respiratory 16 Rate Blood Pressure (mmHg) O2 Sat by Pulse Oximetry Oxygen Devices in Use Now: Nasal Cannula Exam: Alert, oriented Heart: normal S1S2 Lung: bibasal mild decreased air entry Abdomen: soft, non tender prev Right femoral catheter site covered by gauze, no bleeding seen Result Diagrams: 06/09/19 06:22 06/10/19 05:45 Microbiology and Other Data: Microbiology 06/07/19 08:32 Gram Stain - Final Leg Right Wound Culture - Preliminary Escherichia Coli 06/06/19 13:14 Gram Stain - Final Leg Left Wound Culture - Final Escherichia Coli Normal Wendi 06/06/19 11:01 Aerobic Blood Culture - Preliminary Blood Venous Staphylococcus Epidermidis Anaerobic Blood Culture - Preliminary Staphylococcus Epidermidis Blood MRSA/MSSA (PCR) - Final Mrsa Negative S.aureus Negative 06/06/19 20:15 Aerobic Blood Culture - Preliminary Blood Venous No Growth Day 2 Anaerobic Blood Culture - Preliminary No Growth Day 2 06/06/19 15:35 Nasal Screen MRSA (PCR) - Final Nasal Mrsa Not Detected Diagnostic Imaging: Exam Date: 06/07/19 1314 -VL ANK/BRACHIAL INDICES FINDINGS: Segmental BP: Right: Brachial: 69 mmHg Ankle (PT): Not detected. Ankle (DP): 0 mmHg (index = 0). Digit: None detected. Left: Brachial: Not obtained due to prior AV fistula. Ankle (PT): Not obtained due to painful ankle ulcers. Ankle (DP): Not obtained due to painful ankle ulcers. Digit: None detected. Doppler: Right: Posterior tibial: No waveform ataxia. Dorsalis pedis: Monophasic waveform. Left: Posterior tibial: Monophasic waveform. Dorsalis pedis: Monophasic waveform. IMPRESSION: Abnormal Limited ÁNGELA showing likely high grade arterial stenosis. Assess/Plan/Problems-Billing Assessment: HD #4 on 06/09 78 F with a PMH for non alcoholic cirrhosis, ESRD on Dialysis with recurrent hypotension on midodrine, PAF s/p PPM, HFpEF (EF 60-65%), chronic LE wounds due to PVD. She came from [facility] presenting as syncope, found to be hypotensive; which likely due to wound infection on top of chronic persistent hypotension. Her blood culture showed staph epidermidis, wound culture showed E.Coli; she was treated with IV Zosyn and currently Keflex which are both sensitive. However she is still hypotensive despite above treatment, fluodrocortisone was newly added to boost her blood pressure. Offered patient palliative options, however, she would like to be more aggressive in treatment and try rehabilitation at this moment. She will be transferred to [facility] today. - Patient Problems (1) Hypotension Current Visit: No Status: Acute Comment: Multifactorial: sepsis, liver cirrhosis, ESRD Previous hypotension workup was done: Cortisol Normal was on midodrine, changed to fludrocortisone (2) Wound of lower extremity Current Visit: No Status: Acute Code(s): S81.809A - UNSPECIFIED OPEN WOUND, UNSPECIFIED LOWER LEG, INIT ENCNTR SNOMED Code(s): 394634964 Comment: - Extensive antibiotics at last admission. Was on Doxy for E. Coli - Likely due to venous insufficiency - Continue wound care, need to consider debridement in the future - CTA no major artery stenosis that can be operated on (3) DVT prophylaxis Current Visit: No Status: Acute Code(s): Z29.9 - ENCOUNTER FOR PROPHYLACTIC MEASURES, UNSPECIFIED SNOMED Code(s): 055051605 Comment: - Heparin Q12H (4) Bacteremia Current Visit: Yes Status: Resolved Code(s): R78.81 - BACTEREMIA SNOMED Code(s): 4363036 Comment: - blood culture staph epidermis, 2/ bottle - wound culture: E.coli - treated with zosyn and keflex, plan for abx total 10 days - TTE neg for IE Status and Disposition: Inpatient Medicine plan to transfer to [facility] for further rehabilitation. Attestation Documenting Resident: Adrianne Merida Supervising Physician: Karla Freeman Attestation: This service has been performed in part by a resident under the direction of a teaching physician.I, Karla Freeman, performed the service, or was physically present during the critical, or cortes portions of the service, furnished by the resident. I participated in the management of the patient.
[2019-06-12] MEDS: Collagenase 250 UNITS/GM OINT* 1 APPLIC OINT TOPICAL SCH (15:43)
--- NOTE | 2019-06-12 16:19 | PN ---
DIALYSIS NOTE: DATE OF DIALYSIS: 06/12/19 SUBJECTIVE: The patient was seen and examined at bedside during dialysis, tolerating the procedure w ell. Vitals and labs have been reviewed. PHYSICAL EXAMINATION: HEENT: NC/AT. Heart: S1, S2 present. Regular at the time of exam. Lungs: Decreased breath sounds bilaterally. Abdomen: Soft. Extremities: Noted to have significant edema and weeping wounds that have been dressed. ASSESSMENT AND PLAN: 1. End-stage renal disease, on hemodialysis Saturday, Saturday, Saturday. 2. Today, sequential dialysis is being followed as it has been hard to get volume off the patient in the setting of hypotension. The patient to have 1 hour sequential with UF of 1 L as tolerated and t hen 2 hours of dialysis with an extra 500 mL to 1 L for a total of 1.5 to 2 L as tolerated. 3. The patient was also started on fludrocortisone. The patient appears to be doing better on this and her blood pressures have been better, and for the first time during dialysis, her blood pressure is in the 100s. 4. We will follow with the medical team. [id number]/[facility] #: [id number]
[2019-06-12] MEDS: Gabapentin CAP(*) 100 MG PO SCH (20:25)
--- NOTE | 2019-06-13 08:00 | PN ---
Hospitalist Progress Note Date of Service: 06/13/19 Brief Progress Note Of note patient has declined her discharge and is appealing over the weekend, she and family are amenable to d/c as per plan was yesterday She was formally d/c on 06/13 78 F PMH for non ETOH cirrhosis d/b x1 (HE), ESRD on dialysis with chronic hypotension, PAF not on AC s/p PPM, HFpEF (last EF 60-65% 2018), chronic LE wounds 2/2 to PVD, who presented from [facility] with vasovagal syncope found to be hypotensive with elevated lactate admitted for r/o sepsis criteria with + blood culture and chronic wounds as source. Vitals: SBP chronically low, patient asymptomatic. Labs: Stable Images: CTA with runoff with no lesion #Sepsis: Has only met 1/4 SIRS criteria throughout stay, she is chronically hypotensive and has elevated lactic acid. I do not feel she ever presented with true sepsis more, decompensation of her infection from wounds and chronic symptomatic hypotension exacerbated by vasovagal event of straining #Bacteremia: 12/15 cx with Staph epi, wound cx with E Coli - On Zosyn 06/06-06/09, now CTX with review of Cultures on 06/10, total abx Day (10) - 2nd set of cultures NGTD #Chronic wounds 2/2 to PVD: Wound care to follow, ID to leave recommendation - Abnormal ABIS, though no intervenable lesion in IR workup - Chronic pain 2/2 to wounds with PRN dilaudid (lopwer dose to 0.5 for ongoing hypotension #Elevated lactic acid: Chronically in setting of poor perfusion and ESRD and cirrhosis inability to clear #Chronic hypotension: Multifactorial, ESRD and cirrhosis driving much of pathology - Is on midodrine increased to TID, continue fludricortisone #PAF: Has been d/c from [facility], not on AC #ESRD on HD: (2/2 to ?prior meds): Continue Dialysis, Sevalemer, EPO #Cirrhosis: 2/2 to MURPHY, d/b HE, no e/o ascites, no known EV - HCC Screening: Per primary, Volume Status: Euvolemic, HE: No e/o decompensation, remains on scheduled lactulose, EV: Can't tolerate BB #HFpEF: Echo on file this hospitlization wiht preserved EF #GOC: Long discussion with patient and her family to discuss goals of care, prolonged hospitalization, difficulty tolerating HD and with chronic poor healing wounds. She is feeling overwhelmed in general and tearful throughout, sick and tired of being "sick and tired" though not really ready to discuss reality of her chronic disease. They are open to palliative care though palliative discussion was much the same. Furthermore, has sig depression started sertraline which we will continue on d/c. They have elected to continue to go with aggressive tx #DVT: LMWH #Code: See above, patient is adamant for full code and no further discussion
[2019-06-13] MEDS: Lactulose* 15 ML UDC PO SCH (08:11)
[2019-06-13] MEDS: Fludrocortisone Acetate TAB* 0.1 MG PO SCH (09:11)
[2019-06-13] MEDS: Sevelamer TAB* 800 MG PO SCH (09:11)
[2019-06-13] MEDS: Zinc Sulfate CAP* 220 MG PO SCH (09:12)
[2019-06-13] MEDS: Calcium Acetate CAP* 667 MG PO SCH (09:12)
[2019-06-13] MEDS: Pantoprazole TAB * 40 MG TAB PO SCH (09:12)
[2019-06-13] MEDS: Sertraline* 25 MG TAB PO SCH (09:12)
[2019-06-13] MEDS: Cephalexin CAP* 250 MG PO SCH (09:13)
[2019-06-13] MEDS: HYDROmorphone TAB* 2 MG PO PRN (09:13)
[2019-06-13] MEDS: LOTEPREDNOL 0.5% BOTH EYES SCH (09:14)
[2019-06-13] MEDS: Sodium Chloride 5% OPTH.SOL* 15 ML BTL BOTH EYES SCH (09:14)
[2019-06-13] MEDS: Heparin VIAL(*) 5000 UNITS/ML VIAL (FIVE THOUSAND) SUBCUT SCH (09:14)
[2019-06-13] MEDS ORDERED: Lidocaine PATCH 5%* 1 PATCH TRANSDERM SCH (11:00)
[2019-06-13 11:28] VITALS: BP 85/53
[2019-06-13] MEDS: Collagenase 250 UNITS/GM OINT* 1 APPLIC OINT TOPICAL SCH (11:46)
[2019-06-13] MEDS ORDERED: Lidocaine Patch REMOVE* 1 NOTE MISC SCH (21:00)
[2019-06-16 16:05] LABS: 1 Methylhistidine 54 nmol/mL (<28); A-Aminoadipic Acid 0 nmol/mL (<3); B-Aminoisobutyric Acid 18 nmol/mL (<5); Gamma-amino-n-butyric 1 nmol/mL (<2)
== END 2019-06-13 12:00 | DRG 602 ==
LOC: ED 08:16 → MEDTELE 13:15 → OBSVTOIN 06-07 16:19
PROVIDERS: ADMIT Internal Medicine; ATTEND Internal Medicine
PROC: 02HV33Z Insertion of Infusion Device into Superior Vena Cava, Percutaneous Approach (ICD-10-PCS; principal; 2019-06-07)
PROC: 5A1D70Z Performance of Urinary Filtration, Intermittent, Less than 6 Hours Per Day (ICD-10-PCS; 2019-06-08)
DX: L08.9 Local infection of the skin and subcutaneous tissue, unspecified (principal); N18.6 End stage renal disease; L97.929 Non-pressure chronic ulcer of unspecified part of left lower leg with unspecified severity; L97.919 Non-pressure chronic ulcer of unspecified part of right lower leg with unspecified severity; I50.32 Chronic diastolic (congestive) heart failure; E87.2 Acidosis; R78.81 Bacteremia; I95.9 Hypotension, unspecified; F32.9 Major depressive disorder, single episode, unspecified; I48.91 Unspecified atrial fibrillation; H40.9 Unspecified glaucoma; R40.2362 Coma scale, best motor response, obeys commands, at arrival to emergency department; R40.2142 Coma scale, eyes open, spontaneous, at arrival to emergency department; R40.2252 Coma scale, best verbal response, oriented, at arrival to emergency department; G62.9 Polyneuropathy, unspecified; M19.90 Unspecified osteoarthritis, unspecified site; I87.8 Other specified disorders of veins; E78.5 Hyperlipidemia, unspecified; K74.69 Other cirrhosis of liver; K75.81 Nonalcoholic steatohepatitis (NASH); K72.90 Hepatic failure, unspecified without coma; D89.9 Disorder involving the immune mechanism, unspecified; I48.0 Paroxysmal atrial fibrillation; B96.20 Unspecified Escherichia coli [E. coli] as the cause of diseases classified elsewhere; B96.89 Other specified bacterial agents as the cause of diseases classified elsewhere; L89.152 Pressure ulcer of sacral region, stage 2; Z87.891 Personal history of nicotine dependence; Z99.2 Dependence on renal dialysis; Z95.0 Presence of cardiac pacemaker; Z82.49 Family history of ischemic heart disease and other diseases of the circulatory system
CPT/HCPCS: 36415; 70450; 71045; 74176; 75635; 80048; 80053; 82139; 82533; 83605; 83735; 83880; 84100; 84484; 85025; 85060; 85610; 85730; 86706; 87040; 87070; 87077; 87150; 87186; 87205; 87340; 87641; 90935; 93005; 93306; 93922; 99285; A9270-GY; G0257; G0378; G8978-GP-CK; G8979-GP-CI; J0696; J1644; J2405; J2543; J3370; Q5106; Q9967